=== PATIENT | male | born 1940 | race Caucasian/White ===

== ENCOUNTER 2016-05-09 15:03 | Inpatient (IN) | payer OTHER, MEDICARE ==
[~2016-05-09] VITALS: Ht 177.8 cm; Wt 96.9 kg
[2016-05-09] VITALS (12 sets, daily range): BP systolic 125–155; BP diastolic 69–97; PULSE 82–160; RESP 16–22; TEMP 97.9; O2SAT 86–98
[~2016-05-09 15:03] MED LIST: ALLO100T PO; ATOR20TA15 PO; BLOOD GLUCOSE M1 KIT; CALCCHW25 CHEW; CARD120C4 PO; CARD4TAB2 PO; CHOLCRY PO; FURO20TA PO; MAGN400T PO; METO-309 PO; OMEG100010 PO; PANT40TA3 PO; PRED20 PO; SODI1TAB PO; WALKER WHEELS/F1 MIS
--- NOTE | 2016-05-09 15:22 | PD ---
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 Patient states that he had been seen by his coat agent, Dr. Murphy, last week and had his Cardizem dose readjusted. He denies any chest pains, shortness of breath, or any other symptoms. Modifying Factors: None Associated Signs & Symptoms: Elevated heart rate Risk Factors: A. fib PFSH Past Medical History Hx Anticoagulant Therapy: Yes (ELIQUIS) Arthritis: Yes (BILATERAL KNEES, LEFT INDEX FINGER) Autoimmune Disease: No Blood Disorders: No Anxiety: No Depression: Yes ("SINCE EPISODE IN AUGUST") Heart Rhythm Problems: Yes (NEW ONSET ATRIAL FIBRILLATION THIS ADMISSION) Cancer: No Cardiovascular Problems: Yes High Cholesterol: Yes Chemotherapy: No Chest Pain: No Congestive Heart Failure: No Cerebrovascular Accident: Yes Diabetes: No Diminished Hearing: No Deep Vein Thrombosis: Yes (LEFT LEG) Endocrine: No Gastrointestinal Disorders: Yes GERD: Yes Gout: Yes Genitourinary: Yes Hypertension: Yes Immune Disorder: No Implanted Vascular Access Dvce: Yes Musculoskeletal: Yes Neurologic: Yes (TIA 09/2015) Psychiatric: Yes Reproductive: No Respiratory: No Migraines: No Seizures: Yes Thyroid Disease: Yes (FOUND GROWTH ON THYROID- APT FOR F/U 04/2016) Ulcer: Yes (GI BLEED 08/2015) PNEUMOCCOCAL Vaccine (Year): 1 ?: Not Past Surgical History Abdominal Surgery: Yes (APPENDECTOMY AT 1 OR 2 Y/O, IVC filter TO LEFT QUADRANT 08/2015) Appendectomy: Yes Arteriovenous Shunt: Yes (IVC FILTER LEFT QUADRANT) Body Medical Devices: R HIP TOTAL REPLACEMENT, PERMANENT IVC FILTER PLACED 2015 Cardiac Surgery: Yes (RIGHT CAROTID ENDARECTOMY 09/2015) Ear Surgery: No Endocrine Surgery: No Eye Surgery: Yes (CARARACT SX BOTH EYES) Genitourinary Surgery: Yes (PROSTATE CLEANING ) Gynecologic Surgery: No Hysterectomy: No Joint Replacement: Yes (RIGHT HIP) Neurologic Surgery: No Oral Surgery: Yes (TONSILLECTOMY & ANOID SURGERY AT 1 OR 2 Y/O) Thoracic Surgery: No Other Surgery: Yes Social History Alcohol Use: No Tobacco Use: No (FORMER-QUIT 1960) Substance Use: No Allergies-Medications (Allergen,Severity, Reaction): Coded Allergies: Prednisone (Verified Allergy, Mild, Itching, 03/29/16) PATIENT STATES BROKE OUT INTO HIVES ON ARM (USE HYDROCORTISONE CREAM FOR IT) ONE TIME A VERY LONG TIME AGO AND HAS BEEN ON IT SINCE WITHOUT ANY EVIDENCE OF REACTION. Reported Meds & Prescriptions Reported Meds & Active Scripts Active Walker with Front Wheels (Device) 1 Mis Mis 1 Ea .ROUTE DIRECTED Sodium Chloride 1 Gm Tab 1 Gm PO DAILY Furosemide 20 Mg Tab 20 Mg PO DAILY Lopressor (Metoprolol Tartrate) 50 Mg Tab 50 Mg PO Q8HR Cardura (Doxazosin Mesylate) 4 Mg Tab 4 Mg PO HS Cardizem CD 24 HR (Diltiazem CD 24 HR) 120 Mg Caper 360 Mg PO DAILY Blood Glucose Monitoring W/Device (Device) 1 Kit Kit 1 Kit .ROUTE DIRECTED Pantoprazole (Pantoprazole Sodium) 40 Mg Tab 40 Mg PO HS 7 Days Prednisone 20 Mg Tab 80 Mg PO DAILY 5 Days Reported Boston 3 1000 mg (Boston-3 Fatty Acids) 1 Cap Cap 3,000 Mg PO DAILY Magnesium Oxide 400 Mg Tab 400 Mg PO DAILY Cholecalciferol (Cholecalciferol (Bulk)) 1 Cry Cry 1,000 Units PO DAILY Calcium + D & K (Calcium-Vitamins D & K) 500-1,000-40 Mg-Unit-Mcg Chew 1 Tab CHEW DAILY Atorvastatin (Atorvastatin Calcium) 20 Mg Tab 20 Mg PO HS Allopurinol 100 Mg Tab 100 Mg PO DAILY Review of Systems Except as stated in HPI: all other systems reviewed are Neg Physical Exam Narrative GENERAL: Well-nourished, well-developed elderly white male patient in no acute distress. SKIN: Warm and dry. HEAD: Normocephalic. EYES: No scleral icterus. No injection or drainage. NECK: Supple, trachea midline. CARDIOVASCULAR: Fast and irregularly irregular. RESPIRATORY: Breath sounds equal bilaterally. No accessory muscle use. GASTROINTESTINAL: Abdomen soft, non-tender, nondistended. MUSCULOSKELETAL: No cyanosis. Bilateral pitting edema the legs. BACK: Nontender without obvious deformity. No CVA tenderness. Data Data Last Documented VS Vital Signs Date Time Temp Pulse Resp B/P Pulse Ox O2 Delivery O2 Flow Rate FiO2 05/09/16 16:02 138 20 132/96 92 Nasal Cannula 2 05/09/16 15:05 97.9 Orders Ecg Monitoring (05/09/16 15:16) Blood Pressure (05/09/16 15:16) Iv Access Insert/Monitor (05/09/16 15:16) Oximetry (05/09/16 15:16) Vital Signs (05/09/16 15:16) Diltiazem Inj (Cardizem Inj) (05/09/16 15:30) Diltiazem Inj (Cardizem Inj) (05/09/16 15:30) Sodium Chloride 0.9% Flush (Ns Flush) (05/09/16 15:30) Electrocardiogram (05/09/16 15:16) Basic Metabolic Panel (Bmp) (05/09/16 15:16) B-Type Natriuretic Peptide (05/09/16 15:16) Ckmb (Isoenzyme) Profile (05/09/16 15:16) Complete Blood Count With Diff (05/09/16 15:16) Magnesium (Mg) (05/09/16 15:16) Prothrombin Time / Inr (Pt) (05/09/16 15:16) Act Partial Throm Time (Ptt) (05/09/16 15:16) Troponin I (05/09/16 15:16) Chest, Single Ap (05/09/16 15:16) Bilateral Bp Monitoring (05/09/16 15:16) Oxygen Administration (05/09/16 15:16) Sodium Chloride 0.9% Flush (Ns Flush) (05/09/16 15:30) Furosemide Inj (Lasix Inj) (05/09/16 16:45) CKMB (05/09/16 15:30) CKMB% (05/09/16 15:30) Admit Order (Ed Use Only) (05/09/16 17:05) Consult Cardiology (05/09/16 ) Labs Laboratory Tests Test 05/09/16 15:30 White Blood Count 10.6 TH/MM3 Red Blood Count 3.66 MIL/MM3 Hemoglobin 10.8 GM/DL Hematocrit 31.6 % Mean Corpuscular Volume 86.4 FL Mean Corpuscular Hemoglobin 29.4 PG Mean Corpuscular Hemoglobin 34.1 % Concent Red Cell Distribution Width 14.6 % Platelet Count 38 TH/MM3 Mean Platelet Volume 8.4 FL Neutrophils (%) (Auto) 96.0 % Lymphocytes (%) (Auto) 2.4 % Monocytes (%) (Auto) 1.4 % Eosinophils (%) (Auto) 0.1 % Basophils (%) (Auto) 0.1 % Neutrophils # (Auto) 10.2 TH/MM3 Lymphocytes # (Auto) 0.3 TH/MM3 Monocytes # (Auto) 0.1 TH/MM3 Eosinophils # (Auto) 0.0 TH/MM3 Basophils # (Auto) 0.0 TH/MM3 CBC Comment AUTO DIFF Prothrombin Time 12.5 SEC Prothromb Time International 1.1 RATIO Ratio Activated Partial 25.0 SEC Thromboplast Time Sodium Level 135 MEQ/L Potassium Level 3.8 MEQ/L Chloride Level 98 MEQ/L Carbon Dioxide Level 29.6 MEQ/L Anion Gap 7 MEQ/L Blood Urea Nitrogen 24 MG/DL Creatinine 1.31 MG/DL Estimat Glomerular Filtration 53 ML/MIN Rate Random Glucose 208 MG/DL Calcium Level 8.1 MG/DL Magnesium Level 1.9 MG/DL Total Creatine Kinase 123 U/L Creatine Kinase MB 1.0 NG/ML Troponin I 0.06 NG/ML B-Type Natriuretic Peptide 412 PG/ML MDM Medical Decision Making Medical Screen Exam Complete: Yes Emergency Medical Condition: Yes Medical Record Reviewed: Yes Interpretation(s) EKG shows A. fib with RVR at a rate of 160 bpm Laboratory Tests Test 05/09/16 15:30 Red Blood Count 3.66 MIL/MM3 (4.50-5.90) Hemoglobin 10.8 GM/DL (13.0-17.0) Hematocrit 31.6 % (39.0-51.0) Platelet Count 38 TH/MM3 (150-450) Neutrophils (%) (Auto) 96.0 % (16.0-70.0) Lymphocytes (%) (Auto) 2.4 % (9.0-44.0) Neutrophils # (Auto) 10.2 TH/MM3 (1.8-7.7) Lymphocytes # (Auto) 0.3 TH/MM3 (1.0-4.8) Prothrombin Time 12.5 SEC (9.8-11.6) Sodium Level 135 MEQ/L (136-145) Blood Urea Nitrogen 24 MG/DL (7-18) Creatinine 1.31 MG/DL (0.60-1.30) Estimat Glomerular Filtration 53 ML/MIN (>89) Rate Random Glucose 208 MG/DL (74-106) Calcium Level 8.1 MG/DL (8.5-10.1) Troponin I 0.06 NG/ML (0.02-0.05) B-Type Natriuretic Peptide 412 PG/ML (0-100) Last 24 hours Impressions Chest X-Ray 05/09/16 1516 Signed Impressions: Service Date/Time: Monday, May 09, 2016 15:36 - CONCLUSION: Diffuse pulmonary vascular changes suggesting pulmonary vascular congestion without consolidating infiltrate. Anthony Murphy MD Differential Diagnosis Fast heart rate/A. fib with RVRrule out metabolic issues versus dehydration versus CHF Narrative Course Patient was initiated on Cardizem drip with improvement in heart rate on reevaluation at 4:30 PM to 120 bpm. Otherwise, BNP and chest x-ray indicates underlying CHF and Lasix was given in the ER. Lab work was otherwise unremarkable for significant metabolic issues. At this point, case was discussed with Dr. Murphy, patient's coat agent, and he states he would like the patient to be medically admitted. Case is discussed with [place] hospitalist Dr. Freeman for admission. Diagnosis Primary Impression: CHF (congestive heart failure) Additional Impression: Atrial fibrillation with RVR Admitting Information Admitting Physician Requests: Admit Marjorie Nagel MD May 09, 2016 15:22
[2016-05-09] MEDS ORDERED: SODIUM CHLORIDE 0.9% FLUSH 5 ML FLUSH IVF PRN ×2 (15:30)
[2016-05-09] MEDS ORDERED: DILTIAZEM HCL 25 MG/5 ML VIAL IV PUSH ONE (15:30)
[2016-05-09] MEDS: DILTIAZEM INJ 125 MG in SODIUM CHLORIDE 0.9% INJ 100 ML IV SCH (15:50)
--- NOTE | 2016-05-09 15:51 | RADRPT ---
EXAM DATE/TIME: 05/09/2016 15:36 [facility] COMPARISON: CHEST SINGLE AP, March 23, 2016, 7:51. INDICATIONS : Palpitations MEDICAL HISTORY : Hypertension. A-Fib SURGICAL HISTORY : None. ENCOUNTER: Initial ACUITY: 1 day PAIN SCORE: 0/10 LOCATION: chest FINDINGS: Patient has developed patchy bibasilar airspace disease and prominence of vascularity suspect to repr esenting pulmonary vascular congestion without consolidation. CONCLUSION: Diffuse pulmonary vascular changes suggesting pulmonary vascular congestion without consolidating inf iltrate. Anthony Murphy MD on May 09, 2016 at 15:49 Board Certified Radiologist. This report was verified electronically.
[2016-05-09 15:56] LABS: AUTOMATED NEUTROPHIL # 10.2 TH/MM3 (1.8-7.7); BASOPHIL % 0.1 % (0.0-2.0); EOSINOPHIL % 0.1 % (0.0-4.0); HEMATOCRIT 31.6 % (39.0-51.0); LYMPH % 2.4 % (9.0-44.0); LYMPHOCYTE # 0.3 TH/MM3 (1.0-4.8); MEAN CELL VOLUME 86.4 FL (80.0-100.0); MEAN CORPUSCULAR HEMOGLOBIN 29.4 PG (27.0-34.0); MEAN CORPUSCULAR HGB CONC 34.1 % (32.0-36.0); MONO % 1.4 % (0.0-8.0); PLATELET COUNT 38 TH/MM3 (150-450); RED BLOOD COUNT 3.66 MIL/MM3 (4.50-5.90); RED CELL DISTRIBUTION WIDTH 14.6 % (11.6-17.2); WHITE BLOOD COUNT 10.6 TH/MM3 (4.0-11.0)
[2016-05-09 15:58] LABS: HEMO FLAGS AUTO DIFF
[2016-05-09 15:59] LABS: INTERNATIONAL NORMALIZED RATIO 1.1 RATIO; PROTHROMBIN TIME - PATIENT 12.5 SEC (9.8-11.6)
[2016-05-09 16:32] LABS: ANION GAP 7 MEQ/L (5-15); BICARBONATE 29.6 MEQ/L (21.0-32.0); BLOOD UREA NITROGEN 24 MG/DL (7-18); CHLORIDE 98 MEQ/L (98-107); GLOMERULAR FILTRATION RATE 53 ML/MIN (>89); MAGNESIUM 1.9 MG/DL (1.5-2.5); POTASSIUM 3.8 MEQ/L (3.5-5.1); SODIUM (NA) 135 MEQ/L (136-145)
[2016-05-09 16:36] LABS: CREATINE KINASE 123 U/L (39-308)
[2016-05-09] MEDS ORDERED: FUROSEMIDE 40 MG/4 ML VIAL IV PUSH ONE (16:45)
[2016-05-09 17:08] LABS: BANDS 5 % (0-6); CORRECTED NUCLEATED RBC 1 /100 WBC (0-0); METAMYELOCYTES 2 % (0-1); MYELOCYTES 1 % (0-0); POLYS (SEG NEUTROPHILS) 86 % (16-70); WBC DIFF SAMPLE 100
[2016-05-09 17:09] LABS: TEARDROP RBCS 1+ (NORMAL)
[2016-05-09 17:10] LABS: ACANTHOCYTES OCC (NORMAL); PLATELET ESTIMATE SMEAR LOW (NORMAL); PLATELET MORPHOLOGY NORMAL (NORMAL); SCAN/DIFF FINAL DIFF MANUAL
--- NOTE | 2016-05-09 17:33 | HHI.HP ---
HPI Service [facility] Primary Care Physician Anthony Wick MD Admission Diagnosis A. fib with RVR/CHF exacerbation Diagnoses: Chief Complaint: A. fib RVR Travel History International Travel<30 Days: No Contact w/Intl Traveler <30 Da: No Traveled to Known Affected Are: No History of Present Illness This is a pleasant 75-year-old male patient with past medical history which includes Bilateral lower extremity DVTs, BPH, chronic renal failure, Elevated Anticardiolipin antibody level, Elevated homocysteine level, Gout, Hypertension , Hyponatremia, Immune Thrombocytopenic Purpura, Intracranial hemorrhage in 2016 , Bleeding duodenal ulcer and Ischemic stroke in 2016. Patient was sent to the emergency department today from his oncologist office after finding a rapid irregular heart rate. Patient had received 2 units of platelets prior to being sent to the emergency department. Patient reports he has A. Fibulation and has never really felt symptoms in the past. Patient denies chest pain or palpitations feeling lightheaded or dizzy. Patient does report this he noticed this morning when he was getting ready, " everything was a short." Patient reports he had to sit down and take breaks while getting ready which is unknown abnormal for him noticed he got short of breath more easily with exertion and overall tired feeling. Plan arrival to the emergency department patient noted to be in atrial fibrillation RVR. EKG reviewed by myself as well as Dr. Bingham atrial fibrillation rate 160 bpm Patient reports he feels as though he has phlegm stuck in his throat which is unable to cough up his benefit as day or so. Patient denies nausea vomiting diarrhea constipation fevers chills. Review of Systems Other All other systems reviewed and negative excepted as mentioned on HPI Past Family Social History Past Medical History Bilateral lower extremity DVTs BPH chronic renal failure Elevated Anticardiolipin antibody level Elevated homocysteine level Gout Hypertension Hyponatremia Immune Thrombocytopenic Purpura Intracranial hemorrhage in 2016 Bleeding duodenal ulcer Ischemic stroke in 2016 Past Surgical History Prostate biopsy Right hip placement Tonsillectomy Upper endoscopy Right carotid endarterectomy, patch angioplasty in 2016 Colonoscopy in 2016 IVC filter placement (2nd) in 2015 IVC filter removal in 2008 IVC filter placement in 2007 Vasectomy in 2008 Cataract removal in 2005 - 2003 Appendectomy in 1943 Reported Medications Sodium Chloride 1 Gm Tab 1 Gm PO DAILY Furosemide 20 Mg Tab 20 Mg PO DAILY Lopressor (Metoprolol Tartrate) 50 Mg Tab 50 Mg PO Q8HR Cardura (Doxazosin Mesylate) 4 Mg Tab 4 Mg PO HS Cardizem CD 24 HR (Diltiazem CD 24 HR) 120 Mg Caper 360 Mg PO DAILY Blood Glucose Monitoring W/Device (Device) 1 Kit Kit 1 Kit .ROUTE DIRECTED Pantoprazole (Pantoprazole Sodium) 40 Mg Tab 40 Mg PO HS 7 Days Prednisone 20 Mg Tab 80 Mg PO DAILY 5 Days Arion 3 1000 mg (Arion-3 Fatty Acids) 1 Cap Cap 3,000 Mg PO DAILY Magnesium Oxide 400 Mg Tab 400 Mg PO DAILY Cholecalciferol (Cholecalciferol (Bulk)) 1 Cry Cry 1,000 Units PO DAILY Calcium + D & K (Calcium-Vitamins D & K) 500-1,000-40 Mg-Unit-Mcg Chew 1 Tab CHEW DAILY Atorvastatin (Atorvastatin Calcium) 20 Mg Tab 20 Mg PO HS Allopurinol 100 Mg Tab 100 Mg PO DAILY Allergies: Coded Allergies: Prednisone (Verified Allergy, Mild, Itching, 03/29/16) PATIENT STATES BROKE OUT INTO HIVES ON ARM (USE HYDROCORTISONE CREAM FOR IT) ONE TIME A VERY LONG TIME AGO AND HAS BEEN ON IT SINCE WITHOUT ANY EVIDENCE OF REACTION. Active Ordered Medications Current Medications Medications (Trade) Dose Ordered Sig/Jeremy Route Start Time Stop Time Status Last Admin (Cardizem Inj/NS Inj) 125 ml @ 0 mls/hr TITRATE IV 05/09/16 15:30 05/09/16 15:50 (NS Flush) 2 ml UNSCH PRN IVF 05/09/16 15:30 (NS Flush) 2 ml UNSCH PRN IVF 05/09/16 15:30 (Deltasone) 30 mg DAILY PO 05/10/16 09:00 Family History Father secondary to [place] at 30 Social History EtOH rare 3-4 beers a month but has not had anything a past 2 months Remote tobacco use history quit in 1960 Denies illicit drug use Physical Exam Vital Signs Vital Signs Date Time Temp Pulse Resp B/P Pulse Ox O2 Delivery O2 Flow Rate FiO2 05/09/16 17:07 135 20 125/91 95 Nasal Cannula 2 05/09/16 16:02 138 20 132/96 92 Nasal Cannula 2 05/09/16 15:24 92 Nasal Cannula 2 05/09/16 15:24 92 Nasal Cannula 2 05/09/16 15:17 144 23 Nasal Cannula 2 05/09/16 15:13 150 20 125/69 88 05/09/16 15:05 97.9 160 20 151/96 86 Physical Exam GENERAL: This is an obese, well-developed patient, in no apparent distress. SKIN: No rashes, ecchymoses or lesions. Cool and dry. HEAD: Atraumatic. Normocephalic. No temporal or scalp tenderness. EYES: Extraocular motions intact. No scleral icterus. No injection or drainage. Growth on left lateral conjunctiva ENT: Nose without bleeding, purulent drainage or septal hematoma. Throat without erythema, tonsillar hypertrophy or exudate. Uvula midline. Airway patent. NECK: Trachea midline. No JVD or lymphadenopathy. Supple, nontender, no meningeal signs. CARDIOVASCULAR: Tachycardic irregularly irregular RESPIRATORY: Clear to auscultation. Breath sounds equal bilaterally. No wheezes , rales, or rhonchi. GASTROINTESTINAL: Abdomen soft, non-tender, nondistended. No hepato-splenomegaly , or palpable masses. No guarding. MUSCULOSKELETAL: Bilateral lower extremity left greater than right 2-3+ No calf tenderness. Negative Homans sign bilaterally. NEUROLOGICAL: Awake and alert. No focal deficits appreciated. Motor and sensory grossly within normal limits. Five out of 5 muscle strength in all muscle groups. Normal speech. Laboratory Laboratory Tests Test 05/09/16 15:30 White Blood Count 10.6 Red Blood Count 3.66 Hemoglobin 10.8 Hematocrit 31.6 Mean Corpuscular Volume 86.4 Mean Corpuscular Hemoglobin 29.4 Mean Corpuscular Hemoglobin 34.1 Concent Red Cell Distribution Width 14.6 Platelet Count 38 Mean Platelet Volume 8.4 Neutrophils (%) (Auto) 96.0 Lymphocytes (%) (Auto) 2.4 Monocytes (%) (Auto) 1.4 Eosinophils (%) (Auto) 0.1 Basophils (%) (Auto) 0.1 Neutrophils # (Auto) 10.2 Lymphocytes # (Auto) 0.3 Monocytes # (Auto) 0.1 Eosinophils # (Auto) 0.0 Basophils # (Auto) 0.0 CBC Comment AUTO DIFF Differential Total Cells 100 Counted Neutrophils % (Manual) 86 Band Neutrophils % 5 Lymphocytes % 4 Monocytes % 2 Neutrophils # (Manual) 10.0 Metamyelocytes 2 Myelocytes 1 Nucleated Red Blood Cells 1 Differential Comment FINAL DIFF MANUAL Platelet Estimate LOW Platelet Morphology Comment NORMAL Tear Drop Cells 1+ Acanthocytes OCC Prothrombin Time 12.5 Prothromb Time International 1.1 Ratio Activated Partial 25.0 Thromboplast Time Sodium Level 135 Potassium Level 3.8 Chloride Level 98 Carbon Dioxide Level 29.6 Anion Gap 7 Blood Urea Nitrogen 24 Creatinine 1.31 Estimat Glomerular Filtration 53 Rate Random Glucose 208 Calcium Level 8.1 Magnesium Level 1.9 Total Creatine Kinase 123 Creatine Kinase MB 1.0 Troponin I 0.06 B-Type Natriuretic Peptide 412 Result Diagram: 05/09/16 1530 05/09/16 1530 Imaging Last Impressions Chest X-Ray 05/09/16 1516 Signed Impressions: Service Date/Time: Monday, May 09, 2016 15:36 - CONCLUSION: Diffuse pulmonary vascular changes suggesting pulmonary vascular congestion without consolidating infiltrate. Anthony Murphy MD Assessment and Plan Assessment and Plan This is a pleasant 75-year-old male patient with past medical history which includes Bilateral lower extremity DVTs, BPH, chronic renal failure, Elevated Anticardiolipin antibody level, Elevated homocysteine level, Gout, Hypertension , Hyponatremia, Immune Thrombocytopenic Purpura, Intracranial hemorrhage in 2016 , Bleeding duodenal ulcer and Ischemic stroke in 2016. Patient was sent to the emergency department today from his oncologist office after finding a rapid irregular heart rate. EKG in the emergency room revealed atrial fibrillation with RVR rate 160 bpm. Atril fibrillation RVR Patient with known history of atrial fibrillation last echocardiogram done March 2016 showed EF of 55-60% Cardizem drip started in the emergency department with bolus- Continue Cardizem drip Continue Cardizem by mouth Continue with telemetry monitoring No anticoagulation at this point as patient is followed by Dr. Armenta Consult Dr. Armenta for assistance with anticoagulation and management of elevated anticardiolipin antibody and ITP Consult Dr. Dany Murphy patient is known to him We'll check serial cardiac enzymes Titrate oxygen to maintain saturation above 92% ITP- with platelets of 38, elevated anticardiolipin antibody, history of ischemic stroke and intracranial hemorrhage Anticoagulation management per Dr. Armenta Hypertension continue metoprolol Hyperlipidemia continue atorvastatin BPH with history of urinary retention continue Curdura SCDs for DVT prophylaxis at this time Discussed with ER provider, RN patient and family member at bedside Written by Lidya Mcmahan, acting as scribe for Dr. Freeman on 05/09/16 at 17:59. The documentation accurately reflects the work performed [id number] by me on at 1759. Physician Certification 2 Midnight Certification Type: Admission for Inpatient Services Order for Inpatient Services The services are ordered in accordance with Medicare regulations or non- Medicare payer requirements, as applicable. In the case of services not specified as inpatient-only, they are appropriately provided as inpatient services in accordance with the 2-midnight benchmark. Estimated LOS (days): 3 days is the estimated time the patient will need to remain in the hospital, assuming treatment plan goals are met and no additional complications. Post-Hospital Plan: Home Lidya Mcmahan May 09, 2016 17:33 Gerald Freeman MD May 09, 2016 18:46
[2016-05-09] MEDS ORDERED: NALOXONE HCL 0.4 MG/ML AMP IV PRN (18:00)
[2016-05-09] MEDS ORDERED: ONDANSETRON HCL 4 MG/2 ML VIAL IVP PRN (18:00)
[2016-05-09] MEDS ORDERED: SODIUM CHLORIDE 0.9% FLUSH 5 ML FLUSH FLUSH PRN (18:00)
[2016-05-09] MEDS ORDERED: MAGNESIUM HYDROXIDE SUSP 30 ML CUP PO PRN (18:00)
[2016-05-09] MEDS ORDERED: ATORVASTATIN 20 MG TAB PO SCH (21:00)
[2016-05-09] MEDS: SODIUM CHLORIDE 0.9% FLUSH 5 ML FLUSH FLUSH SCH (21:00)
[2016-05-09] MEDS: PANTOPRAZOLE SOD 40 MG DELAYED RELEASE TAB PO SCH (21:24)
[2016-05-09] MEDS: DOXAZOSIN MESYLATE 4 MG TAB PO SCH (21:24)
[2016-05-09] MEDS: DILTIAZEM HCL 30 MG TAB PO SCH (21:27)
[2016-05-09] MEDS: METOPROLOL TARTRATE 50 MG TAB PO SCH (21:52)
[2016-05-10] VITALS (23 sets, daily range): BP systolic 105–150; BP diastolic 68–94; PULSE 59–136; RESP 16–18; TEMP 96.5–98.9; O2SAT 83–99
[2016-05-10] MEDS: DILTIAZEM INJ 125 MG in SODIUM CHLORIDE 0.9% INJ 100 ML IV SCH (01:06)
[2016-05-10 04:00] LABS: AUTOMATED NEUTROPHIL # 6.8 TH/MM3 (1.8-7.7); BASOPHIL % 0.1 % (0.0-2.0); EOSINOPHIL % 0.1 % (0.0-4.0); HEMATOCRIT 28.9 % (39.0-51.0); LYMPH % 6.6 % (9.0-44.0); LYMPHOCYTE # 0.5 TH/MM3 (1.0-4.8); MEAN CELL VOLUME 85.7 FL (80.0-100.0); MEAN CORPUSCULAR HEMOGLOBIN 29.6 PG (27.0-34.0); MEAN CORPUSCULAR HGB CONC 34.5 % (32.0-36.0); MONO % 2.5 % (0.0-8.0); NEUT % 90.7 % (16.0-70.0); RED BLOOD COUNT 3.37 MIL/MM3 (4.50-5.90); RED CELL DISTRIBUTION WIDTH 14.6 % (11.6-17.2); WHITE BLOOD COUNT 7.4 TH/MM3 (4.0-11.0)
[2016-05-10 04:18] LABS: BICARBONATE 30.8 MEQ/L (21.0-32.0); POTASSIUM 3.4 MEQ/L (3.5-5.1)
[2016-05-10 04:25] LABS: HEMO FLAGS AUTO DIFF
[2016-05-10 04:33] LABS: PLATELET COUNT 6 TH/MM3 (150-450)
[2016-05-10] MEDS ORDERED: POTASSIUM CL 40 MEQ/30 ML LIQ UDC PO ONE ×2 (05:00→21:00)
[2016-05-10] MEDS ORDERED: SODIUM CHLOR 0.9% 250 ML INJ 250 ML IV ONE ×3 (05:00→22:45)
[2016-05-10] MEDS: METOPROLOL TARTRATE 50 MG TAB PO SCH ×3 (06:27→22:00)
[2016-05-10] MEDS ORDERED: IMMUNE GLOBULIN INJ 80 GM in SYRINGE/BAG 1 EA IV SCH (08:00)
[2016-05-10 08:02] LABS: BANDS 4 % (0-6); NEUTROPHIL # MANUAL DIFF 6.3 TH/MM3 (1.8-7.7); POLYS (SEG NEUTROPHILS) 81 % (16-70); WBC DIFF SAMPLE 100
[2016-05-10 08:06] LABS: PLATELET ESTIMATE SMEAR RARE (NORMAL); PLATELET MORPHOLOGY NORMAL (NORMAL); POLYCHROMASIA 2.1 % (0.0-1.9); SCAN/DIFF FINAL DIFF MANUAL
--- NOTE | 2016-05-10 08:08 | HHI.PR ---
Subjective Remarks Follow up a-fib with RVR, ITP. The patient states that he feels good today. Denies chest pain, dyspnea, visual changes. Objective Vitals Vital Signs Date Time Temp Pulse Resp B/P Pulse Ox O2 Delivery O2 Flow Rate FiO2 05/10/16 07:17 91 05/10/16 07:15 97.9 110 16 125/86 05/10/16 06:46 110 140/87 05/10/16 04:24 98.9 67 16 112/78 98 05/10/16 02:05 98.1 73 16 109/76 99 05/10/16 02:00 72 05/10/16 01:00 77 05/10/16 00:00 77 05/09/16 23:00 114 05/09/16 22:15 97.9 82 16 155/95 98 05/09/16 21:43 103 20 147/87 93 Nasal Cannula 2 05/09/16 19:20 93 Nasal Cannula 2.00 05/09/16 19:17 126 22 139/97 92 Nasal Cannula 2 05/09/16 19:10 131 22 139/97 92 Nasal Cannula 2 05/09/16 17:49 138 20 140/92 93 Nasal Cannula 2 05/09/16 17:07 135 20 125/91 95 Nasal Cannula 2 05/09/16 16:02 138 20 132/96 92 Nasal Cannula 2 05/09/16 15:24 92 Nasal Cannula 2 05/09/16 15:24 92 Nasal Cannula 2 05/09/16 15:17 144 23 Nasal Cannula 2 05/09/16 15:13 150 20 125/69 88 05/09/16 15:05 97.9 160 20 151/96 86 I/O 05/09/16 05/09/16 05/09/16 05/10/16 05/10/16 05/10/16 07:00 15:00 23:00 07:00 15:00 23:00 Intake Total 360 ml Output Total 475 ml Balance -115 ml Intake Oral 240 ml IV Total 120 ml Output Urine Total 475 ml Result Diagram: 05/10/1630405/10/16304 Imaging Last Impressions Chest X-Ray 05/09/16 1516 Signed Impressions: Service Date/Time: Monday, May 09, 2016 15:36 - CONCLUSION: Diffuse pulmonary vascular changes suggesting pulmonary vascular congestion without consolidating infiltrate. Anthony Murphy MD Objective Remarks General: No acute distress. Heart: Irregular rhythm. No murmur. Lungs: Clear to auscultation bilaterally. No wheezes, rales, or rhonchi. Breathing is nonlabored. Abdomen: Soft, nontender, nondistended. Extremities: No lower extremity edema. Psych: Alert and oriented. Procedures None Urinary Catheter: No Vascular Central Line Catheter: No A/P Problem List: (1) Atrial fibrillation with RVR ICD Code: I48.91 Status: Acute (2) Acute on chronic kidney disease, stage 3 ICD Code: N18.3 Status: Acute (3) Thrombocytopenia ICD Code: D69.6 Status: Chronic (4) Chronic ITP (idiopathic thrombocytopenia) ICD Code: D69.3 Status: Chronic Assessment and Plan 1. Atrial fibrillation with RVR: On Cardizem drip. Continue oral Cardizem and wean off drip if possible. Monitor on telemetry. Cardiology consultation pending. Serial troponin is stable at 0.06. Not on anticoagulation secondary to thrombocytopenia. 2. ITP: Platelets decreased significantly this morning. Hematology consulted. Platelet transfusion ordered. Immune globulin ordered. Discussed with Dr. Armenta. 3. Hypertension: Continue metoprolol, diltiazem. 4. Hyperlipidemia: Continue statin. 5. BPH with history of urinary retention: Continue Cardura. 6. DVT prophylaxis: SCDs. Avoid chemical prophylaxis secondary to thrombocytopenia. Gerald Freeman MD May 10, 2016 08:08
[2016-05-10] MEDS ORDERED: diphenhydrAMINE HCL 25 MG CAP PO ONE (08:30)
[2016-05-10] MEDS ORDERED: ACETAMINOPHEN 325 MG TAB PO ONE (08:30)
[2016-05-10] MEDS ORDERED: NS 500 ML Pre-hydration IV SCH (08:45)
[2016-05-10] MEDS ORDERED: D5W as prime bag (IVIG as secondary) IV SCH (08:45)
[2016-05-10] MEDS ORDERED: DIPHENHYDRAMINE HCL 50 MG/ML VIAL Reaction Med IV PUSH PRN (08:45)
[2016-05-10] MEDS ORDERED: EPINEPHRINE HCL (1:1000) 1 MG/ML AMP Reaction Med OTHER PRN (08:45)
[2016-05-10] MEDS: SODIUM CHLORIDE 1 GRAM TAB PO SCH (08:47)
[2016-05-10] MEDS: CALCIUM/VITAMIN D 250 MG/125 U TAB PO SCH (08:47)
[2016-05-10] MEDS: DILTIAZEM HCL 30 MG TAB PO SCH (08:47)
[2016-05-10] MEDS: MAGNESIUM OXIDE 400 MG TAB PO SCH (08:47)
[2016-05-10] MEDS: SODIUM CHLORIDE 0.9% FLUSH 5 ML FLUSH FLUSH SCH ×2 (08:47→20:56)
[2016-05-10] MEDS: predniSONE 10 MG TAB PO SCH (08:48)
[2016-05-10] MEDS ORDERED: FUROSEMIDE 20 MG TAB PO SCH (09:00)
[2016-05-10] MEDS ORDERED: DILTIAZEM-CD 120 MG CAP ER PO SCH (09:00)
--- NOTE | 2016-05-10 09:32 | MB ---
cc: LILIANA QUINTANILLA DATE OF CONSULTATION: 05/09/2016 DATE OF : 1940 REASON FOR CONSULTATION Atrial fibrillation with RVR. HISTORY OF PRESENT ILLNESS 75-year-old male with past medical history significant for chronic a fibrillation, thrombocytopenia, hypertension, intracranial hemorrhage, bleeding duodenal ulcer and BPH that was referred to the hospital by hematology/oncology after being found to be in atrial fibrillation with a fast ventricular response. He reports that he has been in his usual state of health, compliant with all his medications, and that for the last two days he has been feeling some lightheadedness when walking associated with mild shortness of breath. His medications were recently optimized for atrial fibrillation. He was doing very good. I saw him in the office one week ago and the patient was in very good physical health. In the emergency department he was found to be in atrial fibrillation with RVR, heart rate in the 160s, hemodynamically stable and without any complaints. Before getting to the emergency department he got a transfusion of platelets in Dr. Armenta's office. REVIEW OF SYSTEMS Negative except for what is mentioned in the HPI. PAST MEDICAL HISTORY 1. Hypertension. 2. Gout. 3. BPH. 4. Bilateral lower extremity DVT. 5. Chronic renal insufficiency. 6. Hyponatremia. 7. ITP. 8. Intracranial hemorrhage. 9. Bleeding duodenal ulcer. 10.Ischemic stroke. PAST SURGICAL HISTORY 1. Prostate biopsy. 2. Right hip replacement. 3. Tonsillectomy. 4. Upper endoscopy. 5. IVC filter placement and removal. 6. Right carotid endarterectomy. 7. Appendectomy. 8. Cataract removal. FAMILY HISTORY Noncontributory. SOCIAL HISTORY He denies alcohol, smoking or illicit drug use. ALLERGIES No known drug allergies. MEDICATIONS Cardiac home medications: 1. Lipitor 20 mg p.o. daily. 2. Diltiazem CD 360 mg p.o. daily. 3. Lasix 20 mg p.o. daily. 4. Metoprolol 50 mg p.o. q.8h. PHYSICAL EXAMINATION VITAL SIGNS: Temperature 97.9, heart rate 138, respiratory rate 20, blood pressure 140/90. O2 sats 93% on two liters nasal cannula. GENERAL: He is alert, awake, oriented x3, in no acute distress sitting in bed with son at the bedside. NECK: No JVD. No carotid bruits. HEART: Irregularly irregular. No murmurs, rubs or gallops. LUNGS: Clear to auscultation bilaterally. ABDOMEN: Obese. Positive bowel sounds. Benign. EXTREMITIES: No cyanosis. No edema. Pulses throughout. LABORATORY DATA Sodium 135, potassium 3.8, BUN 24, creatinine 1.3. Troponin 0.06. BNP 412. Hemoglobin 10, hematocrit 31, platelet count 38. INR 1.1. IMAGING Chest x-ray: Diffuse pulmonary vascular changes suggesting vascular congestion. EKG EKG: Atrial fibrillation with rapid ventricular response and nonspecific ST changes. ECHOCARDIOGRAM Echocardiogram done on March 29, 2016 shows an EF of 60% with no wall motion abnormalities. ASSESSMENT A 75-year-old male with above history and findings, admitted with mild symptoms of heart failure as well as atrial fibrillation with rapid ventricular response. He remains fairly hemodynamically stable. He is compliant at home with medications. He has been recently getting therapy for ITP with IV IgG, prednisone and transfusion of platelets. Unfortunately, given his thrombocytopenia and history of GI bleeding he is not an oral anticoagulation candidate, thus will attempt for rate control for now. RECOMMENDATIONS 1. Start a Cardizem drip. 2. Admit to the telemetry unit. 3. Continue Cardizem p.o. as well as his other home medications. Thank you for the opportunity to take part in the care of this patient. Will follow-up with you. MD MIKE Escobar/BT /6:17 PM /9:16 AM COLTEN
--- NOTE | 2016-05-10 10:06 | PD.CARD.PN ---
Subjective Subjective Remarks Rate better controlled on Cardizem drip No complaints or overnight events Objective Medications Current Medications Medications (Trade) Dose Ordered Sig/Jeremy Route Start Time Stop Time Status Last Admin (Cardizem Inj/NS Inj) 125 ml @ 0 mls/hr TITRATE IV 05/09/16 15:30 05/10/16 01:06 (Deltasone) 30 mg DAILY PO 05/10/16 09:00 05/10/16 08:48 (NS Flush) 2 ml UNSCH PRN FLUSH 05/09/16 18:00 (NS Flush) 2 ml BID FLUSH 05/09/16 21:00 05/09/16 21:00 (Tylenol) 650 mg Q4H PRN PO 05/09/16 18:00 (Zofran Inj) 4 mg Q6H PRN IVP 05/09/16 18:00 (Milk Of Magnesia Liq) 30 ml Q12H PRN PO 05/09/16 18:00 (Narcan Inj) 0.4 mg UNSCH PRN IV 05/09/16 18:00 (Lipitor) 20 mg HS PO 05/09/16 21:00 05/09/16 21:25 (Cardura) 4 mg HS PO 05/09/16 21:00 05/09/16 21:24 (Lasix) 20 mg DAILY PO 05/10/16 09:00 05/10/16 08:47 (Lopressor) 50 mg Q8HR PO 05/09/16 22:00 05/10/16 06:27 (Protonix) 40 mg HS PO 05/09/16 21:00 05/09/16 21:24 (Sodium Chloride) 1 gm DAILY PO 05/10/16 09:00 05/10/16 08:47 (Oscal-D 250-125) 250 mg DAILY PO 05/10/16 09:00 05/10/16 08:47 (Mag-Ox) 400 mg DAILY PO 05/10/16 09:00 05/10/16 08:47 Diltiazem HCl 30 mg 30 mg QID PO 05/09/16 21:00 05/10/16 08:47 Sodium Chloride 250 ml @ 15 mls/hr ONCE ONCE IV 05/10/16 05:00 05/10/16 21:39 05/10/16 06:33 Immune Globulin 80 gm/Syringe / Bag 800 ml @ 100 mls/hr ONCE IV 05/10/16 08:00 05/10/16 15:59 05/10/16 08:41 (D5W 500 ml Inj) 500 ml @ 30 mls/hr Q24H IV 05/10/16 08:45 05/11/16 01:24 05/10/16 08:44 (Benadryl Inj) 50 mg UNSCH PRN IV PUSH 05/10/16 08:45 05/11/16 08:44 (Adrenalin (1:1000) Inj) 0.3 mg Q10M PRN OTHER 05/10/16 08:45 05/11/16 08:44 Vital Signs / I&O Vital Signs Date Time Temp Pulse Resp B/P Pulse Ox O2 Delivery O2 Flow Rate FiO2 05/10/16 07:17 91 05/10/16 07:15 97.9 110 16 125/86 05/10/16 06:46 110 140/87 05/10/16 04:24 98.9 67 16 112/78 98 05/10/16 02:05 98.1 73 16 109/76 99 05/10/16 02:00 72 05/10/16 01:00 77 05/10/16 00:00 77 05/09/16 23:00 114 05/09/16 22:15 97.9 82 16 155/95 98 05/09/16 21:43 103 20 147/87 93 Nasal Cannula 2 05/09/16 19:20 93 Nasal Cannula 2.00 05/09/16 19:17 126 22 139/97 92 Nasal Cannula 2 05/09/16 19:10 131 22 139/97 92 Nasal Cannula 2 05/09/16 17:49 138 20 140/92 93 Nasal Cannula 2 05/09/16 17:07 135 20 125/91 95 Nasal Cannula 2 05/09/16 16:02 138 20 132/96 92 Nasal Cannula 2 05/09/16 15:24 92 Nasal Cannula 2 05/09/16 15:24 92 Nasal Cannula 2 05/09/16 15:17 144 23 Nasal Cannula 2 05/09/16 15:13 150 20 125/69 88 05/09/16 15:05 97.9 160 20 151/96 86 I/O 05/09/16 05/09/16 05/09/16 05/10/16/28/17 1/28/17 07:00 15:00 23:00 07:00 15:00 23:00 Intake Total 360 ml Output Total 475 ml Balance -115 ml Intake Oral 240 ml IV Total 120 ml Output Urine Total 475 ml Physical Exam GENERAL: Well-nourished, well-developed patient. SKIN: Warm and dry. HEAD: Normocephalic. EYES: No scleral icterus. No injection or drainage. NECK: Supple, trachea midline. No JVD or lymphadenopathy. CARDIOVASCULAR: Irr Irr without murmurs, gallops, or rubs. RESPIRATORY: Breath sounds equal bilaterally. No accessory muscle use. GASTROINTESTINAL: Abdomen soft, non-tender, nondistended. EXTREMITIES: No cyanosis, or edema. NEUROLOGICAL: Awake, alert, and oriented x 3. Non-focal. Laboratory Laboratory Tests Test 05/09/16 05/09/16 05/10/16 05/10/16 15:30 21:47 03:05 05:32 White Blood Count 10.6 TH/MM3 7.4 TH/MM3 Red Blood Count 3.66 MIL/MM3 3.37 MIL/MM3 Hemoglobin 10.8 GM/DL 9.9 GM/DL Hematocrit 31.6 % 28.9 % Mean Corpuscular Volume 86.4 FL 85.7 FL Mean Corpuscular Hemoglobin 29.4 PG 29.6 PG Mean Corpuscular Hemoglobin 34.1 % 34.5 % Concent Red Cell Distribution Width 14.6 % 14.6 % Platelet Count 38 TH/MM3 6 TH/MM3 Mean Platelet Volume 8.4 FL 9.6 FL Neutrophils (%) (Auto) 96.0 % 90.7 % Lymphocytes (%) (Auto) 2.4 % 6.6 % Monocytes (%) (Auto) 1.4 % 2.5 % Eosinophils (%) (Auto) 0.1 % 0.1 % Basophils (%) (Auto) 0.1 % 0.1 % Neutrophils # (Auto) 10.2 TH/MM3 6.8 TH/MM3 Lymphocytes # (Auto) 0.3 TH/MM3 0.5 TH/MM3 Monocytes # (Auto) 0.1 TH/MM3 0.2 TH/MM3 Eosinophils # (Auto) 0.0 TH/MM3 0.0 TH/MM3 Basophils # (Auto) 0.0 TH/MM3 0.0 TH/MM3 CBC Comment AUTO DIFF AUTO DIFF Differential Total Cells 100 100 Counted Neutrophils % (Manual) 86 % 81 % Band Neutrophils % 5 % 4 % Lymphocytes % 4 % 14 % Monocytes % 2 % 1 % Neutrophils # (Manual) 10.0 TH/MM3 6.3 TH/MM3 Metamyelocytes 2 % Myelocytes 1 % Nucleated Red Blood Cells 1 /100 WBC Differential Comment FINAL DIFF FINAL DIFF MANUAL MANUAL Platelet Estimate LOW RARE Platelet Morphology Comment NORMAL NORMAL Tear Drop Cells 1+ Acanthocytes OCC Prothrombin Time 12.5 SEC Prothromb Time International 1.1 RATIO Ratio Activated Partial 25.0 SEC Thromboplast Time Sodium Level 135 MEQ/L 138 MEQ/L Potassium Level 3.8 MEQ/L 3.4 MEQ/L Chloride Level 98 MEQ/L 101 MEQ/L Carbon Dioxide Level 29.6 MEQ/L 30.8 MEQ/L Anion Gap 7 MEQ/L 6 MEQ/L Blood Urea Nitrogen 24 MG/DL 27 MG/DL Creatinine 1.31 MG/DL 1.22 MG/DL Estimat Glomerular Filtration 53 ML/MIN 58 ML/MIN Rate Random Glucose 208 MG/DL 112 MG/DL Calcium Level 8.1 MG/DL 8.1 MG/DL Magnesium Level 1.9 MG/DL Total Creatine Kinase 123 U/L 87 U/L 73 U/L Creatine Kinase MB 1.0 NG/ML Troponin I 0.06 NG/ML 0.06 NG/ML 0.06 NG/ML B-Type Natriuretic Peptide 412 PG/ML Polychromasia 2.1 % Blood Bank Comment Test 05/10/16 05:56 Blood Type A POSITIVE Antibody Screen NEGATIVE Assessment and Plan Problem List: (1) Atrial fibrillation with RVR Assessment and Plan: Wean dilt drip as tolerated and transition to PO meds Off OAC due to severer ITP Severe ITP unresolved with IgG. Appreciate Heme/Onc recs. d/c Statin ? thrombocytopenia (2) Chronic ITP (idiopathic thrombocytopenia) (3) Warfarin-induced coagulopathy Dany Salinas MD May 10, 2016 10:06
--- NOTE | 2016-05-10 12:29 | EKG ---
Date Performed: 05/09/2016 Time Performed: 15:13:36 PTAGE: 75 years EKG: ATRIAL FIBRILLATION WITH RAPID VENTRICULAR RESPONSE RIGHT BUNDLE BRANCH BLOCK ABNORMAL ECG PREVIOUS TRACING : 04/01/2016 08.33 Compared to prior tracing no significant change DOCTOR: Fuad Cuevas Interpretating Date/Time 05/10/2016 12:27:31
[2016-05-10] MEDS: DILTIAZEM HCL 60 MG TAB PO SCH ×3 (12:59→20:55)
--- NOTE | 2016-05-10 13:02 | MB ---
cc: MARIA G QUAN MD COX-ALOMAR, PEDRO JACKSON, JON DATE OF CONSULTATION 05/10/2016 HEMATOLOGY/ONCOLOGY CONSULTATION DATE OF 1940 REASON FOR CONSULTATION 1. Acute exacerbation of ITP. 2. The patient also with atrial fibrillation with rapid ventricular response. CHIEF COMPLAINT Mr. Trevino was advised to come into the emergency department yesterday when he was found at my clinic to have a heart rate ranging between 150 and 160 beats per minute, he was noted to be in atrial fibrillation with RVR. He reported subjectively feeling short of breath with minimal ambulation. He had also been reporting symptoms of easy bruising. The patient earlier this week was noted to have a platelet count of 6000 on outpatient blood work. He underwent IVIG infusion on 05/08/2016 at my clinic followed by a platelet transfusion at the outpatient clinic on 05/09/2016. HISTORY OF PRESENT ILLNESS Mr. Trevino is a very pleasant 75-year-old male who is known to me from previous outpatient and inpatient encounters. Mr. Trevino in March of 2016 developed numbness and tingling of his left upper extremity and left lower extremity. He presents to the emergency department for further workup and evaluation and was noted to have had a subarachnoid hemorrhage which was described as minimal. He at that time was noted to have a platelet count in the 30,000 range, he had been on anticoagulation with Eliquis for management of a-fib as well as a history of ischemic stroke; his ischemic stroke was in the early summer of 2015. The patient had been undergoing outpatient evaluation and workup as well as management for ITP. He was assessed to have ITP in March when he presented with platelet count of less than 40,000. His ITP is refractory to corticosteroids. He does seem to respond very well to IVIG which seems to be a good response in the short-term but short-lived. He was advised to come to the emergency department for management of a-fib with RVR as well as acute exacerbation of ITP. This morning his heart rate is better controlled and ranges between 60 and 80 beats per minute. He remains in atrial fibrillation. This morning's platelet count dropped down from 38,000 on 05/09/2016 down to 6000. PAST MEDICAL HISTORY 1. Bilateral lower extremity deep venous thromboses. 2. Benign prosthetic hypertrophy. 3. Chronic kidney disease and (stage 2). 4. History of elevated anticardiolipin antibody. 5. Elevated homocystine level. 6. Gout. 7. Hypertension. 8. Hyponatremia. 9. Remote history of tobaccoism. 10. ITP. 11. Intracranial hemorrhage in March of 2016. 12. Bleeding duodenal ulcer which was cauterized in August of 2015. 13. Ischemic stroke in August of 2015. PAST SURGICAL HISTORY 1. Prostate biopsy. 2. Right total hip replacement. 3. Tonsillectomy. 4. Upper endoscopy. 5. Right carotid endarterectomy with patch angioplasty in I believe August of 2015. 6. Colonoscopy. 7. IVC filter placement in 2007, this was removed in 2008. He had a second filter placed in 2015. 8. Vasectomy. 9. Appendectomy. 10. Cataract removal. ALLERGIES NO KNOWN DRUG ALLERGIES. FAMILY HISTORY Father at the age of 32 from complications of alcoholism. Mom at the age of 90. Brother is living with prostate cancer. SOCIAL HISTORY The patient is a , he lives at home alone. 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 He has a daughter who lives nearby and is involved in his care. He was a former smoker but quit smoking in 196 and only smoked about 5 years. He previously was an occasional drinker. CURRENT INPATIENT MEDICATIONS 1. Prednisone 30 milligrams p.o. daily. 2. Lasix 20 milligrams p.o. daily. 3. Sodium chloride 1 gram tablet daily. 4. Calcium plus vitamin D 250 milligrams p.o. daily. 5. Magnesium oxide 400 milligrams daily. 6. IVIG 1 gm/kg x1. 7. Metoprolol 50 milligrams p.o. q. 8 hours. 8. Atorvastatin 20 milligrams p.o. q.h.s. 9. Doxazosin 4 milligrams p.o. q.h.s. 10. Pantoprazole 40 micrograms p.o. q. H.s. 11. Diltiazem 30 milligrams p.o. q.i.d. 12. Zofran 4 milligrams IV q.6 hours as needed for tachycardia. 13. Diltiazem IV infusion which is presently on hold. REVIEW OF SYSTEMS 13-point patient completed review of systems was obtained. The following are the pertinent positives and negatives: CONSTITUTIONAL: The patient reports having exertional dyspnea, fatigue but denies fevers, chills, night sweats. HEENT: Denies headaches, blurry vision, nosebleeds, bleeding from the gums. RESPIRATORY: Denies cough, hemoptysis, does report exertional dyspnea, denies pleuritic chest pain. CARDIOVASCULAR: Reports palpitations, reports chronic lower extremity swelling. Denies angina-like chest pain, PND, orthopnea. GI: Denies nausea, vomiting, diarrhea, hematochezia, melena. He denies abdominal distension or jaundice. : Denies dysuria, hematuria, urinary incontinence. LOWER EXTREMITIES: Chronic lower extremity edema. Denies calf tenderness. TOOL TECHNICIAN: No focal, sensory motor deficits. PHYSICAL EXAMINATION VITAL SIGNS: Temperature 97.9 degrees Fahrenheit, heart rate 110, respiratory rate 16, blood pressure 125/86, O2 sats 91% on 2 liters nasal cannula. GENERAL PHYSICAL APPEARANCE: Mr. Trevino is a pleasant 75-year-old male who appears to be cushingoid, he is elderly and heavy-set. He is not acutely distressed. HEENT: Head atraumatic, normocephalic, conjunctive are mildly pale. Sclerae are anicteric, EOMI, PERRLA, oral exam no pharyngeal erythema. Neck exam no palpable cervical or supraclavicular lymphadenopathy. RESPIRATORY: Good air movement bilaterally. No added breath sounds, decreased bibasilar air entry. CARDIOVASCULAR: Irregular rhythm, S1-S2. No obvious murmurs, rubs or gallops. ABDOMINAL EXAM: Obese belly, soft and nontender. No palpable organ enlargement, specifically no splenomegaly. EXTREMITIES: Trace pretibial edema. No calf tenderness. SKIN: Bruises noted over the upper and lower extremities, he has no active bleeding. Most of the bruises are less than 2 inches. TOOL TECHNICIAN: No focal, sensory or motor deficits. MUSCULOSKELETAL: Good muscle mass, tone and strength. LABORATORY FINDINGS Dated 05/10/2016: WBC count 7.4, hemoglobin 9.9 gm/dl, hematocrit 29%, platelet count 6, MCV 85.7, absolute neutrophil count 6.8. Chemistries: Sodium 138, potassium 3.4, chloride 101, bicarbonate 30.8, BUN 27, creatinine 1.22, random glucose 112, calcium 8.1. Troponin 0.06. Coags dated 05/09/2016: PT 12.5, INR 1.1, PTT 25. IMAGING STUDIES Chest x-ray dated 05/09/2016: 1. Diffuse pulmonary vascular changes suggestive of pulmonary vascular congestion without consolidation or infiltrates. ASSESSMENT Mr. Trevino is a 75-year-old male with multiple medical comorbid conditions. He presents to the hospital for management of atrial fibrillation with rapid ventricular response (ventricular rate was noted to be between 140 and 160 beats per minute in my outpatient clinic), he also is in the midst of ITP with acute exacerbation with platelet counts of less than 10,000. The patient had been on outpatient management with corticosteroids to which she is now refractory as well as rescue therapy with IVIG. Mr. Trevino' history of ITP dates back to March of 2016 when he presented with a critically low platelet count in the setting of an intracranial hemorrhage and he had at that time also been on anticoagulation for management of his atrial fibrillation and ischemic stroke which dated back to August of 2015. He has not been on anticoagulation since his intracranial hemorrhage and acute illness in March of 2016. We have been trying to manage and cope with his thrombocytopenia. At the time of admission his platelet count was noted to be approximately 40,000, he had received IVIG the day prior. Over the course of last night his platelet counts dropped down again and were noted to be 6000 this morning. He has already been transfused 1 unit of platelets this morning. Additionally, he is awaiting a repeat dose of IVIG. RECOMMENDATIONS 1. Acute exacerbation of ITP: He is refractory to corticosteroids. I will repeat a dose of IVIG today, repeat platelet count and CBC has been [facility]. Should his platelet count respond to a good extent he may not require additional dose of IVIG. He will, however, be a candidate for second line treatment with rituximab. This would ideally be delivered in the outpatient setting. I am awaiting authorization from his insurance company to deliver this treatment in the outpatient setting. 2. Atrial fibrillation with rapid ventricular response: He seems to have responded well to current treatment of diltiazem and metoprolol. I suspect tapering down his prednisone dose will also help control his rapid ventricular response. The hematology service will continue following with you. MD Selene McgeeL/ANA /8:36 AM /12:30 PM
[2016-05-10 19:48] LABS: AUTOMATED NEUTROPHIL # 6.5 TH/MM3 (1.8-7.7); BASOPHIL % 0.2 % (0.0-2.0); HEMATOCRIT 28.6 % (39.0-51.0); LYMPH % 2.8 % (9.0-44.0); LYMPHOCYTE # 0.2 TH/MM3 (1.0-4.8); MEAN CELL VOLUME 87.6 FL (80.0-100.0); MEAN CORPUSCULAR HEMOGLOBIN 29.9 PG (27.0-34.0); MEAN CORPUSCULAR HGB CONC 34.1 % (32.0-36.0); MONO % 2.4 % (0.0-8.0); NEUT % 94.6 % (16.0-70.0); RED BLOOD COUNT 3.27 MIL/MM3 (4.50-5.90); RED CELL DISTRIBUTION WIDTH 14.6 % (11.6-17.2); WHITE BLOOD COUNT 6.8 TH/MM3 (4.0-11.0)
[2016-05-10 19:58] LABS: HEMO FLAGS AUTO DIFF
[2016-05-10 20:02] LABS: PLATELET COUNT 9 TH/MM3 (150-450)
[2016-05-10] MEDS ORDERED: DILTIAZEM HCL 25 MG/5 ML VIAL IV ONE ×2 (20:30→23:00)
[2016-05-10] MEDS ORDERED: FUROSEMIDE 40 MG/4 ML VIAL IV PUSH ONE (20:45)
[2016-05-10 20:46] LABS: TEARDROP RBCS 1+ (NORMAL)
[2016-05-10 20:47] LABS: PLATELET ESTIMATE SMEAR RARE (NORMAL); PLATELET MORPHOLOGY NORMAL (NORMAL)
[2016-05-10 20:48] LABS: SCAN/DIFF AUTO DIFF CONFIRMED
[2016-05-10] MEDS: PANTOPRAZOLE SOD 40 MG DELAYED RELEASE TAB PO SCH (20:55)
[2016-05-10] MEDS: DOXAZOSIN MESYLATE 4 MG TAB PO SCH (20:55)
[2016-05-10 20:58] LABS: BLOOD GAS BASE EXCESS 2.6 mmol/L (-2-2); BLOOD GAS CARBOXYHEMOGLOBIN 2.5 % (0-4); BLOOD GAS HCO3 26 mmol/L (22-26); BLOOD GAS METHEMOGLOBIN 1.2 % (0-2); BLOOD GAS O2 HGB SATURATION 84 % (90-100); BLOOD GAS OXYGEN CONTENT 13.3 Vol % (12.0-20.0); BLOOD GAS PCO2 36 mmHg (38-42); BLOOD GAS PO2 53 mmHg (61-120); BLOOD GAS TOTAL HGB 11.3 G/DL (12.0-16.0); TEMP CORR TO 98.6
[2016-05-10 20:59] LABS: CRITICAL VALUE YES; DRAW SITE RT RADIAL; FIO2 50 %; LITER FLOW 6 L/M; NUMBER OF ARTERIAL PUNCTURES 1; OXYGEN DEVICE Venti Mask; STAT YES; ULNAR PULSE PRESENT
[2016-05-10] MEDS ORDERED: RESP: ALBUTEROL 2.5 MG/IPRATROPIUM 0.5 MG NEB (PRN) NEB (21:00)
--- NOTE | 2016-05-10 21:03 | RADRPT ---
EXAM DATE/TIME: 05/10/2016 20:44 [facility] COMPARISON: CHEST SINGLE AP, May 09, 2016, 15:36. INDICATIONS : Short of breath. MEDICAL HISTORY : None. SURGICAL HISTORY : None. ENCOUNTER: Subsequent ACUITY: 1 day PAIN SCORE: 7/10 LOCATION: Bilateral chest FINDINGS: There is increasing airspace opacities in the right lung, now involving the right upper lung. There are some patchy infiltrates in the left lower lung causing loss of delineation of the left hemidiaphr agm, but the left upper lung remains clear. The heart is enlarged, similar to prior. CONCLUSION: Increasing airspace infiltrates or pulmonary edema throughout the right lung and in the left lower karie ng. Gideon Norris MD on May 10, 2016 at 21:00 Board Certified Radiologist. This report was verified electronically.
[2016-05-10] MEDS ORDERED: METOPROLOL TARTRATE 5 MG/5 ML VIAL ONE (22:04)
[2016-05-10] MEDS ORDERED: POTASSIUM CHLORIDE 25 MEQ EFFERVESCENT TAB PO PRN (22:45)
--- NOTE | 2016-05-10 23:03 | HHI.PR ---
Addendum to Inpatient Note Addendum Reason: Additional Documentation Additional Information This is a pleasant 75-year-old male patient with past medical history which includes bilateral lower extremity DVTs, BPH, chronic renal failure, elevated anticardiolipin antibody level, elevated homocysteine level, gout, hypertension , hyponatremia, Immune Thrombocytopenic Purpura, intracranial hemorrhage in 2016 , bleeding duodenal ulcer, and ischemic stroke in 2016 who was sent to the emergency department. Patient was sent to the emergency department on 2016 from his oncologist office after finding a rapid irregular heart rate. EKG in the emergency room revealed atrial fibrillation with RVR rate 160 bpm. He was admitted to the hospital and placed on a Cardizem drip. The day, the Cardizem drip was weaned off and he was started on oral Cardizem 60 mg for 6 hours. I received a call from [facility] RN at around 2030 that the patient was tachycardic with sustained heart rates in the 130s to 140s and was simultaneously quite short of breath with declining oxygen saturations down to the low 80s requiring increasing supplemental oxygen. She also informed me he had had a couple of episodes of hemoptysis and a critical lab had returned revealing platelets of 9000 which were up from 6000 this morning. The patient received IVIG earlier today as well as a transfusion of 1 unit of platelets. I ordered Cardizem 15 mg IV, oxygen titration up to maintain saturation greater than 92%, stat chest x -ray and ABGs, Lasix 40 mg IV 1 dose, duo nebulizers, and potassium 40 mEq by mouth (K+ was 3.4 this a.m. - replaced by 40 meq p.o.) and I asked the nurse to call Dr. Armenta who is managing the patient's ITP. The case was discussed with supervising physician Dr. Matt. Chest x-ray results showed increasing pulmonary edema throughout the right lung and in the left lower lung; ABGs- oxygen saturation 84%, pH 7.48, PCO2 36, PO2 53 on 50% Ventimask. The patient was placed on 100% nonrebreather mask. I went to see the patient he is awake, alert, and oriented 3. He is very pleasant and mostly concerned at this time about his platelet count. He denies chest pain but reports severe shortness of breath began abruptly after sitting in a chair for "6 hours" today and getting up and going to the bathroom and returning to bed. He remains tachypnea despite treatment though he reports that his shortness of breath did get better after receiving Lasix. He is also using abdominal muscles for breathing. He also has tachycardia persisting despite prior dose of Cardizem. He is due for a dose of oral metoprolol and I asked the nurse to give metoprolol 5 mg IV instead. I placed a call to Dr. Armenta at his request. He reports that IVIG might cause pulmonary embolism and is concerned given the abrupt onset of symptoms and how very different he is now compared to when he saw him earlier today. We will order CT pulmonary angiogram to rule out PE - BUN 27, creatinine 1.22, estimated GFR 58 - renal functions will require close monitoring following angiogram. He recommends giving 1 unit of platelets given hemoptysis and platelet count of 9000. The patient's heart rate continues to sustain > 130 and I ordered another dose of IV cardizem. The patient will be transferred to [facility]. I have placed a consult to the chemical process project engineer and discussed the case with Dr. Jarvis who will see the patient in [facility]. This patient is at high risk for further decompensation. . Theresa Gallegos May 10, 2016 23:03
[2016-05-10] MEDS ORDERED: ATROPINE SULFATE 1 MG/10 ML SYRINGE ONE (23:36)
[2016-05-10] MEDS ORDERED: CHLORHEXIDINE GLUCONATE 2 % 1 PACK (2 CLOTHS)(extra cloths) TOP PRN (23:45)
--- NOTE | 2016-05-10 23:46 | PD.CONS ---
HPI Service Critical Care Medicine Consult Requested By Primary Care Physician Anthony Wick MD History of Present Illness 75-year-old male patient with history of bilateral lower extremity DVTs, BPH, chronic renal failure, Elevated Anticardiolipin antibody level, Elevated homocysteine level, Gout, Hypertension, Hyponatremia, Idiopathic Thrombocytopenic Purpura, Intracranial hemorrhage in 2016, Bleeding duodenal ulcer and Ischemic stroke in 2016. Patient was sent to the emergency department today from his oncologist office for rapid a.fib with RVR. Patient had received 2 units of platelets prior. Patient has a history of A. Fibulation , he had to sit down, but denies chest pain or palpitations feeling lightheaded or dizzy. While on telemetry floor he has developed respiratory difficulty and is now transferred to ICU. Review of Systems Constitutional: DENIES: Diaphoretic episodes, Fatigue, Fever, Weight gain, Weight loss, Chills, Dizziness, Change in appetite, Night Sweats Endocrine: DENIES: Heat/cold intolerance, Polydipsia, Polyuria, Polyphagia Eyes: DENIES: Blurred vision, Diplopia, Eye inflammation, Eye pain, Vision loss , Photosensitivity, Double Vision Ears, nose, mouth, throat: DENIES: Tinnitus, Hearing loss, Vertigo, Nasal discharge, Oral lesions, Throat pain, Hoarseness, Ear Pain, Running Nose, Epistaxis, Sinus Pain, Toothache, Odynophagia Respiratory: DENIES: Apneas, Cough, Snoring, Wheezing, Hemoptysis, Sputum production, Shortness of breath Cardiovascular: COMPLAINS OF: Palpitations, Dyspnea on Exertion, DENIES: Chest pain, Syncope, PND, Lower Extremity Edema, Orthopnea, Claudication Gastrointestinal: DENIES: Abdominal pain, Black stools, Bloody stools, Constipation, Diarrhea, Nausea, Vomiting, Difficulty Swallowing, Anorexia Genitourinary: DENIES: Sexual dysfunction, Urinary frequency, Urinary incontinence, Urgency, Hematuria, Dysuria, Nocturia, Penile Discharge, Testicular Pain, Testicular Swelling Musculoskeletal: DENIES: Joint pain, Muscle aches, Stiffness, Joint Swelling, Back pain, Neck pain Integumentary: DENIES: Abnormal pigmentation, Nail changes, Pruritus, Rash Hematologic/lymphatic: DENIES: Bruising, Lymphadenopathy Immunologic/allergic: DENIES: Eczema, Urticaria Neurologic: DENIES: Abnormal gait, Headache, Localized weakness, Paresthesias, Seizures, Speech Problems, Tremor, Poor Balance Psychiatric: DENIES: Anxiety, Confusion, Mood changes, Depression, Hallucinations, Agitation, Suicidal Ideation, Homicidal Ideation, Delusions Past Family Social History Allergies: Coded Allergies: Prednisone (Verified Allergy, Mild, Itching, 03/29/16) PATIENT STATES BROKE OUT INTO HIVES ON ARM (USE HYDROCORTISONE CREAM FOR IT) ONE TIME A VERY LONG TIME AGO AND HAS BEEN ON IT SINCE WITHOUT ANY EVIDENCE OF REACTION. Past Medical History Bilateral lower extremity DVTs BPH chronic renal failure Elevated Anticardiolipin antibody level Elevated homocysteine level Gout Hypertension Hyponatremia Immune Thrombocytopenic Purpura Intracranial hemorrhage in 2016 Bleeding duodenal ulcer Ischemic stroke in 2016 Past Surgical History Prostate biopsy Right hip placement Tonsillectomy Upper endoscopy Right carotid endarterectomy, patch angioplasty in 2016 Colonoscopy in 2016 IVC filter placement (2nd) in 2015 IVC filter removal in 2008 IVC filter placement in 2007 Vasectomy in 2007 Cataract removal in 2005 - 2003 Appendectomy in 3 Reported Medications Reported Meds & Active Scripts Active Walker with Front Wheels (Device) 1 Mis Mis 1 Ea .ROUTE DIRECTED Sodium Chloride 1 Gm Tab 1 Gm PO DAILY Furosemide 20 Mg Tab 20 Mg PO DAILY Lopressor (Metoprolol Tartrate) 50 Mg Tab 50 Mg PO Q8HR Cardura (Doxazosin Mesylate) 4 Mg Tab 4 Mg PO HS Cardizem CD 24 HR (Diltiazem CD 24 HR) 120 Mg Caper 360 Mg PO DAILY Blood Glucose Monitoring W/Device (Device) 1 Kit Kit 1 Kit .ROUTE DIRECTED Pantoprazole (Pantoprazole Sodium) 40 Mg Tab 40 Mg PO HS 7 Days Prednisone 20 Mg Tab 80 Mg PO DAILY 5 Days Reported Irvine 3 1000 mg (Irvine-3 Fatty Acids) 1 Cap Cap 3,000 Mg PO DAILY Magnesium Oxide 400 Mg Tab 400 Mg PO DAILY Cholecalciferol (Cholecalciferol (Bulk)) 1 Cry Cry 1,000 Units PO DAILY Calcium + D & K (Calcium-Vitamins D & K) 500-1,000-40 Mg-Unit-Mcg Chew 1 Tab CHEW DAILY Atorvastatin (Atorvastatin Calcium) 20 Mg Tab 20 Mg PO HS Allopurinol 100 Mg Tab 100 Mg PO DAILY Active Ordered Medications Current Medications Medications (Trade) Dose Ordered Sig/Jeremy Route PRN Reason Start Time Stop Time Status Last Admin Dose Admin Diltiazem HCl/ Sodium Chloride (Cardizem Inj/NS Inj) 125 ml @ 0 mls/hr TITRATE IV 05/09/16 15:30 05/11/16 00:04 Prednisone (Deltasone) 30 mg DAILY PO 05/10/16 09:00 05/10/16 08:48 IV Flush (NS Flush) 2 ml UNSCH PRN FLUSH FLUSH AFTER USING IV ACCESS 05/09/16 18:00 IV Flush (NS Flush) 2 ml BID FLUSH 05/09/16 21:00 05/10/16 20:56 Acetaminophen (Tylenol) 650 mg Q4H PRN PO TEMP > 100.4 05/09/16 18:00 Ondansetron HCl (Zofran Inj) 4 mg Q6H PRN IVP NAUSEA OR VOMITING 05/09/16 18:00 Magnesium Hydroxide (Milk Of Magnesia Liq) 30 ml Q12H PRN PO CONSTIPATION 05/09/16 18:00 Naloxone HCl (Narcan Inj) 0.4 mg UNSCH PRN IV SEE LABEL COMMENTS 05/09/16 18:00 Doxazosin Mesylate (Cardura) 4 mg HS PO 05/09/16 21:00 05/10/16 20:55 Furosemide (Lasix) 20 mg DAILY PO 05/10/16 09:00 05/10/16 08:47 Metoprolol Tartrate (Lopressor) 50 mg Q8HR PO 05/09/16 22:00 05/10/16 12:59 Pantoprazole Sodium (Protonix) 40 mg HS PO 05/09/16 21:00 05/10/16 20:55 Sodium Chloride (Sodium Chloride) 1 gm DAILY PO 05/10/16 09:00 05/10/16 08:47 Calcium/Vitamin D (Oscal-D 250-125) 250 mg DAILY PO 05/10/16 09:00 05/10/16 08:47 Magnesium Oxide (Mag-Ox) 400 mg DAILY PO 05/10/16 09:00 05/10/16 08:47 Diphenhydramine HCl (Benadryl Inj) 50 mg UNSCH PRN IV PUSH ALLERGIC REACTION 05/10/16 08:45 05/11/16 08:44 Epinephrine HCl (Adrenalin (1:1000) Inj) 0.3 mg Q10M PRN OTHER ANAPHYLACTIC REACTION 05/10/16 08:45 05/11/16 08:44 Diltiazem HCl 60 mg 60 mg QID PO 05/10/16 13:00 05/10/16 20:55 Sodium Chloride (NS 250 ml Inj) 250 ml @ 15 mls/hr ONCE ONCE IV 05/10/16 22:45 05/11/16 15:24 Potassium Bicarb/ Potassium Chloride (K-Lyte Cl Eff) 25 meq ONCE PRN PO after platelets transfused 05/10/16 22:45 05/11/16 22:44 05/11/16 00:55 Miscellaneous Information Patient in critical care unit? Ass... [id number] XX 05/10/16 23:45 05/10/16 23:45 Chlorhexidine Gluconate (Chlorhexidine 2% Cloth) 3 pack DAILY@04 TOP 05/11/16 04:00 05/15/16 04:01 Chlorhexidine Gluconate (Chlorhexidine 2% Cloth) 3 pack UNSCH PRN TOP HYGIENIC CARE 05/10/16 23:45 05/15/16 23:49 Family History Father NM at 32 Social History negative x 3 Physical Exam Vital Signs Vital Signs Date Time Temp Pulse Resp B/P Pulse Ox O2 Delivery O2 Flow Rate FiO2 05/10/16 22:34 97.1 136 18 140/92 95 05/10/16 20:35 95 Non-Rebreather 15.00 100 05/10/16 20:17 96.5 122 18 150/68 83 05/10/16 18:06 119 05/10/16 17:16 104 05/10/16 16:02 89 05/10/16 15:16 97.6 77 18 133/94 91 05/10/16 15:16 77 05/10/16 14:30 108 05/10/16 14:05 90 Nasal Cannula 3.00 05/10/16 13:26 107 05/10/16 12:11 59 05/10/16 11:52 80 05/10/16 11:52 97.6 80 18 105/74 91 05/10/16 10:15 82 05/10/16 09:00 86 05/10/16 08:30 71 05/10/16 08:30 97.7 71 18 128/90 92 05/10/16 07:17 91 05/10/16 07:15 97.9 110 16 125/86 05/10/16 06:46 110 140/87 05/10/16 04:24 98.9 67 16 112/78 98 05/10/16 02:05 98.1 73 16 109/76 99 05/10/16 02:00 72 05/10/16 01:00 77 05/10/16 00:00 77 Physical Exam GENERAL: Well-nourished, well-developed patient. SKIN: Warm and dry. HEAD: Normocephalic. EYES: No scleral icterus. No injection or drainage. NECK: Supple, trachea midline. No JVD or lymphadenopathy. CARDIOVASCULAR: Regular rate and rhythm without murmurs, gallops, or rubs. RESPIRATORY: Breath sounds equal bilaterally. No accessory muscle use. GASTROINTESTINAL: Abdomen soft, non-tender, nondistended. MUSCULOSKELETAL: No cyanosis, or edema. BACK: Nontender without obvious deformity. No CVA tenderness. EXTREMITIES: Laboratory Laboratory Tests Test 05/10/16 05/10/16 05/10/16 05/10/16 03:05 05:32 05:56 19:30 White Blood Count 7.4 6.8 Red Blood Count 3.37 3.27 Hemoglobin 9.9 9.8 Hematocrit 28.9 28.6 Mean Corpuscular Volume 85.7 87.6 Mean Corpuscular Hemoglobin 29.6 29.9 Mean Corpuscular Hemoglobin 34.5 34.1 Concent Red Cell Distribution Width 14.6 14.6 Platelet Count 6 9 Mean Platelet Volume 9.6 9.4 Neutrophils (%) (Auto) 90.7 94.6 Lymphocytes (%) (Auto) 6.6 2.8 Monocytes (%) (Auto) 2.5 2.4 Eosinophils (%) (Auto) 0.1 0.0 Basophils (%) (Auto) 0.1 0.2 Neutrophils # (Auto) 6.8 6.5 Lymphocytes # (Auto) 0.5 0.2 Monocytes # (Auto) 0.2 0.2 Eosinophils # (Auto) 0.0 0.0 Basophils # (Auto) 0.0 0.0 CBC Comment AUTO DIFF AUTO DIFF Differential Total Cells 100 Counted Neutrophils % (Manual) 81 Band Neutrophils % 4 Lymphocytes % 14 Monocytes % 1 Neutrophils # (Manual) 6.3 Differential Comment FINAL DIFF AUTO DIFF MANUAL CONFIRMED Platelet Estimate RARE RARE Platelet Morphology Comment NORMAL NORMAL Polychromasia 2.1 Sodium Level 138 Potassium Level 3.4 Chloride Level 101 Carbon Dioxide Level 30.8 Anion Gap 6 Blood Urea Nitrogen 27 Creatinine 1.22 Estimat Glomerular Filtration 58 Rate Random Glucose 112 Calcium Level 8.1 Total Creatine Kinase 73 Troponin I 0.06 Blood Bank Comment Blood Type A POSITIVE Antibody Screen NEGATIVE Basophilic Stippling FAINT Tear Drop Cells 1+ Test 05/10/16 05/10/16 20:37 20:50 Blood Bank Comment Blood Gas Puncture Site RT RADIAL Blood Gas Patient Temperature 98.6 Blood Gas HCO3 26 Blood Gas Base Excess 2.6 Blood Gas Oxygen Saturation 84 Arterial Blood pH 7.48 Arterial Blood Partial 36 Pressure CO2 Arterial Blood Partial 53 Pressure O2 Arterial Blood Oxygen Content 13.3 Arterial Blood 2.5 Carboxyhemoglobin Arterial Blood Methemoglobin 1.2 Blood Gas Hemoglobin 11.3 Oxygen Delivery Device Venti Mask Blood Gas Liter Flow 6 Blood Gas Inspired Oxygen 50 Result Diagram: 05/10/16192905/10/16 0305 Assessment and Plan Problem List: (1) Thrombocytopenia ICD Code: D69.6 Status: Acute (2) Coagulopathy ICD Code: D68.9 Status: Acute (3) Afib ICD Code: I48.91 Status: Acute (4) Chronic ITP (idiopathic thrombocytopenia) ICD Code: D69.3 Status: Chronic (5) Respiratory distress ICD Code: R06.00 Status: Acute Assessment and Plan Respiratory distress - fluid overload on CXR - will diurese with i.v.Lasix - use BiPAP as needed to improve oxygenation - CTA PE protocol when respiratory improves and patient will tolerate flat position for CT ITP - per Hem-Onc A. Fib - Cardizem gtt - Cardiology managing Chronic renal insufficiency - monitor electrolytes and creatinine - monitor urine output DVT/GI prophylaxis - TEDs/SCDs/Pepcid Critical Care: The total critical care time was 35 minutes. Time to perform other separately billable procedures was not included in the critical care time. Karl Jarvis MD May 10, 2016 23:46
[2016-05-10] MEDS ORDERED: FUROSEMIDE 20 MG/2 ML VIAL IV ONE (23:59)
[2016-05-11] VITALS (18 sets, daily range): BP systolic 126–153; BP diastolic 61–105; PULSE 80–148; RESP 20–32; TEMP 97.6–98.7; O2SAT 90–100
[2016-05-11] MEDS: DILTIAZEM INJ 125 MG in SODIUM CHLORIDE 0.9% INJ 100 ML IV SCH ×3 (00:04→21:39)
[2016-05-11 03:24] LABS: AUTOMATED NEUTROPHIL # 7.2 TH/MM3 (1.8-7.7); BASOPHIL % 0.5 % (0.0-2.0); EOSINOPHIL % 0.2 % (0.0-4.0); LYMPH % 6.7 % (9.0-44.0); LYMPHOCYTE # 0.5 TH/MM3 (1.0-4.8); MEAN CELL VOLUME 87.9 FL (80.0-100.0); MEAN CORPUSCULAR HEMOGLOBIN 29.5 PG (27.0-34.0); MEAN CORPUSCULAR HGB CONC 33.6 % (32.0-36.0); NEUT % 90.6 % (16.0-70.0); PLATELET COUNT 32 TH/MM3 (150-450); RED BLOOD COUNT 3.41 MIL/MM3 (4.50-5.90); RED CELL DISTRIBUTION WIDTH 14.8 % (11.6-17.2)
[2016-05-11 03:28] LABS: HEMO FLAGS DIFF FINAL
[2016-05-11 03:49] LABS: ALT (GPT) 60 U/L (12-78); ANION GAP 7 MEQ/L (5-15); AST (GOT) 33 U/L (15-37); BICARBONATE 28.3 MEQ/L (21.0-32.0); BLOOD UREA NITROGEN 33 MG/DL (7-18); CHLORIDE 99 MEQ/L (98-107); GLOMERULAR FILTRATION RATE 49 ML/MIN (>89); MAGNESIUM 1.9 MG/DL (1.5-2.5); POTASSIUM 3.8 MEQ/L (3.5-5.1); SODIUM (NA) 134 MEQ/L (136-145)
[2016-05-11 03:53] LABS: ALKALINE PHOSPHATASE 45 U/L (45-117); TOTAL BILIRUBIN ADULT 1.4 MG/DL (0.2-1.0)
[2016-05-11] MEDS: CHLORHEXIDINE GLUCONATE 2 % 1 PACK (2 CLOTHS)(taper/protocol) TOP SCH (04:00)
[2016-05-11] MEDS: METOPROLOL TARTRATE 50 MG TAB PO SCH ×3 (05:13→21:39)
[2016-05-11] MEDS ORDERED: DILTIAZEM HCL 25 MG/5 ML VIAL IV ONE (07:00)
[2016-05-11 07:01] LABS: BLOOD GAS BASE EXCESS 6.2 mmol/L (-2-2); BLOOD GAS CARBOXYHEMOGLOBIN 2.6 % (0-4); BLOOD GAS HCO3 30 mmol/L (22-26); BLOOD GAS METHEMOGLOBIN 1.2 % (0-2); BLOOD GAS O2 HGB SATURATION 93 % (90-100); BLOOD GAS OXYGEN CONTENT 13.2 Vol % (12.0-20.0); BLOOD GAS PCO2 38 mmHg (38-42); BLOOD GAS PO2 86 mmHg (61-120); CRITICAL VALUE NO; DRAW SITE RT RADIAL; FIO2 65 %; OXYGEN DEVICE BIPAP15/5; TEMP CORR TO 98.6
[2016-05-11 07:02] LABS: NUMBER OF ARTERIAL PUNCTURES 1; STAT YES; ULNAR PULSE PRESENT
--- NOTE | 2016-05-11 07:11 | HHI.CCPN ---
Subjective Remarks/Hospital Course 75-year-old male patient with history of bilateral lower extremity DVTs, BPH, chronic renal failure, Elevated Anticardiolipin antibody level, Elevated homocysteine level, Gout, Hypertension, Hyponatremia, Idiopathic Thrombocytopenic Purpura, Intracranial hemorrhage in 2016, Bleeding duodenal ulcer and Ischemic stroke in 2016. Patient was sent to the emergency department 05/10/16 from his oncologist office for rapid a.fib with RVR. Patient had received 2 units of platelets prior. Patient has a history of A. Fibulation, he had to sit down, but denies chest pain or palpitations feeling lightheaded or dizzy. While on telemetry floor he has developed respiratory difficulty and is now transferred to ICU. SUBJ 05/11: Currently on BiPAP with 65% FiO2. Tachypneic. CXR pending for today, ABG also pending. CT pulmonary angiogram is pending at this time. Remains in atrial fibrillation with rapid ventricular response on Cardizem 15 mg per hour. Chest x-ray from yesterday shows predominantly right upper lobe lung infiltrates. IV Zosyn and azithromycin just ordered. Send cultures Objective Vital Signs Date Time Temp Pulse Resp B/P Pulse Ox O2 Delivery O2 Flow Rate FiO2 05/11/16 06:00 105 05/11/16 04:16 95 60 05/11/16 04:00 Bi-Pap 05/11/16 04:00 98.2 30 144/105 05/10/16 20:35 15.00 Intake and Output 05/10/16 05/10/16 05/11/16 08:00 16:00 00:00 Intake Total 360 ml 2531 ml Output Total 475 ml 250 ml Balance -115 ml 2281 ml Result Diagram: 05/11/16 0257 05/11/16 0257 Other Results Laboratory Tests Test 05/10/16 20:50 Blood Gas Puncture Site RT RADIAL Blood Gas Patient Temperature 98.6 Blood Gas HCO3 26 mmol/L (22-26) Blood Gas Base Excess 2.6 mmol/L (-2-2) Blood Gas Oxygen Saturation 84 % (90-100) Arterial Blood pH 7.48 (7.380-7.420) Arterial Blood Partial 36 mmHg (38-42) Pressure CO2 Arterial Blood Partial 53 mmHg Pressure O2 (61-120) Arterial Blood Oxygen Content 13.3 Vol % (12.0-20.0) Arterial Blood 2.5 % (0-4) Carboxyhemoglobin Arterial Blood Methemoglobin 1.2 % (0-2) Blood Gas Hemoglobin 11.3 G/DL (12.0-16.0) Oxygen Delivery Device Venti Mask Blood Gas Liter Flow 6 L/M Blood Gas Inspired Oxygen 50 % Objective Remarks GENERAL: Well-nourished, well-developed patient, in moderate distress on BiPAP, critically ill SKIN: Warm and dry. HEAD: Normocephalic. EYES: No scleral icterus. No injection or drainage. NECK: Supple, trachea midline. No JVD or lymphadenopathy. CARDIOVASCULAR: Atrial fibrillation with rapid ventricular response. No murmurs RESPIRATORY: Breath sounds equal bilaterally, with coarse breath sounds and crackles predominantly right lung rider GASTROINTESTINAL: Abdomen soft, non-tender, nondistended. MUSCULOSKELETAL: No cyanosis, or edema. BACK: Nontender without obvious deformity. No CVA tenderness. EXTREMITIES: No pedal edema NEURO: Alert and oriented 3 no focal deficits Procedures None Urinary Catheter: Yes Assessment to: Continue A/P Problem List: (1) Thrombocytopenia ICD Code: D69.6 Status: Acute (2) Coagulopathy ICD Code: D68.9 Status: Acute (3) Afib ICD Code: I48.91 Status: Acute (4) Chronic ITP (idiopathic thrombocytopenia) ICD Code: D69.3 Status: Chronic (5) Respiratory distress ICD Code: R06.00 Status: Acute Assessment and Plan NEURO: Intracranial hemorrhage in 2016 -Minimize sedation, monitor neuro status RESP: Acute hypoxemic respiratory failure Pulmonary edema versus pneumonia History of bilateral lower extremity DVTs - fluid overload versus pneumonia on CXR - Diurese with i.v. Lasix 40 q12 - BiPAP as needed to improve oxygenation, may need endotracheal intubation - CTA PE protocol if patient will tolerate flat position for CT - Unable to anticoagulate due to severe thrombocytopenia - S/p IVC filter in 2016 CVS: A. Fib rapid ventricular response Probable CHF - Cardizem gtt, give additional 15 mg bolus and increase to 20 mg per hour - Cardiology managing-Dr. Murphy - We'll give single dose of digoxin - Receiving by mouth Cardizem and by mouth metoprolol - Cannot anticoagulate due to severe thrombocytopenia GI: -Nothing by mouth except meds, Protonix : Chronic kidney disease - monitor electrolytes and creatinine - monitor urine output HEME: Chronic ITP with acute exacerbation - per Hem-Onc. Continue prednisone 30 mg daily, IVIG per Dr. Armenta. - He's considering rituximab for refractory ITP - Transfuse platelets per heme ID: Probable sepsis Pneumonia -Unable to rule out right upper lobe pneumonia. Send panculture, urine for Legionella and pneumococcal antigen, influenza -Start Zosyn and azithromycin -Consult ID if not improving ENDO: -Electrolyte replacement per protocol DVT/GI prophylaxis - TEDs/SCDs/Pepcid - s/p IVC filter most recently in 2016. Cannot anticoagulate due to severe thrombocytopenia and recent intracranial hemorrhage Critical Care: The total critical care time was 45 minutes. Time to perform other separately billable procedures was not included in the critical care time. Leni Cedeño MD May 11, 2016 07:10
[2016-05-11] MEDS ORDERED: POTASSIUM CL 40 MEQ/30 ML LIQ UDC PO/TUBE PRN ×2 (07:30)
[2016-05-11] MEDS ORDERED: MAGNESIUM OXIDE 400 MG TAB PO PRN (07:30)
[2016-05-11] MEDS ORDERED: POTASSIUM PHOSPHATE MONOBASIC 500 MG TAB PO/TUBE PRN (07:30)
[2016-05-11] MEDS ORDERED: MAGNESIUM SULFATE INJ 4 GM in SODIUM CHLORIDE 0.9% INJ 92 ML IV PRN (07:30)
[2016-05-11] MEDS ORDERED: MAGNESIUM SULFATE INJ 2 GM in SODIUM CHLORIDE 0.9% INJ 96 ML IV PRN (07:30)
[2016-05-11] MEDS ORDERED: POTASSIUM CHLOR 20 MEQ PREMIX 100 ML IV PRN ×2 (07:30)
[2016-05-11] MEDS ORDERED: POTASSIUM CHLOR 40 MEQ PREMIX 100 ML IV PRN ×2 (07:30)
[2016-05-11] MEDS ORDERED: POTASSIUM PHOSPHATE MONOBASIC 500 MG TAB PO PRN (07:30)
[2016-05-11] MEDS ORDERED: SODIUM PHOSPHATE INJ 30 MMOL in SODIUM CHLOR 0.9% 250 ML INJ 240 ML IV PRN (07:30)
[2016-05-11] MEDS ORDERED: POTASSIUM PHOSPHATE INJ 30 MMOL in SODIUM CHLOR 0.9% 250 ML INJ 250 ML IV PRN (07:30)
--- NOTE | 2016-05-11 07:31 | RADRPT ---
EXAM DATE/TIME: 05/11/2016 07:07 [facility] COMPARISON: CHEST SINGLE AP, May 10, 2016, 20:44. INDICATIONS : Evaluate lung status. MEDICAL HISTORY : Hypertension. SURGICAL HISTORY : None. ENCOUNTER: Initial ACUITY: 1 day PAIN SCORE: 0/10 LOCATION: Bilateral chest FINDINGS: There continues to be some diffuse infiltrates of the right lung. This is about the same compared to the prior exam. The left lung is relatively clear. The heart size is stable. There are no pleural eff usions. The bony structures are stable. CONCLUSION: No significant interval change. Markus Guzman MD on May 11, 2016 at 7:29 Board Certified Radiologist. This report was verified electronically.
[2016-05-11] MEDS ORDERED: DIGOXIN 0.5 MG/2 ML VIAL IV PUSH ONE (08:15)
[2016-05-11] MEDS ORDERED: IOHEXOL 350 MG/ML 10 ML VIAL (for RAD DIAG) IV ONE (08:23)
--- NOTE | 2016-05-11 08:31 | RADRPT ---
EXAM DATE/TIME: 05/11/2016 07:53 [facility] COMPARISON: No previous studies available for comparison. INDICATIONS : Short of breath. IV CONTRAST: 60 cc Omnipaque 350 (iohexol) IV RADIATION DOSE: 18.88 CTDIvol (mGy) MEDICAL HISTORY : Deep venous thrombosis. Hypertension. Renal failure, chronic. SURGICAL HISTORY : Appendectomy. ENCOUNTER: Initial ACUITY: 1 day PAIN SCALE: 2/10 LOCATION: chest TECHNIQUE: Volumetric scanning of the chest was performed using a pulmonary embolism protocol MIP images were re constructed. Using automated exposure control and adjustment of the mA and/or kV according to patien t size, radiation dose was kept as low as reasonably achievable to obtain optimal diagnostic quality images. FINDINGS: PULMONARY ARTERIES: No filling defects are seen in the pulmonary arteries through the segmental level. LUNGS: There is diffuse interstitial infiltrate throughout most of the right lung. There are some scattered interstitial infiltrates throughout the left lung. PLEURAE: Pleural thickening bilaterally. No pleural effusions. MEDIASTINUM: There is good visualization of the great vessels of the middle mediastinum. No evidence of mediastin al or hilar adenopathy/mass. However, there are a few nonspecific mediastinal lymph nodes are demonst rated. MUSCULOSKELETAL: Within normal limits for patient age. Primary degenerative changes. MISCELLANEOUS: The visualized upper abdominal organs demonstrate no acute abnormality. CONCLUSION: 1. No evidence of PE. 2. Diffuse interstitial infiltrates throughout most of the right lung. 3. Scattered interstitial infiltrates throughout the left lung. Markus Guzman MD on May 11, 2016 at 8:26 Board Certified Radiologist. This report was verified electronically.
[2016-05-11] MEDS: SODIUM CHLORIDE 1 GRAM TAB PO SCH (09:00)
--- NOTE | 2016-05-11 09:41 | PD.ONC.PN ---
Subjective Subjective Remarks Afebrile overnight. Was on bipap overnight and is on NRB mask this AM. He was diuresed this morning and ramachandran catheter placed. CTA this AM showed no PE, but + infiltrates and he was started on abx. No bleeding. Objective Data Date Time Temp Pulse Resp B/P Pulse Ox O2 Delivery O2 Flow Rate FiO2 05/11/16 08:33 95 Non-Rebreather 15.00 05/11/16 06:00 105 05/11/16 04:16 95 60 05/11/16 04:00 94 Bi-Pap 60 05/11/16 04:00 98.2 129 30 144/105 94 05/11/16 04:00 129 05/11/16 02:00 88 05/11/16 01:15 92 65 05/11/16 00:35 92 65 05/11/16 00:00 98.7 148 24 145/73 90 05/11/16 00:00 90 Non-Rebreather 100 05/11/16 00:00 98.7 148 24 145/73 90 05/11/16 00:00 132 05/10/16 22:34 97.1 136 18 140/92 95 05/10/16 20:35 95 Non-Rebreather 15.00 100 05/10/16 20:17 96.5 122 18 150/68 83 05/10/16 18:06 119 05/10/16 17:16 104 05/10/16 16:02 89 05/10/16 15:16 97.6 77 18 133/94 91 05/10/16 15:16 77 05/10/16 14:30 108 05/10/16 14:05 90 Nasal Cannula 3.00 05/10/16 13:26 107 05/10/16 12:11 59 05/10/16 11:52 80 05/10/16 11:52 97.6 80 18 105/74 91 05/10/16 10:15 82 05/11/16 05/11/16 05/11/16 07:00 15:00 23:00 Intake Total 305 ml Output Total 1100 ml Balance -795 ml Result Diagram: 05/11/167 05/11/16256 Laboratory Results Laboratory Tests Test 05/10/16 05/10/16 05/10/16 05/10/16 19:30 20:37 20:50 23:45 White Blood Count 6.8 TH/MM3 Red Blood Count 3.27 MIL/MM3 Hemoglobin 9.8 GM/DL Hematocrit 28.6 % Mean Corpuscular Volume 87.6 FL Mean Corpuscular Hemoglobin 29.9 PG Mean Corpuscular Hemoglobin 34.1 % Concent Red Cell Distribution Width 14.6 % Platelet Count 9 TH/MM3 Mean Platelet Volume 9.4 FL Neutrophils (%) (Auto) 94.6 % Lymphocytes (%) (Auto) 2.8 % Monocytes (%) (Auto) 2.4 % Eosinophils (%) (Auto) 0.0 % Basophils (%) (Auto) 0.2 % Neutrophils # (Auto) 6.5 TH/MM3 Lymphocytes # (Auto) 0.2 TH/MM3 Monocytes # (Auto) 0.2 TH/MM3 Eosinophils # (Auto) 0.0 TH/MM3 Basophils # (Auto) 0.0 TH/MM3 CBC Comment AUTO DIFF Differential Comment AUTO DIFF CONFIRMED Platelet Estimate RARE Platelet Morphology Comment NORMAL Basophilic Stippling FAINT Tear Drop Cells 1+ Blood Bank Comment Blood Gas Puncture Site RT RADIAL Blood Gas Patient Temperature 98.6 Blood Gas HCO3 26 mmol/L Blood Gas Base Excess 2.6 mmol/L Blood Gas Oxygen Saturation 84 % Arterial Blood pH 7.48 Arterial Blood Partial 36 mmHg Pressure CO2 Arterial Blood Partial 53 mmHg Pressure O2 Arterial Blood Oxygen Content 13.3 Vol % Arterial Blood 2.5 % Carboxyhemoglobin Arterial Blood Methemoglobin 1.2 % Blood Gas Hemoglobin 11.3 G/DL Oxygen Delivery Device Venti Mask Blood Gas Liter Flow 6 L/M Blood Gas Inspired Oxygen 50 % Nasal Screen MRSA (PCR) NEGATIVE Test 05/11/16 05/11/16 02:57 06:47 White Blood Count 8.0 TH/MM3 Red Blood Count 3.41 MIL/MM3 Hemoglobin 10.1 GM/DL Hematocrit 30.0 % Mean Corpuscular Volume 87.9 FL Mean Corpuscular Hemoglobin 29.5 PG Mean Corpuscular Hemoglobin 33.6 % Concent Red Cell Distribution Width 14.8 % Platelet Count 32 TH/MM3 Mean Platelet Volume 9.5 FL Neutrophils (%) (Auto) 90.6 % Lymphocytes (%) (Auto) 6.7 % Monocytes (%) (Auto) 2.0 % Eosinophils (%) (Auto) 0.2 % Basophils (%) (Auto) 0.5 % Neutrophils # (Auto) 7.2 TH/MM3 Lymphocytes # (Auto) 0.5 TH/MM3 Monocytes # (Auto) 0.2 TH/MM3 Eosinophils # (Auto) 0.0 TH/MM3 Basophils # (Auto) 0.0 TH/MM3 CBC Comment DIFF FINAL Differential Comment Sodium Level 134 MEQ/L Potassium Level 3.8 MEQ/L Chloride Level 99 MEQ/L Carbon Dioxide Level 28.3 MEQ/L Anion Gap 7 MEQ/L Blood Urea Nitrogen 33 MG/DL Creatinine 1.40 MG/DL Estimat Glomerular Filtration 49 ML/MIN Rate Random Glucose 110 MG/DL Calcium Level 8.2 MG/DL Phosphorus Level 3.1 MG/DL Magnesium Level 1.9 MG/DL Total Bilirubin 1.4 MG/DL Aspartate Amino Transf 33 U/L (AST/SGOT) Alanine Aminotransferase 60 U/L (ALT/SGPT) Alkaline Phosphatase 45 U/L B-Type Natriuretic Peptide 406 PG/ML Total Protein 8.1 GM/DL Albumin 2.4 GM/DL Blood Gas Puncture Site RT RADIAL Blood Gas Patient Temperature 98.6 Blood Gas HCO3 30 mmol/L Blood Gas Base Excess 6.2 mmol/L Blood Gas Oxygen Saturation 93 % Arterial Blood pH 7.50 Arterial Blood Partial 38 mmHg Pressure CO2 Arterial Blood Partial 86 mmHg Pressure O2 Arterial Blood Oxygen Content 13.2 Vol % Arterial Blood 2.6 % Carboxyhemoglobin Arterial Blood Methemoglobin 1.2 % Blood Gas Hemoglobin 10.0 G/DL Oxygen Delivery Device [id number]/5 Blood Gas Inspired Oxygen 65 % Imaging Studies Last 24 hours Impressions Chest X-Ray 05/11/16 0000 Signed Impressions: Service Date/Time: Wednesday, May 11, 2016 07:07 - CONCLUSION: No significant interval change. Markus Guzman MD Administered Medications Medications (Trade) Dose Ordered Sig/Jeremy Route PRN Reason Start Time Stop Time Status Last Admin Dose Admin Diltiazem HCl/ Sodium Chloride (Cardizem Inj/NS Inj) 125 ml @ 0 mls/hr TITRATE IV 05/09/16 15:30 05/11/16 00:04 Prednisone (Deltasone) 30 mg DAILY PO 05/10/16 09:00 05/10/16 08:48 IV Flush (NS Flush) 2 ml BID FLUSH 05/09/16 21:00 05/10/16 20:56 Doxazosin Mesylate (Cardura) 4 mg HS PO 05/09/16 21:00 05/10/16 20:55 Metoprolol Tartrate (Lopressor) 50 mg Q8HR PO 05/09/16 22:00 05/11/16 05:13 Pantoprazole Sodium (Protonix) 40 mg HS PO 05/09/16 21:00 05/10/16 20:55 Sodium Chloride (Sodium Chloride) 1 gm DAILY PO 05/10/16 09:00 05/10/16 08:47 Calcium/Vitamin D (Oscal-D 250-125) 250 mg DAILY PO 05/10/16 09:00 05/10/16 08:47 Magnesium Oxide (Mag-Ox) 400 mg DAILY PO 05/10/16 09:00 05/10/16 08:47 Diltiazem HCl (Cardizem) 60 mg QID PO 05/10/16 13:00 05/10/16 20:55 Potassium Bicarb/ Potassium Chloride (K-Lyte Cl Eff) 25 meq ONCE PRN PO after platelets transfused 05/10/16 22:45 05/11/16 22:44 05/11/16 00:55 Miscellaneous Information Patient in critical care unit? Ass... Q361D XX 05/10/16 23:45 05/10/16 23:45 Chlorhexidine Gluconate (Chlorhexidine 2% Cloth) 3 pack DAILY@04 TOP 05/11/16 04:00 05/15/16 04:01 05/11/16 04:00 Objective Remarks GENERAL: Elderly male, sitting up in bed on NRB mask. SKIN: Warm and dry. occasional small bruises noted on extremities. No hematoma HEAD: Normocephalic. EYES: No injection or drainage. NECK: Supple, trachea midline. CARDIOVASCULAR: IRR RESPIRATORY: diminished at bases. occasional rhonchi. GASTROINTESTINAL: Abdomen soft, non-tender, nondistended. EXTREMITIES: No cyanosis. compression stockings in place, trace edema bilaterally. NEUROLOGICAL: awake and alert, normal speech. moving all extremities. Assessment/Plan Problem List: (1) Chronic ITP (idiopathic thrombocytopenia) Status: Chronic Plan: 05/11/16: platelet count improved to 32K. History: 08/2015: ischemic stroke. started on Eliquis 03/2016: SAH while on Eliquis for afib + ischemic stroke. AC stopped. ITP diagnosis made and patient found to be refractory to steroids. 05/08/2016 IVIG at clinic 05/09/16: platelet tx in clinic. admitted to hospital in Afib w/RVR 05/10/16: IVIG 80G given Assessment 75y/o male admitted with Afib w/ RVR while in the midst of an acute exacerbation of ITP. h/o Bilateral lower extremity deep venous thromboses. Benign prosthetic hypertrophy. Chronic kidney disease and (stage 2). History of elevated anticardiolipin antibody. Elevated homocystine level. Intracranial hemorrhage in March of 2016. Bleeding duodenal ulcer which was cauterized in August of 2015. ischemic stroke in August of 2015. Right carotid endarterectomy with patch angioplasty August 2015. IVC filter placement in 2007, this was removed in 2008. He had a second filter placed in 2015. Attending Statement The exam, history, and the medical decision-making described in the above note were completed with the assistance of the mid-level provider. I reviewed and agree with the findings presented. I attest that I had a [id number] encounter with the patient on the same day, and personally performed and documented my assessment and findings in the medical record. Attending Note: Mr. Trevino was seen and examined, events of last night noted. Vital signs reviewed, meds reviewed, CT chest reviewed, labs reviewed. He developed worsening difficulty breathing last night and became increasingly hypoxic overnight. Was transferred to the ICU and required BiPAP and Diuresis. PLT counts this AM: >30K. CTA Chest: No PE; he did have bilateral infiltrates: Pulm Edema Vs. Atypical Pneumonia? He had been on PO prednisone since mid Mar. PLAN: 1. Hold IVIG today. 2. Repeat CBC this afternoon. 3. Consult ID for evaluation for possible opportunistic infection. 4. LDH, Lactic acid level and Haptoglobin ordered. 5. Peripheral smear from blood drawn at 7pm last night reviewed: No Schizocytes, rare PLTs, with PLTs noted on slide (consistent with a diagnosis of ITP). 6. Continue prednisone taper. Claudia Mcclendon May 11, 2016 09:41 Roger Armenta MD May 11, 2016 11:53
[2016-05-11] MEDS: PIPERACIL-TAZO 3.375 GM PREMIX 50 ML IV SCH ×3 (10:31→20:21)
[2016-05-11] MEDS: predniSONE 10 MG TAB PO SCH (10:32)
[2016-05-11] MEDS: AZITHROMYCIN INJ 500 MG in SODIUM CHLOR 0.9% 250 ML INJ 250 ML IV SCH (10:32)
[2016-05-11] MEDS: DILTIAZEM HCL 60 MG TAB PO SCH (10:32)
[2016-05-11] MEDS: CALCIUM/VITAMIN D 250 MG/125 U TAB PO SCH (10:32)
[2016-05-11] MEDS: MAGNESIUM OXIDE 400 MG TAB PO SCH (10:32)
[2016-05-11] MEDS: POTASSIUM CHLORIDE 20 MEQ CONTROLLED RELEASE TAB PO SCH (10:32)
[2016-05-11] MEDS: SODIUM CHLORIDE 0.9% FLUSH 5 ML FLUSH FLUSH SCH ×2 (10:33→18:18)
[2016-05-11] MEDS: FUROSEMIDE 40 MG/4 ML VIAL IV PUSH SCH ×2 (10:33→20:21)
[2016-05-11] MEDS: ACETAMINOPHEN 325 MG TAB PO PRN (10:53)
--- NOTE | 2016-05-11 11:40 | PD.CARD.PN ---
Subjective Subjective Remarks overnight events noted tx to ICU with HF On bipap overnight now NRB. Negative CTA for PE + infiltrates started on abx. Objective Medications Current Medications Medications (Trade) Dose Ordered Sig/Jeremy Route Start Time Stop Time Status Last Admin (Cardizem Inj/NS Inj) 125 ml @ 0 mls/hr TITRATE IV 05/09/16 15:30 05/11/16 10:31 (Deltasone) 30 mg DAILY PO 05/10/16 09:00 05/11/16 10:32 (NS Flush) 2 ml UNSCH PRN FLUSH 05/09/16 18:00 (NS Flush) 2 ml BID FLUSH 05/09/16 21:00 05/11/16 10:33 (Tylenol) 650 mg Q4H PRN PO 05/09/16 18:00 05/11/16 10:53 (Zofran Inj) 4 mg Q6H PRN IVP 05/09/16 18:00 (Milk Of Magnesia Liq) 30 ml Q12H PRN PO 05/09/16 18:00 (Narcan Inj) 0.4 mg UNSCH PRN IV 05/09/16 18:00 (Cardura) 4 mg HS PO 05/09/16 21:00 05/10/16 20:55 (Lopressor) 50 mg Q8HR PO 05/09/16 22:00 05/11/16 05:13 (Protonix) 40 mg HS PO 05/09/16 21:00 05/10/16 20:55 (Sodium Chloride) 1 gm DAILY PO 05/10/16 09:00 05/10/16 08:47 (Oscal-D 250-125) 250 mg DAILY PO 05/10/16 09:00 05/11/16 10:32 (Mag-Ox) 400 mg DAILY PO 05/10/16 09:00 05/11/16 10:32 Diltiazem HCl 60 mg 60 mg QID PO 05/10/16 13:00 05/11/16 10:32 (NS 250 ml Inj) 250 ml @ 15 mls/hr ONCE ONCE IV 05/10/16 22:45 05/11/16 15:24 (K-Lyte Cl Eff) 25 meq ONCE PRN PO 05/10/16 22:45 05/11/16 22:44 05/11/16 00:55 Miscellaneous Information Patient in critical care unit? Ass... Q361D XX 05/10/16 23:45 05/10/16 23:45 (Chlorhexidine 2% Cloth) 3 pack DAILY@04 TOP 05/11/16 04:00 05/15/16 04:01 05/11/16 04:00 (Chlorhexidine 2% Cloth) 3 pack UNSCH PRN TOP 05/10/16 23:45 05/15/16 23:49 Furosemide 40 mg 40 mg Q12H IV PUSH 05/11/16 08:00 05/11/16 10:33 Piperacillin Sod/ Tazobactam Sod 50 ml @ 100 mls/hr Q6H IV 05/11/16 08:00 05/11/16 10:31 (Zithromax Inj/ NS 250 ml Inj) 250 ml @ 250 mls/hr Q24H IV 05/11/16 08:00 05/11/16 10:32 Potassium Chloride 20 meq 20 meq DAILY PO 05/11/16 09:00 05/11/16 10:32 Potassium Chloride 100 ml @ 50 mls/hr Q2H PRN IV 05/11/16 07:30 (KCl 20 Meq Premix Inj) 100 ml @ 50 mls/hr Q2H PRN IV 05/11/16 07:30 Potassium Chloride 40 meq 40 meq UNSCH PRN PO/TUBE 05/11/16 07:30 Potassium Chloride 100 ml @ 25 mls/hr UNSCH PRN IV 05/11/16 07:30 Potassium Chloride 100 ml @ 50 mls/hr Q2H PRN IV 05/11/16 07:30 (Magnesium Sulfate Inj/NS Inj) 100 ml @ 50 mls/hr UNSCH PRN IV 05/11/16 07:30 Magnesium Oxide 800 mg 800 mg UNSCH PRN PO 05/11/16 07:30 (Magnesium Sulfate Inj/NS Inj) 100 ml @ 50 mls/hr UNSCH PRN IV 05/11/16 07:30 Potassium Phosphate 2000 mg 2,000 mg Q4H PRN PO 05/11/16 07:30 (Sodium Phosphate Inj/NS 250 ml Inj) 250 ml @ 42 mls/hr UNSCH PRN IV 05/11/16 07:30 (KCl 40 Meq/30 ml Liq) 40 meq UNSCH PRN PO/TUBE 05/11/16 07:30 Potassium Phosphate 2000 mg 2,000 mg UNSCH PRN PO/TUBE 05/11/16 07:30 (Potassium Phosphate Inj/NS 250 ml Inj) 260 ml @ 42 mls/hr UNSCH PRN IV 05/11/16 07:30 Vital Signs / I&O Vital Signs Date Time Temp Pulse Resp B/P Pulse Ox O2 Delivery O2 Flow Rate FiO2 05/11/16 08:33 95 Non-Rebreather 15.00 05/11/16 06:00 105 05/11/16 04:16 95 60 05/11/16 04:00 94 Bi-Pap 60 05/11/16 04:00 98.2 129 30 144/105 94 05/11/16 04:00 129 05/11/16 02:00 88 05/11/16 01:15 92 65 05/11/16 00:35 92 65 05/11/16 00:00 98.7 148 24 145/73 90 05/11/16 00:00 90 Non-Rebreather 100 05/11/16 00:00 98.7 148 24 145/73 90 05/11/16 00:00 132 05/10/16 22:34 97.1 136 18 140/92 95 05/10/16 20:35 95 Non-Rebreather 15.00 100 05/10/16 20:17 96.5 122 18 150/68 83 05/10/16 18:06 119 05/10/16 17:16 104 05/10/16 16:02 89 05/10/16 15:16 97.6 77 18 133/94 91 05/10/16 15:16 77 05/10/16 14:30 108 05/10/16 14:05 90 Nasal Cannula 3.00 05/10/16 13:26 107 05/10/16 12:11 59 05/10/16 11:52 80 05/10/16 11:52 97.6 80 18 105/74 91 I/O 05/10/16 05/10/16 05/10/16 05/11/16 05/11/16 05/11/16 07:00 15:00 23:00 07:00 15:00 23:00 Intake Total 360 ml 2531 ml 305 ml Output Total 475 ml 250 ml 1100 ml Balance -115 ml 2281 ml -795 ml Intake Oral 240 ml 720 ml 240 ml IV Total 120 ml 1520 ml 65 ml Platelets 291 ml Output Urine Total 475 ml 250 ml 1100 ml # Voids 2 # Bowel Movements 3 0 Physical Exam GENERAL: Well-nourished, well-developed patient. SKIN: Warm and dry. HEAD: Normocephalic. EYES: No scleral icterus. No injection or drainage. NECK: Supple, trachea midline. No JVD or lymphadenopathy. CARDIOVASCULAR: Irr Irr without murmurs, gallops, or rubs. RESPIRATORY: Breath sounds equal bilaterally. No accessory muscle use. GASTROINTESTINAL: Abdomen soft, non-tender, nondistended. EXTREMITIES: No cyanosis, or edema. NEUROLOGICAL: Awake, alert, and oriented x 3. Non-focal. Laboratory Laboratory Tests Test 05/10/16 05/10/16 05/10/16 05/10/16 19:30 20:37 20:50 23:45 White Blood Count 6.8 TH/MM3 Red Blood Count 3.27 MIL/MM3 Hemoglobin 9.8 GM/DL Hematocrit 28.6 % Mean Corpuscular Volume 87.6 FL Mean Corpuscular Hemoglobin 29.9 PG Mean Corpuscular Hemoglobin 34.1 % Concent Red Cell Distribution Width 14.6 % Platelet Count 9 TH/MM3 Mean Platelet Volume 9.4 FL Neutrophils (%) (Auto) 94.6 % Lymphocytes (%) (Auto) 2.8 % Monocytes (%) (Auto) 2.4 % Eosinophils (%) (Auto) 0.0 % Basophils (%) (Auto) 0.2 % Neutrophils # (Auto) 6.5 TH/MM3 Lymphocytes # (Auto) 0.2 TH/MM3 Monocytes # (Auto) 0.2 TH/MM3 Eosinophils # (Auto) 0.0 TH/MM3 Basophils # (Auto) 0.0 TH/MM3 CBC Comment AUTO DIFF Differential Comment AUTO DIFF CONFIRMED Platelet Estimate RARE Platelet Morphology Comment NORMAL Basophilic Stippling FAINT Tear Drop Cells 1+ Blood Bank Comment Blood Gas Puncture Site RT RADIAL Blood Gas Patient Temperature 98.6 Blood Gas HCO3 26 mmol/L Blood Gas Base Excess 2.6 mmol/L Blood Gas Oxygen Saturation 84 % Arterial Blood pH 7.48 Arterial Blood Partial 36 mmHg Pressure CO2 Arterial Blood Partial 53 mmHg Pressure O2 Arterial Blood Oxygen Content 13.3 Vol % Arterial Blood 2.5 % Carboxyhemoglobin Arterial Blood Methemoglobin 1.2 % Blood Gas Hemoglobin 11.3 G/DL Oxygen Delivery Device Venti Mask Blood Gas Liter Flow 6 L/M Blood Gas Inspired Oxygen 50 % Nasal Screen MRSA (PCR) NEGATIVE Test 05/11/16 05/11/16 05/11/16 02:57 06:47 09:40 White Blood Count 8.0 TH/MM3 Red Blood Count 3.41 MIL/MM3 Hemoglobin 10.1 GM/DL Hematocrit 30.0 % Mean Corpuscular Volume 87.9 FL Mean Corpuscular Hemoglobin 29.5 PG Mean Corpuscular Hemoglobin 33.6 % Concent Red Cell Distribution Width 14.8 % Platelet Count 32 TH/MM3 Mean Platelet Volume 9.5 FL Neutrophils (%) (Auto) 90.6 % Lymphocytes (%) (Auto) 6.7 % Monocytes (%) (Auto) 2.0 % Eosinophils (%) (Auto) 0.2 % Basophils (%) (Auto) 0.5 % Neutrophils # (Auto) 7.2 TH/MM3 Lymphocytes # (Auto) 0.5 TH/MM3 Monocytes # (Auto) 0.2 TH/MM3 Eosinophils # (Auto) 0.0 TH/MM3 Basophils # (Auto) 0.0 TH/MM3 CBC Comment DIFF FINAL Differential Comment Sodium Level 134 MEQ/L Potassium Level 3.8 MEQ/L Chloride Level 99 MEQ/L Carbon Dioxide Level 28.3 MEQ/L Anion Gap 7 MEQ/L Blood Urea Nitrogen 33 MG/DL Creatinine 1.40 MG/DL Estimat Glomerular Filtration 49 ML/MIN Rate Random Glucose 110 MG/DL Calcium Level 8.2 MG/DL Phosphorus Level 3.1 MG/DL 2.7 MG/DL Magnesium Level 1.9 MG/DL Total Bilirubin 1.4 MG/DL Aspartate Amino Transf 33 U/L (AST/SGOT) Alanine Aminotransferase 60 U/L (ALT/SGPT) Alkaline Phosphatase 45 U/L B-Type Natriuretic Peptide 406 PG/ML Total Protein 8.1 GM/DL Albumin 2.4 GM/DL Blood Gas Puncture Site RT RADIAL Blood Gas Patient Temperature 98.6 Blood Gas HCO3 30 mmol/L Blood Gas Base Excess 6.2 mmol/L Blood Gas Oxygen Saturation 93 % Arterial Blood pH 7.50 Arterial Blood Partial 38 mmHg Pressure CO2 Arterial Blood Partial 86 mmHg Pressure O2 Arterial Blood Oxygen Content 13.2 Vol % Arterial Blood 2.6 % Carboxyhemoglobin Arterial Blood Methemoglobin 1.2 % Blood Gas Hemoglobin 10.0 G/DL Oxygen Delivery Device [id number]/5 Blood Gas Inspired Oxygen 65 % Imaging Last Impressions Chest X-Ray 05/11/16 0000 Signed Impressions: Service Date/Time: Wednesday, May 11, 2016 07:07 - CONCLUSION: No significant interval change. Markus Guzman MD CT Angiography 05/10/16 0000 Signed Impressions: Service Date/Time: Wednesday, May 11, 2016 07:53 - CONCLUSION: 1. No evidence of PE. 2. Diffuse interstitial infiltrates throughout most of the right lung. 3. Scattered interstitial infiltrates throughout the left lung. Markus Guzman MD Assessment and Plan Problem List: (1) Atrial fibrillation with RVR Assessment and Plan: Afebrile and HD stable Went in to HF in the setting of PLT transfusion Cont rate control, increase Dilt to 90mg PO QID Cont IV diuresis Off OAC (2) Chronic ITP (idiopathic thrombocytopenia) (3) Warfarin-induced coagulopathy Dany Salinas MD May 11, 2016 11:40
--- NOTE | 2016-05-11 12:14 | PD.CARD.PN ---
Subjective Subjective Remarks no complaints Objective Medications Current Medications Medications (Trade) Dose Ordered Sig/Jeremy Route Start Time Stop Time Status Last Admin (Cardizem Inj/NS Inj) 125 ml @ 0 mls/hr TITRATE IV 05/09/16 15:30 05/11/16 10:31 (Deltasone) 30 mg DAILY PO 05/10/16 09:00 05/11/16 10:32 (NS Flush) 2 ml UNSCH PRN FLUSH 05/09/16 18:00 (NS Flush) 2 ml BID FLUSH 05/09/16 21:00 05/11/16 10:33 (Tylenol) 650 mg Q4H PRN PO 05/09/16 18:00 05/11/16 10:53 (Zofran Inj) 4 mg Q6H PRN IVP 05/09/16 18:00 (Milk Of Magnesia Liq) 30 ml Q12H PRN PO 05/09/16 18:00 (Narcan Inj) 0.4 mg UNSCH PRN IV 05/09/16 18:00 (Cardura) 4 mg HS PO 05/09/16 21:00 05/10/16 20:55 (Lopressor) 50 mg Q8HR PO 05/09/16 22:00 05/11/16 05:13 (Protonix) 40 mg HS PO 05/09/16 21:00 05/10/16 20:55 (Sodium Chloride) 1 gm DAILY PO 05/10/16 09:00 05/10/16 08:47 (Oscal-D 250-125) 250 mg DAILY PO 05/10/16 09:00 05/11/16 10:32 Magnesium Oxide 400 mg 400 mg DAILY PO 05/10/16 09:00 05/11/16 10:32 (NS 250 ml Inj) 250 ml @ 15 mls/hr ONCE ONCE IV 05/10/16 22:45 05/11/16 15:24 (K-Lyte Cl Eff) 25 meq ONCE PRN PO 05/10/16 22:45 05/11/16 22:44 05/11/16 00:55 Miscellaneous Information Patient in critical care unit? Ass... Q361D XX 05/10/16 23:45 05/10/16 23:45 (Chlorhexidine 2% Cloth) 3 pack DAILY@04 TOP 05/11/16 04:00 05/15/16 04:01 05/11/16 04:00 (Chlorhexidine 2% Cloth) 3 pack UNSCH PRN TOP 05/10/16 23:45 05/15/16 23:49 Furosemide 40 mg 40 mg Q12H IV PUSH 05/11/16 08:00 05/11/16 10:33 Piperacillin Sod/ Tazobactam Sod 50 ml @ 100 mls/hr Q6H IV 05/11/16 08:00 05/11/16 10:31 (Zithromax Inj/ NS 250 ml Inj) 250 ml @ 250 mls/hr Q24H IV 05/11/16 08:00 05/11/16 10:32 Potassium Chloride 20 meq 20 meq DAILY PO 05/11/16 09:00 05/11/16 10:32 Potassium Chloride 100 ml @ 50 mls/hr Q2H PRN IV 05/11/16 07:30 (KCl 20 Meq Premix Inj) 100 ml @ 50 mls/hr Q2H PRN IV 05/11/16 07:30 Potassium Chloride 40 meq 40 meq UNSCH PRN PO/TUBE 05/11/16 07:30 Potassium Chloride 100 ml @ 25 mls/hr UNSCH PRN IV 05/11/16 07:30 Potassium Chloride 100 ml @ 50 mls/hr Q2H PRN IV 05/11/16 07:30 (Magnesium Sulfate Inj/NS Inj) 100 ml @ 50 mls/hr UNSCH PRN IV 05/11/16 07:30 Magnesium Oxide 800 mg 800 mg UNSCH PRN PO 05/11/16 07:30 (Magnesium Sulfate Inj/NS Inj) 100 ml @ 50 mls/hr UNSCH PRN IV 05/11/16 07:30 Potassium Phosphate 2000 mg 2,000 mg Q4H PRN PO 05/11/16 07:30 (Sodium Phosphate Inj/NS 250 ml Inj) 250 ml @ 42 mls/hr UNSCH PRN IV 05/11/16 07:30 (KCl 40 Meq/30 ml Liq) 40 meq UNSCH PRN PO/TUBE 05/11/16 07:30 Potassium Phosphate 2000 mg 2,000 mg UNSCH PRN PO/TUBE 05/11/16 07:30 (Potassium Phosphate Inj/NS 250 ml Inj) 260 ml @ 42 mls/hr UNSCH PRN IV 05/11/16 07:30 (Cardizem) 90 mg QID PO 05/11/16 13:00 Vital Signs / I&O Vital Signs Date Time Temp Pulse Resp B/P Pulse Ox O2 Delivery O2 Flow Rate FiO2 05/11/16 08:33 95 Non-Rebreather 15.00 05/11/16 06:00 105 05/11/16 04:16 95 60 05/11/16 04:00 94 Bi-Pap 60 05/11/16 04:00 98.2 129 30 144/105 94 05/11/16 04:00 129 05/11/16 02:00 88 05/11/16 01:15 92 65 05/11/16 00:35 92 65 05/11/16 00:00 98.7 148 24 145/73 90 05/11/16 00:00 90 Non-Rebreather 100 05/11/16 00:00 98.7 148 24 145/73 90 05/11/16 00:00 132 05/10/16 22:34 97.1 136 18 140/92 95 05/10/16 20:35 95 Non-Rebreather 15.00 100 05/10/16 20:17 96.5 122 18 150/68 83 05/10/16 18:06 119 05/10/16 17:16 104 05/10/16 16:02 89 05/10/16 15:16 97.6 77 18 133/94 91 05/10/16 15:16 77 05/10/16 14:30 108 05/10/16 14:05 90 Nasal Cannula 3.00 05/10/16 13:26 107 I/O 05/10/16 05/10/16 05/10/16 05/11/16 05/11/16 05/11/16 07:00 15:00 23:00 07:00 15:00 23:00 Intake Total 360 ml 2531 ml 305 ml Output Total 475 ml 250 ml 1100 ml Balance -115 ml 2281 ml -795 ml Intake Oral 240 ml 720 ml 240 ml IV Total 120 ml 1520 ml 65 ml Platelets 291 ml Output Urine Total 475 ml 250 ml 1100 ml # Voids 2 # Bowel Movements 3 0 Physical Exam GENERAL: Well-nourished, well-developed patient. SKIN: Warm and dry. HEAD: Normocephalic. EYES: No scleral icterus. No injection or drainage. NECK: Supple, trachea midline. No JVD or lymphadenopathy. CARDIOVASCULAR: Irr Irr without murmurs, gallops, or rubs. RESPIRATORY: Breath sounds equal bilaterally. No accessory muscle use. GASTROINTESTINAL: Abdomen soft, non-tender, nondistended. EXTREMITIES: No cyanosis, or edema. NEUROLOGICAL: Awake, alert, and oriented x 3. Non-focal. Laboratory Laboratory Tests Test 05/10/16 05/10/16 05/10/16 05/10/16 19:30 20:37 20:50 23:45 White Blood Count 6.8 TH/MM3 Red Blood Count 3.27 MIL/MM3 Hemoglobin 9.8 GM/DL Hematocrit 28.6 % Mean Corpuscular Volume 87.6 FL Mean Corpuscular Hemoglobin 29.9 PG Mean Corpuscular Hemoglobin 34.1 % Concent Red Cell Distribution Width 14.6 % Platelet Count 9 TH/MM3 Mean Platelet Volume 9.4 FL Neutrophils (%) (Auto) 94.6 % Lymphocytes (%) (Auto) 2.8 % Monocytes (%) (Auto) 2.4 % Eosinophils (%) (Auto) 0.0 % Basophils (%) (Auto) 0.2 % Neutrophils # (Auto) 6.5 TH/MM3 Lymphocytes # (Auto) 0.2 TH/MM3 Monocytes # (Auto) 0.2 TH/MM3 Eosinophils # (Auto) 0.0 TH/MM3 Basophils # (Auto) 0.0 TH/MM3 CBC Comment AUTO DIFF Differential Comment AUTO DIFF CONFIRMED Platelet Estimate RARE Platelet Morphology Comment NORMAL Basophilic Stippling FAINT Tear Drop Cells 1+ Blood Bank Comment Blood Gas Puncture Site RT RADIAL Blood Gas Patient Temperature 98.6 Blood Gas HCO3 26 mmol/L Blood Gas Base Excess 2.6 mmol/L Blood Gas Oxygen Saturation 84 % Arterial Blood pH 7.48 Arterial Blood Partial 36 mmHg Pressure CO2 Arterial Blood Partial 53 mmHg Pressure O2 Arterial Blood Oxygen Content 13.3 Vol % Arterial Blood 2.5 % Carboxyhemoglobin Arterial Blood Methemoglobin 1.2 % Blood Gas Hemoglobin 11.3 G/DL Oxygen Delivery Device Venti Mask Blood Gas Liter Flow 6 L/M Blood Gas Inspired Oxygen 50 % Nasal Screen MRSA (PCR) NEGATIVE Test 05/11/16 05/11/16 05/11/16 02:57 06:47 09:40 White Blood Count 8.0 TH/MM3 Red Blood Count 3.41 MIL/MM3 Hemoglobin 10.1 GM/DL Hematocrit 30.0 % Mean Corpuscular Volume 87.9 FL Mean Corpuscular Hemoglobin 29.5 PG Mean Corpuscular Hemoglobin 33.6 % Concent Red Cell Distribution Width 14.8 % Platelet Count 32 TH/MM3 Mean Platelet Volume 9.5 FL Neutrophils (%) (Auto) 90.6 % Lymphocytes (%) (Auto) 6.7 % Monocytes (%) (Auto) 2.0 % Eosinophils (%) (Auto) 0.2 % Basophils (%) (Auto) 0.5 % Neutrophils # (Auto) 7.2 TH/MM3 Lymphocytes # (Auto) 0.5 TH/MM3 Monocytes # (Auto) 0.2 TH/MM3 Eosinophils # (Auto) 0.0 TH/MM3 Basophils # (Auto) 0.0 TH/MM3 CBC Comment DIFF FINAL Differential Comment Sodium Level 134 MEQ/L Potassium Level 3.8 MEQ/L Chloride Level 99 MEQ/L Carbon Dioxide Level 28.3 MEQ/L Anion Gap 7 MEQ/L Blood Urea Nitrogen 33 MG/DL Creatinine 1.40 MG/DL Estimat Glomerular Filtration 49 ML/MIN Rate Random Glucose 110 MG/DL Calcium Level 8.2 MG/DL Phosphorus Level 3.1 MG/DL 2.7 MG/DL Magnesium Level 1.9 MG/DL Total Bilirubin 1.4 MG/DL Aspartate Amino Transf 33 U/L (AST/SGOT) Alanine Aminotransferase 60 U/L (ALT/SGPT) Alkaline Phosphatase 45 U/L B-Type Natriuretic Peptide 406 PG/ML Total Protein 8.1 GM/DL Albumin 2.4 GM/DL Blood Gas Puncture Site RT RADIAL Blood Gas Patient Temperature 98.6 Blood Gas HCO3 30 mmol/L Blood Gas Base Excess 6.2 mmol/L Blood Gas Oxygen Saturation 93 % Arterial Blood pH 7.50 Arterial Blood Partial 38 mmHg Pressure CO2 Arterial Blood Partial 86 mmHg Pressure O2 Arterial Blood Oxygen Content 13.2 Vol % Arterial Blood 2.6 % Carboxyhemoglobin Arterial Blood Methemoglobin 1.2 % Blood Gas Hemoglobin 10.0 G/DL Oxygen Delivery Device [id number]/5 Blood Gas Inspired Oxygen 65 % Haptoglobin 234 MG/DL Lactate Dehydrogenase 607 U/L Assessment and Plan Problem List: (1) Atrial fibrillation with RVR (2) Chronic ITP (idiopathic thrombocytopenia) (3) Warfarin-induced coagulopathy Dany Salinas MD May 11, 2016 12:14 Dany Salinas MD May 11, 2016 12:14
[2016-05-11 13:23] LABS: AUTOMATED NEUTROPHIL # 6.5 TH/MM3 (1.8-7.7); BASOPHIL % 0.2 % (0.0-2.0); EOSINOPHIL % 0.2 % (0.0-4.0); HEMATOCRIT 27.3 % (39.0-51.0); LYMPHOCYTE # 0.4 TH/MM3 (1.0-4.8); MEAN CELL VOLUME 85.4 FL (80.0-100.0); MEAN CORPUSCULAR HEMOGLOBIN 29.6 PG (27.0-34.0); MEAN CORPUSCULAR HGB CONC 34.7 % (32.0-36.0); MONO % 2.1 % (0.0-8.0); NEUT % 92.5 % (16.0-70.0); RED BLOOD COUNT 3.19 MIL/MM3 (4.50-5.90); RED CELL DISTRIBUTION WIDTH 14.8 % (11.6-17.2)
[2016-05-11 13:25] LABS: HEMO FLAGS AUTO DIFF
[2016-05-11 13:26] LABS: PLATELET COUNT 10 TH/MM3 (150-450)
[2016-05-11 14:02] LABS: BANDS 8 % (0-6); CORRECTED NUCLEATED RBC 2 /100 WBC (0-0); METAMYELOCYTES 1 % (0-1); NEUTROPHIL # MANUAL DIFF 6.7 TH/MM3 (1.8-7.7); PLATELET ESTIMATE SMEAR RARE (NORMAL); PLATELET MORPHOLOGY NORMAL (NORMAL); POLYS (SEG NEUTROPHILS) 86 % (16-70); SCAN/DIFF FINAL DIFF MANUAL; WBC DIFF SAMPLE 100
[2016-05-11 14:04] LABS: TEARDROP RBCS 1+ (NORMAL)
[2016-05-11] MEDS: DILTIAZEM HCL 90 MG TAB PO SCH ×3 (15:00→20:21)
[2016-05-11] MEDS ORDERED: POTASSIUM CHLORIDE 20 MEQ CONTROLLED RELEASE TAB PO ONE (16:00)
--- NOTE | 2016-05-11 16:38 | RADRPT ---
EXAM DATE/TIME: 05/11/2016 15:43 [facility] COMPARISON: CHEST SINGLE AP, May 10, 2016, 20:44. CHEST SINGLE AP, May 09, 2016, 15:36. CHEST SINGLE AP , May 11, 2016, 7:07. INDICATIONS : Respiratory disease MEDICAL HISTORY : Hypertension. SURGICAL HISTORY : None. ENCOUNTER: Subsequent ACUITY: 1 day PAIN SCORE: 0/10 LOCATION: Bilateral chest FINDINGS: Diffuse interstitial infiltrates throughout the right lung and in the left lower lung with some scatt ered areas of consolidation is very similar in appearance to prior examination earlier today and are slightly more prominent than on 05/09/16. The heart is enlarged, similar to prior. The right costoph renic angle is well delineated. There is some thickening about the lateral left costophrenic angle c haracteristic of a small left pleural effusion. CONCLUSION: Stable bilateral infiltrates, right greater than left and small left pleural effusion. Gideon Norris MD on May 11, 2016 at 16:34 Board Certified Radiologist. This report was verified electronically.
[2016-05-11] MEDS: RESP: ALBUTEROL 2.5 MG/IPRATROPIUM 0.5 MG NEB (SCH) NEB ×2 (16:45→20:49)
[2016-05-11] MEDS ORDERED: ACETAMINOPHEN 325 MG TAB PO PRN (18:15)
[2016-05-11] MEDS ORDERED: diphenhydrAMINE HCL 25 MG CAP PO PRN (18:15)
[2016-05-11] MEDS ORDERED: SODIUM CHLOR 0.9% 250 ML INJ 250 ML IV ONE (18:15)
[2016-05-11] MEDS: PANTOPRAZOLE SOD 40 MG DELAYED RELEASE TAB PO SCH (20:21)
[2016-05-11] MEDS: DOXAZOSIN MESYLATE 4 MG TAB PO SCH (20:21)
[2016-05-11] MEDS ORDERED: SODIUM CHLORIDE 0.65% NASAL SPRAY 45 ML BTL PRN (23:45)
[2016-05-12] VITALS (19 sets, daily range): BP systolic 109–140; BP diastolic 60–78; PULSE 50–89; RESP 21–32; TEMP 97.3–98.2; O2SAT 94–100
[2016-05-12] MEDS: PIPERACIL-TAZO 3.375 GM PREMIX 50 ML IV SCH ×4 (01:21→20:46)
[2016-05-12] MEDS: CHLORHEXIDINE GLUCONATE 2 % 1 PACK (2 CLOTHS)(taper/protocol) TOP SCH (01:23)
[2016-05-12] MEDS: RESP: ALBUTEROL 2.5 MG/IPRATROPIUM 0.5 MG NEB (SCH) NEB ×4 (03:51→22:16)
[2016-05-12] MEDS: METOPROLOL TARTRATE 50 MG TAB PO SCH ×3 (06:21→22:06)
[2016-05-12 06:48] LABS: AUTOMATED NEUTROPHIL # 6.8 TH/MM3 (1.8-7.7); BASOPHIL % 0.1 % (0.0-2.0); EOSINOPHIL % 0.3 % (0.0-4.0); HEMATOCRIT 24.6 % (39.0-51.0); LYMPH % 8.4 % (9.0-44.0); LYMPHOCYTE # 0.7 TH/MM3 (1.0-4.8); MEAN CELL VOLUME 85.3 FL (80.0-100.0); MEAN CORPUSCULAR HGB CONC 35.2 % (32.0-36.0); MONO % 2.7 % (0.0-8.0); NEUT % 88.5 % (16.0-70.0); RED BLOOD COUNT 2.89 MIL/MM3 (4.50-5.90); WHITE BLOOD COUNT 7.7 TH/MM3 (4.0-11.0)
[2016-05-12 06:58] LABS: HEMO FLAGS AUTO DIFF
[2016-05-12 07:05] LABS: PLATELET COUNT 7 TH/MM3 (150-450)
--- NOTE | 2016-05-12 07:48 | PD.ONC.PN ---
Subjective Subjective Remarks Mr. Trevino reports having had Nausea last night, currently on BiPAP. S/p PLTs last night, PLT this AM is 7. No overt bleeding. Oxygen requirements remain very high. CXR from last night: Persistent infiltrates despite diuresis. Objective Data Date Time Temp Pulse Resp B/P Pulse Ox O2 Delivery O2 Flow Rate FiO2 05/12/16 06:00 53 05/12/16 04:56 100 60 05/12/16 04:00 96 Bi-Pap 60 05/12/16 04:00 61 05/12/16 04:00 97.6 53 32 109/60 96 05/12/16 02:00 68 05/12/16 01:14 95 35 05/12/16 00:00 89 05/12/16 00:00 97.3 89 31 138/78 98 05/12/16 00:00 94 Bi-Pap 60 05/11/16 22:00 103 05/11/16 21:49 97 60 05/11/16 20:50 92 Non-Rebreather 15.00 05/11/16 20:00 97.6 80 32 153/74 91 05/11/16 20:00 91 Non-Rebreather 100 05/11/16 20:00 80 05/11/16 18:00 105 05/11/16 16:00 102 05/11/16 16:00 98.2 82 20 126/61 91 05/11/16 16:00 95 Non-Rebreather 100 05/11/16 14:00 100 05/11/16 12:00 98.4 88 20 141/69 93 05/11/16 12:00 102 05/11/16 12:00 94 Non-Rebreather 100 05/11/16 10:00 111 05/11/16 08:33 95 Non-Rebreather 15.00 05/11/16 08:00 98.3 112 22 127/82 100 05/11/16 08:00 108 05/11/16 08:00 90 Non-Rebreather 100 05/12/16 05/12/16 05/12/16 07:00 15:00 23:00 Intake Total 273 ml Output Total 750 ml Balance -477 ml Result Diagram: 05/12/16 0547 05/11/16 1526 Laboratory Results Laboratory Tests Test 05/11/16 05/11/16 05/11/16/29/17 09:40 13:09 15:26 18:17 Haptoglobin 234 MG/DL Phosphorus Level 2.7 MG/DL Lactate Dehydrogenase 607 U/L White Blood Count 7.0 TH/MM3 Red Blood Count 3.19 MIL/MM3 Hemoglobin 9.5 GM/DL Hematocrit 27.3 % Mean Corpuscular Volume 85.4 FL Mean Corpuscular Hemoglobin 29.6 PG Mean Corpuscular Hemoglobin 34.7 % Concent Red Cell Distribution Width 14.8 % Platelet Count 10 TH/MM3 Mean Platelet Volume 8.7 FL Neutrophils (%) (Auto) 92.5 % Lymphocytes (%) (Auto) 5.0 % Monocytes (%) (Auto) 2.1 % Eosinophils (%) (Auto) 0.2 % Basophils (%) (Auto) 0.2 % Neutrophils # (Auto) 6.5 TH/MM3 Lymphocytes # (Auto) 0.4 TH/MM3 Monocytes # (Auto) 0.1 TH/MM3 Eosinophils # (Auto) 0.0 TH/MM3 Basophils # (Auto) 0.0 TH/MM3 CBC Comment AUTO DIFF Differential Total Cells 100 Counted Neutrophils % (Manual) 86 % Band Neutrophils % 8 % Lymphocytes % 5 % Neutrophils # (Manual) 6.7 TH/MM3 Metamyelocytes 1 % Nucleated Red Blood Cells 2 /100 WBC Differential Comment FINAL DIFF MANUAL Platelet Estimate RARE Platelet Morphology Comment NORMAL Tear Drop Cells 1+ Lactic Acid Level 1.3 mmol/L Potassium Level 3.7 MEQ/L Blood Bank Comment Test 05/12/16 05:47 White Blood Count 7.7 TH/MM3 Red Blood Count 2.89 MIL/MM3 Hemoglobin 8.7 GM/DL Hematocrit 24.6 % Mean Corpuscular Volume 85.3 FL Mean Corpuscular Hemoglobin 30.0 PG Mean Corpuscular Hemoglobin 35.2 % Concent Red Cell Distribution Width 15.0 % Platelet Count 7 TH/MM3 Mean Platelet Volume 8.6 FL Neutrophils (%) (Auto) 88.5 % Lymphocytes (%) (Auto) 8.4 % Monocytes (%) (Auto) 2.7 % Eosinophils (%) (Auto) 0.3 % Basophils (%) (Auto) 0.1 % Neutrophils # (Auto) 6.8 TH/MM3 Lymphocytes # (Auto) 0.7 TH/MM3 Monocytes # (Auto) 0.2 TH/MM3 Eosinophils # (Auto) 0.0 TH/MM3 Basophils # (Auto) 0.0 TH/MM3 CBC Comment AUTO DIFF Culture Results Microbiology Date/Time Procedure Status Source Growth 05/11/16 09:40 Aerobic Blood Culture Received Blood Peripheral Pending 05/11/16 09:40 Anaerobic Blood Culture Received Blood Peripheral Pending 05/11/16 09:48 Aerobic Blood Culture Received Blood Peripheral Pending 05/11/16 09:48 Anaerobic Blood Culture Received Blood Peripheral Pending Administered Medications Medications (Trade) Dose Ordered Sig/Jeremy Route PRN Reason Start Time Stop Time Status Last Admin Dose Admin Diltiazem HCl/ Sodium Chloride (Cardizem Inj/NS Inj) 125 ml @ 0 mls/hr TITRATE IV 05/09/16 15:30 05/11/16 21:39 Prednisone (Deltasone) 30 mg DAILY PO 05/10/16 09:00 05/11/16 10:32 IV Flush (NS Flush) 2 ml BID FLUSH 05/09/16 21:00 05/11/16 18:18 Acetaminophen (Tylenol) 650 mg Q4H PRN PO TEMP > 100.4 05/09/16 18:00 05/11/16 10:53 Ondansetron HCl (Zofran Inj) 4 mg Q6H PRN IVP NAUSEA OR VOMITING 05/09/16 18:00 05/11/16 22:43 Doxazosin Mesylate (Cardura) 4 mg HS PO 05/09/16 21:00 05/11/16 20:21 Metoprolol Tartrate (Lopressor) 50 mg Q8HR PO 05/09/16 22:00 05/12/16 06:21 Pantoprazole Sodium (Protonix) 40 mg HS PO 05/09/16 21:00 05/11/16 20:21 Sodium Chloride (Sodium Chloride) 1 gm DAILY PO 05/10/16 09:00 05/11/16 09:00 Calcium/Vitamin D (Oscal-D 250-125) 250 mg DAILY PO 05/10/16 09:00 05/11/16 10:32 Magnesium Oxide (Mag-Ox) 400 mg DAILY PO 05/10/16 09:00 05/11/16 10:32 Miscellaneous Information Patient in critical care unit? Ass... Q361D XX 05/10/16 23:45 05/10/16 23:45 Chlorhexidine Gluconate (Chlorhexidine 2% Cloth) 3 pack DAILY@04 TOP 05/11/16 04:00 05/15/16 04:01 05/12/16 01:23 Furosemide 40 mg 40 mg Q12H IV PUSH 05/11/16 08:00 05/11/16 20:21 Piperacillin Sod/ Tazobactam Sod 50 ml @ 100 mls/hr Q6H IV 05/11/16 08:00 05/12/16 01:21 Azithromycin/ Sodium Chloride (Zithromax Inj/ NS 250 ml Inj) 250 ml @ 250 mls/hr Q24H IV 05/11/16 08:00 05/11/16 10:32 Potassium Chloride (KCl) 20 meq DAILY PO 05/11/16 09:00 05/11/16 10:32 Diltiazem HCl (Cardizem) 90 mg QID PO 05/11/16 13:00 05/11/16 20:21 Objective Remarks GENERAL PHYSICAL APPEARANCE: Mr. Trevino is a pleasant 75-year-old male who appears to be cushingoid, he is elderly and heavy-set. He is not acutely distressed. HEENT: Head atraumatic, normocephalic, conjunctive are mildly pale. Sclerae are anicteric, EOMI, PERRLA, oral exam no pharyngeal erythema. Neck exam no palpable cervical or supraclavicular lymphadenopathy. RESPIRATORY: Good air movement bilaterally. No added breath sounds, decreased bibasilar air entry. CARDIOVASCULAR: Irregular rhythm, S1-S2. No obvious murmurs, rubs or gallops. ABDOMINAL EXAM: Obese belly, soft and nontender. No palpable organ enlargement, specifically no splenomegaly. EXTREMITIES: Trace pretibial edema. No calf tenderness. SKIN: Bruises noted over the upper and lower extremities, he has no active bleeding. Most of the bruises are less than 2 inches. RESEARCH RECRUITER: No focal, sensory or motor deficits. MUSCULOSKELETAL: Good muscle mass, tone and strength. Assessment/Plan Problem List: (1) Chronic ITP (idiopathic thrombocytopenia) Status: Chronic Plan: 05/11/16: platelet count improved to 32K. History: 08/2015: ischemic stroke. started on Eliquis 03/2016: SAH while on Eliquis for afib + ischemic stroke. AC stopped. ITP diagnosis made and patient found to be refractory to steroids. 05/08/2016 IVIG at clinic 05/09/16: platelet tx in clinic. admitted to hospital in Afib w/RVR 05/10/16: IVIG 80G given : PLT count is 7K. Assessment 75y/o male admitted with Afib w/ RVR while in the midst of an acute exacerbation of ITP. h/o Bilateral lower extremity deep venous thromboses. Benign prosthetic hypertrophy. Chronic kidney disease and (stage 2). History of elevated anticardiolipin antibody. Elevated homocystine level. Intracranial hemorrhage in March of 2016. Bleeding duodenal ulcer which was cauterized in August of 2015. ischemic stroke in August of 2015. Right carotid endarterectomy with patch angioplasty August 2015. IVC filter placement in 2007, this was removed in 2008. He had a second filter placed in 2015. Plan 1. ITP: On low dose Prednisone. Supportive transfusions for now. I will hold off on rituxan until after we rule out an opportunistic infection. Alternatively, a splenectomy may be considered. 2. Pulm infiltrates: TRALI vs. atypical PNA. Bronch with BAL needed. Will transfuse PLTs just prior to the procedure. Case discussed with Cad Designer Drafter, nurse, patient and his daughter. Roger Armenta MD May 12, 2016 07:48
[2016-05-12] MEDS ORDERED: SODIUM CHLOR 0.9% 250 ML INJ 250 ML IV ONE ×2 (08:00→16:00)
[2016-05-12] MEDS ORDERED: ACETAMINOPHEN 325 MG TAB PO PRN (08:00)
[2016-05-12] MEDS ORDERED: diphenhydrAMINE HCL 25 MG CAP PO PRN (08:00)
[2016-05-12] MEDS: SODIUM CHLORIDE 0.9% FLUSH 5 ML FLUSH FLUSH SCH ×2 (08:06→20:46)
[2016-05-12] MEDS: SODIUM CHLORIDE 1 GRAM TAB PO SCH (08:07)
[2016-05-12] MEDS: AZITHROMYCIN INJ 500 MG in SODIUM CHLOR 0.9% 250 ML INJ 250 ML IV SCH (08:07)
[2016-05-12] MEDS: CALCIUM/VITAMIN D 250 MG/125 U TAB PO SCH (08:07)
[2016-05-12] MEDS: POTASSIUM CHLORIDE 20 MEQ CONTROLLED RELEASE TAB PO SCH (08:08)
[2016-05-12] MEDS: DILTIAZEM HCL 90 MG TAB PO SCH ×4 (08:08→20:46)
[2016-05-12] MEDS: MAGNESIUM OXIDE 400 MG TAB PO SCH (08:08)
[2016-05-12] MEDS: predniSONE 10 MG TAB PO SCH (08:08)
[2016-05-12] MEDS: FUROSEMIDE 40 MG/4 ML VIAL IV PUSH SCH ×2 (08:08→20:46)
[2016-05-12 08:31] LABS: CORRECTED NUCLEATED RBC 3 /100 WBC (0-0); MYELOCYTES 2 % (0-0); NEUTROPHIL # MANUAL DIFF 6.8 TH/MM3 (1.8-7.7); POLYS (SEG NEUTROPHILS) 86 % (16-70); WBC DIFF SAMPLE 100
[2016-05-12 08:32] LABS: PLATELET ESTIMATE SMEAR RARE (NORMAL); PLATELET MORPHOLOGY NORMAL (NORMAL); SCAN/DIFF FINAL DIFF MANUAL
--- NOTE | 2016-05-12 09:18 | HHI.CCPN ---
Subjective Remarks/Hospital Course 75-year-old male patient with history of bilateral lower extremity DVTs, BPH, chronic renal failure, Elevated Anticardiolipin antibody level, Elevated homocysteine level, Gout, Hypertension, Hyponatremia, Idiopathic Thrombocytopenic Purpura, Intracranial hemorrhage in 2016, Bleeding duodenal ulcer and Ischemic stroke in 2016. Patient was sent to the emergency department 05/10/16 from his oncologist office for rapid a.fib with RVR. Patient had received 2 units of platelets prior. Patient has a history of A. Fibulation, he had to sit down, but denies chest pain or palpitations feeling lightheaded or dizzy. While on telemetry floor he has developed respiratory difficulty and is now transferred to ICU. SUBJ 05/11: Currently on BiPAP with 65% FiO2. Tachypneic. CXR pending for today, ABG also pending. CT pulmonary angiogram is pending at this time. Remains in atrial fibrillation with rapid ventricular response on Cardizem 15 mg per hour. Chest x-ray from yesterday shows predominantly right upper lobe lung infiltrates. IV Zosyn and azithromycin just ordered. Send cultures 05/12: Overnight remained on BIPAP, required 60% FiO2. CXR today persistent diffuse bilateral interstitial infiltrates right more than left despite adequate diuresis. With IV Lasix patient had > 5 L urine output. CMP pending. Remains in atrial fibrillation but rate controlled. There is concern about opportunistic lung infection including PCP pneumonia. Proceed with elective intubation, consult pulmonary for BAL, D/W Dr. Grace Objective Vital Signs Date Time Temp Pulse Resp B/P Pulse Ox O2 Delivery O2 Flow Rate FiO2 05/12/16 06:00 53 05/12/16 04:56 100 60 05/12/16 04:00 Bi-Pap 05/12/16 04:00 97.6 32 109/60 05/11/16 20:50 15.00 Intake and Output 05/11/16 05/11/16 05/12/16 08:00 16:00 00:00 Intake Total 305 ml 489 ml 522 ml Output Total 1100 ml 3700 ml 900 ml Balance -795 ml -3211 ml -378 ml Result Diagram: 05/12/16 0547 05/11/16 1526 Objective Remarks GENERAL: Well-nourished, well-developed patient, in moderate distress on BiPAP, critically ill SKIN: Warm and dry. HEAD: Normocephalic. EYES: No scleral icterus. No injection or drainage. NECK: Supple, trachea midline. No JVD or lymphadenopathy. CARDIOVASCULAR: Atrial fibrillation with HR in 50s. No murmurs RESPIRATORY: Breath sounds equal bilaterally, with coarse crackles predominantly right lung rider. On BIPAP 60% GASTROINTESTINAL: Abdomen soft, non-tender, nondistended. MUSCULOSKELETAL: No cyanosis, or edema. BACK: Nontender without obvious deformity. No CVA tenderness. EXTREMITIES: No pedal edema NEURO: Alert and oriented 3 no focal deficits Procedures None A/P Problem List: (1) Acute hypoxemic respiratory failure ICD Code: J96.01 Status: Acute (2) Pneumonia, rule out opportunistic infection Status: Acute (3) Thrombocytopenia ICD Code: D69.6 Status: Acute (4) CHF (congestive heart failure) ICD Code: I50.9 Status: Acute (5) Coagulopathy ICD Code: D68.9 Status: Acute (6) Afib ICD Code: I48.91 Status: Acute (7) Chronic ITP (idiopathic thrombocytopenia) ICD Code: D69.3 Status: Chronic (8) Respiratory distress ICD Code: R06.00 Status: Acute (9) Atrial fibrillation with RVR ICD Code: I48.91 Status: Acute (10) Leg DVT (deep venous thromboembolism), chronic ICD Code: I82.509 Status: Chronic (11) 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 Lasix 40 q12- reduce to 20 q12 - Proceed with endotracheal intubation, ACV 16/550/12, titrate FiO2 - Despite adequate dialysis patient has persistent bilateral infiltrates- congestive heart failure less likely - More likely atypical pneumonia early ARDS - Unable to anticoagulate due to severe thrombocytopenia - S/p IVC filter in 2016 CVS: A. Fib rapid ventricular response Possible CHF (More likely atypical pneumonia/ARDS) - Cardizem gtt now turned off as rate controlled - Cardiology -Dr. Murphy - Receiving by mouth Cardizem and by mouth metoprolol - Cannot anticoagulate due to severe thrombocytopenia GI: -Nothing by mouth except meds, Protonix : Chronic kidney disease - monitor electrolytes and creatinine - monitor urine output HEME: Chronic ITP with acute exacerbation - per Hem-Onc. Continue prednisone 30 mg daily, IVIG per Dr. Armenta. - Considering rituximab for refractory ITP, splenectomy is also a consideration - Transfuse platelets per heme ID: Probable sepsis Atypical Pneumonia -Unable to rule out bacterial versus opportunistic pneumonia. F/u panculture, urine for Legionella and pneumococcal antigen, influenza -Continue Zosyn and azithromycin -Consulted ID, consulted pulmonary Dr. Mondragon for bronch/BAL ENDO: -Electrolyte replacement per protocol DVT/GI prophylaxis - TEDs/SCDs/Pepcid - s/p IVC filter most recently in 2016. Cannot anticoagulate due to severe thrombocytopenia and recent intracranial hemorrhage Critical Care: The total critical care time was 55 minutes. Time to perform other separately billable procedures was not included in the critical care time. Leni Cedeño MD May 12, 2016 09:18
--- NOTE | 2016-05-12 09:30 | RADRPT ---
EXAM DATE/TIME: 05/12/2016 09:05 [facility] COMPARISON: CHEST SINGLE AP, May 11, 2016, 15:43. INDICATIONS : Respiratory disease. MEDICAL HISTORY : Hypertension SURGICAL HISTORY : None. ENCOUNTER: Subsequent ACUITY: 4 - 6 days PAIN SCORE: 2/10 LOCATION: Bilateral chest FINDINGS: Bilateral diffuse interstitial pulmonary infiltrates persist without superimposed consolidation. [place] appearance to prior examination. Cardiomegaly is identified. CONCLUSION: Stable chest Anthony Murphy MD on May 12, 2016 at 9:27 Board Certified Radiologist. This report was verified electronically.
[2016-05-12] MEDS ORDERED: ETOMIDATE 20 MG/10 ML VIAL IV PUSH ONE (09:45)
[2016-05-12] MEDS ORDERED: ROCURONIUM INJ 50 MG/5 ML VIAL IV ONE (09:45)
[2016-05-12] MEDS ORDERED: MIDAZOLAM HCL 5 MG/ML VIAL (1 ML) IV ONE (09:45)
[2016-05-12] MEDS ORDERED: PROPOFOL 1000 MG/100 ML INJ 100 ML ONE (09:47)
[2016-05-12] MEDS ORDERED: fentaNYL DRIP 250 ML IV SCH (10:00)
--- NOTE | 2016-05-12 10:06 | PD.PROCEDR ---
Procedure Note Procedure After the risks and benefits were discussed the following procedure was performed: INTUBATION: The patient was put in optimal position for the procedure. Rapid sequence intubation was initiated by me using 20 milligrams of etomidate IV and 5 milligrams of Versed IV, neuromuscular paralysis with rocuronium 50 mg 1. Negative endoscopy lack 4 blade Grade 1 view single attempt. The patient was intubated with a 8.0 cuffed endotracheal tube. Tube placement was confirmed by visualization of the tube and balloon passing through the cords, capnometry and subsequent chest x-ray. Breath sounds were equal and well aerated bilaterally postintubation. No breath sounds over stomach. Patient tolerated procedure well. Leni Cedeño MD May 12, 2016 10:06
--- NOTE | 2016-05-12 10:08 | PD.PROCEDR ---
Central Line Procedure REASON FOR PROCEDURE Central venous access PROCEDURE PERFORMED Central line placement: RIJ central line placed with ongoing platelet transfusion CONSENT Informed consent for procedure was obtained from patient. The risks and benefits of the procedure were discussed to include but limited to bleeding, clot formation, infection, and even . ANESTHESIA Local injection of 1% Lidocaine DESCRIPTION OF THE PROCEDURE The patient was placed in supine, mild Trendelenburg position. The area was exposed and cleansed with ChloraPrep, times two. Large sterile drape was used to cover the patient, with the site exposed, under sterile conditions including cap, face mask, sterile gown, and sterile gloves. On single attempt, the introducer needle was inserted with negative pressure in syringe and venous flash was obtained. The guide wire was then advanced without any restriction and the needle was removed. The dilator was used without any complications. Using Seldinger technique the 20 CM 7F triple lumen catheter was advanced over the guide wire to a depth of 17 centimeters. The guide wire was removed. All ports were aspirated with dark venous blood return and flushed easily with sterile saline. All ports were capped. Antibiotic disc was placed around central line at puncture site. The central line was secured to the skin with two interrupted 2.0 silk sutures. The area was bandaged with sterile see- through central line bandage. RADIOLOGICAL DATA Ultrasound guidance was used to locate RIJ. Doppler/color flow was used to confirm venous flow. COMPLICATIONS: No apparent complications ESTIMATED BLOOD LOSS: Less than 1 cc. Leni Cedeño MD May 12, 2016 10:08
[2016-05-12 10:37] LABS: BLOOD GAS BASE EXCESS 8.1 mmol/L (-2-2); BLOOD GAS HCO3 32 mmol/L (22-26); BLOOD GAS METHEMOGLOBIN 1.3 % (0-2); BLOOD GAS O2 HGB SATURATION 96 % (90-100); BLOOD GAS OXYGEN CONTENT 12.2 Vol % (12.0-20.0); BLOOD GAS PCO2 47 mmHg (38-42); BLOOD GAS PO2 179 mmHg (61-120); BLOOD GAS TOTAL HGB 8.8 G/DL (12.0-16.0); TEMP CORR TO 98.6
--- NOTE | 2016-05-12 10:37 | RADRPT ---
EXAM DATE/TIME: 05/12/2016 10:22 [place] COMPARISON: CHEST SINGLE AP, May 12, 2016, 9:05. INDICATIONS : Post intubation and right central line. MEDICAL HISTORY : Hypertension SURGICAL HISTORY : None. ENCOUNTER: Subsequent ACUITY: 4 - 6 days PAIN SCORE: Non-responsive. LOCATION: Bilateral chest FINDINGS: Diffuse pulmonary interstitial infiltrates persist. There is an ET tube placed terminating above the rubi and right jugular catheter terminating in the superior vena cava CONCLUSION: ET tube above the rubi. Right jugular catheter terminates superior vena cava with no pneumothorax. Otherwise stable interstitial changes Anthony Murphy MD on May 12, 2016 at 10:34 Board Certified Radiologist. This report was verified electronically.
[2016-05-12 10:38] LABS: CRITICAL VALUE NO; DRAW SITE LT RADIAL; FIO2 60 %; NUMBER OF ARTERIAL PUNCTURES 1; OXYGEN DEVICE VENTILATOR; STAT NO; ULNAR PULSE PRESENT
[2016-05-12 11:17] LABS: ALKALINE PHOSPHATASE 48 U/L (45-117); ALT (GPT) 43 U/L (12-78); ANION GAP 6 MEQ/L (5-15); AST (GOT) 44 U/L (15-37); BICARBONATE 34.8 MEQ/L (21.0-32.0); BLOOD UREA NITROGEN 40 MG/DL (7-18); CHLORIDE 97 MEQ/L (98-107); GLOMERULAR FILTRATION RATE 34 ML/MIN (>89); POTASSIUM 3.6 MEQ/L (3.5-5.1); SODIUM (NA) 138 MEQ/L (136-145)
--- NOTE | 2016-05-12 12:27 | PD.CARD.PN ---
Subjective Subjective Remarks Electively intubated from Bronchoscopy Afib rate controlled Objective Medications Current Medications Medications (Trade) Dose Ordered Sig/Jeremy Route Start Time Stop Time Status Last Admin (Cardizem Inj/NS Inj) 125 ml @ 0 mls/hr TITRATE IV 05/09/16 15:30 05/11/16 21:39 (Deltasone) 30 mg DAILY PO 05/10/16 09:00 05/12/16 08:08 (NS Flush) 2 ml UNSCH PRN FLUSH 05/09/16 18:00 (NS Flush) 2 ml BID FLUSH 05/09/16 21:00 05/12/16 08:06 (Tylenol) 650 mg Q4H PRN PO 05/09/16 18:00 05/11/16 10:53 (Zofran Inj) 4 mg Q6H PRN IVP 05/09/16 18:00 05/11/16 22:43 (Milk Of Magnesia Liq) 30 ml Q12H PRN PO 05/09/16 18:00 (Narcan Inj) 0.4 mg UNSCH PRN IV 05/09/16 18:00 (Cardura) 4 mg HS PO 05/09/16 21:00 05/11/16 20:21 (Lopressor) 50 mg Q8HR PO 05/09/16 22:00 05/12/16 06:21 (Protonix) 40 mg HS PO 05/09/16 21:00 05/11/16 20:21 (Sodium Chloride) 1 gm DAILY PO 05/10/16 09:00 05/12/16 08:07 (Oscal-D 250-125) 250 mg DAILY PO 05/10/16 09:00 05/12/16 08:07 (Mag-Ox) 400 mg DAILY PO 05/10/16 09:00 05/12/16 08:08 Miscellaneous Information Patient in critical care unit? Ass... Q361D XX 05/10/16 23:45 05/10/16 23:45 (Chlorhexidine 2% Cloth) 3 pack DAILY@04 TOP 05/11/16 04:00 05/15/16 04:01 05/12/16 01:23 (Chlorhexidine 2% Cloth) 3 pack UNSCH PRN TOP 05/10/16 23:45 05/15/16 23:49 Furosemide 40 mg 40 mg Q12H IV PUSH 05/11/16 08:00 05/12/16 08:08 Piperacillin Sod/ Tazobactam Sod 50 ml @ 100 mls/hr Q6H IV 05/11/16 08:00 05/12/16 08:07 (Zithromax Inj/ NS 250 ml Inj) 250 ml @ 250 mls/hr Q24H IV 05/11/16 08:00 05/12/16 08:07 Potassium Chloride 20 meq 20 meq DAILY PO 05/11/16 09:00 05/12/16 08:08 Potassium Chloride 100 ml @ 50 mls/hr Q2H PRN IV 05/11/16 07:30 (KCl 20 Meq Premix Inj) 100 ml @ 50 mls/hr Q2H PRN IV 05/11/16 07:30 Potassium Chloride 40 meq 40 meq UNSCH PRN PO/TUBE 05/11/16 07:30 Potassium Chloride 100 ml @ 25 mls/hr UNSCH PRN IV 05/11/16 07:30 Potassium Chloride 100 ml @ 50 mls/hr Q2H PRN IV 05/11/16 07:30 (Magnesium Sulfate Inj/NS Inj) 100 ml @ 50 mls/hr UNSCH PRN IV 05/11/16 07:30 Magnesium Oxide 800 mg 800 mg UNSCH PRN PO 05/11/16 07:30 (Magnesium Sulfate Inj/NS Inj) 100 ml @ 50 mls/hr UNSCH PRN IV 05/11/16 07:30 Potassium Phosphate 2000 mg 2,000 mg Q4H PRN PO 05/11/16 07:30 (Sodium Phosphate Inj/NS 250 ml Inj) 250 ml @ 42 mls/hr UNSCH PRN IV 05/11/16 07:30 (KCl 40 Meq/30 ml Liq) 40 meq UNSCH PRN PO/TUBE 05/11/16 07:30 Potassium Phosphate 2000 mg 2,000 mg UNSCH PRN PO/TUBE 05/11/16 07:30 (Potassium Phosphate Inj/NS 250 ml Inj) 260 ml @ 42 mls/hr UNSCH PRN IV 05/11/16 07:30 (Cardizem) 90 mg QID PO 05/11/16 13:00 05/12/16 08:08 Sodium Chloride 1 spray 1 spray UNSCH PRN NA 05/11/16 23:45 (NS 250 ml Inj) 250 ml @ 15 mls/hr ONCE ONCE IV 05/12/16 08:00 05/13/16 00:39 Chlorhexidine Gluconate 15 ml 15 ml BID@08,20 MT 05/12/16 20:00 Propofol 100 ml @ 0 mls/hr TITRATE IV 05/12/16 10:00 (fentaNYL DRIP) 250 ml @ 0 mls/hr TITRATE IV 05/12/16 10:00 Vital Signs / I&O Vital Signs Date Time Temp Pulse Resp B/P Pulse Ox O2 Delivery O2 Flow Rate FiO2 05/12/16 10:00 60 05/12/16 09:39 99 100 05/12/16 08:00 55 05/12/16 08:00 100 Bi-Pap 100 05/12/16 06:00 53 05/12/16 04:56 100 60 05/12/16 04:00 96 Bi-Pap 60 05/12/16 04:00 61 05/12/16 04:00 97.6 53 32 109/60 96 05/12/16 02:00 68 05/12/16 01:14 95 35 05/12/16 00:00 89 05/12/16 00:00 97.3 89 31 138/78 98 05/12/16 00:00 94 Bi-Pap 60 05/11/16 22:00 103 05/11/16 21:49 97 60 05/11/16 20:50 92 Non-Rebreather 15.00 05/11/16 20:00 97.6 80 32 153/74 91 05/11/16 20:00 91 Non-Rebreather 100 05/11/16 20:00 80 05/11/16 18:00 105 05/11/16 16:00 102 05/11/16 16:00 98.2 82 20 126/61 91 05/11/16 16:00 95 Non-Rebreather 100 05/11/16 14:00 100 I/O 05/11/16 05/11/16 05/11/16 05/12/16 05/12/16 05/12/16 07:00 15:00 23:00 07:00 15:00 23:00 Intake Total 305 ml 489 ml 522 ml 273 ml Output Total 1100 ml 3700 ml 900 ml 750 ml Balance -795 ml -3211 ml -378 ml -477 ml Intake Oral 240 ml IV Total 65 ml 489 ml 522 ml 273 ml Output Urine Total 1100 ml 3700 ml 900 ml 750 ml # Bowel Movements 0 Physical Exam GENERAL: Well-nourished, well-developed patient. SKIN: Warm and dry. HEAD: Normocephalic. EYES: No scleral icterus. No injection or drainage. NECK: Supple, trachea midline. No JVD or lymphadenopathy. CARDIOVASCULAR: Irr Irr without murmurs, gallops, or rubs. RESPIRATORY: Breath sounds equal bilaterally. No accessory muscle use. GASTROINTESTINAL: Abdomen soft, non-tender, nondistended. EXTREMITIES: No cyanosis, or edema. NEUROLOGICAL: Awake, alert, and oriented x 3. Non-focal. Laboratory Laboratory Tests Test 05/11/16 05/11/16 05/11/16 05/12/16 13:09 15:26 18:17 05:47 White Blood Count 7.0 TH/MM3 7.7 TH/MM3 Red Blood Count 3.19 MIL/MM3 2.89 MIL/MM3 Hemoglobin 9.5 GM/DL 8.7 GM/DL Hematocrit 27.3 % 24.6 % Mean Corpuscular Volume 85.4 FL 85.3 FL Mean Corpuscular Hemoglobin 29.6 PG 30.0 PG Mean Corpuscular Hemoglobin 34.7 % 35.2 % Concent Red Cell Distribution Width 14.8 % 15.0 % Platelet Count 10 TH/MM3 7 TH/MM3 Mean Platelet Volume 8.7 FL 8.6 FL Neutrophils (%) (Auto) 92.5 % 88.5 % Lymphocytes (%) (Auto) 5.0 % 8.4 % Monocytes (%) (Auto) 2.1 % 2.7 % Eosinophils (%) (Auto) 0.2 % 0.3 % Basophils (%) (Auto) 0.2 % 0.1 % Neutrophils # (Auto) 6.5 TH/MM3 6.8 TH/MM3 Lymphocytes # (Auto) 0.4 TH/MM3 0.7 TH/MM3 Monocytes # (Auto) 0.1 TH/MM3 0.2 TH/MM3 Eosinophils # (Auto) 0.0 TH/MM3 0.0 TH/MM3 Basophils # (Auto) 0.0 TH/MM3 0.0 TH/MM3 CBC Comment AUTO DIFF AUTO DIFF Differential Total Cells 100 100 Counted Neutrophils % (Manual) 86 % 86 % Band Neutrophils % 8 % Lymphocytes % 5 % 8 % Neutrophils # (Manual) 6.7 TH/MM3 6.8 TH/MM3 Metamyelocytes 1 % Nucleated Red Blood Cells 2 /100 WBC 3 /100 WBC Differential Comment FINAL DIFF FINAL DIFF MANUAL MANUAL Platelet Estimate RARE RARE Platelet Morphology Comment NORMAL NORMAL Tear Drop Cells 1+ Lactic Acid Level 1.3 mmol/L Potassium Level 3.7 MEQ/L Blood Bank Comment Monocytes % 4 % Myelocytes 2 % Red Cell Morphology Comment NORMAL Test 05/12/16 05/12/16 05/12/16 07:52 10:30 10:32 Blood Bank Comment Blood Gas Puncture Site LT RADIAL Blood Gas Patient Temperature 98.6 Blood Gas HCO3 32 mmol/L Blood Gas Base Excess 8.1 mmol/L Blood Gas Oxygen Saturation 96 % Arterial Blood pH 7.45 Arterial Blood Partial 47 mmHg Pressure CO2 Arterial Blood Partial 179 mmHg Pressure O2 Arterial Blood Oxygen Content 12.2 Vol % Arterial Blood 3.0 % Carboxyhemoglobin Arterial Blood Methemoglobin 1.3 % Blood Gas Hemoglobin 8.8 G/DL Oxygen Delivery Device VENTILATOR Blood Gas Ventilator Setting A/C 550/16/12 PEEP Blood Gas Inspired Oxygen 60 % Sodium Level 138 MEQ/L Potassium Level 3.6 MEQ/L Chloride Level 97 MEQ/L Carbon Dioxide Level 34.8 MEQ/L Anion Gap 6 MEQ/L Blood Urea Nitrogen 40 MG/DL Creatinine 1.94 MG/DL Estimat Glomerular Filtration 34 ML/MIN Rate Random Glucose 156 MG/DL Calcium Level 8.2 MG/DL Total Bilirubin 3.0 MG/DL Aspartate Amino Transf 44 U/L (AST/SGOT) Alanine Aminotransferase 43 U/L (ALT/SGPT) Alkaline Phosphatase 48 U/L Total Protein 7.3 GM/DL Albumin 2.3 GM/DL Imaging Last Impressions Chest X-Ray 05/12/16 0000 Signed Impressions: Service Date/Time: Thursday, May 12, 2016 10:22 - CONCLUSION: ET tube above the rubi. Right jugular catheter terminates superior vena cava with no pneumothorax. Otherwise stable interstitial changes Anthony Murphy MD CT Angiography 05/10/16 0000 Signed Impressions: Service Date/Time: Wednesday, May 11, 2016 07:53 - CONCLUSION: 1. No evidence of PE. 2. Diffuse interstitial infiltrates throughout most of the right lung. 3. Scattered interstitial infiltrates throughout the left lung. Markus Guzmna MD Assessment and Plan Problem List: (1) Atrial fibrillation with RVR Assessment and Plan: Cont rate control strategy If transfusion given please give IV Lasix between transfusions to prevent fluid overload ITP per Heme/Onc Will be available as a PRN basis for anymore questions or concerns (2) Chronic ITP (idiopathic thrombocytopenia) (3) Warfarin-induced coagulopathy Dany Salinas MD May 12, 2016 12:27
[2016-05-12 14:01] LABS: HEMATOCRIT 22.2 % (39.0-51.0); MEAN CELL VOLUME 86.9 FL (80.0-100.0); MEAN CORPUSCULAR HEMOGLOBIN 30.3 PG (27.0-34.0); MEAN CORPUSCULAR HGB CONC 34.8 % (32.0-36.0); RED BLOOD COUNT 2.56 MIL/MM3 (4.50-5.90); RED CELL DISTRIBUTION WIDTH 14.8 % (11.6-17.2); WHITE BLOOD COUNT 8.5 TH/MM3 (4.0-11.0)
[2016-05-12 14:06] LABS: PLATELET COUNT 19 TH/MM3 (150-450); REVIEW FLAG FINAL
[2016-05-12] MEDS ORDERED: FUROSEMIDE 40 MG/4 ML VIAL IV PUSH ONE (17:15)
[2016-05-12] MEDS: PROPOFOL 1000 MG/100 ML INJ 100 ML IV SCH ×2 (17:24→20:50)
[2016-05-12] MEDS ORDERED: LIDOCAINE HCL 2% 50 ML VIAL OTHER SCH (18:00)
[2016-05-12] MEDS ORDERED: EPINEPHrine HCL (1:10,000) 1 MG/10 ML SYRINGE IV SCH (18:00)
--- NOTE | 2016-05-12 18:42 | MB ---
cc: TRISTON RAMIREZ MD DATE OF CONSULTATION 05/12/[address] Cedeño. REASON FOR CONSULTATION Probable pneumonia, opportunistic infection, chronic steroid use for ITP. HISTORY OF PRESENT ILLNESS This is a 75-year-old white male who presented to emergency department from his physician's office with elevated heart rate. The patient was noted to have a new onset atrial fibrillation. He was followed by Dr. Armenta for ITP and he recently received IVIG infusion on 05/08/2016 and also he received platelet transfusion on 05/09/2016. The patient was diagnosed with atrial fibrillation and rapid ventricular response. He was intubated this morning after he was on BiPap overnight. The chest x-ray shows bilateral interstitial infiltrates. His urine output was significant after diuresis with Lasix. Sputum culture has been ordered. Blood culture has no growth in 24 hours. White blood cell count is normal at 7.7 but his platelet count is 7. CT angiogram showed no evidence of pulmonary embolism. Diffuse interstitial infiltrate was noted throughout most of the right lung and scattered interstitial infiltrates throughout the left lung. Since the patient is sedated and on the ventilator information cannot be obtained from him. Information is obtained from the medical record. His last temperature was 97.6. He is currently on the ventilator at 40% FIO2. Prior temperatures since admission have been normal. Initial chest x-ray on May 08 revealed diffuse pulmonary vascular changes suggesting pulmonary vascular congestion without consolidating infiltrates. PAST MEDICAL HISTORY 1. Bilateral lower extremity deep thromboses. 2. Hypertension. 3. ITP. 4. Chronic kidney disease. 5. Benign prostatic hypertrophy. 6. Intracranial hemorrhage March 2016. 7. Ischemic stroke August 2015. 8. GI bleed August 2015. 9. Right total hip replacement. 10. Tonsillectomy. 11. Right carotid endarterectomy with patch angioplasty. 12. IVC filter placement 2015. 13. Prior IVC filter placement 2007 which was removed in 2008. 14. Appendectomy. 15. Vasectomy. ALLERGIES PREDNISONE. THE PATIENT DEVELOPED MILD ITCHING. MEDICATIONS 1. Piperacillin / tazobactam. 2. Azithromycin. 3. Lasix. 4. Prednisone. 5. Os-Ganesh D. 6. Magnesium oxide. 7. Lopressor. 8. Cardura. 9. Protonix. SOCIAL HISTORY No tobacco use. Occasional alcohol in the form of beer. No illicit drugs. FAMILY HISTORY Noncontributory. REVIEW OF SYSTEMS Unable to obtain. PHYSICAL EXAMINATION GENERAL: This is a moderately obese male who is on the ventilator and is sedated. VITAL SIGNS: The vital signs include temperature of 97.6, blood pressure 121/62, heart rate 63. HEENT: Head is atraumatic. Unable to assess extraocular movements. Unable to assess the oropharynx adequately. External buccal mucosa is moist. NECK: Has no adenopathy or swelling. LUNGS: Have basilar rhonchi bilaterally. HEART: Irregular rate and rhythm. ABDOMEN: Decreased bowel sounds, soft. No tenderness appreciated. RECTAL: Not performed. EXTREMITIES: No clubbing, cyanosis or edema. SKIN: No rash. NEUROLOGICAL: Unable to assess. LABORATORY DATA WBC 7.7, platelet count 7, hemoglobin 8.7. LDH 607, creatinine 1.94, BUN 40, estimated GFR 34. IMPRESSION 1. Bilateral lung infiltrates in a patient who has ITP and likely is immune suppressed and likely may have pulmonary opportunistic infection. 2. Acute respiratory failure. 3. Chronic kidney disease. 4. Thrombocytopenia secondary to ITP. RECOMMENDATIONS 1. Obtain sputum for PCP evaluation. 2. Continue piperacillin / tazobactam. 3. Continue azithromycin. 4. Monitor sputum culture and also monitor influenza antigen testing. Thank you for this consultation. The patient's progress will be followed and further recommendations will be given on followup. Triston Ramirez MD FD/PAULINA /12:26 PM /6:04 PM
[2016-05-12] MEDS: CHLORHEXIDINE 0.12% (ORAL KIT) 15 ML CUP MT SCH (20:45)
[2016-05-12] MEDS: PANTOPRAZOLE SOD 40 MG DELAYED RELEASE TAB PO SCH (20:46)
[2016-05-12] MEDS: DOXAZOSIN MESYLATE 4 MG TAB PO SCH (20:46)
[2016-05-13] VITALS (17 sets, daily range): BP systolic 120–137; BP diastolic 73–83; PULSE 64–136; RESP 16–23; TEMP 98.2–98.8; O2SAT 93–98
[2016-05-13] MEDS: PIPERACIL-TAZO 3.375 GM PREMIX 50 ML IV SCH ×4 (02:00→20:06)
[2016-05-13] MEDS: PROPOFOL 1000 MG/100 ML INJ 100 ML IV SCH (03:28)
[2016-05-13] MEDS: RESP: ALBUTEROL 2.5 MG/IPRATROPIUM 0.5 MG NEB (SCH) NEB ×4 (03:39→21:05)
[2016-05-13] MEDS: CHLORHEXIDINE GLUCONATE 2 % 1 PACK (2 CLOTHS)(taper/protocol) TOP SCH (04:00)
[2016-05-13] MEDS: METOPROLOL TARTRATE 50 MG TAB PO SCH ×3 (06:24→20:06)
--- NOTE | 2016-05-13 07:10 | MB ---
cc: NIELS MITCHELL DATE OF CONSULTATION 05/12/2016 REASON FOR CONSULTATION Extensive right lung infiltrate. HISTORY OF PRESENT ILLNESS This is a 75-hour-old white male with a history of chronic kidney disease and a history of ITP and prior history of hypertension, gout, as well as DVTs of the lower extremities a past history of ischemic stroke was admitted through the emergency room with a rapid heartbeat. The patient had received two units of platelets prior to being sent into the hospital. Upon arrival, he was noted to have an extensive right lung, as well as the left lung infiltrate. A CT scan of the chest was done which showed significant infiltration of both lung rider. The patient was hypoxic and was on a non-rebreather mask and had to be intubated for progressive respiratory failure. The EKG showed atrial fibrillation with a rapid ventricular response and the patient apparently had been coughing and wheezing persistently, but had no nausea, vomiting or aspiration. PAST HISTORY Significant for: 1. Elevated anticardiolipin antibody and elevated homocysteine Level. 2. Bilateral lower extremity DVT. 3. History of hypertension. 4. History of hyponatremia. 5. Immune thrombocytopenic purpura 6. Previous intracranial hemorrhage 7. History for gout. PAST SURGICAL HISTORY 1. The patient has had high right hip replacement surgery. 2. Prostate biopsies 3. Tonsillectomy 4. Right carotid endarterectomy. 5. Patch angioplasty 6. Colonoscopy 7. IVC filter placement last year and a prior IVC filter placement in 2007. 8. Vasectomy 9. Cataract surgery with implants 10. Appendectomy remotely. ALLERGIES PREDNISONE AND HYDROCORTISONE CREAM. MEDICATIONS 1. Cardura 4 mg at h.s. 2. Lopressor 50 mg q8 3. Lasix 20 mg daily 4. Prednisone 80 mg daily 5. Protonix 40 mg a day 6. Atorvastatin 20 mg daily 7. Allopurinol 100 mg a day FAMILY HISTORY Noncontributory HABITS The patient smoked for about 10 years and quit many years ago. Alcohol use occasional. REVIEW OF SYSTEMS The patient is intubated on ventilator support. PHYSICAL EXAMINATION This is an obese elderly man who is intubated, sedated and not responsive. VITAL SIGNS: Blood pressure 120/80, pulse is 130, respirations 24, temperature 98. HEENT: Head normocephalic. Pupils are reactive. Throat clear. Nasal mucosa injected. NECK: Supple with mild venous distension while laying flat. Trachea midline. No thyroid enlargement. CHEST: Distant breath sounds with crackles over the right lung field and left base. Occasional wheezes. HEART: Heart sounds are irregularly irregular. S1-S2. No murmur. ABDOMEN: Obese and protuberant without masses or organomegaly or tenderness. The bowel sounds are active. EXTREMITIES: No edema. Peripheral pulses are diminished. NEUROLOGIC: The patient is sedated and on ventilator support. SKIN: Dry and cool. IMPRESSION 1. Bilateral pneumonia with hypoxemia. 2. Atrial fibrillation and rapid ventricular response 3. History of ITP, immune thrombocytopenic purpura. 4. History of elevated anticardiolipin antibody. 5. History of DVTs status post IVC filter placement. 6. Hypertension 7. Hyperlipidemia PLAN The patient has been maintained on ventilator support. The etiology of the lung infiltrates is unclear and in an immunocompromised patient atypical infections is a possibility and thus a bronchoscopy will be scheduled. Platelets need to be given prior to this procedure and this was arranged as well. I will discuss the case with you Dr. Cedeño. Thank you for this consultation. MD JUAREZ Toro/RAKESH /5:43 PM /6:57 AM
--- NOTE | 2016-05-13 07:58 | PD.ONC.PN ---
Subjective Subjective Remarks Mr. Trevino was intubated yesterday afternoon prior to the bronchoscopy. He tolerated the procedure well, he was given 4 units PLTs prior to the procedure. PLT count is 19K this AM. He is sedated but arousable. There is some bleeding noted from the tracheal aspirates. Objective Data Date Time Temp Pulse Resp B/P Pulse Ox O2 Delivery O2 Flow Rate FiO2 05/13/16 06:00 73 05/13/16 04:00 95 Mechanical Ventilator 50 05/13/16 04:00 74 05/13/16 04:00 98.6 74 18 136/78 95 05/13/16 04:00 60 05/13/16 03:39 96 50 05/13/16 02:00 73 05/13/16 00:35 98 40 05/13/16 00:00 60 05/13/16 00:00 64 05/13/16 00:00 97 Mechanical Ventilator 60 05/13/16 00:00 98.8 64 20 121/83 97 05/12/16 22:17 97 60 05/12/16 22:00 64 05/12/16 21:00 Mechanical Ventilator 60 05/12/16 20:00 68 05/12/16 20:00 40 05/12/16 20:00 97 Mechanical Ventilator 40 05/12/16 20:00 98.2 68 21 140/70 97 05/12/16 19:30 98 40 05/12/16 18:00 70 05/12/16 18:00 98 100 05/12/16 16:00 100 Mechanical Ventilator 100 05/12/16 16:00 65 05/12/16 16:00 98.0 60 25 111/65 97 05/12/16 14:58 99 40 05/12/16 14:00 66 05/12/16 13:00 98 40 05/12/16 12:00 100 Mechanical Ventilator 100 05/12/16 12:00 98.2 54 22 121/62 94 05/12/16 12:00 62 05/12/16 11:53 18 05/12/16 10:00 60 05/12/16 09:39 99 100 05/12/16 08:00 55 05/12/16 08:00 100 Bi-Pap 100 05/12/16 08:00 98.0 50 30 119/70 100 05/13/16 05/13/1617 07:00 15:00 23:00 Intake Total 278 ml Output Total 1475 ml Balance -1197 ml Result Diagram: 05/12/16 1240 05/12/16 1032 Laboratory Results Laboratory Tests Test 05/12/16 05/12/16 05/12/16 05/12/16 10:30 10:32 12:40 16:00 Blood Gas Puncture Site LT RADIAL Blood Gas Patient Temperature 98.6 Blood Gas HCO3 32 mmol/L Blood Gas Base Excess 8.1 mmol/L Blood Gas Oxygen Saturation 96 % Arterial Blood pH 7.45 Arterial Blood Partial 47 mmHg Pressure CO2 Arterial Blood Partial 179 mmHg Pressure O2 Arterial Blood Oxygen Content 12.2 Vol % Arterial Blood 3.0 % Carboxyhemoglobin Arterial Blood Methemoglobin 1.3 % Blood Gas Hemoglobin 8.8 G/DL Oxygen Delivery Device VENTILATOR Blood Gas Ventilator Setting A/C 550/16/12 PEEP Blood Gas Inspired Oxygen 60 % Sodium Level 138 MEQ/L Potassium Level 3.6 MEQ/L Chloride Level 97 MEQ/L Carbon Dioxide Level 34.8 MEQ/L Anion Gap 6 MEQ/L Blood Urea Nitrogen 40 MG/DL Creatinine 1.94 MG/DL Estimat Glomerular Filtration 34 ML/MIN Rate Random Glucose 156 MG/DL Calcium Level 8.2 MG/DL Total Bilirubin 3.0 MG/DL Aspartate Amino Transf 44 U/L (AST/SGOT) Alanine Aminotransferase 43 U/L (ALT/SGPT) Alkaline Phosphatase 48 U/L Total Protein 7.3 GM/DL Albumin 2.3 GM/DL White Blood Count 8.5 TH/MM3 Red Blood Count 2.56 MIL/MM3 Hemoglobin 7.7 GM/DL Hematocrit 22.2 % Mean Corpuscular Volume 86.9 FL Mean Corpuscular Hemoglobin 30.3 PG Mean Corpuscular Hemoglobin 34.8 % Concent Red Cell Distribution Width 14.8 % Platelet Count 19 TH/MM3 Mean Platelet Volume 8.3 FL Blood Bank Comment Culture Results Microbiology Date/Time Procedure Status Source Growth 05/11/16 09:40 Aerobic Blood Culture - Preliminary Resulted Blood Peripheral NO GROWTH IN 1 DAY 05/11/16 09:40 Anaerobic Blood Culture - Preliminary Resulted Blood Peripheral NO GROWTH IN 1 DAY 05/11/16 09:48 Aerobic Blood Culture - Preliminary Resulted Blood Peripheral NO GROWTH IN 1 DAY 05/11/16 09:48 Anaerobic Blood Culture - Preliminary Resulted Blood Peripheral NO GROWTH IN 1 DAY 1/30/17 11:53 Gram Stain Received Sputum Endotracheal Pending 05/12/16 11:53 Sputum Culture Received Sputum Endotracheal Pending 05/12/16 11:53 Legionella Antigen - Final Complete Urine Catheterized Urine PRESUMPTIVE NEGATIVE FOR LEGIONELLA P... 05/12/16 11:53 Streptococcus pneumoniae Antigen (M - Final Complete Urine Catheterized Urine PRESUMPTIVE NEGATIVE FOR STREPTOCOCCU... 05/12/16 11:54 Influenza Types A,B Antigen (BRANDEN) - Final Complete Nasal Washing NEGATIVE FOR FLU A AND B ANTIGEN.... 05/12/16 11:55 Urine Culture Received Urine Catheterized Urine Pending 05/12/16 18:25 Gram Stain Received Bronchial Washings Bronchial Pending 05/12/16 18:25 Bronchial Culture Received Bronchial Washings Bronchial Pending 05/12/16 18:25 Acid Fast Stain Received Bronchial Washings Bronchial Pending 05/12/16 18:25 Mycobacterial Culture Received Bronchial Washings Bronchial Pending 05/12/16 18:25 Fungal Smear Received Bronchial Washings Bronchial Pending 05/12/16 18:25 Fungal Culture Received Bronchial Washings Bronchial Pending Administered Medications Medications (Trade) Dose Ordered Sig/Jeremy Route PRN Reason Start Time Stop Time Status Last Admin Dose Admin Diltiazem HCl/ Sodium Chloride (Cardizem Inj/NS Inj) 125 ml @ 0 mls/hr TITRATE IV 05/09/16 15:30 05/11/16 21:39 Prednisone (Deltasone) 30 mg DAILY PO 05/10/16 09:00 05/12/16 08:08 IV Flush (NS Flush) 2 ml BID FLUSH 05/09/16 21:00 05/12/16 20:46 Acetaminophen (Tylenol) 650 mg Q4H PRN PO TEMP > 100.4 05/09/16 18:00 05/11/16 10:53 Ondansetron HCl (Zofran Inj) 4 mg Q6H PRN IVP NAUSEA OR VOMITING 05/09/16 18:00 05/11/16 22:43 Doxazosin Mesylate (Cardura) 4 mg HS PO 05/09/16 21:00 05/12/16 20:46 Metoprolol Tartrate (Lopressor) 50 mg Q8HR PO 05/09/16 22:00 05/13/16 06:24 Pantoprazole Sodium (Protonix) 40 mg HS PO 05/09/16 21:00 05/12/16 20:46 Sodium Chloride (Sodium Chloride) 1 gm DAILY PO 05/10/16 09:00 05/12/16 08:07 Calcium/Vitamin D (Oscal-D 250-125) 250 mg DAILY PO 05/10/16 09:00 05/12/16 08:07 Magnesium Oxide (Mag-Ox) 400 mg DAILY PO 05/10/16 09:00 05/12/16 08:08 Miscellaneous Information Patient in critical care unit? Ass... [id number] XX 05/10/16 23:45 05/10/16 23:45 Chlorhexidine Gluconate (Chlorhexidine 2% Cloth) 3 pack DAILY@04 TOP 05/11/16 04:00 05/15/16 04:01 05/13/16 04:00 Furosemide 40 mg 40 mg Q12H IV PUSH 05/11/16 08:00 05/12/16 20:46 Piperacillin Sod/ Tazobactam Sod 50 ml @ 100 mls/hr Q6H IV 05/11/16 08:00 05/13/16 02:00 Azithromycin/ Sodium Chloride (Zithromax Inj/ NS 250 ml Inj) 250 ml @ 250 mls/hr Q24H IV 05/11/16 08:00 05/12/16 08:07 Potassium Chloride (KCl) 20 meq DAILY PO 05/11/16 09:00 05/12/16 08:08 Diltiazem HCl (Cardizem) 90 mg QID PO 05/11/16 13:00 05/12/16 20:46 Chlorhexidine Gluconate 15 ml 15 ml BID@08,20 MT 05/12/16 20:00 05/12/16 20:45 Propofol (Diprivan 1000 Mg/100ml Inj) 100 ml @ 0 mls/hr TITRATE IV 05/12/16 10:00 05/13/16 03:28 Objective Remarks GENERAL PHYSICAL APPEARANCE: Elderly male, intubated and sedated. Smiles and opens eyes when spoken to. Moving all 4 limbs on command. HEENT: Head atraumatic, normocephalic, conjunctive are mildly pale. Sclerae are anicteric, EOMI, PERRLA, oral exam no pharyngeal erythema. ETT in place. RESPIRATORY: Good air movement bilaterally. No added breath sounds, decreased bibasilar air entry. CARDIOVASCULAR: Irregular rhythm, S1-S2. No obvious murmurs, rubs or gallops. ABDOMINAL EXAM: Obese belly, soft and nontender. No palpable organ enlargement, specifically no splenomegaly. EXTREMITIES: Trace pretibial edema. No calf tenderness. SKIN: Bruises noted over the upper and lower extremities, he has no active bleeding. Most of the bruises are less than 2 inches. 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 MUSCULOSKELETAL: Good muscle mass, tone and strength. Assessment/Plan Problem List: (1) Chronic ITP (idiopathic thrombocytopenia) Status: Chronic Plan: 05/11/16: platelet count improved to 32K. History: 08/2015: ischemic stroke. started on Eliquis 03/2016: SAH while on Eliquis for afib + ischemic stroke. AC stopped. ITP diagnosis made and patient found to be refractory to steroids. 05/08/2016 IVIG at clinic 05/09/16: platelet tx in clinic. admitted to hospital in Afib w/RVR 05/10/16: IVIG 80G given : PLT count is 7K. Assessment 75y/o male admitted with Afib w/ RVR while in the midst of an acute exacerbation of ITP. h/o Bilateral lower extremity deep venous thromboses. Benign prosthetic hypertrophy. Chronic kidney disease and (stage 2). History of elevated anticardiolipin antibody. Elevated homocystine level. Intracranial hemorrhage in March of 2016. Bleeding duodenal ulcer which was cauterized in August of 2015. ischemic stroke in August of 2015. Right carotid endarterectomy with patch angioplasty August 2015. IVC filter placement in 2007, this was removed in 2008. He had a second filter placed in 2015. Plan 1. ITP: On low dose Prednisone. Supportive transfusions for now. I will hold off on rituxan until after we rule out an opportunistic infection. Alternatively, a splenectomy may be considered. 2. Pulm infiltrates: TRALI vs. atypical PNA. Bronchoscopy performed on 05/12, await results. Appreciated Critical care, ID and Pulmonology input. Roger Armenta MD May 13, 2016 07:58
[2016-05-13] MEDS: MAGNESIUM OXIDE 400 MG TAB PO SCH (09:00)
[2016-05-13] MEDS: SODIUM CHLORIDE 1 GRAM TAB PO SCH (09:34)
[2016-05-13] MEDS: CALCIUM/VITAMIN D 250 MG/125 U TAB PO SCH (09:34)
[2016-05-13] MEDS: DILTIAZEM HCL 90 MG TAB PO SCH ×4 (09:34→20:06)
[2016-05-13] MEDS: POTASSIUM CHLORIDE 20 MEQ CONTROLLED RELEASE TAB PO SCH (09:35)
[2016-05-13] MEDS: AZITHROMYCIN INJ 500 MG in SODIUM CHLOR 0.9% 250 ML INJ 250 ML IV SCH (09:35)
[2016-05-13] MEDS: SODIUM CHLORIDE 0.9% FLUSH 5 ML FLUSH FLUSH SCH ×2 (09:35→20:07)
[2016-05-13] MEDS: predniSONE 10 MG TAB PO SCH (09:35)
[2016-05-13] MEDS: FUROSEMIDE 40 MG/4 ML VIAL IV PUSH SCH (09:36)
--- NOTE | 2016-05-13 09:37 | RADRPT ---
EXAM DATE/TIME: 05/13/2016 09:14 [facility] COMPARISON: CHEST SINGLE AP, May 12, 2016, 10:22. INDICATIONS : Short of breath. MEDICAL HISTORY : Hypertension. SURGICAL HISTORY : None. ENCOUNTER: Initial ACUITY: 3 days PAIN SCORE: Non-responsive. LOCATION: Bilateral chest FINDINGS: The support devices remain in place. There is no evidence of pneumothorax. There is mild improved aer ation of both lung rider compared to the prior study. The heart size is stable. The bony structures are stable. CONCLUSION: Mild improving aeration of the lung riedr compared to the prior study. Markus Guzman MD on May 13, 2016 at 9:35 Board Certified Radiologist. This report was verified electronically.
[2016-05-13] MEDS ORDERED: SODIUM CHLOR 0.9% 1000 ML INJ 1,000 ML IV SCH (11:00)
--- NOTE | 2016-05-13 11:00 | HHI.CCPN ---
Subjective Remarks/Hospital Course 75-year-old male patient with history of bilateral lower extremity DVTs, BPH, chronic renal failure, Elevated Anticardiolipin antibody level, Elevated homocysteine level, Gout, Hypertension, Hyponatremia, Idiopathic Thrombocytopenic Purpura, Intracranial hemorrhage in 2016, Bleeding duodenal ulcer and Ischemic stroke in 2016. Patient was sent to the emergency department 05/10/16 from his oncologist office for rapid a.fib with RVR. Patient had received 2 units of platelets prior. Patient has a history of A. Fibulation, he had to sit down, but denies chest pain or palpitations feeling lightheaded or dizzy. While on telemetry floor he has developed respiratory difficulty and is now transferred to ICU. SUBJ 05/11: Currently on BiPAP with 65% FiO2. Tachypneic. CXR pending for today, ABG also pending. CT pulmonary angiogram is pending at this time. Remains in atrial fibrillation with rapid ventricular response on Cardizem 15 mg per hour. Chest x-ray from yesterday shows predominantly right upper lobe lung infiltrates. IV Zosyn and azithromycin just ordered. Send cultures 05/12: Overnight remained on BIPAP, required 60% FiO2. CXR today persistent diffuse bilateral interstitial infiltrates right more than left despite adequate diuresis. With IV Lasix patient had > 5 L urine output. CMP pending. Remains in atrial fibrillation but rate controlled. There is concern about opportunistic lung infection including PCP pneumonia. Proceed with elective intubation, consult pulmonary for BAL, D/W Dr. Grace 05/13: Patient was intubated yesterday for progressive lung infiltrates hypoxia. Post intubation Dr. Mondragon was consulted who performed a bronchoscopy/BAL for PCP pneumonia evaluation. Today patient wakes up and follows commands easily. FiO2 40% chest x-ray shows interval improvement. Creatinine yesterday had increased to 1.9, stop Lasix gentle hydration with normal saline 50 ML per hour for 24 hours Objective Vital Signs Date Time Temp Pulse Resp B/P Pulse Ox O2 Delivery O2 Flow Rate FiO2 05/13/16 10:32 96 Face Tent 40 05/13/16 06:00 73 05/13/16 04:00 98.6 18 136/78 05/11/16 20:50 15.00 Intake and Output 05/12/16 05/12/16 05/13/16 08:00 16:00 00:00 Intake Total 273 ml 208 ml 228 ml Output Total 750 ml 600 ml 1175 ml Balance -477 ml -392 ml -947 ml Result Diagram: 05/12/16 1240 05/12/16 1032 Other Results Microbiology Date/Time Procedure Status Source Growth 05/12/16 11:53 Legionella Antigen - Final Complete Urine Catheterized Urine PRESUMPTIVE NEGATIVE FOR LEGIONELLA P... 05/12/16 11:53 Streptococcus pneumoniae Antigen (M - Final Complete Urine Catheterized Urine PRESUMPTIVE NEGATIVE FOR STREPTOCOCCU... 05/12/16 11:54 Influenza Types A,B Antigen (BRANDEN) - Final Complete Nasal Washing NEGATIVE FOR FLU A AND B ANTIGEN.... Objective Remarks GENERAL: Well-nourished, well-developed patient, intubated wide awake SKIN: Warm and dry. HEAD: Normocephalic. EYES: No scleral icterus. No injection or drainage. NECK: Supple, trachea midline. No JVD or lymphadenopathy. CARDIOVASCULAR: Atrial fibrillation with HR in 50s. No murmurs RESPIRATORY: Breath sounds equal bilaterally, with coarse crackles predominantly right lung rider. On BIPAP 60% GASTROINTESTINAL: Abdomen soft, non-tender, nondistended. MUSCULOSKELETAL: No cyanosis, or edema. BACK: Nontender without obvious deformity. No CVA tenderness. EXTREMITIES: No pedal edema NEURO: Alert awake on the vent follows commands Procedures None Urinary Catheter: Yes Assessment to: Continue A/P Problem List: (1) Acute hypoxemic respiratory failure ICD Code: J96.01 Status: Acute (2) Pneumonia, rule out opportunistic infection Status: Acute (3) Thrombocytopenia ICD Code: D69.6 Status: Acute (4) CHF (congestive heart failure) ICD Code: I50.9 Status: Acute (5) Coagulopathy ICD Code: D68.9 Status: Acute (6) Afib ICD Code: I48.91 Status: Acute (7) Chronic ITP (idiopathic thrombocytopenia) ICD Code: D69.3 Status: Chronic (8) Respiratory distress ICD Code: R06.00 Status: Acute (9) Atrial fibrillation with RVR ICD Code: I48.91 Status: Acute (10) Leg DVT (deep venous thromboembolism), chronic ICD Code: I82.509 Status: Chronic (11) Subarachnoid bleed ICD Code: I60.9 Status: Chronic Assessment and Plan NEURO: Intracranial hemorrhage in 2016 -DC propofol and fentanyl. Minimize sedation RESP: Acute hypoxemic respiratory failure Pulmonary edema versus pneumonia History of bilateral lower extremity DVTs - fluid overload versus atypical pneumonia on CXR - On i.v. Lasix 40 q12- discontinued due to elevation in creatinine -Weaning trial with extubation today - Unable to anticoagulate due to severe thrombocytopenia - S/p IVC filter in 2016 CVS: A. Fib rapid ventricular response Possible CHF (More likely atypical pneumonia/ARDS) - Cardizem gtt now turned off as rate controlled. Cardiology -Dr. Murphy - Receiving by mouth Cardizem and by mouth metoprolol - Cannot anticoagulate due to severe thrombocytopenia GI: -Nothing by mouth except meds, Protonix -Swallow eval post extubation if stable : Chronic kidney disease - monitor electrolytes and creatinine - monitor urine output HEME: Chronic ITP with acute exacerbation - per Hem-Onc. Continue prednisone 30 mg daily, IVIG per Dr. Armenta. - Considering rituximab for refractory ITP, splenectomy is also a consideration - Transfuse platelets per heme ID: Probable sepsis Atypical Pneumonia -Unable to rule out bacterial versus opportunistic pneumonia. F/u panculture, urine for Legionella and pneumococcal antigen, influenza -Continue Zosyn and azithromycin -ID and pulmonary. s/p Dr. Mondragon performing bronch/BAL -PJP stain and bronch cultures pesning ENDO: -Electrolyte replacement per protocol DVT/GI prophylaxis - TEDs/SCDs/Pepcid - s/p IVC filter most recently in 2016. Cannot anticoagulate due to severe thrombocytopenia and recent intracranial hemorrhage Critical Care: The total critical care time was 35 minutes. Time to perform other separately billable procedures was not included in the critical care time. Leni Cedeño MD May 13, 2016 11:00
[2016-05-13] MEDS: ACETAMINOPHEN 325 MG TAB PO PRN (12:03)
[2016-05-13 12:22] LABS: BASOPHIL % 0.1 % (0.0-2.0); EOSINOPHIL % 0.5 % (0.0-4.0); HEMATOCRIT 24.8 % (39.0-51.0); LYMPH % 6.6 % (9.0-44.0); LYMPHOCYTE # 0.6 TH/MM3 (1.0-4.8); MEAN CELL VOLUME 85.5 FL (80.0-100.0); MEAN CORPUSCULAR HEMOGLOBIN 29.3 PG (27.0-34.0); MEAN CORPUSCULAR HGB CONC 34.3 % (32.0-36.0); MONO % 2.7 % (0.0-8.0); NEUT % 90.1 % (16.0-70.0); WHITE BLOOD COUNT 8.9 TH/MM3 (4.0-11.0)
[2016-05-13 12:28] LABS: HEMO FLAGS AUTO DIFF; PLATELET COUNT 9 TH/MM3 (150-450)
[2016-05-13 12:53] LABS: ALKALINE PHOSPHATASE 49 U/L (45-117); ALT (GPT) 40 U/L (12-78); ANION GAP 9 MEQ/L (5-15); AST (GOT) 38 U/L (15-37); BICARBONATE 33.6 MEQ/L (21.0-32.0); BLOOD UREA NITROGEN 41 MG/DL (7-18); CHLORIDE 98 MEQ/L (98-107); GLOMERULAR FILTRATION RATE 39 ML/MIN (>89); POTASSIUM 3.5 MEQ/L (3.5-5.1); SODIUM (NA) 141 MEQ/L (136-145); TOTAL BILIRUBIN ADULT 2.6 MG/DL (0.2-1.0)
--- NOTE | 2016-05-13 12:57 | HHI.PR ---
Subjective Remarks He is better . CXR improved. Extubated. On Aerosol mask 40 %. Objective Vital Signs Date Time Temp Pulse Resp B/P Pulse Ox O2 Delivery O2 Flow Rate FiO2 05/13/16 10:32 96 Face Tent 40 05/13/16 10:00 80 05/13/16 10:00 96 Mask 40 05/13/16 08:16 96 40 05/13/16 08:16 40 05/13/16 08:00 96 Mechanical Ventilator 50 05/13/16 08:00 75 05/13/16 08:00 60 05/13/16 06:00 73 05/13/16 04:00 95 Mechanical Ventilator 50 05/13/16 04:00 74 05/13/16 04:00 98.6 74 18 136/78 95 05/13/16 04:00 60 05/13/16 03:39 96 50 05/13/16 02:00 73 05/13/16 00:35 98 40 05/13/16 00:00 60 05/13/16 00:00 64 05/13/16 00:00 97 Mechanical Ventilator 60 05/13/16 00:00 98.8 64 20 121/83 97 05/12/16 22:17 97 60 05/12/16 22:00 64 05/12/16 21:00 Mechanical Ventilator 60 05/12/16 20:00 68 05/12/16 20:00 40 05/12/16 20:00 97 Mechanical Ventilator 40 05/12/16 20:00 98.2 68 21 140/70 97 05/12/16 19:30 98 40 05/12/16 18:00 70 05/12/16 18:00 98 100 05/12/16 16:00 100 Mechanical Ventilator 100 05/12/16 16:00 65 05/12/16 16:00 98.0 60 25 111/65 97 05/12/16 14:58 99 40 05/12/16 14:00 66 05/12/16 13:00 98 40 I/O 05/12/16 05/12/16 05/12/16 05/13/16 05/13/16 05/13/16 07:00 15:00 23:00 07:00 15:00 23:00 Intake Total 273 ml 208 ml 228 ml 278 ml Output Total 750 ml 600 ml 1175 ml 1475 ml Balance -477 ml -392 ml -947 ml -1197 ml IV Total 273 ml 208 ml 168 ml 248 ml Tube Feeding 30 ml Other 60 ml Output Urine Total 750 ml 600 ml 1175 ml 1475 ml # Bowel Movements 0 0 Result Diagram: 05/13/16 1157 05/13/16 1157 Objective Remarks This is an obese elderly man who is alert. HEENT: Head normocephalic. Pupils are reactive. Throat clear. Nasal mucosa injected. NECK: Supple with mild venous distension . Trachea midline. No thyroid enlargement. CHEST: Distant breath sounds with crackles over the right lung field and left base. Occasional wheezes. HEART: Heart sounds are irregularly irregular. S1-S2. No murmur. ABDOMEN: Obese and protuberant without masses or organomegaly or tenderness. The bowel sounds are active. EXTREMITIES: No edema. Peripheral pulses are diminished. NEUROLOGIC: The patient is alert and oriented SKIN: Dry and cool. Assessment and Plan Assessment and Plan IMPRESSION 1. Bilateral pneumonia with hypoxemia. 2. Atrial fibrillation and rapid ventricular response 3. History of ITP, immune thrombocytopenic purpura. 4. History of elevated anticardiolipin antibody. 5. History of DVTs status post IVC filter placement. 6. Hypertension 7. Hyperlipidemia Plan : 1. Cont Antibiotics. 2. O2 at 4L. 3. Nebs qid , duoneb. 4. IS at bedside q 3h. 5. Chest Xray in am. 6. Prednisone 30 mg daily. Neftaly Redding MD May 13, 2016 12:57
[2016-05-13 13:02] LABS: PLATELET ESTIMATE SMEAR RARE (NORMAL); PLATELET MORPHOLOGY NORMAL (NORMAL); SCAN/DIFF AUTO DIFF CONFIRMED
[2016-05-13] MEDS ORDERED: SODIUM CHLOR 0.9% 250 ML INJ 250 ML IV ONE (13:45)
--- NOTE | 2016-05-13 13:51 | HHI.IDPN ---
Note Infectious Disease Note Patient feels okay. Extubated. On aerosol mask 40% Awake and alert. No chest pain or discomfort. Occasional dry cough. Cultures has no growth. Bronch. culture pending. PAST MEDICAL HISTORY 1. Bilateral lower extremity deep thromboses. 2. Hypertension. 3. ITP. 4. Chronic kidney disease. 5. Benign prostatic hypertrophy. 6. Intracranial hemorrhage March 2016. 7. Ischemic stroke August 2015. 8. GI bleed August 2015. 9. Right total hip replacement. 10. Tonsillectomy. 11. Right carotid endarterectomy with patch angioplasty. 12. IVC filter placement 2015. 13. Prior IVC filter placement 2007 which was removed in 2008. 14. Appendectomy. 15. Vasectomy. ALLERGIES PREDNISONE. THE PATIENT DEVELOPED MILD ITCHING. ANTIBIOTICS 1. Piperacillin / tazobactam. 2. Azithromycin. SOCIAL HISTORY No tobacco use. Occasional alcohol in the form of beer. No illicit drugs. OBJECTIVE: Vital Signs Date Time Temp Pulse Resp B/P Pulse Ox O2 Delivery O2 Flow Rate FiO2 05/13/16 10:32 96 Face Tent 40 05/13/16 10:00 80 05/13/16 10:00 96 Mask 40 05/13/16 08:16 96 40 05/13/16 08:16 40 05/13/16 08:00 96 Mechanical Ventilator 50 05/13/16 08:00 75 05/13/16 08:00 60 05/13/16 06:00 73 05/13/16 04:00 95 Mechanical Ventilator 50 05/13/16 04:00 74 05/13/16 04:00 98.6 74 18 136/78 95 05/13/16 04:00 60 05/13/16 03:39 96 50 05/13/16 02:00 73 05/13/16 00:35 98 40 05/13/16 00:00 60 05/13/16 00:00 64 05/13/16 00:00 97 Mechanical Ventilator 60 05/13/16 00:00 98.8 64 20 121/83 97 05/12/16 22:17 97 60 05/12/16 22:00 64 05/12/16 21:00 Mechanical Ventilator 60 05/12/16 20:00 68 05/12/16 20:00 40 05/12/16 20:00 97 Mechanical Ventilator 40 05/12/16 20:00 98.2 68 21 140/70 97 05/12/16 19:30 98 40 05/12/16 18:00 70 05/12/16 18:00 98 100 05/12/16 16:00 100 Mechanical Ventilator 100 05/12/16 16:00 65 05/12/16 16:00 98.0 60 25 111/65 97 05/12/16 14:58 99 40 05/12/16 14:00 66 Laboratory Tests Test 05/12/16 05/12/16 05/13/16 05:47 12:40 11:57 White Blood Count 7.7 TH/MM3 8.5 TH/MM3 8.9 TH/MM3 Red Blood Count 2.89 MIL/MM3 2.56 MIL/MM3 2.90 MIL/MM3 Hemoglobin 8.7 GM/DL 7.7 GM/DL 8.5 GM/DL Hematocrit 24.6 % 22.2 % 24.8 % Mean Corpuscular Volume 85.3 FL 86.9 FL 85.5 FL Mean Corpuscular Hemoglobin 30.0 PG 30.3 PG 29.3 PG Mean Corpuscular Hemoglobin 35.2 % 34.8 % 34.3 % Concent Red Cell Distribution Width 15.0 % 14.8 % 15.0 % Platelet Count 7 TH/MM3 19 TH/MM3 9 TH/MM3 Mean Platelet Volume 8.6 FL 8.3 FL 8.8 FL Neutrophils (%) (Auto) 88.5 % 90.1 % Lymphocytes (%) (Auto) 8.4 % 6.6 % Monocytes (%) (Auto) 2.7 % 2.7 % Eosinophils (%) (Auto) 0.3 % 0.5 % Basophils (%) (Auto) 0.1 % 0.1 % Neutrophils # (Auto) 6.8 TH/MM3 8.0 TH/MM3 Lymphocytes # (Auto) 0.7 TH/MM3 0.6 TH/MM3 Monocytes # (Auto) 0.2 TH/MM3 0.2 TH/MM3 Eosinophils # (Auto) 0.0 TH/MM3 0.0 TH/MM3 Basophils # (Auto) 0.0 TH/MM3 0.0 TH/MM3 CBC Comment AUTO DIFF AUTO DIFF Differential Total Cells 100 Counted Neutrophils % (Manual) 86 % Lymphocytes % 8 % Monocytes % 4 % Neutrophils # (Manual) 6.8 TH/MM3 Myelocytes 2 % Nucleated Red Blood Cells 3 /100 WBC Differential Comment FINAL DIFF AUTO DIFF MANUAL CONFIRMED Platelet Estimate RARE RARE Platelet Morphology Comment NORMAL NORMAL Red Cell Morphology Comment NORMAL Basophilic Stippling FAINT Laboratory Tests Test 05/11/16 05/12/16 05/13/16 15:26 10:32 11:57 Potassium Level 3.7 MEQ/L 3.6 MEQ/L 3.5 MEQ/L Sodium Level 138 MEQ/L 141 MEQ/L Chloride Level 97 MEQ/L 98 MEQ/L Carbon Dioxide Level 34.8 MEQ/L 33.6 MEQ/L Anion Gap 6 MEQ/L 9 MEQ/L Blood Urea Nitrogen 40 MG/DL 41 MG/DL Creatinine 1.94 MG/DL 1.71 MG/DL Estimat Glomerular Filtration 34 ML/MIN 39 ML/MIN Rate Random Glucose 156 MG/DL 129 MG/DL Calcium Level 8.2 MG/DL 8.5 MG/DL Total Bilirubin 3.0 MG/DL 2.6 MG/DL Aspartate Amino Transf 44 U/L 38 U/L (AST/SGOT) Alanine Aminotransferase 43 U/L 40 U/L (ALT/SGPT) Alkaline Phosphatase 48 U/L 49 U/L Total Protein 7.3 GM/DL 7.8 GM/DL Albumin 2.3 GM/DL 2.5 GM/DL Microbiology Date/Time Procedure Status Source Growth 05/11/16 09:40 Aerobic Blood Culture - Preliminary Resulted Blood Peripheral NO GROWTH IN 2 DAYS 05/11/16 09:40 Anaerobic Blood Culture - Preliminary Resulted Blood Peripheral NO GROWTH IN 2 DAYS 05/11/16 09:48 Aerobic Blood Culture - Preliminary Resulted Blood Peripheral NO GROWTH IN 2 DAYS 05/11/16 09:48 Anaerobic Blood Culture - Preliminary Resulted Blood Peripheral NO GROWTH IN 2 DAYS 05/12/16 11:53 Gram Stain - Final Resulted Sputum Endotracheal 05/12/16 11:53 Sputum Culture - Preliminary Resulted Sputum Endotracheal NO GROWTH IN 24 HOURS. 05/12/16 11:53 Legionella Antigen - Final Complete Urine Catheterized Urine PRESUMPTIVE NEGATIVE FOR LEGIONELLA P... 05/12/16 11:53 Streptococcus pneumoniae Antigen (M - Final Complete Urine Catheterized Urine PRESUMPTIVE NEGATIVE FOR STREPTOCOCCU... 05/12/16 11:54 Influenza Types A,B Antigen (BRANDEN) - Final Complete Nasal Washing NEGATIVE FOR FLU A AND B ANTIGEN.... 05/12/16 11:55 Urine Culture - Preliminary Resulted Urine Catheterized Urine NO GROWTH IN 24 HOURS. 05/12/16 18:25 Cancelled Bronchial Washings Bronchial 05/12/16 18:25 Cancelled Bronchial Washings Bronchial 05/12/16 18:25 Cancelled Bronchial Washings Bronchial 05/12/16 18:25 Gram Stain Received Bronchial Brushings Other Pending 05/12/16 18:25 Bronchial Culture Received Bronchial Brushings Other Pending 05/12/16 18:25 Acid Fast Stain Received Bronchial Brushings Other Pending 05/12/16 18:25 Mycobacterial Culture Received Bronchial Brushings Other Pending 05/12/16 18:25 Fungal Smear Received Bronchial Brushings Other Pending 05/12/16 18:25 Fungal Culture Received Bronchial Brushings Other Pending PHYSICAL EXAMINATION GENERAL: Awake and alert. No distress. HEENT: No icterus. moist oropharynx mucosa. LUNGS: Basilar rhonchi. HEART: Irregular rate and rhythm. ABDOMEN: Decreased bowel sounds, soft. No tenderness appreciated. EXTREMITIES: No clubbing or cyanosis or edema. SKIN: No rash. NEUROLOGICAL: Unable to assess. IMPRESSION 1. Bilateral lung infiltrates in a patient who has ITP and likely is immune suppressed and likely may have pulmonary opportunistic infection. 2. Pneumonia. 3. Acute respiratory failure. 4. Chronic kidney disease. 5. Thrombocytopenia secondary to ITP. RECOMMENDATIONS 1. Monitor sputum PCP evaluation. 2. Continue piperacillin / tazobactam. 3. Continue azithromycin. 4. Monitor sputum culture. 5. Monitor blood culture. Pankaj Aapricio MD May 13, 2016 13:50
[2016-05-13] MEDS: DILTIAZEM 125 MG/NS 100 ML IV SCH ×4 (16:03→20:21)
[2016-05-13] MEDS: CHLORHEXIDINE 0.12% (ORAL KIT) 15 ML CUP MT SCH (19:46)
[2016-05-13] MEDS: DOXAZOSIN MESYLATE 4 MG TAB PO SCH (20:06)
[2016-05-13] MEDS: PANTOPRAZOLE SOD 40 MG DELAYED RELEASE TAB PO SCH (20:06)
[2016-05-14] VITALS (15 sets, daily range): BP systolic 125–150; BP diastolic 64–82; PULSE 72–128; RESP 18–33; TEMP 96.3–98; O2SAT 88–96
[2016-05-14] MEDS: DILTIAZEM 125 MG/NS 100 ML IV SCH ×6 (02:27→21:24)
[2016-05-14] MEDS: PIPERACIL-TAZO 3.375 GM PREMIX 50 ML IV SCH ×4 (02:37→20:48)
[2016-05-14 03:43] LABS: AUTOMATED NEUTROPHIL # 7.5 TH/MM3 (1.8-7.7); BASOPHIL # 0.1 TH/MM3 (0-0.2); BASOPHIL % 0.6 % (0.0-2.0); EOSINOPHIL # 0.1 TH/MM3 (0-0.4); EOSINOPHIL % 0.7 % (0.0-4.0); HEMATOCRIT 21.5 % (39.0-51.0); LYMPH % 12.6 % (9.0-44.0); LYMPHOCYTE # 1.1 TH/MM3 (1.0-4.8); MEAN CELL VOLUME 85.7 FL (80.0-100.0); MEAN CORPUSCULAR HEMOGLOBIN 30.2 PG (27.0-34.0); MEAN CORPUSCULAR HGB CONC 35.3 % (32.0-36.0); MONO % 3.7 % (0.0-8.0); NEUT % 82.4 % (16.0-70.0); RED CELL DISTRIBUTION WIDTH 15.4 % (11.6-17.2); WHITE BLOOD COUNT 9.1 TH/MM3 (4.0-11.0)
[2016-05-14 03:52] LABS: HEMO FLAGS AUTO DIFF
[2016-05-14 03:53] LABS: PLATELET COUNT 7 TH/MM3 (150-450)
[2016-05-14 03:57] LABS: ALT (GPT) 43 U/L (12-78); ANION GAP 6 MEQ/L (5-15); AST (GOT) 40 U/L (15-37); BICARBONATE 36.5 MEQ/L (21.0-32.0); BLOOD UREA NITROGEN 42 MG/DL (7-18); CHLORIDE 102 MEQ/L (98-107); GLOMERULAR FILTRATION RATE 41 ML/MIN (>89); POTASSIUM 3.5 MEQ/L (3.5-5.1); SODIUM (NA) 144 MEQ/L (136-145)
[2016-05-14 04:00] LABS: ALKALINE PHOSPHATASE 46 U/L (45-117); TOTAL BILIRUBIN ADULT 2.3 MG/DL (0.2-1.0)
[2016-05-14] MEDS: CHLORHEXIDINE GLUCONATE 2 % 1 PACK (2 CLOTHS)(taper/protocol) TOP SCH (04:00)
[2016-05-14] MEDS: RESP: ALBUTEROL 2.5 MG/IPRATROPIUM 0.5 MG NEB (SCH) NEB ×4 (04:07→21:02)
[2016-05-14] MEDS: METOPROLOL TARTRATE 50 MG TAB PO SCH ×3 (05:09→20:48)
[2016-05-14 05:30] LABS: PLATELET ESTIMATE SMEAR RARE (NORMAL); SCAN/DIFF AUTO DIFF CONFIRMED
[2016-05-14 05:31] LABS: PLATELET MORPHOLOGY NORMAL (NORMAL)
--- NOTE | 2016-05-14 06:37 | RADRPT ---
EXAM DATE/TIME: 05/14/2016 04:21 [place] COMPARISON: CHEST SINGLE AP, May 13, 2016, 9:14. INDICATIONS : Shortness of breath. MEDICAL HISTORY : Hypertension. SURGICAL HISTORY : None. ENCOUNTER: Subsequent ACUITY: 4 - 6 days PAIN SCORE: Non-responsive. LOCATION: Bilateral chest FINDINGS: Mild, patchy airspace opacities are again seen of both lungs, primarily mid and lower lung predominan t. No large effusion. No pneumothorax. Mild cardiomegaly is stable. Endotracheal tube and nasogastric tube out. Right internal jugular central venous catheter unchanged, tip in the superior vena cava. CONCLUSION: Endotracheal tube and nasogastric tube removed. No significant change mild patchy air space opacities . Davidson Skelton MD on May 14, 2016 at 6:33 Board Certified Radiologist. This report was verified electronically.
--- NOTE | 2016-05-14 07:22 | PD.ONC.PN ---
Subjective Subjective Remarks Patient was extubated yesterday afternoon, now on a Ventimask. Denies acute complaints, feels short of breath with minimal exertion or movement. Platelet count remains low, status post 2 units of platelets transfused on 2016. Hemoglobin and hematocrit levels are low but appear stable compared to yesterday. Platelet count low at 7000 this morning. Bronchial aspirate cytology pending at this time. He remains on empiric antibiotic coverage with azithromycin and Zosyn; repeat chest x-ray reveals improved aeration with decreased interstitial markings. Objective Data Date Time Temp Pulse Resp B/P Pulse Ox O2 Delivery O2 Flow Rate FiO2 05/14/16 06:00 113 05/14/16 04:00 83 05/14/16 04:00 97.4 83 27 137/74 92 05/14/16 02:00 72 05/14/16 00:00 96.3 77 19 125/74 91 05/14/16 00:00 77 05/13/16 22:00 73 05/13/16 21:05 98 Face Tent 5.00 40 05/13/16 20:00 98.2 83 23 120/74 98 05/13/16 20:00 83 05/13/16 18:00 82 05/13/16 16:00 95 Simple Mask 05/13/16 16:00 82 05/13/16 16:00 98.5 136 16 137/78 95 05/13/16 14:00 96 Mechanical Ventilator 50 05/13/16 14:00 75 05/13/16 12:00 74 05/13/16 12:00 98.2 125 17 120/74 93 05/13/16 10:32 96 Face Tent 40 05/13/16 10:00 80 05/13/16 10:00 96 Mask 40 05/13/16 08:16 96 40 05/13/16 08:16 40 05/13/16 08:00 96 Mechanical Ventilator 50 05/13/16 08:00 98.5 75 18 137/73 97 05/13/16 08:00 75 05/13/16 08:00 60 05/14/16 05/14/16 05/14/16 07:00 15:00 23:00 Intake Total 216 ml Output Total 450 ml Balance -234 ml Result Diagram: 05/14/16 0258 05/14/16 0258 Laboratory Results Laboratory Tests Test 05/13/16 05/13/16 05/13/16 05/14/16 11:57 13:41 18:00 02:58 White Blood Count 8.9 TH/MM3 9.1 TH/MM3 Red Blood Count 2.90 MIL/MM3 2.50 MIL/MM3 Hemoglobin 8.5 GM/DL 7.6 GM/DL Hematocrit 24.8 % 21.5 % Mean Corpuscular Volume 85.5 FL 85.7 FL Mean Corpuscular Hemoglobin 29.3 PG 30.2 PG Mean Corpuscular Hemoglobin 34.3 % 35.3 % Concent Red Cell Distribution Width 15.0 % 15.4 % Platelet Count 9 TH/MM3 7 TH/MM3 Mean Platelet Volume 8.8 FL 9.0 FL Neutrophils (%) (Auto) 90.1 % 82.4 % Lymphocytes (%) (Auto) 6.6 % 12.6 % Monocytes (%) (Auto) 2.7 % 3.7 % Eosinophils (%) (Auto) 0.5 % 0.7 % Basophils (%) (Auto) 0.1 % 0.6 % Neutrophils # (Auto) 8.0 TH/MM3 7.5 TH/MM3 Lymphocytes # (Auto) 0.6 TH/MM3 1.1 TH/MM3 Monocytes # (Auto) 0.2 TH/MM3 0.3 TH/MM3 Eosinophils # (Auto) 0.0 TH/MM3 0.1 TH/MM3 Basophils # (Auto) 0.0 TH/MM3 0.1 TH/MM3 CBC Comment AUTO DIFF AUTO DIFF Differential Comment AUTO DIFF AUTO DIFF CONFIRMED CONFIRMED Platelet Estimate RARE RARE Platelet Morphology Comment NORMAL NORMAL Basophilic Stippling FAINT Sodium Level 141 MEQ/L 144 MEQ/L Potassium Level 3.5 MEQ/L 3.5 MEQ/L Chloride Level 98 MEQ/L 102 MEQ/L Carbon Dioxide Level 33.6 MEQ/L 36.5 MEQ/L Anion Gap 9 MEQ/L 6 MEQ/L Blood Urea Nitrogen 41 MG/DL 42 MG/DL Creatinine 1.71 MG/DL 1.63 MG/DL Estimat Glomerular Filtration 39 ML/MIN 41 ML/MIN Rate Random Glucose 129 MG/DL 86 MG/DL Calcium Level 8.5 MG/DL 8.6 MG/DL Total Bilirubin 2.6 MG/DL 2.3 MG/DL Aspartate Amino Transf 38 U/L 40 U/L (AST/SGOT) Alanine Aminotransferase 40 U/L 43 U/L (ALT/SGPT) Alkaline Phosphatase 49 U/L 46 U/L Total Protein 7.8 GM/DL 7.2 GM/DL Albumin 2.5 GM/DL 2.5 GM/DL Blood Bank Comment Fibrinogen 445 mg/dL Culture Results Microbiology Date/Time Procedure Status Source Growth 05/11/16 09:40 Aerobic Blood Culture - Preliminary Resulted Blood Peripheral NO GROWTH IN 2 DAYS 05/11/16 09:40 Anaerobic Blood Culture - Preliminary Resulted Blood Peripheral NO GROWTH IN 2 DAYS 05/11/16 09:48 Aerobic Blood Culture - Preliminary Resulted Blood Peripheral NO GROWTH IN 2 DAYS 05/11/16 09:48 Anaerobic Blood Culture - Preliminary Resulted Blood Peripheral NO GROWTH IN 2 DAYS 05/12/16 11:53 Gram Stain - Final Resulted Sputum Endotracheal 05/12/16 11:53 Sputum Culture - Preliminary Resulted Sputum Endotracheal NO GROWTH IN 24 HOURS. 05/12/16 11:53 Legionella Antigen - Final Complete Urine Catheterized Urine PRESUMPTIVE NEGATIVE FOR LEGIONELLA P... 05/12/16 11:53 Streptococcus pneumoniae Antigen (M - Final Complete Urine Catheterized Urine PRESUMPTIVE NEGATIVE FOR STREPTOCOCCU... 05/12/16 11:54 Influenza Types A,B Antigen (BRANDEN) - Final Complete Nasal Washing NEGATIVE FOR FLU A AND B ANTIGEN.... 05/12/16 11:55 Urine Culture - Preliminary Resulted Urine Catheterized Urine NO GROWTH IN 24 HOURS. 05/12/16 18:25 Gram Stain - Final Resulted Bronchial Washings Bronchial 05/12/16 18:25 Bronchial Culture Resulted Bronchial Washings Bronchial Pending 05/12/16 18:25 Acid Fast Stain Received Bronchial Washings Bronchial Pending 05/12/16 18:25 Mycobacterial Culture Received Bronchial Washings Bronchial Pending 05/12/16 18:25 Fungal Smear - Final Resulted Bronchial Washings Bronchial NO FUNGAL ELEMENTS SEEN. 05/12/16 18:25 Fungal Culture Resulted Bronchial Washings Bronchial Pending 05/12/16 18:25 Gram Stain Received Bronchial Brushings Other Pending 05/12/16 18:25 Bronchial Culture Received Bronchial Brushings Other Pending 05/12/16 18:25 Acid Fast Stain Received Bronchial Brushings Other Pending 05/12/16 18:25 Mycobacterial Culture Received Bronchial Brushings Other Pending 05/12/16 18:25 Fungal Smear Received Bronchial Brushings Other Pending 05/12/16 18:25 Fungal Culture Received Bronchial Brushings Other Pending Imaging Studies Last 24 hours Impressions Chest X-Ray 05/14/16 0600 Signed Impressions: Service Date/Time: Saturday, May 14, 2016 04:21 - CONCLUSION: Endotracheal tube and nasogastric tube removed. No significant change mild patchy air space opacities. Davidson Skelton MD Administered Medications Medications (Trade) Dose Ordered Sig/Jeremy Route PRN Reason Start Time Stop Time Status Last Admin Dose Admin IV Flush (NS Flush) 2 ml BID FLUSH 05/09/16 21:00 05/13/16 09:35 Acetaminophen (Tylenol) 650 mg Q4H PRN PO TEMP > 100.4 05/09/16 18:00 05/13/16 12:03 Ondansetron HCl (Zofran Inj) 4 mg Q6H PRN IVP NAUSEA OR VOMITING 05/09/16 18:00 05/11/16 22:43 Doxazosin Mesylate (Cardura) 4 mg HS PO 05/09/16 21:00 05/13/16 20:06 Metoprolol Tartrate (Lopressor) 50 mg Q8HR PO 05/09/16 22:00 05/14/16 05:09 Pantoprazole Sodium (Protonix) 40 mg HS PO 05/09/16 21:00 05/13/16 20:06 Sodium Chloride (Sodium Chloride) 1 gm DAILY PO 05/10/16 09:00 05/13/16 09:34 Calcium/Vitamin D (Oscal-D 250-125) 250 mg DAILY PO 05/10/16 09:00 05/13/16 09:34 Magnesium Oxide (Mag-Ox) 400 mg DAILY PO 05/10/16 09:00 05/13/16 09:00 Miscellaneous Information Patient in critical care unit? Ass... [id number] XX 05/10/16 23:45 05/10/16 23:45 Chlorhexidine Gluconate 3 pack 3 pack DAILY@04 TOP 05/11/16 04:00 05/15/16 04:01 05/14/16 04:00 Piperacillin Sod/ Tazobactam Sod 50 ml @ 100 mls/hr Q6H IV 05/11/16 08:00 05/14/16 02:37 Azithromycin/ Sodium Chloride (Zithromax Inj/ NS 250 ml Inj) 250 ml @ 250 mls/hr Q24H IV 05/11/16 08:00 05/13/16 09:35 Potassium Chloride (KCl) 20 meq DAILY PO 05/11/16 09:00 05/13/16 09:35 Diltiazem HCl (Cardizem) 90 mg QID PO 05/11/16 13:00 05/13/16 20:06 Chlorhexidine Gluconate 15 ml 15 ml BID@08,20 MT 05/12/16 20:00 05/12/16 20:45 Propofol 100 ml @ 0 mls/hr TITRATE IV 05/12/16 10:00 05/13/16 03:28 Diltiazem HCl/ Sodium Chloride (Cardizem Inj/NS Inj) 125 ml @ 0 mls/hr TITRATE IV 05/13/16 15:30 05/14/16 02:27 Objective Remarks GENERAL PHYSICAL APPEARANCE: Elderly male, now extubated, on a Ventimask, not acutely distressed. Is able to speak to me in full sentences. HEENT: Head atraumatic, normocephalic, conjunctive are mildly pale. Sclerae are anicteric, EOMI, PERRLA, oral exam no pharyngeal erythema. Right-sided internal jugular triple-lumen catheter. RESPIRATORY: Good air movement bilaterally. No added breath sounds, decreased bibasilar air entry. CARDIOVASCULAR: Irregular rhythm, S1-S2. No obvious murmurs, rubs or gallops. ABDOMINAL EXAM: Obese belly, soft and nontender. No palpable organ enlargement, specifically no splenomegaly. EXTREMITIES: Trace pretibial edema. No calf tenderness. SKIN: Bruises noted over the upper and lower extremities, he has no active bleeding. Most of the bruises are less than 2 inches. 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 MUSCULOSKELETAL: Good muscle mass, tone and strength. Assessment/Plan Problem List: (1) Chronic ITP (idiopathic thrombocytopenia) Status: Chronic Plan: 05/11/16: platelet count improved to 32K. History: 08/2015: ischemic stroke. started on Eliquis 03/2016: SAH while on Eliquis for afib + ischemic stroke. AC stopped. ITP diagnosis made and patient found to be refractory to steroids. 05/08/2016 IVIG at clinic 05/09/16: platelet tx in clinic. admitted to hospital in Afib w/RVR 05/10/16: IVIG 80G given : PLT count is 7K. Assessment 75y/o male admitted with Afib w/ RVR while in the midst of an acute exacerbation of ITP. h/o Bilateral lower extremity deep venous thromboses. Benign prosthetic hypertrophy. Chronic kidney disease and (stage 2). History of elevated anticardiolipin antibody. Elevated homocystine level. Intracranial hemorrhage in March of 2016. Bleeding duodenal ulcer which was cauterized in August of 2015. ischemic stroke in August of 2015. Right carotid endarterectomy with patch angioplasty August 2015. IVC filter placement in 2007, this was removed in 2008. He had a second filter placed in 2015. Plan 1. ITP: On low dose Prednisone prednisone taper down to 20 mg daily. He will start Promacta 50 mg today (thrombopoietin analog), continue Supportive transfusions for now. I will hold off on rituxan until after we rule out an opportunistic infection. Alternatively, a splenectomy may be considered. Platelet transfusion for platelet count of 7000 or just morning. 2. Pulm infiltrates: TRALI vs. atypical PNA. Bronchoscopy performed on 05/12, BAL cytology. He remains on empiric antibiotic coverage with azithromycin and Zosyn and clinically as well as radiographically seems to have had an improvement in his pulmonary function. 3. Anemia: Hemoglobin 7.6 g/dL today, continue monitoring, supportive transfusion to maintain hemoglobin over 8 g/dL. Appreciated Critical care, ID and Pulmonology input. Roger Armenta MD May 14, 2016 07:22
[2016-05-14] MEDS ORDERED: ACETAMINOPHEN 325 MG TAB PO PRN ×2 (07:30→22:30)
[2016-05-14] MEDS ORDERED: SODIUM CHLOR 0.9% 250 ML INJ 250 ML IV ONE (07:30)
[2016-05-14] MEDS ORDERED: diphenhydrAMINE HCL 25 MG CAP PO PRN ×2 (07:30→22:30)
[2016-05-14] MEDS: CHLORHEXIDINE 0.12% (ORAL KIT) 15 ML CUP MT SCH ×2 (08:00→19:16)
[2016-05-14] MEDS ORDERED: diphenhydrAMINE HCL 25 MG CAP PO ONE (08:30)
[2016-05-14] MEDS ORDERED: ACETAMINOPHEN 325 MG TAB PO ONE (08:30)
[2016-05-14] MEDS: AZITHROMYCIN INJ 500 MG in SODIUM CHLOR 0.9% 250 ML INJ 250 ML IV SCH (08:44)
[2016-05-14] MEDS: predniSONE 20 MG TAB PO SCH (08:46)
[2016-05-14] MEDS: DILTIAZEM HCL 90 MG TAB PO SCH ×4 (08:46→20:49)
[2016-05-14] MEDS: CALCIUM/VITAMIN D 250 MG/125 U TAB PO SCH (08:46)
[2016-05-14] MEDS: SODIUM CHLORIDE 1 GRAM TAB PO SCH (08:46)
[2016-05-14] MEDS: ELTROMBOPAG 50 MG TAB PO SCH (08:46)
[2016-05-14] MEDS: SODIUM CHLORIDE 0.9% FLUSH 5 ML FLUSH FLUSH SCH ×2 (08:46→20:49)
[2016-05-14] MEDS: POTASSIUM CHLORIDE 20 MEQ CONTROLLED RELEASE TAB PO SCH (08:46)
[2016-05-14] MEDS: MAGNESIUM OXIDE 400 MG TAB PO SCH (08:47)
--- NOTE | 2016-05-14 11:11 | HHI.CCPN ---
Subjective Remarks/Hospital Course 75-year-old male patient with history of bilateral lower extremity DVTs, BPH, chronic renal failure, Elevated Anticardiolipin antibody level, Elevated homocysteine level, Gout, Hypertension, Hyponatremia, Idiopathic Thrombocytopenic Purpura, Intracranial hemorrhage in 2016, Bleeding duodenal ulcer and Ischemic stroke in 2016. Patient was sent to the emergency department 05/10/16 from his oncologist office for rapid a.fib with RVR. Patient had received 2 units of platelets prior. Patient has a history of A. Fibulation, he had to sit down, but denies chest pain or palpitations feeling lightheaded or dizzy. While on telemetry floor he has developed respiratory difficulty and is now transferred to ICU. SUBJ 05/11: Currently on BiPAP with 65% FiO2. Tachypneic. CXR pending for today, ABG also pending. CT pulmonary angiogram is pending at this time. Remains in atrial fibrillation with rapid ventricular response on Cardizem 15 mg per hour. Chest x-ray from yesterday shows predominantly right upper lobe lung infiltrates. IV Zosyn and azithromycin just ordered. Send cultures 05/12: Overnight remained on BIPAP, required 60% FiO2. CXR today persistent diffuse bilateral interstitial infiltrates right more than left despite adequate diuresis. With IV Lasix patient had > 5 L urine output. CMP pending. Remains in atrial fibrillation but rate controlled. There is concern about opportunistic lung infection including PCP pneumonia. Proceed with elective intubation, consult pulmonary for BAL, D/W Dr. Grace 05/13: Patient was intubated yesterday for progressive lung infiltrates hypoxia. Post intubation Dr. Mondragon was consulted who performed a bronchoscopy/BAL for PCP pneumonia evaluation. Today patient wakes up and follows commands easily. FiO2 40% chest x-ray shows interval improvement. Creatinine yesterday had increased to 1.9, stop Lasix gentle hydration with normal saline 50 ML per hour for 24 hours 05/14: Extubated yesterday, breathing comfortably on aerosol mask. Plt 7000, getting transfused. UO 2.[address] Armenta starting Promacta 50 mg today ( thrombopoietin analog) Objective Vital Signs Date Time Temp Pulse Resp B/P Pulse Ox O2 Delivery O2 Flow Rate FiO2 05/14/16 08:14 96 Aerosol Mask 9.00 98 05/14/16 06:00 113 05/14/16 04:00 97.4 27 137/74 Intake and Output 05/13/16 05/13/16 05/14/16 08:00 16:00 00:00 Intake Total 278 ml 175 ml 120 ml Output Total 1475 ml 1350 ml 600 ml Balance -1197 ml -1175 ml -480 ml Result Diagram: 05/14/16 0258 05/14/16 0258 Other Results Microbiology Date/Time Procedure Status Source Growth 05/12/16 11:53 Gram Stain - Final Complete Sputum Endotracheal 05/12/16 11:53 Sputum Culture - Final Complete Sputum Endotracheal NO GROWTH IN 48 HOURS. 05/12/16 11:53 Legionella Antigen - Final Complete Urine Catheterized Urine PRESUMPTIVE NEGATIVE FOR LEGIONELLA P... 05/12/16 11:53 Streptococcus pneumoniae Antigen (M - Final Complete Urine Catheterized Urine PRESUMPTIVE NEGATIVE FOR STREPTOCOCCU... 05/12/16 11:54 Influenza Types A,B Antigen (BRANDEN) - Final Complete Nasal Washing NEGATIVE FOR FLU A AND B ANTIGEN.... 05/12/16 11:55 Urine Culture - Final Complete Urine Catheterized Urine NO GROWTH IN 48 HOURS. Objective Remarks GENERAL: Well-nourished, well-developed patient, on aerosol mask SKIN: Warm and dry. HEAD: Normocephalic. EYES: No scleral icterus. No injection or drainage. NECK: Supple, trachea midline. No JVD or lymphadenopathy. CARDIOVASCULAR: Atrial fibrillation with HR in 60-70 range. No murmurs RESPIRATORY: Breath sounds equal bilaterally, with coarse crackles predominantly right lung rider. GASTROINTESTINAL: Abdomen soft, non-tender, nondistended. MUSCULOSKELETAL: No cyanosis, or edema. BACK: Nontender without obvious deformity. No CVA tenderness. EXTREMITIES: No pedal edema NEURO: Alert awake No focal deficits Procedures None A/P Problem List: (1) Acute hypoxemic respiratory failure ICD Code: J96.01 Status: Acute (2) Pneumonia, rule out opportunistic infection Status: Acute (3) Thrombocytopenia ICD Code: D69.6 Status: Acute (4) CHF (congestive heart failure) ICD Code: I50.9 Status: Acute (5) Coagulopathy ICD Code: D68.9 Status: Acute (6) Afib ICD Code: I48.91 Status: Acute (7) Chronic ITP (idiopathic thrombocytopenia) ICD Code: D69.3 Status: Chronic (8) Respiratory distress ICD Code: R06.00 Status: Acute (9) Atrial fibrillation with RVR ICD Code: I48.91 Status: Acute (10) Leg DVT (deep venous thromboembolism), chronic ICD Code: I82.509 Status: Chronic (11) Subarachnoid bleed ICD Code: I60.9 Status: Chronic Assessment and Plan NEURO: Intracranial hemorrhage in 2016 -Minimize sedation RESP: Acute hypoxemic respiratory failure-improving Pulmonary edema versus pneumonia History of bilateral lower extremity DVTs - fluid overload/Trali versus atypical pneumonia on CXR - Careful hydration - Extubated 05/13/16 - Unable to anticoagulate due to severe thrombocytopenia - S/p IVC filter in 2016 CVS: A. Fib rapid ventricular response Possible CHF (More likely atypical pneumonia/ARDS) - Cardizem gtt off as rate controlled. Cardiology -Dr. Murphy - Receiving by mouth Cardizem and by mouth metoprolol - Cannot anticoagulate due to severe thrombocytopenia GI: -Heart health diet, Protonix : Acute on Chronic kidney disease - monitor electrolytes and creatinine - monitor urine output - Creat improving with gentle hydration HEME: Chronic ITP with acute exacerbation - per Hem-Onc. Continue prednisone 20 mg daily, IVIG per Dr. Armenta. - Start Promacta 50 mg today (thrombopoietin analog), per Dr. Armenta. Splenectomy may be considered. - Transfuse platelets per heme ID: Probable sepsis Atypical Pneumonia -Unable to rule out bacterial versus opportunistic pneumonia. F/u panculture, urine for Legionella and pneumococcal antigen, influenza. BAL studies Pending -PJP stain and bronch cultures pending -Continue Zosyn and azithromycin -ID and pulmonary. s/p Dr. Mondragon performing bronch/BAL ENDO: -Electrolyte replacement per protocol DVT/GI prophylaxis - TEDs/SCDs/Pepcid - s/p IVC filter most recently in 2016. Cannot anticoagulate due to severe thrombocytopenia and recent intracranial hemorrhage Critical Care: The total critical care time was 30 minutes. Time to perform other separately billable procedures was not included in the critical care time. Leni Cedeño MD May 14, 2016 11:10
--- NOTE | 2016-05-14 11:55 | HHI.IDPN ---
Note Infectious Disease Note Patient feels okay. On VM 4L. Awake and alert. No chest pain or discomfort. Has occasional dry cough. Afebrile. Bronch. culture pending. PAST MEDICAL HISTORY 1. Bilateral lower extremity deep thromboses. 2. Hypertension. 3. ITP. 4. Chronic kidney disease. 5. Benign prostatic hypertrophy. 6. Intracranial hemorrhage March 2016. 7. Ischemic stroke August 2015. 8. GI bleed August 2015. 9. Right total hip replacement. 10. Tonsillectomy. 11. Right carotid endarterectomy with patch angioplasty. 12. IVC filter placement 2015. 13. Prior IVC filter placement 2007 which was removed in 2008. 14. Appendectomy. 15. Vasectomy. ALLERGIES PREDNISONE. THE PATIENT DEVELOPED MILD ITCHING. ANTIBIOTICS 1. Piperacillin / tazobactam. 2. Azithromycin. SOCIAL HISTORY No tobacco use. Occasional alcohol in the form of beer. No illicit drugs. OBJECTIVE: Vital Signs Date Time Temp Pulse Resp B/P Pulse Ox O2 Delivery O2 Flow Rate FiO2 05/14/16 08:14 96 Aerosol Mask 9.00 98 05/14/16 06:00 113 05/14/16 04:00 83 05/14/16 04:00 97.4 83 27 137/74 92 05/14/16 02:00 72 05/14/16 00:00 96.3 77 19 125/74 91 05/14/16 00:00 77 05/13/16 22:00 73 05/13/16 21:05 98 Face Tent 5.00 40 05/13/16 20:00 98.2 83 23 120/74 98 05/13/16 20:00 83 05/13/16 18:00 82 05/13/16 16:00 95 Simple Mask 05/13/16 16:00 82 05/13/16 16:00 98.5 136 16 137/78 95 05/13/16 14:00 96 Mechanical Ventilator 50 05/13/16 14:00 75 05/13/16 12:00 74 05/13/16 12:00 98.2 125 17 120/74 93 05/13/16 05/13/16 05/14/16 15:00 23:00 07:00 Intake Total 175 ml 120 ml 216 ml Output Total 1350 ml 600 ml 450 ml Balance -1175 ml -480 ml -234 ml IV Total 175 ml 120 ml 216 ml Output Urine Total 1350 ml 600 ml 450 ml # Bowel Movements 0 Laboratory Tests Test 05/12/16 05/13/16 05/14/16 12:40 11:57 02:58 White Blood Count 8.5 TH/MM3 8.9 TH/MM3 9.1 TH/MM3 Red Blood Count 2.56 MIL/MM3 2.90 MIL/MM3 2.50 MIL/MM3 Hemoglobin 7.7 GM/DL 8.5 GM/DL 7.6 GM/DL Hematocrit 22.2 % 24.8 % 21.5 % Mean Corpuscular Volume 86.9 FL 85.5 FL 85.7 FL Mean Corpuscular Hemoglobin 30.3 PG 29.3 PG 30.2 PG Mean Corpuscular Hemoglobin 34.8 % 34.3 % 35.3 % Concent Red Cell Distribution Width 14.8 % 15.0 % 15.4 % Platelet Count 19 TH/MM3 9 TH/MM3 7 TH/MM3 Mean Platelet Volume 8.3 FL 8.8 FL 9.0 FL Neutrophils (%) (Auto) 90.1 % 82.4 % Lymphocytes (%) (Auto) 6.6 % 12.6 % Monocytes (%) (Auto) 2.7 % 3.7 % Eosinophils (%) (Auto) 0.5 % 0.7 % Basophils (%) (Auto) 0.1 % 0.6 % Neutrophils # (Auto) 8.0 TH/MM3 7.5 TH/MM3 Lymphocytes # (Auto) 0.6 TH/MM3 1.1 TH/MM3 Monocytes # (Auto) 0.2 TH/MM3 0.3 TH/MM3 Eosinophils # (Auto) 0.0 TH/MM3 0.1 TH/MM3 Basophils # (Auto) 0.0 TH/MM3 0.1 TH/MM3 CBC Comment AUTO DIFF AUTO DIFF Differential Comment AUTO DIFF AUTO DIFF CONFIRMED CONFIRMED Platelet Estimate RARE RARE Platelet Morphology Comment NORMAL NORMAL Basophilic Stippling FAINT Laboratory Tests Test 05/13/16 05/14/16 11:57 02:58 Sodium Level 141 MEQ/L 144 MEQ/L Potassium Level 3.5 MEQ/L 3.5 MEQ/L Chloride Level 98 MEQ/L 102 MEQ/L Carbon Dioxide Level 33.6 MEQ/L 36.5 MEQ/L Anion Gap 9 MEQ/L 6 MEQ/L Blood Urea Nitrogen 41 MG/DL 42 MG/DL Creatinine 1.71 MG/DL 1.63 MG/DL Estimat Glomerular Filtration 39 ML/MIN 41 ML/MIN Rate Random Glucose 129 MG/DL 86 MG/DL Calcium Level 8.5 MG/DL 8.6 MG/DL Total Bilirubin 2.6 MG/DL 2.3 MG/DL Aspartate Amino Transf 38 U/L 40 U/L (AST/SGOT) Alanine Aminotransferase 40 U/L 43 U/L (ALT/SGPT) Alkaline Phosphatase 49 U/L 46 U/L Total Protein 7.8 GM/DL 7.2 GM/DL Albumin 2.5 GM/DL 2.5 GM/DL Microbiology Date/Time Procedure Status Source Growth 05/12/16 11:53 Gram Stain - Final Complete Sputum Endotracheal 05/12/16 11:53 Sputum Culture - Final Complete Sputum Endotracheal NO GROWTH IN 48 HOURS. 05/12/16 11:53 Legionella Antigen - Final Complete Urine Catheterized Urine PRESUMPTIVE NEGATIVE FOR LEGIONELLA P... 05/12/16 11:53 Streptococcus pneumoniae Antigen (M - Final Complete Urine Catheterized Urine PRESUMPTIVE NEGATIVE FOR STREPTOCOCCU... 05/12/16 11:54 Influenza Types A,B Antigen (BRANDEN) - Final Complete Nasal Washing NEGATIVE FOR FLU A AND B ANTIGEN.... 05/12/16 11:55 Urine Culture - Final Complete Urine Catheterized Urine NO GROWTH IN 48 HOURS. 05/12/16 18:25 Gram Stain - Final Resulted Bronchial Washings Bronchial 05/12/16 18:25 Bronchial Culture Resulted Bronchial Washings Bronchial Pending 05/12/16 18:25 Acid Fast Stain - Final Resulted Bronchial Washings Bronchial NO ACID FAST BACILLI SEEN 05/12/16 18:25 Mycobacterial Culture Resulted Bronchial Washings Bronchial Pending 05/12/16 18:25 Fungal Smear - Final Resulted Bronchial Washings Bronchial NO FUNGAL ELEMENTS SEEN. 05/12/16 18:25 Fungal Culture Resulted Bronchial Washings Bronchial Pending 05/12/16 18:25 Gram Stain - Final Resulted Bronchial Brushings Other 05/12/16 18:25 Bronchial Culture Resulted Bronchial Brushings Other Pending 05/12/16 18:25 Acid Fast Stain - Final Resulted Bronchial Brushings Other NO ACID FAST BACILLI SEEN 05/12/16 18:25 Mycobacterial Culture Resulted Bronchial Brushings Other Pending 05/12/16 18:25 Fungal Smear - Final Resulted Bronchial Brushings Other 05/12/16 18:25 Fungal Culture Resulted Bronchial Brushings Other Pending IMAGING: Chest X-Ray 05/14/16 0600 Signed Impressions: Service Date/Time: Saturday, May 14, 2016 04:21 - CONCLUSION: Endotracheal tube and nasogastric tube removed. No significant change mild patchy air space opacities. Davidson Skelton MD CT Angiography 05/10/16 0000 Signed Impressions: Service Date/Time: Wednesday, May 11, 2016 07:53 - CONCLUSION: 1. No evidence of PE. 2. Diffuse interstitial infiltrates throughout most of the right lung. 3. Scattered interstitial infiltrates throughout the left lung. Markus Guzman MD PHYSICAL EXAMINATION GENERAL: Awake and alert. No distress. HEENT: No icterus. Oral mucosa moist. LUNGS: Bilateral Basilar rhonchi. HEART: Irregular rate and rhythm. ABDOMEN: Decreased bowel sounds, soft. No tenderness. EXTREMITIES: No clubbing or cyanosis or edema. SKIN: No rash. NEUROLOGICAL: Unable to assess. IMPRESSION 1. Bilateral lung infiltrates in a patient who has ITP and likely is immune suppressed and likely may have pulmonary opportunistic infection. 2. Pneumonia. 3. Acute respiratory failure. extubated. 4. Chronic kidney disease. 5. Thrombocytopenia secondary to ITP. RECOMMENDATIONS 1. Monitor sputum PCP evaluation. 2. Continue piperacillin / tazobactam. 3. Continue azithromycin. 4. Add Bactrim. 5. Monitor bronchoscopy culture. 6, PT for ambulation. Pankaj Aparicio MD May 14, 2016 11:54
[2016-05-14] MEDS: SULFAMETHOXAZOLE-TRIMETHOPRIM DS 800-160 MG TAB PO SCH ×2 (13:12→20:49)
--- NOTE | 2016-05-14 18:26 | HHI.PR ---
Subjective Remarks Further improvement . CXR improved. . On Aerosol mask 60 %. Good output. Bronchial washings show no unusual pathogens. Objective Vital Signs Date Time Temp Pulse Resp B/P Pulse Ox O2 Delivery O2 Flow Rate FiO2 05/14/16 14:00 95 05/14/16 12:00 108 05/14/16 12:00 97.8 108 22 139/82 95 05/14/16 10:00 114 05/14/16 08:14 96 Aerosol Mask 9.00 98 05/14/16 08:00 112 05/14/16 08:00 98.0 112 24 150/82 92 05/14/16 06:00 113 05/14/16 04:00 83 05/14/16 04:00 97.4 83 27 137/74 92 05/14/16 02:00 72 05/14/16 00:00 96.3 77 19 125/74 91 05/14/16 00:00 77 05/13/16 22:00 73 05/13/16 21:05 98 Face Tent 5.00 40 05/13/16 20:00 98.2 83 23 120/74 98 05/13/16 20:00 83 I/O 05/13/16 05/13/16 05/13/16 05/14/16 05/14/16 05/14/16 07:00 15:00 23:00 07:00 15:00 23:00 Intake Total 278 ml 175 ml 120 ml 216 ml 880 ml Output Total 1475 ml 1350 ml 600 ml 450 ml 850 ml Balance -1197 ml -1175 ml -480 ml -234 ml 30 ml IV Total 248 ml 175 ml 120 ml 216 ml 880 ml Tube Feeding 30 ml Output Urine Total 1475 ml 1350 ml 600 ml 450 ml 850 ml # Bowel Movements 0 0 Result Diagram: 05/14/16 0258 05/14/16 0258 Objective Remarks This is an obese elderly man who is alert. HEENT: Head normocephalic. Pupils are reactive. Throat clear. NECK: Supple with mild venous distension . Trachea midline. No thyroid enlargement. CHEST: Distant breath sounds with crackles over the right lung field and left base. Occasional wheezes. HEART: Heart sounds are irregularly irregular. S1-S2. No murmur. ABDOMEN: Obese and protuberant without masses or organomegaly or tenderness. The bowel sounds are active. EXTREMITIES: mild edema. Peripheral pulses are diminished. NEUROLOGIC: The patient is alert and oriented SKIN: warm. Assessment and Plan Assessment and Plan IMPRESSION 1. Bilateral pneumonia with hypoxemia. 2. Atrial fibrillation and rapid ventricular response 3. History of ITP, immune thrombocytopenic purpura. 4. History of elevated anticardiolipin antibody. 5. History of DVTs status post IVC filter placement. 6. Hypertension 7. Hyperlipidemia Plan : 1. Cont Antibiotics. 2. Wean O2 to ventimask 50 % 3. Nebs qid , duoneb. 4. IS at bedside q 3h. 5. Chest X ray in am 6. Prednisone 30 mg daily. 7. No anticoagulation Neftaly Redding MD May 14, 2016 18:26
[2016-05-14] MEDS ORDERED: ACETAMINOPHEN/HYDROcodone 325 MG/5 MG TAB PO PRN (18:30)
[2016-05-14] MEDS: PANTOPRAZOLE SOD 40 MG DELAYED RELEASE TAB PO SCH (20:48)
[2016-05-14] MEDS: DOXAZOSIN MESYLATE 4 MG TAB PO SCH (20:49)
[2016-05-15] VITALS (16 sets, daily range): BP systolic 98–154; BP diastolic 56–87; PULSE 63–146; RESP 16–28; TEMP 97–98.6; O2SAT 92–100
[2016-05-15] MEDS: PIPERACIL-TAZO 3.375 GM PREMIX 50 ML IV SCH ×4 (01:29→22:01)
[2016-05-15] MEDS: CHLORHEXIDINE GLUCONATE 2 % 1 PACK (2 CLOTHS)(taper/protocol) TOP SCH (03:27)
[2016-05-15] MEDS: RESP: ALBUTEROL 2.5 MG/IPRATROPIUM 0.5 MG NEB (SCH) NEB ×2 (03:59→09:54)
[2016-05-15] MEDS: DILTIAZEM 125 MG/NS 100 ML IV SCH ×4 (04:43→22:00)
[2016-05-15] MEDS: SULFAMETHOXAZOLE-TRIMETHOPRIM DS 800-160 MG TAB PO SCH (04:44)
[2016-05-15] MEDS: METOPROLOL TARTRATE 50 MG TAB PO SCH (04:44)
[2016-05-15] MEDS ORDERED: METOPROLOL TARTRATE 5 MG/5 ML VIAL IV SCH (06:03)
[2016-05-15] MEDS ORDERED: FUROSEMIDE 40 MG/4 ML VIAL ONE (08:32)
[2016-05-15 08:41] LABS: BASOPHIL % 0.2 % (0.0-2.0); EOSINOPHIL # 0.1 TH/MM3 (0-0.4); EOSINOPHIL % 0.9 % (0.0-4.0); LYMPHOCYTE # 0.9 TH/MM3 (1.0-4.8); MEAN CELL VOLUME 87.4 FL (80.0-100.0); MEAN CORPUSCULAR HEMOGLOBIN 30.2 PG (27.0-34.0); MEAN CORPUSCULAR HGB CONC 34.5 % (32.0-36.0); NEUT % 85.9 % (16.0-70.0); RED BLOOD COUNT 2.22 MIL/MM3 (4.50-5.90); RED CELL DISTRIBUTION WIDTH 15.4 % (11.6-17.2); WHITE BLOOD COUNT 9.3 TH/MM3 (4.0-11.0)
[2016-05-15 08:44] LABS: HEMO FLAGS AUTO DIFF
[2016-05-15 08:47] LABS: HEMATOCRIT 19.4 % (39.0-51.0); PLATELET COUNT 4 TH/MM3 (150-450)
[2016-05-15] MEDS: DILTIAZEM HCL 90 MG TAB PO SCH ×4 (08:59→21:00)
[2016-05-15] MEDS: CALCIUM/VITAMIN D 250 MG/125 U TAB PO SCH (09:00)
[2016-05-15] MEDS ORDERED: FUROSEMIDE 20 MG/2 ML VIAL IV PUSH ONE (09:00)
[2016-05-15] MEDS: MAGNESIUM OXIDE 400 MG TAB PO SCH (09:00)
[2016-05-15] MEDS: SODIUM CHLORIDE 0.9% FLUSH 5 ML FLUSH FLUSH SCH ×2 (09:00→21:00)
[2016-05-15] MEDS: SODIUM CHLORIDE 1 GRAM TAB PO SCH (09:00)
[2016-05-15] MEDS ORDERED: SODIUM CHLOR 0.9% 250 ML INJ 250 ML IV ONE ×2 (09:00→12:00)
[2016-05-15] MEDS ORDERED: ACETAMINOPHEN 325 MG TAB PO PRN ×2 (09:00→12:00)
[2016-05-15] MEDS: predniSONE 20 MG TAB PO SCH (09:00)
[2016-05-15] MEDS: POTASSIUM CHLORIDE 20 MEQ CONTROLLED RELEASE TAB PO SCH (09:00)
[2016-05-15] MEDS: ELTROMBOPAG 50 MG TAB PO SCH (09:00)
[2016-05-15] MEDS ORDERED: diphenhydrAMINE HCL 25 MG CAP PO PRN ×2 (09:00→12:00)
[2016-05-15] MEDS: AZITHROMYCIN INJ 500 MG in SODIUM CHLOR 0.9% 250 ML INJ 250 ML IV SCH (09:01)
[2016-05-15 09:09] LABS: ALKALINE PHOSPHATASE 50 U/L (45-117); ALT (GPT) 38 U/L (12-78); ANION GAP 8 MEQ/L (5-15); AST (GOT) 41 U/L (15-37); BICARBONATE 33.3 MEQ/L (21.0-32.0); BLOOD UREA NITROGEN 34 MG/DL (7-18); CHLORIDE 102 MEQ/L (98-107); GLOMERULAR FILTRATION RATE 48 ML/MIN (>89); POTASSIUM 3.5 MEQ/L (3.5-5.1); SODIUM (NA) 143 MEQ/L (136-145); TOTAL BILIRUBIN ADULT 1.8 MG/DL (0.2-1.0)
[2016-05-15 09:21] LABS: PLATELET ESTIMATE SMEAR RARE (NORMAL); PLATELET MORPHOLOGY NORMAL (NORMAL); SCAN/DIFF AUTO DIFF CONFIRMED
--- NOTE | 2016-05-15 09:49 | RADRPT ---
EXAM DATE/TIME: 05/15/2016 08:43 [facility] COMPARISON: CHEST SINGLE AP, May 14, 2016, 4:21. INDICATIONS : Short of breath. MEDICAL HISTORY : Hypertension. SURGICAL HISTORY : None. ENCOUNTER: Initial ACUITY: 4 - 6 days PAIN SCORE: Non-responsive. LOCATION: Bilateral chest FINDINGS: Single AP view of the chest. Right IJ central venous catheter remains in place. Increase in bilateral pulmonary opacity with lower lung zone confluent parenchymal opacity. Cardiomediastinal silhouette u nchanged. Likely small left pleural effusion. CONCLUSION: Increase in bilateral basilar predominant pulmonary opacity indicating possible pulmonary edema. Like ly small left pleural effusion. Bj Harrison MD on May 15, 2016 at 9:36 Board Certified Radiologist. This report was verified electronically.
[2016-05-15] MEDS ORDERED: POTASSIUM CHLORIDE 10 MEQ CONTROLLED RELEASE TAB PO ONE (10:00)
[2016-05-15] MEDS ORDERED: DILTIAZEM HCL 25 MG/5 ML VIAL IV ONE (10:00)
[2016-05-15 10:12] LABS: BLOOD GAS BASE EXCESS 4.2 mmol/L (-2-2); BLOOD GAS CARBOXYHEMOGLOBIN 3.4 % (0-4); BLOOD GAS HCO3 28 mmol/L (22-26); BLOOD GAS METHEMOGLOBIN 1.2 % (0-2); BLOOD GAS O2 HGB SATURATION 91 % (90-100); BLOOD GAS OXYGEN CONTENT 9.8 Vol % (12.0-20.0); BLOOD GAS PCO2 42 mmHg (38-42); BLOOD GAS PO2 74 mmHg (61-120); BLOOD GAS TOTAL HGB 7.6 G/DL (12.0-16.0); TEMP CORR TO 98.6
[2016-05-15 10:13] LABS: CRITICAL VALUE NO; DRAW SITE LT RADIAL; LITER FLOW 15 L/M; NUMBER OF ARTERIAL PUNCTURES 1; OXYGEN DEVICE NRB; STAT YES; ULNAR PULSE PRESENT
[2016-05-15] MEDS ORDERED: MIDAZOLAM HCL 5 MG/ML VIAL (1 ML) ONE (11:33)
[2016-05-15] MEDS ORDERED: ETOMIDATE 20 MG/10 ML VIAL IV PUSH ONE (12:15)
[2016-05-15] MEDS ORDERED: MIDAZOLAM HCL 5 MG/5 ML VIAL IV PUSH ONE (12:15)
[2016-05-15] MEDS ORDERED: SUCCINYLCHOLINE CHLORIDE 200 MG/10 ML VIAL IV PUSH ONE (12:15)
[2016-05-15] MEDS ORDERED: HEPARIN SODIUM - IV 10,000 UNITS/10 ML VIAL ONE (12:21)
[2016-05-15] MEDS ORDERED: ROCURONIUM INJ 50 MG/5 ML VIAL ONE (12:24)
--- NOTE | 2016-05-15 12:28 | HHI.PR ---
Subjective Remarks Intubated today for respiratory failure . CXR was worse. Had aspirated. .Platelets <5K. Bronchial washings show no unusual pathogens. Objective Vital Signs Date Time Temp Pulse Resp B/P Pulse Ox O2 Delivery O2 Flow Rate FiO2 05/15/16 10:00 116 05/15/16 09:54 92 Non-Rebreather 15.00 05/15/16 08:00 Partial Non-Rebreather 12.00 05/15/16 08:00 120 05/15/16 06:00 146 05/15/16 04:00 Partial Non-Rebreather 12.00 05/15/16 04:00 107 05/15/16 04:00 97.8 107 28 145/81 92 05/15/16 02:00 97 05/15/16 00:00 Partial Non-Rebreather 12.00 05/15/16 00:00 86 05/15/16 00:00 97.3 86 27 134/67 94 05/15/16 00:00 97.0 86 27 134/67 94 05/14/16 23:15 97.0 85 29 133/76 96 05/14/16 22:00 84 05/14/16 21:03 94 Partial Rebreather 12.00 05/14/16 20:00 97.5 110 33 127/64 88 05/14/16 20:00 110 05/14/16 20:00 Partial Non-Rebreather 12.00 05/14/16 18:00 128 05/14/16 16:00 97.9 94 18 136/69 96 05/14/16 16:00 94 05/14/16 14:00 95 I/O 05/14/16 05/14/16 05/14/16 05/15/16 05/15/16 05/15/16 07:00 15:00 23:00 07:00 15:00 23:00 Intake Total 216 ml 880 ml 896 ml 457 ml Output Total 450 ml 850 ml 800 ml 425 ml Balance -234 ml 30 ml 96 ml 32 ml Intake Oral 240 ml 240 ml IV Total 216 ml 880 ml 656 ml 217 ml Output Urine Total 450 ml 850 ml 800 ml 425 ml Result Diagram: 05/15/16 0755 05/15/16 0755 Objective Remarks This is an obese elderly man who is sedated. HEENT: Head normocephalic. Pupils are reactive. Throat clear. NECK: Supple with no venous distension . Trachea midline. No thyroid enlargement. CHEST: Distant breath sounds with crackles over the right lung field and left base. Occasional wheezes bilaterally. HEART: Heart sounds are irregularly irregular. S1-S2. No murmur. ABDOMEN: Obese and protuberant without masses or organomegaly or tenderness. The bowel sounds are active. EXTREMITIES: mild edema. Peripheral pulses are diminished. NEUROLOGIC: The patient is sedated on the vent. SKIN: warm. Assessment and Plan Assessment and Plan IMPRESSION 1. Bilateral pneumonia with hypoxemia. 2. Atrial fibrillation and rapid ventricular response 3. History of ITP, immune thrombocytopenic purpura. 4. History of elevated anticardiolipin antibody. 5. History of DVTs status post IVC filter placement. 6. Hypertension 7.Respiratory Failure Plan : 1. Cont Antibiotics. 2. Vent support and keep sedated 3. Nebs qid , duoneb. 4. IS at bedside q 3h. 5. Chest X ray in am,CBC,BMP 6.Solumedrol and plasma pheresis 7. No anticoagulation 8. D/W Neftaly Cazares MD May 15, 2016 12:28
--- NOTE | 2016-05-15 12:37 | HHI.IDPN ---
Note Infectious Disease Note Patient deteriorated from respiratory and reintubated. Aspirated just before intubation. Receiving Plasma and Blood. Currently unresponsive. Afebrile. Bronch. culture has no growth. PAST MEDICAL HISTORY 1. Bilateral lower extremity deep thromboses. 2. Hypertension. 3. ITP. 4. Chronic kidney disease. 5. Benign prostatic hypertrophy. 6. Intracranial hemorrhage March 2016. 7. Ischemic stroke August 2015. 8. GI bleed August 2015. 9. Right total hip replacement. 10. Tonsillectomy. 11. Right carotid endarterectomy with patch angioplasty. 12. IVC filter placement 2015. 13. Prior IVC filter placement 2007 which was removed in 2008. 14. Appendectomy. 15. Vasectomy. ALLERGIES PREDNISONE. THE PATIENT DEVELOPED MILD ITCHING. ANTIBIOTICS 1. Piperacillin / tazobactam. 2. Azithromycin. 3. Bactrim. SOCIAL HISTORY No tobacco use. Occasional alcohol in the form of beer. No illicit drugs. OBJECTIVE: Vital Signs Date Time Temp Pulse Resp B/P Pulse Ox O2 Delivery O2 Flow Rate FiO2 05/15/16 10:00 116 05/15/16 09:54 92 Non-Rebreather 15.00 05/15/16 08:00 Partial Non-Rebreather 12.00 05/15/16 08:00 120 05/15/16 06:00 146 05/15/16 04:00 Partial Non-Rebreather 12.00 05/15/16 04:00 107 05/15/16 04:00 97.8 107 28 145/81 92 05/15/16 02:00 97 05/15/16 00:00 Partial Non-Rebreather 12.00 05/15/16 00:00 86 05/15/16 00:00 97.3 86 27 134/67 94 05/15/16 00:00 97.0 86 27 134/67 94 05/14/16 23:15 97.0 85 29 133/76 96 05/14/16 22:00 84 05/14/16 21:03 94 Partial Rebreather 12.00 05/14/16 20:00 97.5 110 33 127/64 88 05/14/16 20:00 110 05/14/16 20:00 Partial Non-Rebreather 12.00 05/14/16 18:00 128 05/14/16 16:00 97.9 94 18 136/69 96 05/14/16 16:00 94 05/14/16 14:00 95 05/14/16 05/14/16 05/15/16 15:00 23:00 07:00 Intake Total 880 ml 896 ml 457 ml Output Total 850 ml 800 ml 425 ml Balance 30 ml 96 ml 32 ml Intake Oral 240 ml 240 ml IV Total 880 ml 656 ml 217 ml Output Urine Total 850 ml 800 ml 425 ml Laboratory Tests Test 05/14/16 05/14/16 05/15/16 05/15/16 02:58 20:30 05:51 07:55 White Blood Count 9.1 TH/MM3 9.3 TH/MM3 Red Blood Count 2.50 MIL/MM3 2.22 MIL/MM3 Hemoglobin 7.6 GM/DL 6.7 GM/DL Hematocrit 21.5 % 19.4 % Mean Corpuscular Volume 85.7 FL 87.4 FL Mean Corpuscular Hemoglobin 30.2 PG 30.2 PG Mean Corpuscular Hemoglobin 35.3 % 34.5 % Concent Red Cell Distribution Width 15.4 % 15.4 % Platelet Count 7 TH/MM3 5 TH/MM3 2 TH/MM3 4 TH/MM3 Mean Platelet Volume 9.0 FL 11.3 FL Neutrophils (%) (Auto) 82.4 % 85.9 % Lymphocytes (%) (Auto) 12.6 % 10.0 % Monocytes (%) (Auto) 3.7 % 3.0 % Eosinophils (%) (Auto) 0.7 % 0.9 % Basophils (%) (Auto) 0.6 % 0.2 % Neutrophils # (Auto) 7.5 TH/MM3 8.0 TH/MM3 Lymphocytes # (Auto) 1.1 TH/MM3 0.9 TH/MM3 Monocytes # (Auto) 0.3 TH/MM3 0.3 TH/MM3 Eosinophils # (Auto) 0.1 TH/MM3 0.1 TH/MM3 Basophils # (Auto) 0.1 TH/MM3 0.0 TH/MM3 CBC Comment AUTO DIFF AUTO DIFF Differential Comment AUTO DIFF AUTO DIFF CONFIRMED CONFIRMED Platelet Estimate RARE RARE Platelet Morphology Comment NORMAL NORMAL Polychromasia 2.0 % Basophilic Stippling FAINT Laboratory Tests Test 05/14/16 05/15/16 02:58 07:55 Sodium Level 144 MEQ/L 143 MEQ/L Potassium Level 3.5 MEQ/L 3.5 MEQ/L Chloride Level 102 MEQ/L 102 MEQ/L Carbon Dioxide Level 36.5 MEQ/L 33.3 MEQ/L Anion Gap 6 MEQ/L 8 MEQ/L Blood Urea Nitrogen 42 MG/DL 34 MG/DL Creatinine 1.63 MG/DL 1.42 MG/DL Estimat Glomerular Filtration 41 ML/MIN 48 ML/MIN Rate Random Glucose 86 MG/DL 111 MG/DL Calcium Level 8.6 MG/DL 8.5 MG/DL Total Bilirubin 2.3 MG/DL 1.8 MG/DL Aspartate Amino Transf 40 U/L 41 U/L (AST/SGOT) Alanine Aminotransferase 43 U/L 38 U/L (ALT/SGPT) Alkaline Phosphatase 46 U/L 50 U/L Total Protein 7.2 GM/DL 7.2 GM/DL Albumin 2.5 GM/DL 2.5 GM/DL Microbiology Date/Time Procedure Status Source Growth 05/12/16 18:25 Gram Stain - Final Resulted Bronchial Washings Bronchial 05/12/16 18:25 Bronchial Culture Resulted Bronchial Washings Bronchial Pending 05/12/16 18:25 Acid Fast Stain - Final Resulted Bronchial Washings Bronchial NO ACID FAST BACILLI SEEN 05/12/16 18:25 Mycobacterial Culture Resulted Bronchial Washings Bronchial Pending 05/12/16 18:25 Fungal Smear - Final Resulted Bronchial Washings Bronchial NO FUNGAL ELEMENTS SEEN. 05/12/16 18:25 Fungal Culture Resulted Bronchial Washings Bronchial Pending 05/12/16 18:25 Gram Stain - Final Complete Bronchial Brushings Other 05/12/16 18:25 Bronchial Culture - Final Complete Bronchial Brushings Other NO GROWTH IN 48 HOURS. 05/12/16 18:25 Acid Fast Stain - Final Resulted Bronchial Brushings Other NO ACID FAST BACILLI SEEN 05/12/16 18:25 Mycobacterial Culture Resulted Bronchial Brushings Other Pending 05/12/16 18:25 Fungal Smear - Final Resulted Bronchial Brushings Other 05/12/16 18:25 Fungal Culture Resulted Bronchial Brushings Other Pending IMAGING: Chest X-Ray 05/15/16 0000 Signed Impressions: Service Date/Time: May 08:43 - CONCLUSION: Increase in bilateral basilar predominant pulmonary opacity indicating possible pulmonary edema. Likely small left pleural effusion. Bj Harrison MD Chest X-Ray 05/14/16 0600 Signed Impressions: Service Date/Time: Saturday, May 14, 2016 04:21 - CONCLUSION: Endotracheal tube and nasogastric tube removed. No significant change mild patchy air space opacities. Davidson Skelton MD CT Angiography 05/10/16 0000 Signed Impressions: Service Date/Time: Wednesday, May 11, 2016 07:53 - CONCLUSION: 1. No evidence of PE. 2. Diffuse interstitial infiltrates throughout most of the right lung. 3. Scattered interstitial infiltrates throughout the left lung. Markus Guzman MD PHYSICAL EXAMINATION GENERAL: Non responsive. HEENT: No icterus. Oral mucosa moist. LUNGS: Bilateral rhonchi. HEART: Irregular rate and rhythm. CHARIS. ABDOMEN: Decreased bowel sounds, soft. EXTREMITIES: No clubbing or cyanosis or edema. SKIN: No rash. NEUROLOGICAL: Unable to assess. IMPRESSION 1. Bilateral lung infiltrates in a patient who has ITP and likely is immune suppressed and likely may have pulmonary opportunistic infection. 2. Pneumonia. Lung infiltrates. 3. Acute respiratory failure. extubated. Reintubated. 4. Chronic kidney disease. 5. Thrombocytopenia secondary to ITP. RECOMMENDATIONS 1. Monitor sputum PCP evaluation. 2. Continue piperacillin / tazobactam. 3. Continue azithromycin. 4. Change Bactrim to Pentamidine IV for PCP coverage. 5. Monitor bronchoscopy culture. 6. Monitor clinical status. Pankaj Aparicio MD May 15, 2016 12:37
--- NOTE | 2016-05-15 12:54 | PD.PROCEDR ---
Procedure Note Procedure After the risks and benefits were discussed the following procedure was performed: INTUBATION: The patient was put in optimal position for the procedure. Rapid sequence intubation was initiated by me using 20 milligrams of etomidate IV and 5 milligrams of Versed IV, neuromuscular paralysis with succinylcholine 1 mg IV. Direct Laryngoscopy Mac 4 blade Grade 1 view single attempt. Unfortunately right after Induction, patient vomited a large amount of biliary fluid. This was suctioned out, the patient seems to have aspirated a small amount. The patient was intubated with a 8.0 cuffed endotracheal tube. Tube placement was confirmed by visualization of the tube and balloon passing through the cords, capnometry and subsequent chest x-ray. Breath sounds were equal and well aerated bilaterally postintubation. No breath sounds over stomach. Post intubation OGT placed with large amount biliary output Leni Cedeño MD May 15, 2016 12:54
[2016-05-15] MEDS ORDERED: METOPROLOL TARTRATE 5 MG/5 ML VIAL ONE (13:22)
--- NOTE | 2016-05-15 13:38 | PD.ONC.PN ---
Subjective Subjective Remarks Afebrile overnight. Pt resting in bed on 100% NRB. He tells me has had increased SOB. Otherwise he has no pain. Pt tells me "I am going to be put back on the ventilator soon." Objective Data Date Time Temp Pulse Resp B/P Pulse Ox O2 Delivery O2 Flow Rate FiO2 05/15/16 10:00 116 05/15/16 09:54 92 Non-Rebreather 15.00 05/15/16 08:00 Partial Non-Rebreather 12.00 05/15/16 08:00 120 05/15/16 06:00 146 05/15/16 04:00 Partial Non-Rebreather 12.00 05/15/16 04:00 107 05/15/16 04:00 97.8 107 28 145/81 92 05/15/16 02:00 97 05/15/16 00:00 Partial Non-Rebreather 12.00 05/15/16 00:00 86 05/15/16 00:00 97.3 86 27 134/67 94 05/15/16 00:00 97.0 86 27 134/67 94 05/14/16 23:15 97.0 85 29 133/76 96 05/14/16 22:00 84 05/14/16 21:03 94 Partial Rebreather 12.00 05/14/16 20:00 97.5 110 33 127/64 88 05/14/16 20:00 110 05/14/16 20:00 Partial Non-Rebreather 12.00 05/14/16 18:00 128 05/14/16 16:00 97.9 94 18 136/69 96 05/14/16 16:00 94 05/14/16 14:00 95 05/15/16 05/15/16 05/15/16 07:00 15:00 23:00 Intake Total 457 ml Output Total 425 ml Balance 32 ml Result Diagram: 05/15/16 0755 05/15/16 0755 Laboratory Results Laboratory Tests Test 05/14/16 05/14/16 05/15/16 05/15/16 20:30 22:22 05:51 07:53 Platelet Count 5 TH/MM3 2 TH/MM3 Blood Bank Comment Test 05/15/16 05/15/16 05/15/16 07:55 09:37 10:05 White Blood Count 9.3 TH/MM3 Red Blood Count 2.22 MIL/MM3 Hemoglobin 6.7 GM/DL Hematocrit 19.4 % Mean Corpuscular Volume 87.4 FL Mean Corpuscular Hemoglobin 30.2 PG Mean Corpuscular Hemoglobin 34.5 % Concent Red Cell Distribution Width 15.4 % Platelet Count 4 TH/MM3 Mean Platelet Volume 11.3 FL Neutrophils (%) (Auto) 85.9 % Lymphocytes (%) (Auto) 10.0 % Monocytes (%) (Auto) 3.0 % Eosinophils (%) (Auto) 0.9 % Basophils (%) (Auto) 0.2 % Neutrophils # (Auto) 8.0 TH/MM3 Lymphocytes # (Auto) 0.9 TH/MM3 Monocytes # (Auto) 0.3 TH/MM3 Eosinophils # (Auto) 0.1 TH/MM3 Basophils # (Auto) 0.0 TH/MM3 CBC Comment AUTO DIFF Differential Comment AUTO DIFF CONFIRMED Platelet Estimate RARE Platelet Morphology Comment NORMAL Polychromasia 2.0 % Basophilic Stippling FAINT Sodium Level 143 MEQ/L Potassium Level 3.5 MEQ/L Chloride Level 102 MEQ/L Carbon Dioxide Level 33.3 MEQ/L Anion Gap 8 MEQ/L Blood Urea Nitrogen 34 MG/DL Creatinine 1.42 MG/DL Estimat Glomerular Filtration 48 ML/MIN Rate Random Glucose 111 MG/DL Calcium Level 8.5 MG/DL Total Bilirubin 1.8 MG/DL Aspartate Amino Transf 41 U/L (AST/SGOT) Alanine Aminotransferase 38 U/L (ALT/SGPT) Alkaline Phosphatase 50 U/L Total Protein 7.2 GM/DL Albumin 2.5 GM/DL Blood Type A POSITIVE Antibody Screen NEGATIVE Direct Antiglobulin Test WEAKLY (Balaji) POSITIVE Crossmatch Leukocyte-Reduced Red Blood Cells Blood Bank Comment Blood Gas Puncture Site LT RADIAL Blood Gas Patient Temperature 98.6 Blood Gas HCO3 28 mmol/L Blood Gas Base Excess 4.2 mmol/L Blood Gas Oxygen Saturation 91 % Arterial Blood pH 7.45 Arterial Blood Partial 42 mmHg Pressure CO2 Arterial Blood Partial 74 mmHg Pressure O2 Arterial Blood Oxygen Content 9.8 Vol % Arterial Blood 3.4 % Carboxyhemoglobin Arterial Blood Methemoglobin 1.2 % Blood Gas Hemoglobin 7.6 G/DL Oxygen Delivery Device NRB Blood Gas Liter Flow 15 L/M Culture Results Microbiology Date/Time Procedure Status Source Growth 05/12/16 18:25 Gram Stain - Final Resulted Bronchial Washings Bronchial 1/30/17 18:25 Bronchial Culture Resulted Bronchial Washings Bronchial Pending 05/12/16 18:25 Acid Fast Stain - Final Resulted Bronchial Washings Bronchial NO ACID FAST BACILLI SEEN 05/12/16 18:25 Mycobacterial Culture Resulted Bronchial Washings Bronchial Pending 05/12/16 18:25 Fungal Smear - Final Resulted Bronchial Washings Bronchial NO FUNGAL ELEMENTS SEEN. 05/12/16 18:25 Fungal Culture Resulted Bronchial Washings Bronchial Pending 05/12/16 18:25 Gram Stain - Final Complete Bronchial Brushings Other 05/12/16 18:25 Bronchial Culture - Final Complete Bronchial Brushings Other NO GROWTH IN 48 HOURS. 05/12/16 18:25 Acid Fast Stain - Final Resulted Bronchial Brushings Other NO ACID FAST BACILLI SEEN 05/12/16 18:25 Mycobacterial Culture Resulted Bronchial Brushings Other Pending 05/12/16 18:25 Fungal Smear - Final Resulted Bronchial Brushings Other 05/12/16 18:25 Fungal Culture Resulted Bronchial Brushings Other Pending Imaging Studies Last 24 hours Impressions Chest X-Ray 05/15/16 0000 Signed Impressions: Service Date/Time: May 08:43 - CONCLUSION: Increase in bilateral basilar predominant pulmonary opacity indicating possible pulmonary edema. Likely small left pleural effusion. Bj Harrison MD Administered Medications Medications (Trade) Dose Ordered Sig/Jeremy Route PRN Reason Start Time Stop Time Status Last Admin Dose Admin IV Flush (NS Flush) 2 ml BID FLUSH 05/09/16 21:00 05/15/16 09:00 Acetaminophen (Tylenol) 650 mg Q4H PRN PO TEMP > 100.4 05/09/16 18:00 05/13/16 12:03 Ondansetron HCl (Zofran Inj) 4 mg Q6H PRN IVP NAUSEA OR VOMITING 05/09/16 18:00 05/11/16 22:43 Doxazosin Mesylate (Cardura) 4 mg HS PO 05/09/16 21:00 05/14/16 20:49 Metoprolol Tartrate (Lopressor) 50 mg Q8HR PO 05/09/16 22:00 05/15/16 04:44 Pantoprazole Sodium (Protonix) 40 mg HS PO 05/09/16 21:00 05/14/16 20:48 Sodium Chloride (Sodium Chloride) 1 gm DAILY PO 05/10/16 09:00 05/15/16 09:00 Calcium/Vitamin D (Oscal-D 250-125) 250 mg DAILY PO 05/10/16 09:00 05/15/16 09:00 Magnesium Oxide (Mag-Ox) 400 mg DAILY PO 05/10/16 09:00 05/15/16 09:00 Miscellaneous Information Patient in critical care unit? Ass... [id number] XX 05/10/16 23:45 05/10/16 23:45 Piperacillin Sod/ Tazobactam Sod 50 ml @ 100 mls/hr Q6H IV 05/11/16 08:00 05/15/16 08:59 Azithromycin/ Sodium Chloride (Zithromax Inj/ NS 250 ml Inj) 250 ml @ 250 mls/hr Q24H IV 05/11/16 08:00 05/15/16 09:01 Potassium Chloride (KCl) 20 meq DAILY PO 05/11/16 09:00 05/15/16 09:00 Diltiazem HCl (Cardizem) 90 mg QID PO 05/11/16 13:00 05/15/16 08:59 Eltrombopag 50 mg 50 mg DAILY PO 05/14/16 09:00 05/15/16 09:00 Diltiazem HCl/ Sodium Chloride (Cardizem Inj/NS Inj) 125 ml @ 0 mls/hr TITRATE IV 05/13/16 15:30 05/15/16 04:43 Prednisone (Deltasone) 20 mg DAILY PO 05/14/16 09:00 05/15/16 09:00 Acetaminophen/ Hydrocodone Bitart ([place] 5-325 Mg) 1 tab Q6H PRN PO PAIN SCALE 6 TO 10 05/14/16 18:30 05/14/16 18:43 Objective Remarks GENERAL: Older male, lying in bed on 100% NRB. Moderately increased work of breathing. SKIN: Warm and dry. HEAD: Normocephalic. EYES: No injection or drainage. NECK: Supple, trachea midline. CARDIOVASCULAR: +S1/S2. In Afib with rate currently controlled in the 70's. RESPIRATORY: Clear anteriorly with occasional rhonchi. GASTROINTESTINAL: Abdomen soft, non-tender, nondistended. EXTREMITIES: Generalized edema to BUE. NEUROLOGICAL: Alert and oriented. Moves all extremities independently. Assessment/Plan Problem List: (1) Chronic ITP (idiopathic thrombocytopenia) Status: Chronic Plan: 05/15/16: Platelet count 2K today at 0300. He is getting a total of 2 units platelets, 1 unit PRBC's. Will recheck labs later this afternoon post transfusion. Discussed with RN. Pt to be re-intubated today from combination of low blood counts, Afib with RVR, and low arterial O2 from ABG's this am. At Mr. Trevino request, I personally called and spoke with pt's daughter to inform her of re-intubation. Vascath placed for plasma pheresis. Spoke with nurse from [facility], gave instructions. Plan for plasma pheresis daily x 3 doses. First dose tomorrow. History: 08/2015: ischemic stroke. started on Eliquis 03/2016: SAH while on Eliquis for afib + ischemic stroke. AC stopped. ITP diagnosis made and patient found to be refractory to steroids. 05/08/2016 IVIG at clinic 05/09/16: platelet tx in clinic. admitted to hospital in Afib w/RVR 05/10/16: IVIG 80G given : PLT count is 7K. 05/11/16: platelet count improved to 32K. (2) Afib Status: Acute Plan: --on Cardizem, metoprolol -- Being monitored in ICU (3) Anemia Status: Acute Plan: 05/15/16: Hgb 6.8 this am. Bloodwork pending to r/o hemolysis. -- Transfuse for Hgb less than 8 Assessment 75y/o male admitted with Afib w/ RVR while in the midst of an acute exacerbation of ITP. h/o Bilateral lower extremity deep venous thromboses. Benign prosthetic hypertrophy. Chronic kidney disease and (stage 2). History of elevated anticardiolipin antibody. Elevated homocystine level. Intracranial hemorrhage in March of 2016. Bleeding duodenal ulcer which was cauterized in August of 2015. ischemic stroke in August of 2015. Right carotid endarterectomy with patch angioplasty August 2015. IVC filter placement in 2007, this was removed in 2008. He had a second filter placed in 2015. Plan 1. ITP: He started on Promacta 50 mg yesterday (thrombopoietin analog) unfortunately this will take up to four weeks to take effect. Continue supportive transfusions for now. A vascath was placed today to do plasma pheresis for refractory ITP. I will hold off on rituxan until after we rule out an opportunistic infection. Alternatively, a splenectomy may be considered. Platelet transfusion for platelet count of 7000 or just morning. 2. Pulm infiltrates: TRALI vs. atypical PNA. Bronchoscopy performed on 05/12, await cytology. He remains on empiric antibiotic coverage with azithromycin and Zosyn. Worsening CXR today. Will be re-intubated. 3. Anemia: Hemoglobin 6.8 g/dL today, continue monitoring, supportive transfusion to maintain hemoglobin over 8 g/dL. Labs ordered to r/o hemolysis. Pending. Appreciated Critical care, ID and Pulmonology input. Attending Statement The exam, history, and the medical decision-making described in the above note were completed with the assistance of the mid-level provider. I reviewed and agree with the findings presented. I attest that I had a [id number] encounter with the patient on the same day, and personally performed and documented my assessment and findings in the medical record. Patient was seen and examined, labs, vital signs, medications and events of today were reviewed. The patient is now reintubated, he is status post 2 units platelet transfusion, FFP transfusion, red blood cell transfusion and now has a vascath in place. The Vas-Cath has been placed for plasma exchange treatment. Plasma exchange therapy has been ordered because it is hard to rule out a thrombotic microangiopathy (TMA). Unfortunately his respiratory status deteriorated, necessitating reintubation. Promacta initiated yesterday. Platelet counts noted to 2000 earlier this morning. Upon examination the patient does have blood stained tracheal aspirates. His hemoglobin dropped down to 6.7 g/dL earlier this morning. Repeat blood work ordered for tomorrow morning. First plasma exchange treatment with FFP is scheduled for late tonight. Hematology service of follow along with you. Brenda Whitlock May 15, 2016 13:38 Roger Armenta MD May 15, 2016 18:38
[2016-05-15 14:05] LABS: BLOOD GAS BASE EXCESS 7.6 mmol/L (-2-2); BLOOD GAS CARBOXYHEMOGLOBIN 3.1 % (0-4); BLOOD GAS HCO3 31 mmol/L (22-26); BLOOD GAS METHEMOGLOBIN 1.1 % (0-2); BLOOD GAS O2 HGB SATURATION 97 % (90-100); BLOOD GAS OXYGEN CONTENT 14.7 Vol % (12.0-20.0); BLOOD GAS PCO2 35 mmHg (38-42); BLOOD GAS PO2 448 mmHg (61-120); CRITICAL VALUE YES; OXYGEN DEVICE VENTILATOR; TEMP CORR TO 98.6
[2016-05-15 14:06] LABS: VENT SETTINGS SEE COMMENTS
[2016-05-15 14:07] LABS: DRAW SITE RT RADIAL; FIO2 100 %; NUMBER OF ARTERIAL PUNCTURES 1; STAT NO
--- NOTE | 2016-05-15 14:08 | RADRPT ---
EXAM DATE/TIME: 05/15/2016 12:54 [place] COMPARISON: CHEST SINGLE AP, May 15, 2016, 8:43. INDICATIONS : ET tube and vascath placement left side. MEDICAL HISTORY : Hypertension. SURGICAL HISTORY : None. ENCOUNTER: Subsequent ACUITY: 4 - 6 days PAIN SCORE: Non-responsive. LOCATION: Bilateral chest FINDINGS: 2 AP views of the chest. Endotracheal tube is in place with the tip 4 cm above the rubi. Right IJ c entral venous catheter remains in place. Left IJ central venous catheter is now in place with the tip in the proximal SVC. Nasogastric tube is in place with the tip below the [id number] of the radiog raph. Bilateral mid to lower lung zone pulmonary opacity similar to the prior study. Increased lung v olumes. No evidence of pleural effusion or pneumothorax. CONCLUSION: Multiple lines and tubes now in place. Persistent bilateral pulmonary opacity with increased lung vol umes when compared to the prior study. Bj Harrison MD on May 15, 2016 at 14:05 Board Certified Radiologist. This report was verified electronically.
[2016-05-15] MEDS: METOPROLOL TARTRATE 5 MG/5 ML VIAL IV PUSH SCH ×2 (14:09→20:00)
[2016-05-15] MEDS: PENTAMIDINE INJ 300 MG in DEXTROSE 5% IN WATER INJ 250 ML IV SCH ×2 (14:10)
--- NOTE | 2016-05-15 14:26 | PD.PROCEDR ---
Central Line Procedure REASON FOR PROCEDURE Central venous access PROCEDURE PERFORMED Central line placement: LIJ Vascath placement CONSENT Informed consent for procedure was obtained and time out performed. The risks and benefits of the procedure were discussed to include but limited to bleeding , clot formation, infection, and even . ANESTHESIA Local injection of 1% Lidocaine DESCRIPTION OF THE PROCEDURE The patient was placed in supine, mild Trendelenburg position. The area was exposed and cleansed with ChloraPrep, times two. Large sterile drape was used to cover the patient, with the site exposed, under sterile conditions including cap, face mask, sterile gown, and sterile gloves. On single attempt, the introducer needle was inserted with negative pressure in syringe and venous flash was obtained. The guide wire was then advanced without any restriction and the needle was removed. The dilator was used without any complications. Using Seldinger technique the 20 CM 11.5 F VasCath was advanced over the guide wire to a depth of 18 centimeters. The guide wire was removed. All ports were aspirated with dark venous blood return and flushed easily with sterile saline. All ports were capped. Antibiotic disc was placed around central line at puncture site. The central line was secured to the skin with two interrupted 2.0 silk sutures. The area was bandaged with sterile see-through central line bandage. RADIOLOGICAL DATA Ultrasound guidance was used to locate LIJ. Doppler/color flow was used to confirm venous flow. COMPLICATIONS: No apparent complications ESTIMATED BLOOD LOSS: Less than 1 cc. Leni Cedeño MD May 15, 2016 14:26
--- NOTE | 2016-05-15 14:34 | HHI.CCPN ---
Subjective Remarks/Hospital Course 75-year-old male patient with history of bilateral lower extremity DVTs, BPH, chronic renal failure, Elevated Anticardiolipin antibody level, Elevated homocysteine level, Gout, Hypertension, Hyponatremia, Idiopathic Thrombocytopenic Purpura, Intracranial hemorrhage in 2016, Bleeding duodenal ulcer and Ischemic stroke in 2016. Patient was sent to the emergency department 05/10/16 from his oncologist office for rapid a.fib with RVR. Patient had received 2 units of platelets prior. Patient has a history of A. Fibulation, he had to sit down, but denies chest pain or palpitations feeling lightheaded or dizzy. While on telemetry floor he has developed respiratory difficulty and is now transferred to ICU. SUBJ 05/11: Currently on BiPAP with 65% FiO2. Tachypneic. CXR pending for today, ABG also pending. CT pulmonary angiogram is pending at this time. Remains in atrial fibrillation with rapid ventricular response on Cardizem 15 mg per hour. Chest x-ray from yesterday shows predominantly right upper lobe lung infiltrates. IV Zosyn and azithromycin just ordered. Send cultures 05/12: Overnight remained on BIPAP, required 60% FiO2. CXR today persistent diffuse bilateral interstitial infiltrates right more than left despite adequate diuresis. With IV Lasix patient had > 5 L urine output. CMP pending. Remains in atrial fibrillation but rate controlled. There is concern about opportunistic lung infection including PCP pneumonia. Proceed with elective intubation, consult pulmonary for BAL, D/W Dr. Grace 05/13: Patient was intubated yesterday for progressive lung infiltrates hypoxia. Post intubation Dr. Mondragon was consulted who performed a bronchoscopy/BAL for PCP pneumonia evaluation. Today patient wakes up and follows commands easily. FiO2 40% chest x-ray shows interval improvement. Creatinine yesterday had increased to 1.9, stop Lasix gentle hydration with normal saline 50 ML per hour for 24 hours 05/14: Extubated yesterday, breathing comfortably on aerosol mask. Plt 7000, getting transfused. UO 2.[address] Armenta starting Promacta 50 mg today ( thrombopoietin analog) 2/2: Increasing respiratory distress today chest x-ray shows worsening bilateral pulmonary infiltrates. Hypoxemic placed on 100% nonrebreather with PO2 74. Discussed extensively with Dr. Armenta. Possibility of TTP cannot be completely ruled out. We'll proceed with endotracheal intubation and then place a Vas-Cath. Plasmapheresis will be started. Prior to Procedures 3 units of FFP and 2 units of plasma will be transfused also patient is getting 2 units of PRBC anemia with hemoglobin 6.4. His platelet count is 4000 today After induction for intubation, patient had large biliary vomiting. A small amount of aspiration noted Objective Vital Signs Date Time Temp Pulse Resp B/P Pulse Ox O2 Delivery O2 Flow Rate FiO2 05/15/16 10:00 116 05/15/16 09:54 92 Non-Rebreather 15.00 05/15/16 04:00 97.8 28 145/81 05/14/16 08:14 98 Intake and Output 05/14/16 05/14/16 05/15/16 08:00 16:00 00:00 Intake Total 216 ml 880 ml 896 ml Output Total 450 ml 850 ml 800 ml Balance -234 ml 30 ml 96 ml Result Diagram: 05/15/16 0755 05/15/16 0755 Other Results Microbiology Date/Time Procedure Status Source Growth 05/12/16 18:25 Gram Stain - Final Complete Bronchial Brushings Other 05/12/16 18:25 Bronchial Culture - Final Complete Bronchial Brushings Other NO GROWTH IN 48 HOURS. Laboratory Tests Test 05/15/16 05/15/16 10:05 13:55 Blood Gas Puncture Site LT RADIAL RT RADIAL Blood Gas Patient Temperature 98.6 98.6 Blood Gas HCO3 28 mmol/L 31 mmol/L (22-26) (22-26) Blood Gas Base Excess 4.2 mmol/L 7.6 mmol/L (-2-2) (-2-2) Blood Gas Oxygen Saturation 91 % (90-100) 97 % (90-100) Arterial Blood pH 7.45 7.55 (7.380-7.420) (7.380-7.420) Arterial Blood Partial 42 mmHg (38-42) 35 mmHg (38-42) Pressure CO2 Arterial Blood Partial 74 mmHg 448 mmHg Pressure O2 (61-120) (61-120) Arterial Blood Oxygen Content 9.8 Vol % 14.7 Vol % (12.0-20.0) (12.0-20.0) Arterial Blood 3.4 % (0-4) 3.1 % (0-4) Carboxyhemoglobin Arterial Blood Methemoglobin 1.2 % (0-2) 1.1 % (0-2) Blood Gas Hemoglobin 7.6 G/DL 10.0 G/DL (12.0-16.0) (12.0-16.0) Oxygen Delivery Device NRB VENTILATOR Blood Gas Liter Flow 15 L/M Blood Gas Ventilator Setting SEE COMMENTS Blood Gas Inspired Oxygen 100 % Objective Remarks GENERAL: Well-nourished, well-developed patient, on 100 % NRB tachypneic in moderate respiratory distress SKIN: Warm and dry. HEAD: Normocephalic. EYES: No scleral icterus. No injection or drainage. NECK: Supple, trachea midline. No JVD or lymphadenopathy. CARDIOVASCULAR: Atrial fibrillation with HR in 60-70 range. No murmurs RESPIRATORY: Breath sounds equal bilaterally, with coarse crackles bilateral lung rider, and scattered wheezes. Tachypneic breathing 35 GASTROINTESTINAL: Abdomen soft, non-tender, nondistended. MUSCULOSKELETAL: No cyanosis, or edema. BACK: Nontender without obvious deformity. No CVA tenderness. EXTREMITIES: No pedal edema NEURO: Alert awake No focal deficits. Moderate respiratory distress Procedures None A/P Problem List: (1) Acute hypoxemic respiratory failure ICD Code: J96.01 Status: Acute (2) Pneumonia, rule out opportunistic infection Status: Acute (3) Thrombocytopenia ICD Code: D69.6 Status: Acute (4) CHF (congestive heart failure) ICD Code: I50.9 Status: Acute (5) Coagulopathy ICD Code: D68.9 Status: Acute (6) Afib ICD Code: I48.91 Status: Acute (7) Chronic ITP (idiopathic thrombocytopenia) ICD Code: D69.3 Status: Chronic (8) Respiratory distress ICD Code: R06.00 Status: Acute (9) Atrial fibrillation with RVR ICD Code: I48.91 Status: Acute (10) Leg DVT (deep venous thromboembolism), chronic ICD Code: I82.509 Status: Chronic (11) Subarachnoid bleed ICD Code: I60.9 Status: Chronic Assessment and Plan NEURO: Intracranial hemorrhage in 2016 -Postintubation place on propofol for sedation with when necessary fentanyl RESP: Acute hypoxemic respiratory failure ARDS TRALI versus pneumonia (Opportunistic) History of bilateral lower extremity DVTs Aspiration pneumonitis - Patient was extubated on 05/13/16, reintubated today for worsening respiratory failure - Continue empiric PCP treatment with Bactrim per ID - Clinical picture is more like ARDS secondary to either infection or transfusion-related - Low tidal volume mechanical ventilation - DuoNeb every 6 hours and when necessary, ventilator bundle - Unable to anticoagulate due to severe thrombocytopenia - S/p IVC filter in 2016 CVS: A. Fib rapid rate controlled Possible CHF (More likely atypical pneumonia/ARDS) - Cardizem gtt off as rate controlled. Cardiology -Dr. Murphy - Receiving by mouth Cardizem and by mouth metoprolol - Cannot anticoagulate due to severe thrombocytopenia GI: -NPO, Protonix. Start tube feeds the next 24 hours : Acute on Chronic kidney disease - monitor electrolytes and creatinine - monitor urine output - Creat improving with gentle hydration HEME: Chronic ITP with acute exacerbation Unable to rule out TTP - D/W Dr Armenta Hem-Onc. Cannot completely rule out possibility of TTP, increase IVIG dosing and start plasmapheresis - Transfuse 3 units plt, 2 units FFP, 2 units PRBC - Continue prednisone 20 mg daily, IVIG per Dr. Armenta. - Promacta 50 mg today (thrombopoietin analog), per Dr. Armenta. Splenectomy may be considered. ID: Sepsis Atypical Pneumonia -Unable to rule out bacterial versus opportunistic pneumonia. F/u panculture, urine for Legionella and pneumococcal antigen, influenza. BAL studies Pending -PJP stain and bronch cultures pending -Continue Zosyn and azithromycin. Started on Bactrim by ID -ID and pulmonary. s/p Dr. Mondragon performing bronch/BAL ENDO: -Electrolyte replacement per protocol DVT/GI prophylaxis - TEDs/SCDs/Pepcid - s/p IVC filter most recently in 2016. Cannot anticoagulate due to severe thrombocytopenia and recent intracranial hemorrhage Critical Care: The total critical care time was 90 minutes. Time to perform other separately billable procedures was not included in the critical care time. Leni Cedeño MD May 15, 2016 14:34
[2016-05-15 17:17] LABS: TOTAL BILIRUBIN ADULT 1.5 MG/DL (0.2-1.0)
[2016-05-15] MEDS: CHLORHEXIDINE 0.12% (ORAL KIT) 15 ML CUP MT SCH (20:00)
[2016-05-15] MEDS: DOXAZOSIN MESYLATE 4 MG TAB PO SCH (21:00)
[2016-05-15] MEDS: PANTOPRAZOLE SOD 40 MG DELAYED RELEASE TAB PO SCH (21:00)
[2016-05-15] MEDS ORDERED: SODIUM CHLORIDE 0.9% FLUSH 10 ML FLUSH IV FLUSH PRN (21:45)
[2016-05-15] MEDS ORDERED: diphenhydrAMINE HCL 50 MG/ML VIAL IV PRN (21:45)
[2016-05-15] MEDS: PROPOFOL 1000 MG/100 ML INJ 100 ML IV SCH ×2 (22:00→23:59)
[2016-05-15] MEDS: SODIUM CHLOR 0.9% IV SCH (22:01)
[2016-05-15] MEDS: CALCIUM GLUCONATE IV SCH (22:01)
[2016-05-15] MEDS: ANTICOAGULANT CITRATE DEXTROSE SOLN-A 1L SCH (22:02)
[2016-05-15] MEDS: diphenhydrAMINE HCL 50 MG/ML VIAL IV SCH (22:21)
[2016-05-15] MEDS: FAMOTIDINE 20 MG/2 ML VIAL IV SCH (22:22)
[2016-05-15] MEDS: methylPREDNISolone SOD SUCC 125 MG/2 ML VIAL IV SCH (22:22)
[2016-05-15] MEDS: SODIUM CHLOR 0.9% 1000 ML INJ 1,000 ML IV SCH (22:30)
[2016-05-16] VITALS (21 sets, daily range): BP systolic 113–147; BP diastolic 67–75; PULSE 60–98; RESP 16–19; TEMP 97.9–100.2; O2SAT 99–100
[2016-05-16] MEDS: METOPROLOL TARTRATE 5 MG/5 ML VIAL IV PUSH SCH ×4 (02:58→20:00)
[2016-05-16] MEDS: PROPOFOL 1000 MG/100 ML INJ 100 ML IV SCH ×5 (02:58→20:22)
[2016-05-16] MEDS: PIPERACIL-TAZO 3.375 GM PREMIX 50 ML IV SCH ×4 (02:58→18:25)
[2016-05-16] MEDS: DILTIAZEM 125 MG/NS 100 ML IV SCH ×4 (03:03→12:35)
[2016-05-16 04:11] LABS: AUTOMATED NEUTROPHIL # 6.6 TH/MM3 (1.8-7.7); BASOPHIL % 0.6 % (0.0-2.0); EOSINOPHIL % 0.7 % (0.0-4.0); HEMATOCRIT 26.4 % (39.0-51.0); LYMPHOCYTE # 0.4 TH/MM3 (1.0-4.8); MEAN CELL VOLUME 85.2 FL (80.0-100.0); MEAN CORPUSCULAR HEMOGLOBIN 29.9 PG (27.0-34.0); MEAN CORPUSCULAR HGB CONC 35.1 % (32.0-36.0); MONO % 1.7 % (0.0-8.0); RED CELL DISTRIBUTION WIDTH 15.6 % (11.6-17.2); WHITE BLOOD COUNT 7.1 TH/MM3 (4.0-11.0)
[2016-05-16 04:20] LABS: HEMO FLAGS AUTO DIFF
[2016-05-16 04:23] LABS: PLATELET COUNT 2 TH/MM3 (150-450)
[2016-05-16 04:33] LABS: ALKALINE PHOSPHATASE 58 U/L (45-117); ALT (GPT) 27 U/L (12-78); ANION GAP 8 MEQ/L (5-15); AST (GOT) 30 U/L (15-37); BICARBONATE 31.6 MEQ/L (21.0-32.0); BLOOD UREA NITROGEN 31 MG/DL (7-18); CHLORIDE 105 MEQ/L (98-107); GLOMERULAR FILTRATION RATE 43 ML/MIN (>89); LDH SERUM 441 U/L (87-241); POTASSIUM 3.3 MEQ/L (3.5-5.1); SODIUM (NA) 145 MEQ/L (136-145); TOTAL BILIRUBIN ADULT 2.2 MG/DL (0.2-1.0)
[2016-05-16] MEDS ORDERED: diphenhydrAMINE HCL 25 MG CAP PO PRN (07:15)
[2016-05-16] MEDS ORDERED: ACETAMINOPHEN 325 MG TAB PO PRN (07:15)
[2016-05-16] MEDS ORDERED: SODIUM CHLOR 0.9% 250 ML INJ 250 ML IV ONE (07:15)
--- NOTE | 2016-05-16 07:32 | PD.ONC.PN ---
Subjective Subjective Remarks Reintubated on 05/15. 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 PLTs are 2K this AM. Has bloodied tracheal aspirates. Daughter at bedside, pt appears comfortable. Objective Data Date Time Temp Pulse Resp B/P Pulse Ox O2 Delivery O2 Flow Rate FiO2 05/16/16 04:59 100 50 05/16/16 04:00 98.9 81 16 147/75 100 05/16/16 04:00 81 05/16/16 04:00 Mechanical Ventilator 50 05/16/16 02:00 84 05/16/16 01:30 100 50 05/16/16 00:00 100.2 64 16 118/68 99 05/16/16 00:00 Mechanical Ventilator 50 05/16/16 00:00 64 05/15/16 22:00 63 05/15/16 20:31 99 50 05/15/16 20:00 63 16 112/70 99 05/15/16 20:00 65 05/15/16 20:00 Mechanical Ventilator 50 05/15/16 18:00 104 05/15/16 17:07 100 50 05/15/16 16:00 115 05/15/16 16:00 98.6 78 18 134/77 98 05/15/16 16:00 93 Mechanical Ventilator 50 05/15/16 14:09 100 50 05/15/16 14:00 110 05/15/16 12:00 94 Mechanical Ventilator 50 05/15/16 12:00 72 05/15/16 12:00 98.3 75 23 98/56 100 05/15/16 12:00 72 05/15/16 12:00 100 100 05/15/16 10:00 116 05/15/16 09:54 92 Non-Rebreather 15.00 05/15/16 08:00 Partial Non-Rebreather 12.00 05/15/16 08:00 98.0 140 26 154/87 93 05/15/16 08:00 120 05/16/16 05/16/16 05/16/16 07:00 15:00 23:00 Intake Total 702 ml Output Total 975 ml Balance -273 ml Result Diagram: 05/16/16 0248 05/16/16 0248 Laboratory Results Laboratory Tests Test 05/15/16 05/15/16 05/15/16 05/15/16 07:53 07:55 09:37 10:05 Blood Bank Comment White Blood Count 9.3 TH/MM3 Red Blood Count 2.22 MIL/MM3 Hemoglobin 6.7 GM/DL Hematocrit 19.4 % Mean Corpuscular Volume 87.4 FL Mean Corpuscular Hemoglobin 30.2 PG Mean Corpuscular Hemoglobin 34.5 % Concent Red Cell Distribution Width 15.4 % Platelet Count 4 TH/MM3 Mean Platelet Volume 11.3 FL Neutrophils (%) (Auto) 85.9 % Lymphocytes (%) (Auto) 10.0 % Monocytes (%) (Auto) 3.0 % Eosinophils (%) (Auto) 0.9 % Basophils (%) (Auto) 0.2 % Neutrophils # (Auto) 8.0 TH/MM3 Lymphocytes # (Auto) 0.9 TH/MM3 Monocytes # (Auto) 0.3 TH/MM3 Eosinophils # (Auto) 0.1 TH/MM3 Basophils # (Auto) 0.0 TH/MM3 CBC Comment AUTO DIFF Differential Comment AUTO DIFF CONFIRMED Platelet Estimate RARE Platelet Morphology Comment NORMAL Polychromasia 2.0 % Basophilic Stippling FAINT Sodium Level 143 MEQ/L Potassium Level 3.5 MEQ/L Chloride Level 102 MEQ/L Carbon Dioxide Level 33.3 MEQ/L Anion Gap 8 MEQ/L Blood Urea Nitrogen 34 MG/DL Creatinine 1.42 MG/DL Estimat Glomerular Filtration 48 ML/MIN Rate Random Glucose 111 MG/DL Calcium Level 8.5 MG/DL Total Bilirubin 1.8 MG/DL Aspartate Amino Transf 41 U/L (AST/SGOT) Alanine Aminotransferase 38 U/L (ALT/SGPT) Alkaline Phosphatase 50 U/L Total Protein 7.2 GM/DL Albumin 2.5 GM/DL Blood Type A POSITIVE Antibody Screen NEGATIVE Direct Antiglobulin Test WEAKLY (Balaji) POSITIVE Crossmatch Leukocyte-Reduced Red Blood Cells Blood Gas Puncture Site LT RADIAL Blood Gas Patient Temperature 98.6 Blood Gas HCO3 28 mmol/L Blood Gas Base Excess 4.2 mmol/L Blood Gas Oxygen Saturation 91 % Arterial Blood pH 7.45 Arterial Blood Partial 42 mmHg Pressure CO2 Arterial Blood Partial 74 mmHg Pressure O2 Arterial Blood Oxygen Content 9.8 Vol % Arterial Blood 3.4 % Carboxyhemoglobin Arterial Blood Methemoglobin 1.2 % Blood Gas Hemoglobin 7.6 G/DL Oxygen Delivery Device NRB Blood Gas Liter Flow 15 L/M Test 2/205/15/16 05/15/16 05/16/16 13:55 16:04 18:29 02:48 Blood Gas Puncture Site RT RADIAL Blood Gas Patient Temperature 98.6 Blood Gas HCO3 31 mmol/L Blood Gas Base Excess 7.6 mmol/L Blood Gas Oxygen Saturation 97 % Arterial Blood pH 7.55 Arterial Blood Partial 35 mmHg Pressure CO2 Arterial Blood Partial 448 mmHg Pressure O2 Arterial Blood Oxygen Content 14.7 Vol % Arterial Blood 3.1 % Carboxyhemoglobin Arterial Blood Methemoglobin 1.1 % Blood Gas Hemoglobin 10.0 G/DL Oxygen Delivery Device VENTILATOR Blood Gas Ventilator Setting SEE COMMENTS Blood Gas Inspired Oxygen 100 % Haptoglobin 122 MG/DL Total Bilirubin 1.5 MG/DL 2.2 MG/DL Direct Bilirubin 0.5 MG/DL Indirect Bilirubin 1.0 MG/DL Lactate Dehydrogenase 685 U/L 441 U/L Blood Bank Comment White Blood Count 7.1 TH/MM3 Red Blood Count 3.10 MIL/MM3 Hemoglobin 9.3 GM/DL Hematocrit 26.4 % Mean Corpuscular Volume 85.2 FL Mean Corpuscular Hemoglobin 29.9 PG Mean Corpuscular Hemoglobin 35.1 % Concent Red Cell Distribution Width 15.6 % Platelet Count 2 TH/MM3 Mean Platelet Volume 12.3 FL Neutrophils (%) (Auto) 92.0 % Lymphocytes (%) (Auto) 5.0 % Monocytes (%) (Auto) 1.7 % Eosinophils (%) (Auto) 0.7 % Basophils (%) (Auto) 0.6 % Neutrophils # (Auto) 6.6 TH/MM3 Lymphocytes # (Auto) 0.4 TH/MM3 Monocytes # (Auto) 0.1 TH/MM3 Eosinophils # (Auto) 0.0 TH/MM3 Basophils # (Auto) 0.0 TH/MM3 CBC Comment AUTO DIFF Sodium Level 145 MEQ/L Potassium Level 3.3 MEQ/L Chloride Level 105 MEQ/L Carbon Dioxide Level 31.6 MEQ/L Anion Gap 8 MEQ/L Blood Urea Nitrogen 31 MG/DL Creatinine 1.58 MG/DL Estimat Glomerular Filtration 43 ML/MIN Rate Random Glucose 198 MG/DL Calcium Level 9.4 MG/DL Aspartate Amino Transf 30 U/L (AST/SGOT) Alanine Aminotransferase 27 U/L (ALT/SGPT) Alkaline Phosphatase 58 U/L Total Protein 6.7 GM/DL Albumin 3.1 GM/DL Test 05/16/16 06:06 Blood Bank Comment Administered Medications Medications (Trade) Dose Ordered Sig/Jeremy Route PRN Reason Start Time Stop Time Status Last Admin Dose Admin IV Flush (NS Flush) 2 ml BID FLUSH 05/09/16 21:00 05/15/16 09:00 Acetaminophen (Tylenol) 650 mg Q4H PRN PO TEMP > 100.4 05/09/16 18:00 05/13/16 12:03 Ondansetron HCl (Zofran Inj) 4 mg Q6H PRN IVP NAUSEA OR VOMITING 05/09/16 18:00 05/11/16 22:43 Doxazosin Mesylate (Cardura) 4 mg HS PO 05/09/16 21:00 05/14/16 20:49 Pantoprazole Sodium (Protonix) 40 mg HS PO 05/09/16 21:00 05/14/16 20:48 Sodium Chloride (Sodium Chloride) 1 gm DAILY PO 05/10/16 09:00 05/15/16 09:00 Calcium/Vitamin D (Oscal-D 250-125) 250 mg DAILY PO 05/10/16 09:00 05/15/16 09:00 Magnesium Oxide (Mag-Ox) 400 mg DAILY PO 05/10/16 09:00 05/15/16 09:00 Miscellaneous Information Patient in critical care unit? Ass... [id number] 05/10/16 23:45 05/10/16 23:45 Piperacillin Sod/ Tazobactam Sod 50 ml @ 100 mls/hr Q6H IV 05/11/16 08:00 05/16/16 02:58 Azithromycin/ Sodium Chloride (Zithromax Inj/ NS 250 ml Inj) 250 ml @ 250 mls/hr Q24H IV 05/11/16 08:00 05/15/16 09:01 Potassium Chloride 20 meq 20 meq DAILY PO 05/11/16 09:00 05/15/16 09:00 Potassium Chloride (KCl 40 Meq Premix Inj) 100 ml @ 50 mls/hr Q2H PRN IV For Potassium 2.8 - 3.2 mEq/L 05/11/16 07:30 05/16/16 06:33 Diltiazem HCl (Cardizem) 90 mg QID PO 05/11/16 13:00 05/15/16 14:10 Eltrombopag 50 mg 50 mg DAILY PO 05/14/16 09:00 05/15/16 09:00 Diltiazem HCl/ Sodium Chloride (Cardizem Inj/NS Inj) 125 ml @ 0 mls/hr TITRATE IV 05/13/16 15:30 05/16/16 03:03 Prednisone (Deltasone) 20 mg DAILY PO 05/14/16 09:00 05/15/16 09:00 Acetaminophen/ Hydrocodone Bitart ([place] 5-325 Mg) 1 tab Q6H PRN PO PAIN SCALE 6 TO 10 05/14/16 18:30 05/14/16 18:43 Chlorhexidine Gluconate 15 ml 15 ml BID@08,20 MT 05/15/16 20:00 05/15/16 20:00 Propofol 100 ml @ 0 mls/hr TITRATE IV 05/15/16 12:15 05/16/16 06:32 Pentamidine Isethionate/ Dextrose (Pentam Inj/D5W Inj) 250 ml @ 250 mls/hr Q24H IV 05/15/16 14:00 05/15/16 14:10 Metoprolol Tartrate (Lopressor Inj) 2.5 mg Q6H IV PUSH 05/15/16 14:00 05/16/16 02:58 Methylprednisolone Sodium Succinate (SoluMEDROL INJ) 125 mg DAILY@22 IV 05/15/16 22:30 05/17/16 22:01 05/15/16 22:22 Famotidine (Pepcid Inj) 20 mg DAILY@2230 IV 05/15/16 22:30 05/17/16 22:31 05/15/16 22:22 Diphenhydramine HCl 25 mg 25 mg DAILY@2230 IV 05/15/16 22:30 05/17/16 22:31 05/15/16 22:21 Calcium Gluconate 5 gm/Sodium Chloride 300 ml @ 100 mls/hr Q24H IV 05/15/16 22:30 05/18/16 01:29 05/15/16 22:01 Sodium Chloride (NS 1000 ml Inj) 1,000 ml @ 0 mls/hr DAILY@2230 IV 05/15/16 22:30 05/17/16 23:58 05/15/16 22:30 Anticoagulant Citrate Dextose Fiorella A (Acd Formula Inj) 1,000 ml Q24H .XX 05/15/16 22:30 05/17/16 22:31 05/15/16 22:02 Objective Remarks GENERAL: Critically ill elderly male, intubated sedated. SKIN: Warm and dry. HEAD: Normocephalic. EYES: No scleral icterus. No injection or drainage. PERRLA. NECK: Supple, trachea midline. No JVD or lymphadenopathy. R sided TLC, L vascath. NO overt bleeding. Intubated. LYMPHATIC: No adenopathy. CARDIOVASCULAR: Irregular rhythm without murmurs. RESPIRATORY: Breath sounds equal bilaterally. Bronchial sounds, decreased bibasilar movement. GASTROINTESTINAL: Protuberant, non tender, no organ enlargement. EXTREMITIES: edema, wrists in soft restraints. MUSCULOSKELETAL: Decreased muscle mass and tone. NEUROLOGICAL: Sedated, non responsive. PSYCHIATRIC: Appropriate mood and affect; insight and judgment normal. Assessment/Plan Problem List: (1) Chronic ITP (idiopathic thrombocytopenia) Status: Chronic Plan: 05/16/2016: PLT count remains at 2K. He had plasma exchange last night, multiple units PLTs and FFP. On promacta. 05/15/16: Platelet count 2K today at 0300. He is getting a total of 2 units platelets, 1 unit PRBC's. Will recheck labs later this afternoon post transfusion. Discussed with RN. Pt to be re-intubated today from combination of low blood counts, Afib with RVR, and low arterial O2 from ABG's this am. At Mr. Trevino request, I personally called and spoke with pt's daughter to inform her of re-intubation. Vascath placed for plasma pheresis. Spoke with nurse from [facility], gave instructions. Plan for plasma pheresis daily x 3 doses. First dose tomorrow. History: 08/2015: ischemic stroke. started on Eliquis 03/2016: SAH while on Eliquis for afib + ischemic stroke. AC stopped. ITP diagnosis made and patient found to be refractory to steroids. 05/08/2016 IVIG at clinic 05/09/16: platelet tx in clinic. admitted to hospital in Afib w/RVR 05/10/16: IVIG 80G given : PLT count is 7K. 05/11/16: platelet count improved to 32K. (2) Afib Status: Acute Plan: --on Cardizem, metoprolol -- Being monitored in ICU (3) Anemia Status: Acute Plan: 05/16/2016: Hgb at >9 this am. 05/15/16: Hgb 6.8 this am. Bloodwork pending to r/o hemolysis. -- Transfuse for Hgb less than 8 Assessment 75y/o male admitted with Afib w/ RVR while in the midst of an acute exacerbation of ITP. h/o Bilateral lower extremity deep venous thromboses. Benign prosthetic hypertrophy. Chronic kidney disease and (stage 2). History of elevated anticardiolipin antibody. Elevated homocystine level. Intracranial hemorrhage in March of 2016. Bleeding duodenal ulcer which was cauterized in August of 2015. ischemic stroke in August of 2015. Right carotid endarterectomy with patch angioplasty August 2015. IVC filter placement in 2007, this was removed in 2008. He had a second filter placed in 2015. Plan 1. ITP vs. TMA: Continue exchanges. Continue promacta. PLT transfusions. q12 hr CBCs and transfusions. He is critical and his prognosis appears poor given his high risk of bleeding. I spoke to his daughter about this, she understands. 2. Anemia: supportive transfusions. 3. Bronchial aspirate staining for PCP is pending. 4. Continue prednisone. Roger Armenta MD May 16, 2016 07:32
[2016-05-16 07:33] LABS: SCAN/DIFF AUTO DIFF CONFIRMED
[2016-05-16 07:34] LABS: PLATELET ESTIMATE SMEAR RARE (NORMAL)
[2016-05-16 07:36] LABS: PLATELET MORPHOLOGY ENLARGED (NORMAL)
[2016-05-16 07:38] LABS: POLYCHROMASIA 2.6 % (0.0-1.9)
[2016-05-16 07:40] LABS: KERATOCYTES OCC (NORMAL)
--- NOTE | 2016-05-16 08:35 | MR ---
cc: NIELS REDDING DATE 05/12/2016 PROCEDURE Fiberoptic bronchoscopy with brushings, washings and lavage. PREOPERATIVE DIAGNOSIS Extensive right lung infiltrate and left lung infiltrate. POSTOPERATIVE DIAGNOSIS Extensive right lung infiltrate and left lung infiltrate. ANESTHESIA Propofol intravenous and 2% lidocaine [address] Neel Redding PROCEDURE AND FINDINGS The patient was already intubated with a #8 endotracheal tube and the Olympus IT-180 bronchoscope was used in the bronchi. The scope was advanced via the endotracheal tube into the trachea. 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 The scope was also advanced into the right mainstem and right upper lobe segmental bronchi. These bronchi demonstrated mild endobronchitis with mucoid secretions. These were suctioned out. The scope was then advanced into the right bronchus intermedius which had some bloody secretions with mucous plugs. These were suctioned out and saline washings were done. There was mild bronchomalacia noted and the scope was advanced towards the right middle lobe bronchi which showed moderate endobronchitis with mucoid secretions. Saline washings and lavage were done. The scope was then advanced towards the right lower lobe segmental bronchi. These bronchi demonstrated moderate endobronchitis with mucoid and bloody secretions and these were suctioned out. Brushings were done for cytology and saline washings and lavage were done from the right lower lobe as well. There is minimal bleeding observed. The scope was then advanced into the left mainstem and left upper lobe segmental bronchi. These bronchi demonstrated mucoid secretions and mild endobronchitis and mucosal edema. Saline washings were done and the scope was then advanced towards the left lower lobe segmental bronchi. These bronchi demonstrated mild endobronchitis with mucoid secretions and a few bloody secretions which were suctioned out. Saline washings and lavage were done and the procedure was then terminated. The patient tolerated the procedure well. MD JUAREZ Toro/RAKESH /6:27 PM /8:22 AM
[2016-05-16] MEDS: predniSONE 20 MG TAB PO SCH (08:56)
[2016-05-16] MEDS: CALCIUM/VITAMIN D 250 MG/125 U TAB PO SCH (08:56)
[2016-05-16] MEDS: POTASSIUM CHLORIDE 20 MEQ CONTROLLED RELEASE TAB PO SCH (08:56)
[2016-05-16] MEDS: MAGNESIUM OXIDE 400 MG TAB PO SCH (08:56)
[2016-05-16] MEDS: ELTROMBOPAG 50 MG TAB PO SCH (08:57)
[2016-05-16] MEDS: SODIUM CHLORIDE 1 GRAM TAB PO SCH (09:00)
[2016-05-16] MEDS: DILTIAZEM HCL 90 MG TAB PO SCH ×4 (09:00→20:23)
[2016-05-16] MEDS: AZITHROMYCIN INJ 500 MG in SODIUM CHLOR 0.9% 250 ML INJ 250 ML IV SCH (09:06)
[2016-05-16] MEDS: diphenhydrAMINE HCL 50 MG/ML VIAL IV SCH (11:37)
[2016-05-16] MEDS: CHLORHEXIDINE 0.12% (ORAL KIT) 15 ML CUP MT SCH ×2 (11:38→20:23)
[2016-05-16] MEDS: SODIUM CHLORIDE 0.9% FLUSH 5 ML FLUSH FLUSH SCH ×2 (11:39→20:23)
--- NOTE | 2016-05-16 12:12 | HHI.IDPN ---
Note Infectious Disease Note Patient deteriorated from respiratory and reintubated 05/15/16. Aspirated just before intubation. About to receive Plasma pheresis Unresponsive on the vent. Low grade fever. Bronch. culture has no growth. PCP stain not yet available. PAST MEDICAL HISTORY 1. Bilateral lower extremity deep thromboses. 2. Hypertension. 3. ITP. 4. Chronic kidney disease. 5. Benign prostatic hypertrophy. 6. Intracranial hemorrhage March 2016. 7. Ischemic stroke August 2015. 8. GI bleed August 2015. 9. Right total hip replacement. 10. Tonsillectomy. 11. Right carotid endarterectomy with patch angioplasty. 12. IVC filter placement 2015. 13. Prior IVC filter placement 2007 which was removed in 2008. 14. Appendectomy. 15. Vasectomy. ALLERGIES PREDNISONE. THE PATIENT DEVELOPED MILD ITCHING. ANTIBIOTICS 1. Piperacillin / tazobactam. 2. Azithromycin. 3. Pentamidine. SOCIAL HISTORY No tobacco use. Occasional alcohol in the form of beer. No illicit drugs. OBJECTIVE: Vital Signs Date Time Temp Pulse Resp B/P Pulse Ox O2 Delivery O2 Flow Rate FiO2 05/16/16 10:59 100 50 05/16/16 09:00 98.2 05/16/16 08:08 100 50 05/16/16 07:00 73 05/16/16 04:59 100 50 05/16/16 04:00 98.9 81 16 147/75 100 05/16/16 04:00 81 05/16/16 04:00 Mechanical Ventilator 50 05/16/16 02:00 84 05/16/16 01:30 100 50 05/16/16 00:00 100.2 64 16 118/68 99 05/16/16 00:00 Mechanical Ventilator 50 05/16/16 00:00 64 05/15/16 22:00 63 05/15/16 20:31 99 50 05/15/16 20:00 63 16 112/70 99 05/15/16 20:00 65 05/15/16 20:00 Mechanical Ventilator 50 05/15/16 18:00 104 05/15/16 17:07 100 50 05/15/16 16:00 115 05/15/16 16:00 98.6 78 18 134/77 98 05/15/16 16:00 93 Mechanical Ventilator 50 05/15/16 14:09 100 50 05/15/16 14:00 110 05/15/16 05/15/16 05/16/16 15:00 23:00 07:00 Intake Total 882 ml 702 ml Output Total 1500 ml 975 ml Balance -618 ml -273 ml IV Total 882 ml 702 ml Output Urine Total 1500 ml 975 ml Laboratory Tests Test 05/14/16 05/15/16 05/15/16 05/15/16 20:30 05:51 07:55 16:04 Platelet Count 5 TH/MM3 2 TH/MM3 4 TH/MM3 White Blood Count 9.3 TH/MM3 Red Blood Count 2.22 MIL/MM3 Hemoglobin 6.7 GM/DL Hematocrit 19.4 % Mean Corpuscular Volume 87.4 FL Mean Corpuscular Hemoglobin 30.2 PG Mean Corpuscular Hemoglobin 34.5 % Concent Red Cell Distribution Width 15.4 % Mean Platelet Volume 11.3 FL Neutrophils (%) (Auto) 85.9 % Lymphocytes (%) (Auto) 10.0 % Monocytes (%) (Auto) 3.0 % Eosinophils (%) (Auto) 0.9 % Basophils (%) (Auto) 0.2 % Neutrophils # (Auto) 8.0 TH/MM3 Lymphocytes # (Auto) 0.9 TH/MM3 Monocytes # (Auto) 0.3 TH/MM3 Eosinophils # (Auto) 0.1 TH/MM3 Basophils # (Auto) 0.0 TH/MM3 CBC Comment AUTO DIFF Differential Comment AUTO DIFF CONFIRMED Platelet Estimate RARE Platelet Morphology Comment NORMAL Polychromasia 2.0 % Basophilic Stippling FAINT Haptoglobin 122 MG/DL Test 05/16/16 02:48 White Blood Count 7.1 TH/MM3 Red Blood Count 3.10 MIL/MM3 Hemoglobin 9.3 GM/DL Hematocrit 26.4 % Mean Corpuscular Volume 85.2 FL Mean Corpuscular Hemoglobin 29.9 PG Mean Corpuscular Hemoglobin 35.1 % Concent Red Cell Distribution Width 15.6 % Platelet Count 2 TH/MM3 Mean Platelet Volume 12.3 FL Neutrophils (%) (Auto) 92.0 % Lymphocytes (%) (Auto) 5.0 % Monocytes (%) (Auto) 1.7 % Eosinophils (%) (Auto) 0.7 % Basophils (%) (Auto) 0.6 % Neutrophils # (Auto) 6.6 TH/MM3 Lymphocytes # (Auto) 0.4 TH/MM3 Monocytes # (Auto) 0.1 TH/MM3 Eosinophils # (Auto) 0.0 TH/MM3 Basophils # (Auto) 0.0 TH/MM3 CBC Comment AUTO DIFF Differential Comment AUTO DIFF CONFIRMED Platelet Estimate RARE Platelet Morphology Comment ENLARGED Polychromasia 2.6 % Keratocytes OCC Laboratory Tests Test 05/15/16 05/15/16 05/16/16 07:55 16:04 02:48 Sodium Level 143 MEQ/L 145 MEQ/L Potassium Level 3.5 MEQ/L 3.3 MEQ/L Chloride Level 102 MEQ/L 105 MEQ/L Carbon Dioxide Level 33.3 MEQ/L 31.6 MEQ/L Anion Gap 8 MEQ/L 8 MEQ/L Blood Urea Nitrogen 34 MG/DL 31 MG/DL Creatinine 1.42 MG/DL 1.58 MG/DL Estimat Glomerular Filtration 48 ML/MIN 43 ML/MIN Rate Random Glucose 111 MG/DL 198 MG/DL Calcium Level 8.5 MG/DL 9.4 MG/DL Total Bilirubin 1.8 MG/DL 1.5 MG/DL 2.2 MG/DL Aspartate Amino Transf 41 U/L 30 U/L (AST/SGOT) Alanine Aminotransferase 38 U/L 27 U/L (ALT/SGPT) Alkaline Phosphatase 50 U/L 58 U/L Total Protein 7.2 GM/DL 6.7 GM/DL Albumin 2.5 GM/DL 3.1 GM/DL Direct Bilirubin 0.5 MG/DL Indirect Bilirubin 1.0 MG/DL Lactate Dehydrogenase 685 U/L 441 U/L IMAGING: Chest X-Ray 05/15/16 0000 Signed Impressions: Service Date/Time: May 08:43 - CONCLUSION: Increase in bilateral basilar predominant pulmonary opacity indicating possible pulmonary edema. Likely small left pleural effusion. Bj Harrison MD Chest X-Ray 05/14/16 0600 Signed Impressions: Service Date/Time: Saturday, May 14, 2016 04:21 - CONCLUSION: Endotracheal tube and nasogastric tube removed. No significant change mild patchy air space opacities. Davidson Skelton MD CT Angiography 05/10/16 0000 Signed Impressions: Service Date/Time: Wednesday, May 11, 2016 07:53 - CONCLUSION: 1. No evidence of PE. 2. Diffuse interstitial infiltrates throughout most of the right lung. 3. Scattered interstitial infiltrates throughout the left lung. Markus Guzman MD PHYSICAL EXAMINATION GENERAL: Non responsive. HEENT: No icterus. Oral mucosa moist. LUNGS: Less rhonchi bilateral. HEART: Irregular rate and rhythm. CHARIS. ABDOMEN: Decreased bowel sounds, soft. EXTREMITIES: No clubbing or cyanosis. 1+ edema at UE's. SKIN: No rash. NEUROLOGICAL: Unable to assess. IMPRESSION 1. Bilateral lung infiltrates in patient who has ITP and likely is immune suppressed and likely may have pulmonary opportunistic infection. 2. Pneumonia. Lung infiltrates worse. 3. Acute respiratory failure. extubated. Reintubated. 4. Chronic kidney disease. 5. Thrombocytopenia secondary to ITP. Still very ill. RECOMMENDATIONS 1. Monitor sputum PCP evaluation. 2. Continue piperacillin / tazobactam. 3. Continue azithromycin. 4. Continue Pentamidine IV for PCP coverage. 5. Monitor bronchoscopy culture. 6. Monitor clinical status. Pankaj Aparicio MD May 16, 2016 12:12
--- NOTE | 2016-05-16 16:17 | HHI.CCPN ---
Subjective Remarks/Hospital Course 75-year-old male patient with history of bilateral lower extremity DVTs, BPH, chronic renal failure, Elevated Anticardiolipin antibody level, Elevated homocysteine level, Gout, Hypertension, Hyponatremia, Idiopathic Thrombocytopenic Purpura, Intracranial hemorrhage in 2016, Bleeding duodenal ulcer and Ischemic stroke in 2016. Patient was sent to the emergency department 05/10/16 from his oncologist office for rapid a.fib with RVR. Patient had received 2 units of platelets prior. Patient has a history of A. Fibulation, he had to sit down, but denies chest pain or palpitations feeling lightheaded or dizzy. While on telemetry floor he has developed respiratory difficulty and is now transferred to ICU. 05/11: Currently on BiPAP with 65% FiO2. Tachypneic. CXR pending for today, ABG also pending. CT pulmonary angiogram is pending at this time. Remains in atrial fibrillation with rapid ventricular response on Cardizem 15 mg per hour. Chest x-ray from yesterday shows predominantly right upper lobe lung infiltrates. IV Zosyn and azithromycin just ordered. Send cultures 05/12: Overnight remained on BIPAP, required 60% FiO2. CXR today persistent diffuse bilateral interstitial infiltrates right more than left despite adequate diuresis. With IV Lasix patient had > 5 L urine output. CMP pending. Remains in atrial fibrillation but rate controlled. There is concern about opportunistic lung infection including PCP pneumonia. Proceed with elective intubation, consult pulmonary for BAL, D/W Dr. Grace 05/13: Patient was intubated yesterday for progressive lung infiltrates hypoxia. Post intubation Dr. Mondragon was consulted who performed a bronchoscopy/BAL for PCP pneumonia evaluation. Today patient wakes up and follows commands easily. FiO2 40% chest x-ray shows interval improvement. Creatinine yesterday had increased to 1.9, stop Lasix gentle hydration with normal saline 50 ML per hour for 24 hours 05/14: Extubated yesterday, breathing comfortably on aerosol mask. Plt 7000, getting transfused. UO 2.[address] Armenta starting Promacta 50 mg today ( thrombopoietin analog) 2/2: Increasing respiratory distress today chest x-ray shows worsening bilateral pulmonary infiltrates. Hypoxemic placed on 100% nonrebreather with PO2 74. Discussed extensively with Dr. Armenta. Possibility of TTP cannot be completely ruled out. We'll proceed with endotracheal intubation and then place a Vas-Cath. Plasmapheresis will be started. Prior to Procedures 3 units of FFP and 2 units of plasma will be transfused also patient is getting 2 units of PRBC anemia with hemoglobin 6.4. His platelet count is 4000 today After induction for intubation, patient had large biliary vomiting. A small amount of aspiration noted Subjective /3: Currently sedated on the ventilator. Afebrile. Transfuse 2 packed platelets today. Received plasmapheresis. Objective Vital Signs Date Time Temp Pulse Resp B/P Pulse Ox O2 Delivery O2 Flow Rate FiO2 05/16/16 12:01 98.6 62 16 116/67 100 05/16/16 12:00 Mechanical Ventilator 50 05/15/16 09:54 15.00 Intake and Output 05/15/16 05/15/16 05/16/16 08:00 16:00 00:00 Intake Total 457 ml 882 ml Output Total 425 ml 1500 ml Balance 32 ml -618 ml Result Diagram: 05/16/16 0248 05/16/16 0248 Other Results Microbiology Date/Time Procedure Status Source Growth 05/12/16 18:25 Gram Stain - Final Resulted Bronchial Washings Bronchial 05/12/16 18:25 Bronchial Culture Resulted Bronchial Washings Bronchial Pending 05/12/16 18:25 Fungal Smear - Final Resulted Bronchial Washings Bronchial NO FUNGAL ELEMENTS SEEN. 05/12/16 18:25 Fungal Culture Resulted Bronchial Washings Bronchial Pending 05/12/16 18:25 Acid Fast Stain - Final Resulted Bronchial Washings Bronchial NO ACID FAST BACILLI SEEN 05/12/16 18:25 Mycobacterial Culture Resulted Bronchial Washings Bronchial Pending 05/12/16 11:55 Urine Culture - Final Complete Urine Catheterized Urine NO GROWTH IN 48 HOURS. 05/12/16 11:54 Influenza Types A,B Antigen (BRANDEN) - Final Complete Nasal Washing NEGATIVE FOR FLU A AND B ANTIGEN.... 05/12/16 11:53 Legionella Antigen - Final Complete Urine Catheterized Urine PRESUMPTIVE NEGATIVE FOR LEGIONELLA P... 05/12/16 11:53 Streptococcus pneumoniae Antigen (M - Final Complete Urine Catheterized Urine PRESUMPTIVE NEGATIVE FOR STREPTOCOCCU... Imaging Last Impressions Chest X-Ray 05/15/16 0000 Signed Impressions: Service Date/Time: May 12:54 - CONCLUSION: Multiple lines and tubes now in place. Persistent bilateral pulmonary opacity with increased lung volumes when compared to the prior study. Bj Harrison MD CT Angiography 05/10/16 0000 Signed Impressions: Service Date/Time: Wednesday, May 11, 2016 07:53 - CONCLUSION: 1. No evidence of PE. 2. Diffuse interstitial infiltrates throughout most of the right lung. 3. Scattered interstitial infiltrates throughout the left lung. Markus Guzman MD Objective Remarks GENERAL: Well-nourished, well-developed patient, currently orotracheally intubated SKIN: Warm and dry. HEAD: Normocephalic. EYES: No scleral icterus. No injection or drainage. NECK: Supple, trachea midline. No JVD or lymphadenopathy. CARDIOVASCULAR: IR. S1, S2 no S4. No murmurs RESPIRATORY: Breath sounds equal bilaterally, with coarse crackles bilateral lung rider, and scattered wheezes. GASTROINTESTINAL: Abdomen soft, non-tender, nondistended. Positive bowel sounds MUSCULOSKELETAL: No peripheral edema. BACK: Nontender without obvious deformity. No CVA tenderness. EXTREMITIES: No pedal edema NEURO: Sedated on the ventilator. Procedures None A/P Problem List: (1) Acute hypoxemic respiratory failure ICD Code: J96.01 Status: Acute (2) Pneumonia, rule out opportunistic infection Status: Acute (3) Thrombocytopenia ICD Code: D69.6 Status: Acute (4) CHF (congestive heart failure) ICD Code: I50.9 Status: Acute (5) Coagulopathy ICD Code: D68.9 Status: Acute (6) Afib ICD Code: I48.91 Status: Acute (7) Chronic ITP (idiopathic thrombocytopenia) ICD Code: D69.3 Status: Chronic (8) Respiratory distress ICD Code: R06.00 Status: Acute (9) Atrial fibrillation with RVR ICD Code: I48.91 Status: Acute (10) Leg DVT (deep venous thromboembolism), chronic ICD Code: I82.509 Status: Chronic (11) Subarachnoid bleed ICD Code: I60.9 Status: Chronic Assessment and Plan NEURO: History of CVA 08/2015 Intracranial hemorrhage in 03/2016 -propofol for sedation with when necessary fentanyl while intubated -Goal of RASS-2 -Daily sedation vacation RESP: Acute hypoxemic respiratory failure ARDS TRALI versus pneumonia (Opportunistic) History of bilateral lower extremity DVTs Aspiration pneumonitis - Patient was extubated on 05/13/16, reintubated 2/2 for worsening respiratory failure - Clinical picture is more like ARDS secondary to either infection or transfusion-related - Low tidal volume mechanical ventilation - DuoNeb every 6 hours and when necessary, ventilator bundle - Unable to anticoagulate due to severe thrombocytopenia - S/p IVC filter in 2016 CVS: A. Fib rapid rate controlled Possible CHF (More likely atypical pneumonia/ARDS) - Cardizem gtt at 15 mg an hour as rate controlled. Cardiology -Dr. Murphy - Receiving by mouth 90 mg every 6 hours Cardizem and Lopressor 5 every 6 - Continue To take Cardura 4 mg by mouth daily - Cannot anticoagulate due to severe thrombocytopenia GI: Resume tube feeds of Jevity 1.5 goal 20 cc an hour -Currently on Pepcid. Restart Protonix 2.5. 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 Cannot completely rule out possibility of TTP, increase IVIG dosing and start plasmapheresis - Transfuse 2 units plt, today - Continue prednisone 20 mg daily, 125 mg Solu-Medrol IV daily [address] Armenta. - Promacta 50 mg today (thrombopoietin analog), per Dr. Armenta. - Splenectomy may be considered. ID: Sepsis Atypical Pneumonia -Unable to rule out bacterial versus opportunistic pneumonia. F/u panculture, urine for Legionella and pneumococcal antigen, influenza. BAL studies Pending -PJP stain and bronch cultures pending -Continue Zosyn and azithromycin. Started on pentamidine by ID -ID and pulmonary. s/p Dr. Redding performed bronch/BAL ENDO/FEN: Hypopotassemia History of gout -Electrolyte replacement per protocol Restart allopurinol 100 mg daily DVT/GI prophylaxis - TEDs/SCDs/Pepcid - s/p IVC filter most recently in 2016. Cannot anticoagulate due to severe thrombocytopenia and recent intracranial hemorrhage Critical Care: The total critical care time was 45 minutes. Time to perform other separately billable procedures was not included in the critical care time. Isidoor Flower MD May 16, 2016 16:17
[2016-05-16] MEDS ORDERED: POLYETHYLENE GLYCOL 17 GM PKG PO ONE (16:30)
[2016-05-16] MEDS ORDERED: LACTULOSE SYRUP 20 GM/30 ML CUP PO ONE (16:30)
[2016-05-16] MEDS ORDERED: SENNOSIDES SYRUP 8.8 MG/5 ML CUP PO ONE (16:30)
[2016-05-16] MEDS: PENTAMIDINE INJ 300 MG in DEXTROSE 5% IN WATER INJ 250 ML IV SCH ×2 (16:59)
[2016-05-16] MEDS: DOXAZOSIN MESYLATE 4 MG TAB PO SCH (20:23)
[2016-05-16] MEDS: DOCUSATE SODIUM 100 MG/10 ML UDC PO SCH (20:23)
[2016-05-16 20:51] LABS: AUTOMATED NEUTROPHIL # 7.3 TH/MM3 (1.8-7.7); BASOPHIL % 0.1 % (0.0-2.0); HEMATOCRIT 25.7 % (39.0-51.0); LYMPH % 7.3 % (9.0-44.0); LYMPHOCYTE # 0.6 TH/MM3 (1.0-4.8); MEAN CORPUSCULAR HEMOGLOBIN 29.9 PG (27.0-34.0); MEAN CORPUSCULAR HGB CONC 34.8 % (32.0-36.0); MONO % 3.1 % (0.0-8.0); NEUT % 89.5 % (16.0-70.0); RED BLOOD COUNT 2.99 MIL/MM3 (4.50-5.90); RED CELL DISTRIBUTION WIDTH 15.6 % (11.6-17.2); WHITE BLOOD COUNT 8.1 TH/MM3 (4.0-11.0)
[2016-05-16 20:58] LABS: PLATELET COUNT 19 TH/MM3 (150-450)
[2016-05-16 20:59] LABS: HEMO FLAGS AUTO DIFF
[2016-05-16 21:25] LABS: PLATELET ESTIMATE SMEAR LOW (NORMAL)
[2016-05-16 21:26] LABS: PLATELET MORPHOLOGY ENLARGED (NORMAL); SCAN/DIFF AUTO DIFF CONFIRMED
[2016-05-16] MEDS: RESP: ALBUTEROL 2.5 MG/IPRATROPIUM 0.5 MG NEB (SCH) NEB (21:38)
[2016-05-16] MEDS: methylPREDNISolone SOD SUCC 125 MG/2 ML VIAL IV SCH (22:08)
[2016-05-16] MEDS: ANTICOAGULANT CITRATE DEXTROSE SOLN-A 1L SCH (22:30)
[2016-05-16] MEDS: FAMOTIDINE 20 MG/2 ML VIAL IV SCH (22:30)
[2016-05-16] MEDS: CALCIUM GLUCONATE IV SCH (22:30)
[2016-05-16] MEDS: SODIUM CHLOR 0.9% 1000 ML INJ 1,000 ML IV SCH (22:30)
[2016-05-16] MEDS: SODIUM CHLOR 0.9% IV SCH (22:30)
[2016-05-17] VITALS (19 sets, daily range): BP systolic 115–142; BP diastolic 68–89; PULSE 64–126; RESP 15–20; TEMP 97.6–98.6; O2SAT 98–99
[2016-05-17] MEDS: PROPOFOL 1000 MG/100 ML INJ 100 ML IV SCH ×6 (01:01→18:59)
[2016-05-17] MEDS: PIPERACIL-TAZO 3.375 GM PREMIX 50 ML IV SCH ×4 (02:15→20:26)
[2016-05-17] MEDS: METOPROLOL TARTRATE 5 MG/5 ML VIAL IV PUSH SCH ×4 (02:15→20:26)
[2016-05-17] MEDS: DILTIAZEM 125 MG/NS 100 ML IV SCH ×6 (02:36→18:29)
[2016-05-17] MEDS: RESP: ALBUTEROL 2.5 MG/IPRATROPIUM 0.5 MG NEB (SCH) NEB ×4 (03:43→20:25)
[2016-05-17 06:18] LABS: AUTOMATED NEUTROPHIL # 8.7 TH/MM3 (1.8-7.7); BASOPHIL % 0.2 % (0.0-2.0); HEMATOCRIT 26.8 % (39.0-51.0); LYMPH % 6.7 % (9.0-44.0); LYMPHOCYTE # 0.6 TH/MM3 (1.0-4.8); MEAN CELL VOLUME 86.1 FL (80.0-100.0); MEAN CORPUSCULAR HEMOGLOBIN 29.9 PG (27.0-34.0); MEAN CORPUSCULAR HGB CONC 34.8 % (32.0-36.0); MONO % 1.8 % (0.0-8.0); NEUT % 91.3 % (16.0-70.0); RED BLOOD COUNT 3.11 MIL/MM3 (4.50-5.90); WHITE BLOOD COUNT 9.5 TH/MM3 (4.0-11.0)
[2016-05-17 06:24] LABS: HEMO FLAGS AUTO DIFF
[2016-05-17 06:27] LABS: PLATELET COUNT 13 TH/MM3 (150-450)
[2016-05-17 06:38] LABS: ALKALINE PHOSPHATASE 57 U/L (45-117); ALT (GPT) 23 U/L (12-78); ANION GAP 8 MEQ/L (5-15); AST (GOT) 21 U/L (15-37); BICARBONATE 33.5 MEQ/L (21.0-32.0); BLOOD UREA NITROGEN 37 MG/DL (7-18); CHLORIDE 106 MEQ/L (98-107); GLOMERULAR FILTRATION RATE 42 ML/MIN (>89); MAGNESIUM 2.4 MG/DL (1.5-2.5); POTASSIUM 3.5 MEQ/L (3.5-5.1); SODIUM (NA) 147 MEQ/L (136-145); TOTAL BILIRUBIN ADULT 1.4 MG/DL (0.2-1.0)
[2016-05-17] MEDS: CHLORHEXIDINE 0.12% (ORAL KIT) 15 ML CUP MT SCH ×2 (08:00→20:27)
[2016-05-17] MEDS: methylPREDNISolone SOD SUCC 125 MG/2 ML VIAL IV SCH ×2 (08:59→20:26)
[2016-05-17] MEDS: FAMOTIDINE 20 MG/2 ML VIAL IV SCH (09:00)
[2016-05-17] MEDS: POLYETHYLENE GLYCOL 17 GM PKG PO SCH (09:02)
[2016-05-17] MEDS: diphenhydrAMINE HCL 50 MG/ML VIAL IV SCH (09:02)
[2016-05-17] MEDS: ALLOPURINOL 100 MG TAB PO SCH (09:03)
[2016-05-17] MEDS: ELTROMBOPAG 50 MG TAB PO SCH (09:03)
[2016-05-17] MEDS: SODIUM CHLORIDE 0.9% FLUSH 5 ML FLUSH FLUSH SCH ×2 (09:03→20:27)
[2016-05-17] MEDS: predniSONE 20 MG TAB PO SCH (09:03)
[2016-05-17] MEDS: POTASSIUM CHLORIDE 20 MEQ CONTROLLED RELEASE TAB PO SCH (09:05)
[2016-05-17] MEDS: CALCIUM/VITAMIN D 250 MG/125 U TAB PO SCH (09:05)
[2016-05-17] MEDS: MAGNESIUM OXIDE 400 MG TAB PO SCH (09:05)
[2016-05-17] MEDS: AZITHROMYCIN INJ 500 MG in SODIUM CHLOR 0.9% 250 ML INJ 250 ML IV SCH (09:11)
[2016-05-17] MEDS: SENNOSIDES SYRUP 8.8 MG/5 ML CUP PO SCH (09:12)
[2016-05-17] MEDS: LACTULOSE SYRUP 20 GM/30 ML CUP PO SCH (09:12)
[2016-05-17] MEDS: DOCUSATE SODIUM 100 MG/10 ML UDC PO SCH ×2 (09:12→20:26)
[2016-05-17] MEDS: DILTIAZEM HCL 90 MG TAB PO SCH ×4 (09:13→20:26)
[2016-05-17] MEDS: SODIUM CHLORIDE 1 GRAM TAB PO SCH (09:13)
[2016-05-17] MEDS: ANTICOAGULANT CITRATE DEXTROSE SOLN-A 1L SCH (09:23)
[2016-05-17] MEDS: CALCIUM GLUCONATE IV SCH (09:24)
[2016-05-17] MEDS: SODIUM CHLOR 0.9% IV SCH (09:24)
--- NOTE | 2016-05-17 10:42 | PD.ONC.PN ---
Subjective Subjective Remarks Afebrile overnight. Intubated, sedated. No overnight events per nurse. No bleeding. Objective Data Date Time Temp Pulse Resp B/P Pulse Ox O2 Delivery O2 Flow Rate FiO2 05/17/16 08:11 98 40 05/17/16 06:00 101 05/17/16 04:50 98 40 05/17/16 04:00 40 05/17/16 04:00 79 05/17/16 04:00 98 Mechanical Ventilator 40 05/17/16 04:00 97.9 79 18 133/69 98 05/17/16 02:00 74 05/17/16 01:28 98 40 05/17/16 01:17 40 05/17/16 00:00 93 05/17/16 00:00 98.2 64 16 129/72 98 05/17/16 00:00 98 Mechanical Ventilator 40 05/16/16 22:00 60 05/16/16 21:40 99 40 05/16/16 20:00 97.9 63 18 113/71 99 05/16/16 20:00 65 05/16/16 20:00 99 Mechanical Ventilator 40 05/16/16 18:19 99 40 05/16/16 18:00 98 05/16/16 16:00 67 05/16/16 16:00 100 Mechanical Ventilator 40 05/16/16 16:00 98.4 67 16 127/68 99 05/16/16 14:45 100 50 05/16/16 14:00 65 05/16/16 12:01 98.6 62 16 116/67 100 05/16/16 12:00 62 05/16/16 12:00 100 Mechanical Ventilator 50 05/16/16 10:59 100 50 05/17/16 05/17/16 05/17/16 07:00 15:00 23:00 Intake Total 469 ml Output Total 525 ml Balance -56 ml Result Diagram: 05/17/1644905/17/16449 Laboratory Results Laboratory Tests Test 05/16/16 05/16/16 05/17/16 05/17/16 19:40 20:25 04:50 05:40 White Blood Count 8.1 TH/MM3 9.5 TH/MM3 Red Blood Count 2.99 MIL/MM3 3.11 MIL/MM3 Hemoglobin 8.9 GM/DL 9.3 GM/DL Hematocrit 25.7 % 26.8 % Mean Corpuscular Volume 86.0 FL 86.1 FL Mean Corpuscular Hemoglobin 29.9 PG 29.9 PG Mean Corpuscular Hemoglobin 34.8 % 34.8 % Concent Red Cell Distribution Width 15.6 % 16.0 % Platelet Count 19 TH/MM3 13 TH/MM3 Mean Platelet Volume 9.3 FL 9.5 FL Neutrophils (%) (Auto) 89.5 % 91.3 % Lymphocytes (%) (Auto) 7.3 % 6.7 % Monocytes (%) (Auto) 3.1 % 1.8 % Eosinophils (%) (Auto) 0.0 % 0.0 % Basophils (%) (Auto) 0.1 % 0.2 % Neutrophils # (Auto) 7.3 TH/MM3 8.7 TH/MM3 Lymphocytes # (Auto) 0.6 TH/MM3 0.6 TH/MM3 Monocytes # (Auto) 0.3 TH/MM3 0.2 TH/MM3 Eosinophils # (Auto) 0.0 TH/MM3 0.0 TH/MM3 Basophils # (Auto) 0.0 TH/MM3 0.0 TH/MM3 CBC Comment AUTO DIFF AUTO DIFF Differential Comment AUTO DIFF CONFIRMED Platelet Estimate LOW Platelet Morphology Comment ENLARGED Polychromasia 2.0 % Blood Bank Comment Sodium Level 147 MEQ/L Potassium Level 3.5 MEQ/L Chloride Level 106 MEQ/L Carbon Dioxide Level 33.5 MEQ/L Anion Gap 8 MEQ/L Blood Urea Nitrogen 37 MG/DL Creatinine 1.60 MG/DL Estimat Glomerular Filtration 42 ML/MIN Rate Random Glucose 190 MG/DL Calcium Level 8.7 MG/DL Phosphorus Level 4.9 MG/DL Magnesium Level 2.4 MG/DL Total Bilirubin 1.4 MG/DL Aspartate Amino Transf 21 U/L (AST/SGOT) Alanine Aminotransferase 23 U/L (ALT/SGPT) Alkaline Phosphatase 57 U/L Total Protein 6.3 GM/DL Albumin 3.0 GM/DL Lactate Dehydrogenase 335 U/L Administered Medications Medications (Trade) Dose Ordered Sig/Jeremy Route PRN Reason Start Time Stop Time Status Last Admin Dose Admin IV Flush (NS Flush) 2 ml BID FLUSH 05/09/16 21:00 05/17/16 09:03 Acetaminophen (Tylenol) 650 mg Q4H PRN PO TEMP > 100.4 05/09/16 18:00 05/13/16 12:03 Ondansetron HCl (Zofran Inj) 4 mg Q6H PRN IVP NAUSEA OR VOMITING 05/09/16 18:00 05/11/16 22:43 Doxazosin Mesylate (Cardura) 4 mg HS PO 05/09/16 21:00 05/16/16 20:23 Sodium Chloride (Sodium Chloride) 1 gm DAILY PO 05/10/16 09:00 05/17/16 09:13 Calcium/Vitamin D (Oscal-D 250-125) 250 mg DAILY PO 05/10/16 09:00 05/17/16 09:05 Magnesium Oxide (Mag-Ox) 400 mg DAILY PO 05/10/16 09:00 05/17/16 09:05 Miscellaneous Information Patient in critical care unit? Ass... Q361D XX 05/10/16 23:45 05/10/16 23:45 Piperacillin Sod/ Tazobactam Sod 50 ml @ 100 mls/hr Q6H IV 05/11/16 08:00 05/17/16 09:20 Azithromycin/ Sodium Chloride (Zithromax Inj/ NS 250 ml Inj) 250 ml @ 250 mls/hr Q24H IV 05/11/16 08:00 05/17/16 09:11 Potassium Chloride 20 meq 20 meq DAILY PO 05/11/16 09:00 05/17/16 09:05 Potassium Chloride (KCl 40 Meq Premix Inj) 100 ml @ 50 mls/hr Q2H PRN IV For Potassium 2.8 - 3.2 mEq/L 05/11/16 07:30 05/16/16 06:33 Diltiazem HCl (Cardizem) 90 mg QID PO 05/11/16 13:00 05/17/16 09:13 Eltrombopag 50 mg 50 mg DAILY PO 05/14/16 09:00 05/17/16 09:03 Diltiazem HCl/ Sodium Chloride (Cardizem Inj/NS Inj) 125 ml @ 0 mls/hr TITRATE IV 05/13/16 15:30 05/17/16 02:36 Prednisone (Deltasone) 20 mg DAILY PO 05/14/16 09:00 05/17/16 09:03 Acetaminophen/ Hydrocodone Bitart ([place] 5-325 Mg) 1 tab Q6H PRN PO PAIN SCALE 6 TO 10 05/14/16 18:30 05/14/16 18:43 Chlorhexidine Gluconate 15 ml 15 ml BID@08,20 MT 05/15/16 20:00 05/16/16 20:23 Propofol 100 ml @ 0 mls/hr TITRATE IV 05/15/16 12:15 05/17/16 09:02 Pentamidine Isethionate/ Dextrose (Pentam Inj/D5W Inj) 250 ml @ 250 mls/hr Q24H IV 05/15/16 14:00 05/16/16 16:59 Methylprednisolone Sodium Succinate (SoluMEDROL INJ) 125 mg DAILY@22 IV 05/15/16 22:30 05/17/16 22:01 05/17/16 08:59 Famotidine (Pepcid Inj) 20 mg DAILY@2230 IV 05/15/16 22:30 05/17/16 22:31 05/17/16 09:00 Diphenhydramine HCl 25 mg 25 mg DAILY@2230 IV 05/15/16 22:30 05/17/16 22:31 05/17/16 09:02 Calcium Gluconate 5 gm/Sodium Chloride 300 ml @ 100 mls/hr Q24H IV 05/15/16 22:30 05/18/16 01:29 05/17/16 09:24 Sodium Chloride (NS 1000 ml Inj) 1,000 ml @ 0 mls/hr DAILY@2230 IV 05/15/16 22:30 05/17/16 23:58 05/15/16 22:30 Anticoagulant Citrate Dextose Fiorella A (Acd Formula Inj) 1,000 ml Q24H .XX 05/15/16 22:30 05/17/16 22:31 05/17/16 09:23 Metoprolol Tartrate (Lopressor Inj) 5 mg Q6H IV PUSH 05/16/16 20:00 05/17/16 09:13 Docusate Sodium (Colace Liq) 100 mg Q12HR PO 05/16/16 21:00 05/17/16 09:12 Sennosides (Senna Liq) 8.8 mg DAILY PO 05/17/16 09:00 05/17/16 09:12 Polyethylene Glycol (Miralax) 17 gm DAILY PO 05/17/16 09:00 05/17/16 09:02 Lactulose (Lactulose Liq) 30 ml DAILY PO 05/17/16 09:00 05/17/16 09:12 Allopurinol (Zyloprim) 100 mg DAILY PO 05/17/16 09:00 05/17/16 09:03 Objective Remarks GENERAL: Well-nourished, well-developed patient. SKIN: Warm and dry. HEAD: Normocephalic. EYES: No scleral icterus. No injection or drainage. NECK: Supple, trachea midline. No JVD or lymphadenopathy. LYMPHATIC: No adenopathy. CARDIOVASCULAR: Regular rate and rhythm without murmurs. RESPIRATORY: Breath sounds equal bilaterally. No accessory muscle use. GASTROINTESTINAL: Abdomen soft, non-tender, nondistended. EXTREMITIES: No cyanosis, or edema. MUSCULOSKELETAL: Adequate muscle tone. NEUROLOGICAL: No obvious focal deficit. Awake, alert, and oriented x3. PSYCHIATRIC: Appropriate mood and affect; insight and judgment normal. Assessment/Plan Problem List: (1) Chronic ITP (idiopathic thrombocytopenia) Status: Chronic Plan: 05/17/16: platelet count improved to 19K then dipped to 13k today. His LDH is improving (decreasing). will order three additional plasma exchange's and then reassess. 05/16/2016: PLT count remains at 2K. He had plasma exchange last night, multiple units PLTs and FFP. On promacta. 05/15/16: Platelet count 2K today at 0300. He is getting a total of 2 units platelets, 1 unit PRBC's. Will recheck labs later this afternoon post transfusion. Discussed with RN. Pt to be re-intubated today from combination of low blood counts, Afib with RVR, and low arterial O2 from ABG's this am. At Mr. Trevino request, I personally called and spoke with pt's daughter to inform her of re-intubation. Vascath placed for plasma pheresis. Spoke with nurse from [facility], gave instructions. Plan for plasma pheresis daily x 3 doses. First dose tomorrow. History: 08/2015: ischemic stroke. started on Eliquis 03/2016: SAH while on Eliquis for afib + ischemic stroke. AC stopped. ITP diagnosis made and patient found to be refractory to steroids. 05/08/2016 IVIG at clinic 05/09/16: platelet tx in clinic. admitted to hospital in Afib w/RVR 05/10/16: IVIG 80G given : PLT count is 7K. 05/11/16: platelet count improved to 32K. (2) Afib Status: Acute Plan: --on Cardizem, metoprolol -- Being monitored in ICU (3) Anemia Status: Acute Plan: -- Transfuse for Hgb less than 8 Assessment 75y/o male admitted with Afib w/ RVR while in the midst of an acute exacerbation of ITP. h/o Bilateral lower extremity deep venous thromboses. Benign prosthetic hypertrophy. Chronic kidney disease and (stage 2). History of elevated anticardiolipin antibody. Elevated homocystine level. Intracranial hemorrhage in March of 2016. Bleeding duodenal ulcer which was cauterized in August of 2015. ischemic stroke in August of 2015. Right carotid endarterectomy with patch angioplasty August 2015. IVC filter placement in 2007, this was removed in 2008. He had a second filter placed in 2015. Plan 1. 3 additional PEX ordered. 2. monitor CBC, LDH, hepatic function panel 3. continue Promacta 4. give 1 unit platelets today Attending Statement on vent, sedated. Had plasma pheresis. LDH has improved. Continue pheresis for 3 more treatments. Plat low. The exam, history, and the medical decision-making described in the above note were completed with the assistance of the mid-level provider. I reviewed and agree with the findings presented. I attest that I had a [id number] encounter with the patient on the same day, and personally performed and documented my assessment and findings in the medical record. Claudia Mcclendon May 17, 2016 10:42 Baltazar Soriano MD May 17, 2016 19:37
[2016-05-17] MEDS ORDERED: SODIUM CHLOR 0.9% 250 ML INJ 250 ML IV ONE (11:00)
[2016-05-17 11:03] LABS: BANDS 13 % (0-6); METAMYELOCYTES 1 % (0-1); NEUTROPHIL # MANUAL DIFF 8.5 TH/MM3 (1.8-7.7); POLYS (SEG NEUTROPHILS) 75 % (16-70); WBC DIFF SAMPLE 100
[2016-05-17 11:04] LABS: PLATELET ESTIMATE SMEAR RARE (NORMAL); PLATELET MORPHOLOGY NORMAL (NORMAL); POLYCHROMASIA 2.5 % (0.0-1.9); SCAN/DIFF FINAL DIFF MANUAL
--- NOTE | 2016-05-17 11:48 | HHI.IDPN ---
Note Infectious Disease Note Patient deteriorated from respiratory and reintubated 05/15/16. Aspirated just before intubation. No new events overnight. Receive Plasma pheresis Unresponsive on the vent. Afebrile PCP stain not yet available. PAST MEDICAL HISTORY 1. Bilateral lower extremity deep thromboses. 2. Hypertension. 3. ITP. 4. Chronic kidney disease. 5. Benign prostatic hypertrophy. 6. Intracranial hemorrhage March 2016. 7. Ischemic stroke August 2015. 8. GI bleed August 2015. 9. Right total hip replacement. 10. Tonsillectomy. 11. Right carotid endarterectomy with patch angioplasty. 12. IVC filter placement 2015. 13. Prior IVC filter placement 2007 which was removed in 2008. 14. Appendectomy. 15. Vasectomy. ALLERGIES PREDNISONE. THE PATIENT DEVELOPED MILD ITCHING. ANTIBIOTICS 1. Piperacillin / tazobactam. 2. Azithromycin. 3. Pentamidine. SOCIAL HISTORY No tobacco use. Occasional alcohol in the form of beer. No illicit drugs. OBJECTIVE: Vital Signs Date Time Temp Pulse Resp B/P Pulse Ox O2 Delivery O2 Flow Rate FiO2 05/17/16 10:00 92 05/17/16 08:11 98 40 05/17/16 08:00 88 05/17/16 08:00 97 Mechanical Ventilator 40 05/17/16 08:00 40 05/17/16 06:00 101 05/17/16 04:50 98 40 05/17/16 04:00 40 05/17/16 04:00 79 05/17/16 04:00 98 Mechanical Ventilator 40 05/17/16 04:00 97.9 79 18 133/69 98 05/17/16 02:00 74 05/17/16 01:28 98 40 05/17/16 01:17 40 05/17/16 00:00 93 05/17/16 00:00 98.2 64 16 129/72 98 05/17/16 00:00 98 Mechanical Ventilator 40 05/16/16 22:00 60 05/16/16 21:40 99 40 05/16/16 20:00 97.9 63 18 113/71 99 05/16/16 20:00 65 05/16/16 20:00 99 Mechanical Ventilator 40 05/16/16 18:19 99 40 05/16/16 18:00 98 05/16/16 16:00 67 05/16/16 16:00 100 Mechanical Ventilator 40 05/16/16 16:00 98.4 67 16 127/68 99 05/16/16 14:45 100 50 05/16/16 14:00 65 05/16/16 12:01 98.6 62 16 116/67 100 05/16/16 12:00 62 05/16/16 12:00 100 Mechanical Ventilator 50 05/16/16 05/16/16 05/17/16 15:00 23:00 07:00 Intake Total 1945 ml 469 ml Output Total 2275 ml 525 ml Balance -330 ml -56 ml IV Total 1595 ml 361 ml Tube Feeding 8 ml Other 350 ml 100 ml Output Urine Total 1975 ml 525 ml Gastric Drainage Total 300 ml # Bowel Movements 1 0 Laboratory Tests Test 05/15/16 05/16/16 05/16/16 05/17/16 16:04 02:48 19:40 04:50 Haptoglobin 122 MG/DL White Blood Count 7.1 TH/MM3 8.1 TH/MM3 9.5 TH/MM3 Red Blood Count 3.10 MIL/MM3 2.99 MIL/MM3 3.11 MIL/MM3 Hemoglobin 9.3 GM/DL 8.9 GM/DL 9.3 GM/DL Hematocrit 26.4 % 25.7 % 26.8 % Mean Corpuscular Volume 85.2 FL 86.0 FL 86.1 FL Mean Corpuscular Hemoglobin 29.9 PG 29.9 PG 29.9 PG Mean Corpuscular Hemoglobin 35.1 % 34.8 % 34.8 % Concent Red Cell Distribution Width 15.6 % 15.6 % 16.0 % Platelet Count 2 TH/MM3 19 TH/MM3 13 TH/MM3 Mean Platelet Volume 12.3 FL 9.3 FL 9.5 FL Neutrophils (%) (Auto) 92.0 % 89.5 % 91.3 % Lymphocytes (%) (Auto) 5.0 % 7.3 % 6.7 % Monocytes (%) (Auto) 1.7 % 3.1 % 1.8 % Eosinophils (%) (Auto) 0.7 % 0.0 % 0.0 % Basophils (%) (Auto) 0.6 % 0.1 % 0.2 % Neutrophils # (Auto) 6.6 TH/MM3 7.3 TH/MM3 8.7 TH/MM3 Lymphocytes # (Auto) 0.4 TH/MM3 0.6 TH/MM3 0.6 TH/MM3 Monocytes # (Auto) 0.1 TH/MM3 0.3 TH/MM3 0.2 TH/MM3 Eosinophils # (Auto) 0.0 TH/MM3 0.0 TH/MM3 0.0 TH/MM3 Basophils # (Auto) 0.0 TH/MM3 0.0 TH/MM3 0.0 TH/MM3 CBC Comment AUTO DIFF AUTO DIFF AUTO DIFF Differential Comment AUTO DIFF AUTO DIFF FINAL DIFF CONFIRMED CONFIRMED MANUAL Platelet Estimate RARE LOW RARE Platelet Morphology Comment ENLARGED ENLARGED NORMAL Polychromasia 2.6 % 2.0 % 2.5 % Keratocytes OCC Differential Total Cells 100 Counted Neutrophils % (Manual) 75 % Band Neutrophils % 13 % Lymphocytes % 6 % Monocytes % 5 % Neutrophils # (Manual) 8.5 TH/MM3 Metamyelocytes 1 % Laboratory Tests Test 05/15/16 05/16/16 05/17/16 05/17/16 16:04 02:48 04:50 05:40 Total Bilirubin 1.5 MG/DL 2.2 MG/DL 1.4 MG/DL Direct Bilirubin 0.5 MG/DL Indirect Bilirubin 1.0 MG/DL Lactate Dehydrogenase 685 U/L 441 U/L 335 U/L Sodium Level 145 MEQ/L 147 MEQ/L Potassium Level 3.3 MEQ/L 3.5 MEQ/L Chloride Level 105 MEQ/L 106 MEQ/L Carbon Dioxide Level 31.6 MEQ/L 33.5 MEQ/L Anion Gap 8 MEQ/L 8 MEQ/L Blood Urea Nitrogen 31 MG/DL 37 MG/DL Creatinine 1.58 MG/DL 1.60 MG/DL Estimat Glomerular Filtration 43 ML/MIN 42 ML/MIN Rate Random Glucose 198 MG/DL 190 MG/DL Calcium Level 9.4 MG/DL 8.7 MG/DL Aspartate Amino Transf 30 U/L 21 U/L (AST/SGOT) Alanine Aminotransferase 27 U/L 23 U/L (ALT/SGPT) Alkaline Phosphatase 58 U/L 57 U/L Total Protein 6.7 GM/DL 6.3 GM/DL Albumin 3.1 GM/DL 3.0 GM/DL Phosphorus Level 4.9 MG/DL Magnesium Level 2.4 MG/DL IMAGING: Chest X-Ray 05/15/16 0000 Signed Impressions: Service Date/Time: May 08:43 - CONCLUSION: Increase in bilateral basilar predominant pulmonary opacity indicating possible pulmonary edema. Likely small left pleural effusion. Bj Harrison MD Chest X-Ray 05/14/16 0600 Signed Impressions: Service Date/Time: Saturday, May 14, 2016 04:21 - CONCLUSION: Endotracheal tube and nasogastric tube removed. No significant change mild patchy air space opacities. Davidson Skelton MD CT Angiography 05/10/16 0000 Signed Impressions: Service Date/Time: Wednesday, May 11, 2016 07:53 - CONCLUSION: 1. No evidence of PE. 2. Diffuse interstitial infiltrates throughout most of the right lung. 3. Scattered interstitial infiltrates throughout the left lung. Markus Guzman MD PHYSICAL EXAMINATION GENERAL: Non responsive. HEENT: No icterus. Oral mucosa moist. LUNGS: Bibasilar rhonchi. HEART: Irregular rate and rhythm. CHARIS. ABDOMEN: Decreased bowel sounds, soft. EXTREMITIES: No clubbing or cyanosis. Trace edema. SKIN: No rash. NEUROLOGICAL: Unable to assess. IMPRESSION 1. Bilateral lung infiltrates in patient who has ITP and likely is immune suppressed and likely may have pulmonary opportunistic infection. 2. Pneumonia. Lung infiltrates worse. 3. Acute respiratory failure. extubated. Reintubated. 4. Chronic kidney disease. 5. Thrombocytopenia secondary to ITP. Still very ill. RECOMMENDATIONS 1. Monitor sputum PCP. Not yet available. 2. Continue piperacillin / tazobactam. 3. Continue azithromycin. 4. Continue Pentamidine IV for PCP coverage. 5. Monitor bronchoscopy culture. 6. Monitor clinical status. Pankaj Aparicio MD May 17, 2016 11:48
[2016-05-17] MEDS: PENTAMIDINE INJ 300 MG in DEXTROSE 5% IN WATER INJ 250 ML IV SCH ×2 (13:36)
--- NOTE | 2016-05-17 14:26 | HHI.CCPN ---
Subjective Remarks/Hospital Course 75-year-old male patient with history of bilateral lower extremity DVTs, BPH, chronic renal failure, Elevated Anticardiolipin antibody level, Elevated homocysteine level, Gout, Hypertension, Hyponatremia, Idiopathic Thrombocytopenic Purpura, Intracranial hemorrhage in 2016, Bleeding duodenal ulcer and Ischemic stroke in 2016. Patient was sent to the emergency department 05/10/16 from his oncologist office for rapid a.fib with RVR. Patient had received 2 units of platelets prior. Patient has a history of A. Fibulation, he had to sit down, but denies chest pain or palpitations feeling lightheaded or dizzy. While on telemetry floor he has developed respiratory difficulty and is now transferred to ICU. 05/11: Currently on BiPAP with 65% FiO2. Tachypneic. CXR pending for today, ABG also pending. CT pulmonary angiogram is pending at this time. Remains in atrial fibrillation with rapid ventricular response on Cardizem 15 mg per hour. Chest x-ray from yesterday shows predominantly right upper lobe lung infiltrates. IV Zosyn and azithromycin just ordered. Send cultures 05/12: Overnight remained on BIPAP, required 60% FiO2. CXR today persistent diffuse bilateral interstitial infiltrates right more than left despite adequate diuresis. With IV Lasix patient had > 5 L urine output. CMP pending. Remains in atrial fibrillation but rate controlled. There is concern about opportunistic lung infection including PCP pneumonia. Proceed with elective intubation, consult pulmonary for BAL, D/W Dr. Grace 05/13: Patient was intubated yesterday for progressive lung infiltrates hypoxia. Post intubation Dr. Mondragon was consulted who performed a bronchoscopy/BAL for PCP pneumonia evaluation. Today patient wakes up and follows commands easily. FiO2 40% chest x-ray shows interval improvement. Creatinine yesterday had increased to 1.9, stop Lasix gentle hydration with normal saline 50 ML per hour for 24 hours 05/14: Extubated yesterday, breathing comfortably on aerosol mask. Plt 7000, getting transfused. UO 2.[address] [place] starting Promacta 50 mg today ( thrombopoietin analog) 2/2: Increasing respiratory distress today chest x-ray shows worsening bilateral pulmonary infiltrates. Hypoxemic placed on 100% nonrebreather with PO2 74. Discussed extensively with Dr. Armenta. Possibility of TTP cannot be completely ruled out. We'll proceed with endotracheal intubation and then place a Vas-Cath. Plasmapheresis will be started. Prior to Procedures 3 units of FFP and 2 units of plasma will be transfused also patient is getting 2 units of PRBC anemia with hemoglobin 6.4. His platelet count is 4000 today After induction for intubation, patient had large biliary vomiting. A small amount of aspiration noted /3: Currently sedated on the ventilator. Afebrile. Transfuse 2 packed platelets today. Received plasmapheresis. Subjective 2/4: Currently sedated on the ventilator. Afebrile. Transfuse 1 packed blood studies. 3 more PEX ordered. Discussed with daughter at bedside. Objective Vital Signs Date Time Temp Pulse Resp B/P Pulse Ox O2 Delivery O2 Flow Rate FiO2 05/17/16 12:01 98 40 05/17/16 10:00 92 05/17/16 08:00 Mechanical Ventilator 05/17/16 04:00 97.9 18 133/69 05/15/16 09:54 15.00 Intake and Output 05/16/16 05/16/16 05/17/16 08:00 16:00 00:00 Intake Total 702 ml 1130 ml 815 ml Output Total 975 ml 1675 ml 600 ml Balance -273 ml -545 ml 215 ml Result Diagram: 05/17/16 0450 05/17/16 0450 Other Results Microbiology Date/Time Procedure Status Source Growth 05/12/16 18:25 Gram Stain - Final Resulted Bronchial Washings Bronchial 05/12/16 18:25 Bronchial Culture Resulted Bronchial Washings Bronchial Pending 05/12/16 18:25 Fungal Smear - Final Resulted Bronchial Washings Bronchial NO FUNGAL ELEMENTS SEEN. 05/12/16 18:25 Fungal Culture Resulted Bronchial Washings Bronchial Pending 05/12/16 18:25 Acid Fast Stain - Final Resulted Bronchial Washings Bronchial NO ACID FAST BACILLI SEEN 05/12/16 18:25 Mycobacterial Culture Resulted Bronchial Washings Bronchial Pending Imaging Last Impressions Chest X-Ray 05/15/16 0000 Signed Impressions: Service Date/Time: May 12:54 - CONCLUSION: Multiple lines and tubes now in place. Persistent bilateral pulmonary opacity with increased lung volumes when compared to the prior study. Bj Harrison MD CT Angiography 05/10/16 0000 Signed Impressions: Service Date/Time: Wednesday, May 11, 2016 07:53 - CONCLUSION: 1. No evidence of PE. 2. Diffuse interstitial infiltrates throughout most of the right lung. 3. Scattered interstitial infiltrates throughout the left lung. Markus Guzman MD Objective Remarks GENERAL: Well-nourished, well-developed patient, currently orotracheally intubated SKIN: Warm and dry. HEAD: Normocephalic. EYES: No scleral icterus. No injection or drainage. NECK: Supple, trachea midline. No JVD or lymphadenopathy. CARDIOVASCULAR: IR. S1, S2 no S4. No murmurs RESPIRATORY: Breath sounds equal bilaterally, with coarse crackles bilateral lung rider, and scattered wheezes. GASTROINTESTINAL: Abdomen soft, non-tender, nondistended. Positive bowel sounds MUSCULOSKELETAL: No peripheral edema. BACK: Nontender without obvious deformity. No CVA tenderness. EXTREMITIES: No pedal edema NEURO: Sedated on the ventilator. Procedures None Urinary Catheter: Yes Assessment to: Continue Tadeo insert reason: Prolonged Immobilization A/P Problem List: (1) Acute hypoxemic respiratory failure ICD Code: J96.01 Status: Acute (2) Pneumonia, rule out opportunistic infection Status: Acute (3) Thrombocytopenia ICD Code: D69.6 Status: Acute (4) CHF (congestive heart failure) ICD Code: I50.9 Status: Acute (5) Coagulopathy ICD Code: D68.9 Status: Acute (6) Afib ICD Code: I48.91 Status: Acute (7) Chronic ITP (idiopathic thrombocytopenia) ICD Code: D69.3 Status: Chronic (8) Respiratory distress ICD Code: R06.00 Status: Acute (9) Atrial fibrillation with RVR ICD Code: I48.91 Status: Acute (10) Leg DVT (deep venous thromboembolism), chronic ICD Code: I82.509 Status: Chronic (11) Subarachnoid bleed ICD Code: I60.9 Status: Chronic Assessment and Plan NEURO: History of CVA 08/2015 Intracranial hemorrhage in 03/2016 -propofol for sedation with when necessary fentanyl while intubated -Goal of RASS-2 -Daily sedation vacation RESP: Acute hypoxemic respiratory failure ARDS TRALI versus pneumonia (Opportunistic) History of bilateral lower extremity DVTs Aspiration pneumonitis - Patient was extubated on 05/13/16, reintubated 2/2 for worsening respiratory failure - Clinical picture is more like ARDS secondary to either infection or transfusion-related - Low tidal volume mechanical ventilation - DuoNeb every 6 hours and when necessary, ventilator bundle - Unable to anticoagulate due to severe thrombocytopenia - S/p IVC filter in 2016 CVS: A. Fib rapid rate controlled Possible CHF (More likely atypical pneumonia/ARDS) - Cardizem gtt at 10 mg an hour as rate controlled. Cardiology -Dr. Murphy - Receiving by mouth 90 mg every 6 hours Cardizem and Lopressor 5 every 6 - Continue To take Cardura 4 mg by mouth daily - Cannot anticoagulate due to severe thrombocytopenia GI: Resume tube feeds of Jevity 1.5 goal 50 cc an hour -Currently on Pepcid. Restart Protonix 2.5. At 40 mg daily -Colace/Senokot less MiraLAX/lactulose for bowel regimen : Acute on Chronic kidney disease stage 2 BPH - monitor electrolytes and creatinine - monitor urine output - Creat improving with gentle hydration Continue Cardura four milligrams daily HEME: Chronic ITP with acute exacerbation Unable to rule out TTP - D/W Dr Armenta Hem-Onc. Cannot completely rule out possibility of TTP, increase IVIG dosing and start plasmapheresis - Transfuse 1 units plt, today - Continue prednisone 20 mg daily, 125 mg Solu-Medrol IV daily [address] Armenta. - Promacta 50 mg today (thrombopoietin analog), per Dr. Armenta. - Splenectomy may be considered. - Monitor LDH, hepatic profile and BMP daily ID: Sepsis Atypical Pneumonia -Unable to rule out bacterial versus opportunistic pneumonia. F/u panculture, urine for Legionella and pneumococcal antigen, influenza. BAL studies Pending -PJP stain and bronch cultures still incubating -Continue Zosyn and azithromycin. Started on pentamidine by ID for prophylaxis -ID and pulmonary. s/p Dr. Redding performed bronch/BAL ENDO/FEN: Hypopotassemia History of gout -Electrolyte replacement per protocol Restart allopurinol 100 mg daily DVT/GI prophylaxis - TEDs/SCDs/Pepcid - s/p IVC filter most recently in 2016. Cannot anticoagulate due to severe thrombocytopenia and recent intracranial hemorrhage Critical Care: The total critical care time was 45 minutes. Time to perform other separately billable procedures was not included in the critical care time. Isidoro Flower MD May 17, 2016 14:26
--- NOTE | 2016-05-17 16:18 | RADRPT ---
EXAM DATE/TIME: 05/17/2016 14:46 [facility] COMPARISON: CHEST SINGLE AP, May 15, 2016, 12:54. INDICATIONS : Evaluate for Pneumonia. MEDICAL HISTORY : Hypertension. SURGICAL HISTORY : None. ENCOUNTER: Subsequent ACUITY: 1 week PAIN SCORE: Non-responsive. LOCATION: Bilateral chest FINDINGS: Endotracheal tube tip is satisfactorily positioned. NG enters stomach. Central lines in superior vena cava from the internal jugular approach bilaterally. Patchy bilateral basilar airspace disease stabl e to slightly increased from May 15. No pneumothorax. CONCLUSION: 1. Patchy bilateral basilar airspace disease stable to slightly increased from May 2. The suppor t apparatus is unchanged. Yayo Murphy MD on May 17, 2016 at 16:13 Board Certified Radiologist. This report was verified electronically.
[2016-05-17] MEDS: DOXAZOSIN MESYLATE 4 MG TAB PO SCH (20:27)
[2016-05-18] VITALS (17 sets, daily range): BP systolic 105–157; BP diastolic 73–84; PULSE 71–103; RESP 16–22; TEMP 98.1–98.5; O2SAT 98–100
[2016-05-18] MEDS: METOPROLOL TARTRATE 5 MG/5 ML VIAL IV PUSH SCH ×4 (01:30→19:41)
[2016-05-18] MEDS: PIPERACIL-TAZO 3.375 GM PREMIX 50 ML IV SCH ×4 (01:30→19:38)
[2016-05-18] MEDS: PROPOFOL 1000 MG/100 ML INJ 100 ML IV SCH ×7 (01:30→23:59)
[2016-05-18] MEDS: RESP: ALBUTEROL 2.5 MG/IPRATROPIUM 0.5 MG NEB (SCH) NEB ×4 (03:08→21:05)
[2016-05-18 07:10] LABS: AUTOMATED NEUTROPHIL # 8.8 TH/MM3 (1.8-7.7); BASOPHIL % 0.2 % (0.0-2.0); HEMATOCRIT 27.5 % (39.0-51.0); LYMPH % 6.1 % (9.0-44.0); LYMPHOCYTE # 0.6 TH/MM3 (1.0-4.8); MEAN CELL VOLUME 87.2 FL (80.0-100.0); MEAN CORPUSCULAR HGB CONC 34.5 % (32.0-36.0); MONO % 3.3 % (0.0-8.0); NEUT % 90.4 % (16.0-70.0); PLATELET COUNT 38 TH/MM3 (150-450); RED BLOOD COUNT 3.15 MIL/MM3 (4.50-5.90); RED CELL DISTRIBUTION WIDTH 16.1 % (11.6-17.2); WHITE BLOOD COUNT 9.7 TH/MM3 (4.0-11.0)
[2016-05-18 07:23] LABS: BICARBONATE 34.5 MEQ/L (21.0-32.0); INDIRECT BILIRUBIN 0.7 MG/DL (0.0-0.8); MAGNESIUM 2.5 MG/DL (1.5-2.5); POTASSIUM 3.5 MEQ/L (3.5-5.1); TOTAL BILIRUBIN ADULT 1.1 MG/DL (0.2-1.0)
[2016-05-18 07:29] LABS: HEMO FLAGS AUTO DIFF
[2016-05-18] MEDS: CHLORHEXIDINE 0.12% (ORAL KIT) 15 ML CUP MT SCH ×2 (08:00→19:39)
--- NOTE | 2016-05-18 08:31 | PD.ONC.PN ---
Subjective Subjective Remarks Afebrile overnight. Received platelets around 6PM last night. Remains intubated , sedated, on mechanical ventilation. No overnight events. Objective Data Date Time Temp Pulse Resp B/P Pulse Ox O2 Delivery O2 Flow Rate FiO2 05/18/16 07:45 99 40 05/18/16 06:00 103 05/18/16 04:17 99 40 05/18/16 04:00 40 05/18/16 04:00 89 05/18/16 04:00 99 Mechanical Ventilator 40 05/18/16 04:00 98.3 89 16 157/84 99 05/18/16 02:00 78 05/18/16 00:00 72 05/18/16 00:00 98.1 72 22 147/84 99 05/18/16 00:00 99 Mechanical Ventilator 40 05/18/16 00:00 40 05/17/16 23:52 99 40 05/17/16 22:00 71 05/17/16 20:30 98 40 05/17/16 20:00 40 05/17/16 20:00 79 05/17/16 20:00 97.6 79 20 138/73 99 05/17/16 20:00 98 Mechanical Ventilator 40 05/17/16 18:00 97 05/17/16 16:00 95 Mechanical Ventilator 40 05/17/16 16:00 90 05/17/16 16:00 40 05/17/16 16:00 98.6 68 15 115/68 98 05/17/16 15:35 98 40 05/17/16 14:00 98 05/17/16 12:01 98 40 05/17/16 12:00 40 05/17/16 12:00 98.2 87 16 142/89 98 05/17/16 12:00 95 05/17/16 12:00 95 Mechanical Ventilator 40 05/17/16 10:00 92 05/18/16 05/18/16 05/18/16 07:00 15:00 23:00 Intake Total 833 ml Output Total 650 ml Balance 183 ml Result Diagram: 05/18/16 0525 05/18/16 0525 Laboratory Results Laboratory Tests Test 05/17/16 05/17/16 05/18/16 10:47 20:14 05:25 Blood Bank Comment White Blood Count 9.7 TH/MM3 Red Blood Count 3.15 MIL/MM3 Hemoglobin 9.5 GM/DL Hematocrit 27.5 % Mean Corpuscular Volume 87.2 FL Mean Corpuscular Hemoglobin 30.0 PG Mean Corpuscular Hemoglobin 34.5 % Concent Red Cell Distribution Width 16.1 % Platelet Count 38 TH/MM3 Mean Platelet Volume 9.6 FL Neutrophils (%) (Auto) 90.4 % Lymphocytes (%) (Auto) 6.1 % Monocytes (%) (Auto) 3.3 % Eosinophils (%) (Auto) 0.0 % Basophils (%) (Auto) 0.2 % Neutrophils # (Auto) 8.8 TH/MM3 Lymphocytes # (Auto) 0.6 TH/MM3 Monocytes # (Auto) 0.3 TH/MM3 Eosinophils # (Auto) 0.0 TH/MM3 Basophils # (Auto) 0.0 TH/MM3 CBC Comment AUTO DIFF Sodium Level 146 MEQ/L Potassium Level 3.5 MEQ/L Chloride Level 104 MEQ/L Carbon Dioxide Level 34.5 MEQ/L Anion Gap 8 MEQ/L Blood Urea Nitrogen 47 MG/DL Creatinine 1.59 MG/DL Estimat Glomerular Filtration 42 ML/MIN Rate Random Glucose 248 MG/DL Calcium Level 9.0 MG/DL Phosphorus Level 4.3 MG/DL Magnesium Level 2.5 MG/DL Total Bilirubin 1.1 MG/DL Direct Bilirubin 0.4 MG/DL Indirect Bilirubin 0.7 MG/DL Aspartate Amino Transf 35 U/L (AST/SGOT) Alanine Aminotransferase 33 U/L (ALT/SGPT) Alkaline Phosphatase 59 U/L Total Protein 6.2 GM/DL Albumin 3.0 GM/DL Administered Medications Medications (Trade) Dose Ordered Sig/Jeremy Route PRN Reason Start Time Stop Time Status Last Admin Dose Admin IV Flush (NS Flush) 2 ml BID FLUSH 05/09/16 21:00 05/17/16 20:27 Acetaminophen (Tylenol) 650 mg Q4H PRN PO TEMP > 100.4 05/09/16 18:00 05/13/16 12:03 Ondansetron HCl (Zofran Inj) 4 mg Q6H PRN IVP NAUSEA OR VOMITING 05/09/16 18:00 05/11/16 22:43 Doxazosin Mesylate (Cardura) 4 mg HS PO 05/09/16 21:00 05/17/16 20:27 Sodium Chloride (Sodium Chloride) 1 gm DAILY PO 05/10/16 09:00 05/17/16 09:13 Calcium/Vitamin D (Oscal-D 250-125) 250 mg DAILY PO 05/10/16 09:00 05/17/16 09:05 Magnesium Oxide (Mag-Ox) 400 mg DAILY PO 05/10/16 09:00 05/17/16 09:05 Miscellaneous Information Patient in critical care unit? Ass... [id number] XX 05/10/16 23:45 05/10/16 23:45 Piperacillin Sod/ Tazobactam Sod 50 ml @ 100 mls/hr Q6H IV 05/11/16 08:00 05/18/16 01:30 Azithromycin/ Sodium Chloride (Zithromax Inj/ NS 250 ml Inj) 250 ml @ 250 mls/hr Q24H IV 05/11/16 08:00 05/17/16 09:11 Potassium Chloride 20 meq 20 meq DAILY PO 05/11/16 09:00 05/17/16 09:05 Potassium Chloride (KCl 40 Meq Premix Inj) 100 ml @ 50 mls/hr Q2H PRN IV For Potassium 2.8 - 3.2 mEq/L 05/11/16 07:30 05/16/16 06:33 Diltiazem HCl (Cardizem) 90 mg QID PO 05/11/16 13:00 05/17/16 20:26 Eltrombopag 50 mg 50 mg DAILY PO 05/14/16 09:00 05/17/16 09:03 Diltiazem HCl/ Sodium Chloride (Cardizem Inj/NS Inj) 125 ml @ 0 mls/hr TITRATE IV 05/13/16 15:30 05/17/16 18:29 Prednisone (Deltasone) 20 mg DAILY PO 05/14/16 09:00 05/17/16 09:03 Acetaminophen/ Hydrocodone Bitart ([place] 5-325 Mg) 1 tab Q6H PRN PO PAIN SCALE 6 TO 10 05/14/16 18:30 05/14/16 18:43 Chlorhexidine Gluconate 15 ml 15 ml BID@08,20 MT 05/15/16 20:00 05/17/16 20:27 Propofol 100 ml @ 0 mls/hr TITRATE IV 05/15/16 12:15 05/18/16 01:31 Pentamidine Isethionate/ Dextrose (Pentam Inj/D5W Inj) 250 ml @ 250 mls/hr Q24H IV 05/15/16 14:00 05/17/16 13:36 Metoprolol Tartrate (Lopressor Inj) 5 mg Q6H IV PUSH 05/16/16 20:00 05/18/16 01:30 Docusate Sodium (Colace Liq) 100 mg Q12HR PO 05/16/16 21:00 05/17/16 20:26 Sennosides (Senna Liq) 8.8 mg DAILY PO 05/17/16 09:00 05/17/16 09:12 Polyethylene Glycol (Miralax) 17 gm DAILY PO 05/17/16 09:00 05/17/16 09:02 Lactulose (Lactulose Liq) 30 ml DAILY PO 05/17/16 09:00 05/17/16 09:12 Allopurinol (Zyloprim) 100 mg DAILY PO 05/17/16 09:00 05/17/16 09:03 Objective Remarks GENERAL: Elderly male, lying in bed, intubated, sedated. SKIN: Warm and dry. HEAD: Normocephalic. receiving Nepro @ 50cc/hr via OG tube. EYES: No injection or drainage. NECK: Supple, trachea midline. vas-cath, left neck, right IJ central line. no bleeding from lines. LYMPHATIC: No adenopathy. CARDIOVASCULAR: +S1/S2 RESPIRATORY: anterior rider clear. GASTROINTESTINAL: Abdomen soft, mild distension EXTREMITIES: No cyanosis. MUSCULOSKELETAL: Adequate muscle tone. NEUROLOGICAL: intubated, sedated. Assessment/Plan Problem List: (1) Chronic ITP (idiopathic thrombocytopenia) Status: Chronic Plan: 05/18/16: platelet count improved to 38K today. continue plasma exchange 05/17/16: platelet count improved to 19K then dipped to 13k today. His LDH is improving (decreasing). will order three additional plasma exchange's and then reassess. 05/16/2016: PLT count remains at 2K. He had plasma exchange last night, multiple units PLTs and FFP. On promacta. 05/15/16: Platelet count 2K today at 0300. He is getting a total of 2 units platelets, 1 unit PRBC's. Will recheck labs later this afternoon post transfusion. Discussed with RN. Pt to be re-intubated today from combination of low blood counts, Afib with RVR, and low arterial O2 from ABG's this am. At Mr. Trevino request, I personally called and spoke with pt's daughter to inform her of re-intubation. Vascath placed for plasma pheresis. Spoke with nurse from [facility], gave instructions. Plan for plasma pheresis daily x 3 doses. First dose tomorrow. History: 08/2015: ischemic stroke. started on Eliquis 03/2016: SAH while on Eliquis for afib + ischemic stroke. AC stopped. ITP diagnosis made and patient found to be refractory to steroids. 05/08/2016 IVIG at clinic 05/09/16: platelet tx in clinic. admitted to hospital in Afib w/RVR 05/10/16: IVIG 80G given : PLT count is 7K. 05/11/16: platelet count improved to 32K. (2) Afib Status: Acute Plan: --on Cardizem, metoprolol -- Being monitored in ICU (3) Anemia Status: Acute Plan: -- Transfuse for Hgb less than 8 Assessment 75y/o male admitted with Afib w/ RVR. Hematology following for severe thrombocytopenia of uncertain etiology. h/o Bilateral lower extremity deep venous thromboses. Benign prosthetic hypertrophy. Chronic kidney disease and (stage 2). History of elevated anticardiolipin antibody. Elevated homocystine level. Intracranial hemorrhage in March of 2016. Bleeding duodenal ulcer which was cauterized in August of 2015. ischemic stroke in August of 2015. Right carotid endarterectomy with patch angioplasty August 2015. IVC filter placement in 2007, this was removed in 2008. He had a second filter placed in 2016. Plan 1. continue PEX today. 2. monitor CBC, LDH, hepatic function panel 3. continue Promacta Attending Statement remains on vent. On sedation. Respond when sedation is held per RN. plat tx last night. Plat 38. Plasma pheresis today. Continue promacta. d/w RN. The exam, history, and the medical decision-making described in the above note were completed with the assistance of the mid-level provider. I reviewed and agree with the findings presented. I attest that I had a [id number] encounter with the patient on the same day, and personally performed and documented my assessment and findings in the medical record. Claudia Mcclendon May 18, 2016 08:31 Baltazar Soriano MD May 18, 2016 18:01
[2016-05-18] MEDS: DILTIAZEM 125 MG/NS 100 ML IV SCH ×4 (09:16→17:12)
[2016-05-18] MEDS: PANTOPRAZOLE SODIUM 40 MG VIAL IV PUSH SCH (09:17)
[2016-05-18] MEDS: CALCIUM/VITAMIN D 250 MG/125 U TAB PO SCH (09:18)
[2016-05-18] MEDS: MAGNESIUM OXIDE 400 MG TAB PO SCH (09:18)
[2016-05-18] MEDS: ELTROMBOPAG 50 MG TAB PO SCH (09:18)
[2016-05-18] MEDS: ALLOPURINOL 100 MG TAB PO SCH (09:18)
[2016-05-18] MEDS: SODIUM CHLORIDE 1 GRAM TAB PO SCH (09:18)
[2016-05-18] MEDS: DILTIAZEM HCL 90 MG TAB PO SCH ×4 (09:18→19:39)
[2016-05-18] MEDS: POLYETHYLENE GLYCOL 17 GM PKG PO SCH (09:19)
[2016-05-18] MEDS: DOCUSATE SODIUM 100 MG/10 ML UDC PO SCH ×2 (09:19→19:38)
[2016-05-18] MEDS: AZITHROMYCIN INJ 500 MG in SODIUM CHLOR 0.9% 250 ML INJ 250 ML IV SCH (09:19)
[2016-05-18] MEDS: POTASSIUM CHLORIDE 20 MEQ CONTROLLED RELEASE TAB PO SCH (09:19)
[2016-05-18] MEDS: SENNOSIDES SYRUP 8.8 MG/5 ML CUP PO SCH (09:19)
[2016-05-18] MEDS: SODIUM CHLORIDE 0.9% FLUSH 5 ML FLUSH FLUSH SCH ×2 (09:20→19:39)
[2016-05-18] MEDS: LACTULOSE SYRUP 20 GM/30 ML CUP PO SCH (09:20)
[2016-05-18] MEDS: predniSONE 20 MG TAB PO SCH (09:20)
[2016-05-18 10:22] LABS: BANDS 2 % (0-6); MYELOCYTES 1 % (0-0); NEUTROPHIL # MANUAL DIFF 8.5 TH/MM3 (1.8-7.7); POLYS (SEG NEUTROPHILS) 85 % (16-70); WBC DIFF SAMPLE 100
[2016-05-18 10:23] LABS: PLATELET ESTIMATE SMEAR LOW (NORMAL); PLATELET MORPHOLOGY NORMAL (NORMAL); POLYCHROMASIA 2.5 % (0.0-1.9); SCAN/DIFF FINAL DIFF MANUAL
[2016-05-18] MEDS ORDERED: ANTICOAGULANT CITRATE DEXTROSE SOLN-A 1L ONE (10:30)
[2016-05-18] MEDS ORDERED: methylPREDNISolone SOD SUCC 125 MG/2 ML VIAL IV ONE (11:00)
[2016-05-18] MEDS ORDERED: diphenhydrAMINE HCL 50 MG/ML VIAL IV PRN (11:00)
[2016-05-18] MEDS ORDERED: FAMOTIDINE 20 MG/2 ML VIAL IV ONE (11:00)
[2016-05-18] MEDS ORDERED: SODIUM CHLOR 0.9% IV ONE (11:00)
[2016-05-18] MEDS ORDERED: SODIUM CHLOR 0.9% 1000 ML INJ 1,000 ML IV ONE (11:00)
[2016-05-18] MEDS ORDERED: CALCIUM GLUCONATE IV ONE (11:00)
--- NOTE | 2016-05-18 11:50 | HHI.IDPN ---
Note Infectious Disease Note Patient deteriorated from respiratory and reintubated 05/15/16. Aspirated just before intubation. Notes reviewed. No new events overnight. Receiving Plasma pheresis. Unresponsive on the vent. Afebrile PCP stain not yet available. PAST MEDICAL HISTORY 1. Bilateral lower extremity deep thromboses. 2. Hypertension. 3. ITP. 4. Chronic kidney disease. 5. Benign prostatic hypertrophy. 6. Intracranial hemorrhage March 2016. 7. Ischemic stroke August 2015. 8. GI bleed August 2015. 9. Right total hip replacement. 10. Tonsillectomy. 11. Right carotid endarterectomy with patch angioplasty. 12. IVC filter placement 2015. 13. Prior IVC filter placement 2007 which was removed in 2008. 14. Appendectomy. 15. Vasectomy. ALLERGIES PREDNISONE. THE PATIENT DEVELOPED MILD ITCHING. ANTIBIOTICS 1. Piperacillin / tazobactam. 2. Azithromycin. 3. Pentamidine. SOCIAL HISTORY No tobacco use. Occasional alcohol in the form of beer. No illicit drugs. OBJECTIVE: Vital Signs Date Time Temp Pulse Resp B/P Pulse Ox O2 Delivery O2 Flow Rate FiO2 05/18/16 10:00 85 05/18/16 08:00 40 05/18/16 08:00 80 05/18/16 08:00 97 Mechanical Ventilator 40 05/18/16 07:45 99 40 05/18/16 06:00 103 05/18/16 04:17 99 40 05/18/16 04:00 40 05/18/16 04:00 89 05/18/16 04:00 99 Mechanical Ventilator 40 05/18/16 04:00 98.3 89 16 157/84 99 05/18/16 02:00 78 05/18/16 00:00 72 05/18/16 00:00 98.1 72 22 147/84 99 05/18/16 00:00 99 Mechanical Ventilator 40 05/18/16 00:00 40 05/17/16 23:52 99 40 05/17/16 22:00 71 05/17/16 20:30 98 40 05/17/16 20:00 40 05/17/16 20:00 79 05/17/16 20:00 97.6 79 20 138/73 99 05/17/16 20:00 98 Mechanical Ventilator 40 05/17/16 18:00 97 05/17/16 16:00 95 Mechanical Ventilator 40 05/17/16 16:00 90 05/17/16 16:00 40 05/17/16 16:00 98.6 68 15 115/68 98 05/17/16 15:35 98 40 05/17/16 14:00 98 05/17/16 12:01 98 40 05/17/16 12:00 40 05/17/16 12:00 98.2 87 16 142/89 98 05/17/16 12:00 95 05/17/16 12:00 95 Mechanical Ventilator 40 05/17/16 05/17/16 05/18/16 15:00 23:00 07:00 Intake Total 916 ml 1046 ml 833 ml Output Total 950 ml 600 ml 650 ml Balance -34 ml 446 ml 183 ml IV Total 916 ml 622 ml 350 ml Tube Feeding 224 ml 383 ml Other 200 ml 100 ml Output Urine Total 950 ml 600 ml 650 ml # Bowel Movements 0 1 0 Laboratory Tests Test 05/16/16 05/17/16 05/18/16 19:40 04:50 05:25 White Blood Count 8.1 TH/MM3 9.5 TH/MM3 9.7 TH/MM3 Red Blood Count 2.99 MIL/MM3 3.11 MIL/MM3 3.15 MIL/MM3 Hemoglobin 8.9 GM/DL 9.3 GM/DL 9.5 GM/DL Hematocrit 25.7 % 26.8 % 27.5 % Mean Corpuscular Volume 86.0 FL 86.1 FL 87.2 FL Mean Corpuscular Hemoglobin 29.9 PG 29.9 PG 30.0 PG Mean Corpuscular Hemoglobin 34.8 % 34.8 % 34.5 % Concent Red Cell Distribution Width 15.6 % 16.0 % 16.1 % Platelet Count 19 TH/MM3 13 TH/MM3 38 TH/MM3 Mean Platelet Volume 9.3 FL 9.5 FL 9.6 FL Neutrophils (%) (Auto) 89.5 % 91.3 % 90.4 % Lymphocytes (%) (Auto) 7.3 % 6.7 % 6.1 % Monocytes (%) (Auto) 3.1 % 1.8 % 3.3 % Eosinophils (%) (Auto) 0.0 % 0.0 % 0.0 % Basophils (%) (Auto) 0.1 % 0.2 % 0.2 % Neutrophils # (Auto) 7.3 TH/MM3 8.7 TH/MM3 8.8 TH/MM3 Lymphocytes # (Auto) 0.6 TH/MM3 0.6 TH/MM3 0.6 TH/MM3 Monocytes # (Auto) 0.3 TH/MM3 0.2 TH/MM3 0.3 TH/MM3 Eosinophils # (Auto) 0.0 TH/MM3 0.0 TH/MM3 0.0 TH/MM3 Basophils # (Auto) 0.0 TH/MM3 0.0 TH/MM3 0.0 TH/MM3 CBC Comment AUTO DIFF AUTO DIFF AUTO DIFF Differential Comment AUTO DIFF FINAL DIFF FINAL DIFF CONFIRMED MANUAL MANUAL Platelet Estimate LOW RARE LOW Platelet Morphology Comment ENLARGED NORMAL NORMAL Polychromasia 2.0 % 2.5 % 2.5 % Differential Total Cells 100 100 Counted Neutrophils % (Manual) 75 % 85 % Band Neutrophils % 13 % 2 % Lymphocytes % 6 % 8 % Monocytes % 5 % 4 % Neutrophils # (Manual) 8.5 TH/MM3 8.5 TH/MM3 Metamyelocytes 1 % Myelocytes 1 % Laboratory Tests Test 05/17/16 05/17/16 05/18/16 04:50 05:40 05:25 Sodium Level 147 MEQ/L 146 MEQ/L Potassium Level 3.5 MEQ/L 3.5 MEQ/L Chloride Level 106 MEQ/L 104 MEQ/L Carbon Dioxide Level 33.5 MEQ/L 34.5 MEQ/L Anion Gap 8 MEQ/L 8 MEQ/L Blood Urea Nitrogen 37 MG/DL 47 MG/DL Creatinine 1.60 MG/DL 1.59 MG/DL Estimat Glomerular Filtration 42 ML/MIN 42 ML/MIN Rate Random Glucose 190 MG/DL 248 MG/DL Calcium Level 8.7 MG/DL 9.0 MG/DL Phosphorus Level 4.9 MG/DL 4.3 MG/DL Magnesium Level 2.4 MG/DL 2.5 MG/DL Total Bilirubin 1.4 MG/DL 1.1 MG/DL Aspartate Amino Transf 21 U/L 35 U/L (AST/SGOT) Alanine Aminotransferase 23 U/L 33 U/L (ALT/SGPT) Alkaline Phosphatase 57 U/L 59 U/L Total Protein 6.3 GM/DL 6.2 GM/DL Albumin 3.0 GM/DL 3.0 GM/DL Lactate Dehydrogenase 335 U/L 325 U/L Direct Bilirubin 0.4 MG/DL Indirect Bilirubin 0.7 MG/DL IMAGING: Chest X-Ray 05/17/16 0000 Signed Impressions: Service Date/Time: Tuesday, May 17, 2016 14:46 - CONCLUSION: 1. Patchy bilateral basilar airspace disease stable to slightly increased from May 15. The support apparatus is unchanged. Yayo Murphy MD Chest X-Ray 05/15/16 0000 Signed Impressions: Service Date/Time: May 08:43 - CONCLUSION: Increase in bilateral basilar predominant pulmonary opacity indicating possible pulmonary edema. Likely small left pleural effusion. Bj Harrison MD Chest X-Ray 05/14/16 0600 Signed Impressions: Service Date/Time: Saturday, May 14, 2016 04:21 - CONCLUSION: Endotracheal tube and nasogastric tube removed. No significant change mild patchy air space opacities. Davidson Skelton MD CT Angiography 05/10/16 0000 Signed Impressions: Service Date/Time: Wednesday, May 11, 2016 07:53 - CONCLUSION: 1. No evidence of PE. 2. Diffuse interstitial infiltrates throughout most of the right lung. 3. Scattered interstitial infiltrates throughout the left lung. Markus Guzman MD PHYSICAL EXAMINATION GENERAL: Non responsive. HEENT: No icterus. Oral mucosa moist. LUNGS: Bibasilar rhonchi same. HEART: Irregular rate and rhythm. CHARIS. ABDOMEN: Decreased bowel sounds, soft. EXTREMITIES: No clubbing or cyanosis. Trace edema. SKIN: No rash. NEUROLOGICAL: Unable to assess. IMPRESSION 1. Bilateral lung infiltrates in patient who has ITP and likely is immune suppressed and likely may have pulmonary opportunistic infection. 2. Pneumonia. Lung infiltrates. 3. Acute respiratory failure. extubated. Reintubated. 4. Chronic kidney disease. 5. Thrombocytopenia secondary to ITP. RECOMMENDATIONS 1. Monitor sputum PCP. 2. Continue piperacillin / tazobactam. 3. Continue azithromycin. 4. Continue Pentamidine IV for PCP coverage. 5. Monitor bronchoscopy culture. 6. Monitor clinical status. Pankaj Aparicio MD May 18, 2016 11:50
[2016-05-18] MEDS: PENTAMIDINE INJ 300 MG in DEXTROSE 5% IN WATER INJ 250 ML IV SCH ×2 (14:29)
[2016-05-18] MEDS ORDERED: DEXTROSE 50% IN WATER 50 ML VIAL(D50) IV PUSH PRN (16:00)
[2016-05-18] MEDS ORDERED: GLUCAGON 1 MG/ML VIAL OTHER PRN (16:00)
--- NOTE | 2016-05-18 16:06 | HHI.CCPN ---
Subjective Remarks/Hospital Course 75-year-old male patient with history of bilateral lower extremity DVTs, BPH, chronic renal failure, Elevated Anticardiolipin antibody level, Elevated homocysteine level, Gout, Hypertension, Hyponatremia, Idiopathic Thrombocytopenic Purpura, Intracranial hemorrhage in 2016, Bleeding duodenal ulcer and Ischemic stroke in 2016. Patient was sent to the emergency department 05/10/16 from his oncologist office for rapid a.fib with RVR. Patient had received 2 units of platelets prior. Patient has a history of A. Fibulation, he had to sit down, but denies chest pain or palpitations feeling lightheaded or dizzy. While on telemetry floor he has developed respiratory difficulty and is now transferred to ICU. 05/11: Currently on BiPAP with 65% FiO2. Tachypneic. CXR pending for today, ABG also pending. CT pulmonary angiogram is pending at this time. Remains in atrial fibrillation with rapid ventricular response on Cardizem 15 mg per hour. Chest x-ray from yesterday shows predominantly right upper lobe lung infiltrates. IV Zosyn and azithromycin just ordered. Send cultures 05/12: Overnight remained on BIPAP, required 60% FiO2. CXR today persistent diffuse bilateral interstitial infiltrates right more than left despite adequate diuresis. With IV Lasix patient had > 5 L urine output. CMP pending. Remains in atrial fibrillation but rate controlled. There is concern about opportunistic lung infection including PCP pneumonia. Proceed with elective intubation, consult pulmonary for BAL, D/W Dr. Grace 05/13: Patient was intubated yesterday for progressive lung infiltrates hypoxia. Post intubation Dr. Mondragon was consulted who performed a bronchoscopy/BAL for PCP pneumonia evaluation. Today patient wakes up and follows commands easily. FiO2 40% chest x-ray shows interval improvement. Creatinine yesterday had increased to 1.9, stop Lasix gentle hydration with normal saline 50 ML per hour for 24 hours 05/14: Extubated yesterday, breathing comfortably on aerosol mask. Plt 7000, getting transfused. UO 2.[address] Armenta starting Promacta 50 mg today ( thrombopoietin analog) 2/2: Increasing respiratory distress today chest x-ray shows worsening bilateral pulmonary infiltrates. Hypoxemic placed on 100% nonrebreather with PO2 74. Discussed extensively with Dr. Armenta. Possibility of TTP cannot be completely ruled out. We'll proceed with endotracheal intubation and then place a Vas-Cath. Plasmapheresis will be started. Prior to Procedures 3 units of FFP and 2 units of plasma will be transfused also patient is getting 2 units of PRBC anemia with hemoglobin 6.4. His platelet count is 4000 today After induction for intubation, patient had large biliary vomiting. A small amount of aspiration noted 05/16: Currently sedated on the ventilator. Afebrile. Transfuse 2 packed platelets today. Received plasmapheresis. 05/17: Currently sedated on the ventilator. Afebrile. Transfuse 1 packed blood studies. 3 more PEX ordered. Discussed with daughter at bedside. Subjective 05/18: Currently afebrile. Sedated on the ventilator. Day 1 of 3 of PEX. No bowel movement overnight. Tolerating tube feeding. Objective Vital Signs Date Time Temp Pulse Resp B/P Pulse Ox O2 Delivery O2 Flow Rate FiO2 05/18/16 15:05 98 40 05/18/16 14:00 82 05/18/16 12:00 Mechanical Ventilator 05/18/16 04:00 98.3 16 157/84 05/15/16 09:54 15.00 Intake and Output 05/17/16 05/17/16 05/18/16 08:00 16:00 00:00 Intake Total 469 ml 916 ml 1046 ml Output Total 525 ml 950 ml 600 ml Balance -56 ml -34 ml 446 ml Result Diagram: 05/18/16 0525 05/18/16 0525 Imaging Last Impressions Chest X-Ray 05/17/16 0000 Signed Impressions: Service Date/Time: Tuesday, May 17, 2016 14:46 - CONCLUSION: 1. Patchy bilateral basilar airspace disease stable to slightly increased from May 15. The support apparatus is unchanged. Yayo Murphy MD CT Angiography 05/10/16 0000 Signed Impressions: Service Date/Time: Wednesday, May 11, 2016 07:53 - CONCLUSION: 1. No evidence of PE. 2. Diffuse interstitial infiltrates throughout most of the right lung. 3. Scattered interstitial infiltrates throughout the left lung. Markus Guzman MD Objective Remarks GENERAL: Well-nourished, well-developed patient, currently orotracheally intubated SKIN: Warm and dry. HEAD: Normocephalic. EYES: No scleral icterus. No injection or drainage. NECK: Supple, trachea midline. No JVD or lymphadenopathy. CARDIOVASCULAR: IR. S1, S2 no S4. No murmurs RESPIRATORY: Breath sounds equal bilaterally, with coarse crackles bilateral lung rider, and scattered wheezes. GASTROINTESTINAL: Abdomen soft, non-tender, nondistended. Positive bowel sounds MUSCULOSKELETAL: No peripheral edema. BACK: Nontender without obvious deformity. No CVA tenderness. EXTREMITIES: No pedal edema NEURO: Sedated on the ventilator. Procedures None A/P Problem List: (1) Acute hypoxemic respiratory failure ICD Code: J96.01 Status: Acute (2) Pneumonia, rule out opportunistic infection Status: Acute (3) Thrombocytopenia ICD Code: D69.6 Status: Acute (4) CHF (congestive heart failure) ICD Code: I50.9 Status: Acute (5) Coagulopathy ICD Code: D68.9 Status: Acute (6) Afib ICD Code: I48.91 Status: Acute (7) Chronic ITP (idiopathic thrombocytopenia) ICD Code: D69.3 Status: Chronic (8) Respiratory distress ICD Code: R06.00 Status: Acute (9) Atrial fibrillation with RVR ICD Code: I48.91 Status: Acute (10) Leg DVT (deep venous thromboembolism), chronic ICD Code: I82.509 Status: Chronic (11) Subarachnoid bleed ICD Code: I60.9 Status: Chronic Assessment and Plan NEURO: History of CVA 08/2015 Intracranial hemorrhage in 03/2016 -propofol for sedation with when necessary fentanyl while intubated -Goal of RASS-2 -Daily sedation vacation RESP: Acute hypoxemic respiratory failure ARDS TRALI versus pneumonia (Opportunistic) History of bilateral lower extremity DVTs Aspiration pneumonitis - Patient was extubated on 05/13/16, reintubated 2/2 for worsening respiratory failure - Clinical picture is more like ARDS secondary to either infection or transfusion-related - Low tidal volume mechanical ventilation - DuoNeb every 6 hours and when necessary, ventilator bundle - Unable to anticoagulate due to severe thrombocytopenia - S/p IVC filter in 2015 CVS: A. Fib rapid rate controlled Possible CHF (More likely atypical pneumonia/ARDS) - Cardizem gtt at 10 mg an hour as rate controlled. Cardiology -Dr. Murphy - Receiving by mouth 90 mg every 6 hours Cardizem and Lopressor 5 every 6 - Continue To take Cardura 4 mg by mouth daily - Cannot anticoagulate due to severe thrombocytopenia GI: Switch to tube feeds of vital high protein goal 40 cc an hour Protonix 40 mg daily. GI prophylaxis. At 40 mg daily -Colace/Senokot/MiraLAX/lactulose for bowel regimen : Acute on Chronic kidney disease stage 2 BPH - monitor electrolytes and creatinine - monitor urine output - Creat improving with gentle hydration Continue Cardura four milligrams daily for BPH HEME: Chronic ITP with acute exacerbation Unable to rule out TTP - D/W Dr Armenta Hem-Onc. Cannot completely rule out possibility of TTP, increase IVIG dosing and start plasmapheresis - 2 additional PEX plan for Thursday and Thursday - Continue prednisone 20 mg daily, 125 mg Solu-Medrol IV daily [address] Armenta. - Promacta 50 mg today (thrombopoietin analog), per Dr. Armenta. - Splenectomy may be considered. - Monitor LDH, hepatic profile and BMP daily ID: Sepsis Atypical Pneumonia -Unable to rule out bacterial versus opportunistic pneumonia. F/u panculture, urine for Legionella and pneumococcal antigen, influenza. BAL studies Pending -PJP stain and bronch cultures still incubating -Continue Zosyn and azithromycin. Started on pentamidine by ID for prophylaxis -ID and pulmonary. s/p Dr. Redding performed bronch/BAL on 05/12 ENDO/FEN: Hypopotassemia History of gout -Electrolyte replacement per protocol Restart allopurinol 100 mg daily DVT/GI prophylaxis - TEDs/SCDs/Protonix - s/p IVC filter most recently in 2015. Cannot anticoagulate due to severe thrombocytopenia and recent intracranial hemorrhage Critical Care: The total critical care time was 35 minutes. Time to perform other separately billable procedures was not included in the critical care time. Discussed with daughter at bedside. Care plan discussed and all questions answered Isidoro Flower MD May 18, 2016 16:06
[2016-05-18] MEDS ORDERED: DILTIAZEM HCL 25 MG/5 ML VIAL IV ONE (17:00)
[2016-05-18] MEDS ORDERED: DIGOXIN 0.5 MG/2 ML VIAL IV PUSH ONE ×2 (17:15→23:45)
[2016-05-18] MEDS ORDERED: METOPROLOL TARTRATE 5 MG/5 ML VIAL IV PUSH ONE (17:15)
[2016-05-18] MEDS ORDERED: POTASSIUM CHLOR 20 MEQ PREMIX 100 ML IV ONE (17:15)
[2016-05-18] MEDS ORDERED: fentaNYL DRIP 250 ML IV SCH (17:30)
[2016-05-18] MEDS ORDERED: MIDAZOLAM 100 MG/ML INJ 100 ML IV SCH (17:30)
[2016-05-18] MEDS: INSULIN NovoLIN REGULAR SUPPLEMENTAL SCALE SQ SCH (17:39)
[2016-05-18 18:47] LABS: MAGNESIUM 2.4 MG/DL (1.5-2.5); POTASSIUM 3.9 MEQ/L (3.5-5.1)
[2016-05-18] MEDS: DOXAZOSIN MESYLATE 4 MG TAB PO SCH (19:39)
[2016-05-18] MEDS ORDERED: CHLORHEXIDINE 0.12% (ORAL KIT) 15 ML CUP MT SCH (20:00)
[2016-05-18 23:52] LABS: VWF CLEAVING PROT ACT 120 (68-163); VWF PROTEASE INH ND BEU (<0.4)
[2016-05-19] VITALS (13 sets, daily range): BP systolic 114–144; BP diastolic 59–92; PULSE 75–95; RESP 16–17; TEMP 97.5–98.2; O2SAT 0–100
[2016-05-19] MEDS: METOPROLOL TARTRATE 5 MG/5 ML VIAL IV PUSH SCH ×3 (01:35→12:42)
[2016-05-19] MEDS: RESP: ALBUTEROL 2.5 MG/IPRATROPIUM 0.5 MG NEB (SCH) NEB ×2 (03:47→08:47)
--- NOTE | 2016-05-19 04:24 | RADRPT ---
EXAM DATE/TIME: 05/19/2016 03:51 [place] COMPARISON: CHEST SINGLE AP, May 17, 2016, 14:46. INDICATIONS : Respiratory failure. MEDICAL HISTORY : Hypertension. SURGICAL HISTORY : None. ENCOUNTER: Subsequent ACUITY: 1 week PAIN SCORE: Non-responsive. LOCATION: Bilateral chest FINDINGS: Cardiomegaly and basilar consolidation bilaterally greatest at the left lower lobe. Right jugular alyssa e tip overlies the SVC. Left jugular line tip overlies the expected location of the left brachiocepha lic vein. Endotracheal tube tip at the level of the clavicles. Enteric tube courses beneath the diaph ragm. CONCLUSION: No significant change has occurred. Fernando Villasenor MD on May 19, 2016 at 4:22 Board Certified Radiologist. This report was verified electronically.
[2016-05-19] MEDS: DILTIAZEM 125 MG/NS 100 ML IV SCH ×2 (05:13)
[2016-05-19] MEDS: INSULIN NovoLIN REGULAR SUPPLEMENTAL SCALE SQ SCH ×2 (05:13)
[2016-05-19 06:11] LABS: AUTOMATED NEUTROPHIL # 7.2 TH/MM3 (1.8-7.7); BASOPHIL % 0.1 % (0.0-2.0); HEMATOCRIT 27.7 % (39.0-51.0); LYMPH % 3.9 % (9.0-44.0); LYMPHOCYTE # 0.3 TH/MM3 (1.0-4.8); MEAN CELL VOLUME 87.8 FL (80.0-100.0); MEAN CORPUSCULAR HEMOGLOBIN 29.6 PG (27.0-34.0); MEAN CORPUSCULAR HGB CONC 33.7 % (32.0-36.0); PLATELET COUNT 39 TH/MM3 (150-450); RED BLOOD COUNT 3.15 MIL/MM3 (4.50-5.90); RED CELL DISTRIBUTION WIDTH 16.5 % (11.6-17.2); WHITE BLOOD COUNT 7.8 TH/MM3 (4.0-11.0)
[2016-05-19 06:16] LABS: HEMO FLAGS AUTO DIFF
[2016-05-19 06:35] LABS: BICARBONATE 34.6 MEQ/L (21.0-32.0); MAGNESIUM 2.6 MG/DL (1.5-2.5); POTASSIUM 3.8 MEQ/L (3.5-5.1)
[2016-05-19 06:47] LABS: APTT (PATIENT) 21.1 SEC (24.3-30.1); INTERNATIONAL NORMALIZED RATIO 1.1 RATIO
[2016-05-19 06:54] LABS: DIGOXIN 0.6 NG/ML (0.8-2.0); INDIRECT BILIRUBIN 0.5 MG/DL (0.0-0.8); TOTAL BILIRUBIN ADULT 0.8 MG/DL (0.2-1.0)
--- NOTE | 2016-05-19 07:39 | PD.ONC.PN ---
Subjective Subjective Remarks Mr. Trevino remains intubated and sedated. Over the weekend he continued PLEX, PLTs have improved to 39K. Last PLT transfusion was on Thursday. Per his daughter, he responds when sedation is weaned off. He is now on multiple antibiotics for suspected pneumonia. Afib with RVR continues, he is requiring IV rate control meds. Objective Data Date Time Temp Pulse Resp B/P Pulse Ox O2 Delivery O2 Flow Rate FiO2 05/19/16 06:00 81 05/19/16 04:18 100 50 05/19/16 04:00 98.2 79 17 123/92 100 05/19/16 04:00 40 05/19/16 04:00 79 05/19/16 02:00 75 05/19/16 00:14 100 50 05/19/16 00:00 40 05/19/16 00:00 Mechanical Ventilator 05/19/16 00:00 98.0 77 17 114/59 100 05/19/16 00:00 77 05/18/16 22:00 74 05/18/16 20:00 98.2 71 17 105/77 100 05/18/16 20:00 40 05/18/16 20:00 Mechanical Ventilator 05/18/16 20:00 71 05/18/16 19:27 99 50 05/18/16 18:00 87 05/18/16 16:00 40 05/18/16 16:00 98.5 80 17 132/79 98 05/18/16 16:00 95 Mechanical Ventilator 40 05/18/16 16:00 91 05/18/16 15:05 98 40 05/18/16 14:00 82 05/18/16 12:22 99 40 05/18/16 12:00 96 05/18/16 12:00 40 05/18/16 12:00 98.4 71 18 133/75 99 05/18/16 12:00 96 Mechanical Ventilator 40 05/18/16 10:00 85 05/18/16 08:00 40 05/18/16 08:00 80 05/18/16 08:00 97 Mechanical Ventilator 40 05/18/16 08:00 98.2 99 17 137/73 98 05/18/16 07:45 99 40 05/19/16 05/19/16 05/19/16 07:00 15:00 23:00 Intake Total 732 ml Output Total 550 ml Balance 182 ml Result Diagram: 05/19/16 0600 05/19/16 0600 Laboratory Results Laboratory Tests Test 05/18/16 05/18/16 05/19/16 17:53 21:24 06:00 Sodium Level 148 MEQ/L 149 MEQ/L Potassium Level 3.9 MEQ/L 3.8 MEQ/L Chloride Level 104 MEQ/L 106 MEQ/L Carbon Dioxide Level 34.0 MEQ/L 34.6 MEQ/L Anion Gap 10 MEQ/L 8 MEQ/L Blood Urea Nitrogen 52 MG/DL 60 MG/DL Creatinine 1.83 MG/DL 1.70 MG/DL Estimat Glomerular Filtration 36 ML/MIN 39 ML/MIN Rate Random Glucose 368 MG/DL 381 MG/DL Calcium Level 9.2 MG/DL 9.2 MG/DL Phosphorus Level 5.9 MG/DL 4.5 MG/DL Magnesium Level 2.4 MG/DL 2.6 MG/DL Troponin I 0.09 NG/ML 0.09 NG/ML Thyroid Stimulating Hormone 0.422 uIU/ML [address] [place] [address] Blood Bank Comment White Blood Count 7.8 TH/MM3 Red Blood Count 3.15 MIL/MM3 Hemoglobin 9.3 GM/DL Hematocrit 27.7 % Mean Corpuscular Volume 87.8 FL Mean Corpuscular Hemoglobin 29.6 PG Mean Corpuscular Hemoglobin 33.7 % Concent Red Cell Distribution Width 16.5 % Platelet Count 39 TH/MM3 Mean Platelet Volume 9.7 FL Neutrophils (%) (Auto) 93.0 % Lymphocytes (%) (Auto) 3.9 % Monocytes (%) (Auto) 3.0 % Eosinophils (%) (Auto) 0.0 % Basophils (%) (Auto) 0.1 % Neutrophils # (Auto) 7.2 TH/MM3 Lymphocytes # (Auto) 0.3 TH/MM3 Monocytes # (Auto) 0.2 TH/MM3 Eosinophils # (Auto) 0.0 TH/MM3 Basophils # (Auto) 0.0 TH/MM3 CBC Comment AUTO DIFF Prothrombin Time 12.0 SEC Prothromb Time International 1.1 RATIO Ratio Activated Partial 21.1 SEC Thromboplast Time Fibrinogen 180 mg/dL Lactic Acid Level 3.7 mmol/L Total Bilirubin 0.8 MG/DL Direct Bilirubin 0.3 MG/DL Indirect Bilirubin 0.5 MG/DL Aspartate Amino Transf 25 U/L (AST/SGOT) Alanine Aminotransferase 37 U/L (ALT/SGPT) Alkaline Phosphatase 51 U/L Lactate Dehydrogenase 240 U/L Total Protein 6.0 GM/DL Albumin 3.1 GM/DL Digoxin Level 0.6 NG/ML Imaging Studies Last 24 hours Impressions Chest X-Ray 05/19/16 0600 Signed Impressions: Service Date/Time: Thursday, May 19, 2016 03:51 - CONCLUSION: No significant change has occurred. Fernando Villasenor MD Administered Medications Medications (Trade) Dose Ordered Sig/Jeremy Route PRN Reason Start Time Stop Time Status Last Admin Dose Admin IV Flush (NS Flush) 2 ml BID FLUSH 05/09/16 21:00 05/18/16 19:39 Acetaminophen (Tylenol) 650 mg Q4H PRN PO TEMP > 100.4 05/09/16 18:00 05/13/16 12:03 Ondansetron HCl (Zofran Inj) 4 mg Q6H PRN IVP NAUSEA OR VOMITING 05/09/16 18:00 05/11/16 22:43 Doxazosin Mesylate (Cardura) 4 mg HS PO 05/09/16 21:00 05/18/16 19:39 Sodium Chloride (Sodium Chloride) 1 gm DAILY PO 05/10/16 09:00 05/18/16 09:18 Calcium/Vitamin D (Oscal-D 250-125) 250 mg DAILY PO 05/10/16 09:00 05/18/16 09:18 Magnesium Oxide (Mag-Ox) 400 mg DAILY PO 05/10/16 09:00 05/18/16 09:18 Miscellaneous Information Patient in critical care unit? Ass... [id number] XX 05/10/16 23:45 05/10/16 23:45 Piperacillin Sod/ Tazobactam Sod 50 ml @ 100 mls/hr Q6H IV 05/11/16 08:00 05/19/16 00:00 Azithromycin/ Sodium Chloride (Zithromax Inj/ NS 250 ml Inj) 250 ml @ 250 mls/hr Q24H IV 05/11/16 08:00 05/18/16 09:19 Potassium Chloride 20 meq 20 meq DAILY PO 05/11/16 09:00 05/18/16 09:19 Potassium Chloride 100 ml @ 50 mls/hr Q2H PRN IV For Potassium 2.8 - 3.2 mEq/L 05/11/16 07:30 05/16/16 06:33 Potassium Chloride (KCl 20 Meq Premix Inj) 100 ml @ 50 mls/hr Q2H PRN IV For Potassium 2.8 - 3.2 mEq/L 05/11/16 07:30 05/18/16 17:12 Potassium Chloride (KCl 40 Meq/30 ml Liq) 40 meq UNSCH PRN PO/TUBE For Potassium 3.3 - 3.5 mEq/L 05/11/16 07:30 05/18/16 17:10 Diltiazem HCl (Cardizem) 90 mg QID PO 05/11/16 13:00 05/18/16 19:39 Eltrombopag 50 mg 50 mg DAILY PO 05/14/16 09:00 05/18/16 09:18 Diltiazem HCl/ Sodium Chloride (Cardizem Inj/NS Inj) 125 ml @ 0 mls/hr TITRATE IV 05/13/16 15:30 05/19/16 05:13 Prednisone (Deltasone) 20 mg DAILY PO 05/14/16 09:00 05/18/16 09:20 Acetaminophen/ Hydrocodone Bitart ([place] 5-325 Mg) 1 tab Q6H PRN PO PAIN SCALE 6 TO 10 05/14/16 18:30 05/14/16 18:43 Chlorhexidine Gluconate 15 ml 15 ml BID@08,20 MT 05/15/16 20:00 05/18/16 19:39 Propofol 100 ml @ 0 mls/hr TITRATE IV 05/15/16 12:15 05/18/16 23:59 Pentamidine Isethionate/ Dextrose (Pentam Inj/D5W Inj) 250 ml @ 250 mls/hr Q24H IV 05/15/16 14:00 05/18/16 14:29 Metoprolol Tartrate (Lopressor Inj) 5 mg Q6H IV PUSH 05/16/16 20:00 05/19/16 01:35 Pantoprazole Sodium (Protonix Inj) 40 mg Q24H IV PUSH 05/18/16 09:00 05/18/16 09:17 Docusate Sodium (Colace Liq) 100 mg Q12HR PO 05/16/16 21:00 05/18/16 19:38 Sennosides (Senna Liq) 8.8 mg DAILY PO 05/17/16 09:00 05/18/16 09:19 Polyethylene Glycol (Miralax) 17 gm DAILY PO 05/17/16 09:00 05/18/16 09:19 Lactulose (Lactulose Liq) 30 ml DAILY PO 05/17/16 09:00 05/18/16 09:20 Allopurinol (Zyloprim) 100 mg DAILY PO 05/17/16 09:00 05/18/16 09:18 Insulin Human Regular 1 1 Q6HR SQ 05/18/16 18:00 05/19/16 05:13 Fentanyl Citrate (fentaNYL DRIP) 250 ml @ 0 mls/hr TITRATE IV 05/18/16 17:30 05/18/16 19:38 Objective Remarks GENERAL: Critically ill elderly male, intubated sedated. SKIN: Warm and dry. HEAD: Normocephalic. EYES: No scleral icterus. No injection or drainage. PERRLA. NECK: Supple, trachea midline. No JVD or lymphadenopathy. R sided TLC, L vascath. NO overt bleeding. Intubated. LYMPHATIC: No adenopathy. CARDIOVASCULAR: Irregular rhythm without murmurs. RESPIRATORY: Breath sounds equal bilaterally. Bronchial sounds, decreased bibasilar movement. GASTROINTESTINAL: Protuberant, non tender, no organ enlargement. EXTREMITIES: edema, wrists in soft restraints. MUSCULOSKELETAL: Decreased muscle mass and tone. NEUROLOGICAL: Sedated, non responsive. PSYCHIATRIC: Appropriate mood and affect; insight and judgment normal. Assessment/Plan Problem List: (1) Chronic ITP (idiopathic thrombocytopenia) Status: Chronic Plan: 05/19/2016: Continue PLEX, PLT count is 39K today. No overt bleeding. TMA can not be ruled out. 05/18/16: platelet count improved to 38K today. continue plasma exchange 05/17/16: platelet count improved to 19K then dipped to 13k today. His LDH is improving (decreasing). will order three additional plasma exchange's and then reassess. 05/16/2016: PLT count remains at 2K. He had plasma exchange last night, multiple units PLTs and FFP. On promacta. 05/15/16: Platelet count 2K today at 0300. He is getting a total of 2 units platelets, 1 unit PRBC's. Will recheck labs later this afternoon post transfusion. Discussed with RN. Pt to be re-intubated today from combination of low blood counts, Afib with RVR, and low arterial O2 from ABG's this am. At Mr. Trevino request, I personally called and spoke with pt's daughter to inform her of re-intubation. Vascath placed for plasma pheresis. Spoke with nurse from [facility], gave instructions. Plan for plasma pheresis daily x 3 doses. First dose tomorrow. History: 08/2015: ischemic stroke. started on Eliquis 03/2016: SAH while on Eliquis for afib + ischemic stroke. AC stopped. ITP diagnosis made and patient found to be refractory to steroids. 05/08/2016 IVIG at clinic 05/09/16: platelet tx in clinic. admitted to hospital in Afib w/RVR 05/10/16: IVIG 80G given : PLT count is 7K. 05/11/16: platelet count improved to 32K. (2) Afib Status: Acute Plan: --on Cardizem, metoprolol -- Being monitored in ICU (3) Anemia Status: Acute Plan: -- Transfuse for Hgb less than 8 Assessment 75y/o male admitted with Afib w/ RVR. Hematology following for severe thrombocytopenia of uncertain etiology. h/o Bilateral lower extremity deep venous thromboses. Benign prosthetic hypertrophy. Chronic kidney disease and (stage 2). History of elevated anticardiolipin antibody. Elevated homocystine level. Intracranial hemorrhage in March of 2016. Bleeding duodenal ulcer which was cauterized in August of 2015. ischemic stroke in August of 2015. Right carotid endarterectomy with patch angioplasty August 2015. IVC filter placement in 2007, this was removed in 2008. He had a second filter placed in 2016. Plan 1. continue PEX today. 2. monitor CBC, LDH, hepatic function panel 3. continue Promacta. Disposition: He continues to require vent support, on multiple antibiotics, IV rate control for a fib with RVR. Daughter is concerned, his condition may not improve and that there may be a cascade of issues which will arise. She doubts her father would like to go through all of this aggressive management. She is doubtful he will be able to recover to the point where he will be able to live independently and have the quality of life he wanted for himself. She says her father categorically did not want to be bedbound or long-term bound due to illness. She has therefore requested a palliative care consultation. This is appropriate given the current circumstance. Roger Armenta MD May 19, 2016 07:39
[2016-05-19 08:13] LABS: PLATELET ESTIMATE SMEAR LOW (NORMAL); PLATELET MORPHOLOGY NORMAL (NORMAL)
[2016-05-19 08:14] LABS: SCAN/DIFF AUTO DIFF CONFIRMED
[2016-05-19] MEDS: PANTOPRAZOLE SODIUM 40 MG VIAL IV PUSH SCH (08:51)
[2016-05-19] MEDS: AZITHROMYCIN INJ 500 MG in SODIUM CHLOR 0.9% 250 ML INJ 250 ML IV SCH (08:52)
[2016-05-19] MEDS: CHLORHEXIDINE 0.12% (ORAL KIT) 15 ML CUP MT SCH (08:53)
[2016-05-19] MEDS: PIPERACIL-TAZO 3.375 GM PREMIX 50 ML IV SCH ×2 (08:53)
[2016-05-19] MEDS: DILTIAZEM HCL 90 MG TAB PO SCH ×2 (08:53→12:42)
[2016-05-19] MEDS: predniSONE 20 MG TAB PO SCH (08:54)
[2016-05-19] MEDS: MAGNESIUM OXIDE 400 MG TAB PO SCH (08:58)
[2016-05-19] MEDS: CALCIUM/VITAMIN D 250 MG/125 U TAB PO SCH (08:58)
[2016-05-19] MEDS ORDERED: ANTICOAGULANT CITRATE DEXTROSE SOLN-A 1L SCH (09:00)
[2016-05-19] MEDS: POLYETHYLENE GLYCOL 17 GM PKG PO SCH (09:00)
[2016-05-19] MEDS ORDERED: SODIUM CHLOR 0.9% IV SCH (09:00)
[2016-05-19] MEDS: LACTULOSE SYRUP 20 GM/30 ML CUP PO SCH (09:00)
[2016-05-19] MEDS ORDERED: CALCIUM GLUCONATE IV SCH (09:00)
[2016-05-19] MEDS ORDERED: diphenhydrAMINE HCL 25 MG CAP PO PRN (09:00)
[2016-05-19] MEDS: SENNOSIDES SYRUP 8.8 MG/5 ML CUP PO SCH (09:00)
[2016-05-19] MEDS ORDERED: methylPREDNISolone SOD SUCC 125 MG/2 ML VIAL IV SCH (09:00)
[2016-05-19] MEDS ORDERED: SODIUM CHLOR 0.9% 1000 ML INJ 1,000 ML IV SCH (09:00)
[2016-05-19] MEDS ORDERED: FAMOTIDINE 20 MG/2 ML VIAL IV SCH (09:00)
[2016-05-19] MEDS: DOCUSATE SODIUM 100 MG/10 ML UDC PO SCH (09:00)
[2016-05-19] MEDS: ELTROMBOPAG 50 MG TAB PO SCH (09:01)
[2016-05-19] MEDS: SODIUM CHLORIDE 0.9% FLUSH 5 ML FLUSH FLUSH SCH (09:02)
[2016-05-19] MEDS: POTASSIUM CHLORIDE 20 MEQ CONTROLLED RELEASE TAB PO SCH (09:02)
[2016-05-19] MEDS: ALLOPURINOL 100 MG TAB PO SCH (09:03)
[2016-05-19] MEDS: SODIUM CHLORIDE 1 GRAM TAB PO SCH (09:05)
[2016-05-19] MEDS: PROPOFOL 1000 MG/100 ML INJ 100 ML IV SCH (11:01)
--- NOTE | 2016-05-19 11:50 | PD.CONS ---
Consult Service Palliative Care Consult Requested By Roger Armenta MD. Primary Care Physician Anthony Wick MD Reason for Consultation a. To assist with evaluation and management of symptoms including: shortness of breath and debility. b. To assist medical decision maker(s) with: better understanding of current medical conditions; weighing benefits/burdens of medical treatment options; making medical treatment decisions. HPI History of Present Illness Mr. Trevino is a 75 y/o male with a medical history significant for immune thrombocytopenic purpura, atrial fibrillation, bilateral lower extremity DVTs, BPH, chronic renal failure, gout, hypertension, TIAs in 2016 and GI bleed in 2016. Patient presented to ED on 05/09/16 from his oncologist secondary to rapid irregular heart rate. Patient received 2 units of platelets before arriving to ED. Upon arriving to ED, patient was found in atrial fibrillation with RVR with heart rate in the 160s. She was admitted for further testing and management. While on telemetry floor patient developed respiratory difficulty and was transferred to ICU.He was placed on BiPAP, remaining on atrial fibrillation with RVR. He was intubated on 05/12/16 secondary to progressive hypoxia underwent bronchoscopy/BAL for PCP pneumonia evaluation. CT angiography on 05/10 showed no evidence of PE, diffuse infiltrates throughout most of the right lung and the scatter interstitial infiltrate throughout the left lung. Patient was extubated on 05/13/16; however, was reintubated on 05-30 secondary to progressive respiratory distress. Platelet count on 05/15/16 of 2, and received 3 units of FFP 2 units of plasma as well as 2 units of PRBC for Hgb of 6.4. Patient was started on plasmapheresis. Patient is currently on day #4 of plasmapheresis and as of today, has been transfused a total of 64 units FFP's, 17 units of platelets and and 3 packs of red blood cells. Patient remains intubated on mechanical ventilation, likely secondary to ARDS from infection or transfusion-related. Patient remains in A. fib, rate controlled on Cardizem drip. Infectious diseases is following secondary to atypical pneumonia/sepsis. Patient currently on antibiotic. CXR today showing no significant changes. Lab work today to include WBC 7.8, hemoglobin 9.3, and platelet count of 39. Sodium 149, K3.8, BUN/creatinine 60/ 1.70. LFTs within normal limits. Troponin 0.09. Albumin 3.1. Lactic acid 3.7. Palliative care has been consulted to assist with goal clarification in the setting of patient's critical condition and low likelihood of an improved quality of life or survival. Patient seen in ICU. No family at bedside. Remains intubated on mechanical ventilation, currently on PRVC mode at 40% FiO2. Patient opening eyes to voice, following some simple commands such as "squeeze my hand". Noting head to yes/ no questions, nodding yes when asked about pain, reporting legs pain. Met with daughter Tana. Medical update provided. Daughter tells me that patient has been having some functional decline for the last year, 2 hospitalizations in 2016 secondary to TIA. Patient requiring assistance with ADLs. Residing independently at home with son Neal. Daughter tells me that patient has always been very clear regarding wishes relating to life-prolonging measures. As per daughter, patient has verbalized multiple times that in the event of an acute event with a poor prognosis, he will like to be let go peacefully. Daughter indicates that patient's #1 priority is going back to independent living and that if he is unable to do so, he'll wouldn't want to continue living. Patient completed living well in 2012 indicating the above. Daughter electing to transition patient to comfort directed care/withdrawal my support in the setting of his worsening clinical condition and poor prognosis. Daughter appropriately tearful, ongoing emotional support and active listening provided. Case discussed with and Dr. Garcia with palliative care. . Function/Cognitive Trajectory Residing with family members. Using walker and cane at home. No cognitive decline noted. . Review of Systems ROS Limitations: Clinical Condition, Intubated Endocrine: DENIES: Heat/cold intolerance Respiratory: COMPLAINS OF: Shortness of breath Cardiovascular: COMPLAINS OF: Lower Extremity Edema Gastrointestinal: DENIES: Abdominal pain, Diarrhea, Vomiting Musculoskeletal: COMPLAINS OF: Decreased range of motion Integumentary: COMPLAINS OF: Abnormal pigmentation Hematologic/Lymphatics: COMPLAINS OF: Bruising, History of transfusions Neurologic: COMPLAINS OF: Abnormal gait, Poor Balance Psychiatric: DENIES: Depression Other ROS: Limited ROS secondary to patient's clinical condition, patient sedated, intubated on mechanical ventilation. Noting head to yes no questions. Review of systems obtained from medical records, patient's daughter, and clinical presentation. Past Family Social History Coded Allergies: Prednisone (Verified Allergy, Mild, Itching, 03/29/16) PATIENT STATES BROKE OUT INTO HIVES ON ARM (USE HYDROCORTISONE CREAM FOR IT) ONE TIME A VERY LONG TIME AGO AND HAS BEEN ON IT SINCE WITHOUT ANY EVIDENCE OF REACTION. 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 Past Surgical History Prostate biopsy Right hip placement Tonsillectomy Upper endoscopy Right carotid endarterectomy, patch angioplasty in 2016 Colonoscopy in 2016 IVC filter placement (2nd) in 2016 IVC filter removal in 2008 IVC filter placement in 2007 Vasectomy in 2007 Cataract removal in 2005 - 2003 Appendectomy in 1943 . Reported Medications Sodium Chloride 1 Gm Tab 1 Gm PO DAILY Furosemide 20 Mg Tab 20 Mg PO DAILY Lopressor (Metoprolol Tartrate) 50 Mg Tab 50 Mg PO Q8HR Cardura (Doxazosin Mesylate) 4 Mg Tab 4 Mg PO HS Cardizem CD 24 HR (Diltiazem CD 24 HR) 120 Mg Caper 360 Mg PO DAILY Blood Glucose Monitoring W/Device (Device) 1 Kit Kit 1 Kit .ROUTE DIRECTED Pantoprazole (Pantoprazole Sodium) 40 Mg Tab 40 Mg PO HS 7 Days Prednisone 20 Mg Tab 80 Mg PO DAILY 5 Days Cumberland 3 1000 mg (Cumberland-3 Fatty Acids) 1 Cap Cap 3,000 Mg PO DAILY Magnesium Oxide 400 Mg Tab 400 Mg PO DAILY Cholecalciferol (Cholecalciferol (Bulk)) 1 Cry Cry 1,000 Units PO DAILY Calcium + D & K (Calcium-Vitamins D & K) 500-1,000-40 Mg-Unit-Mcg Chew 1 Tab CHEW DAILY Atorvastatin (Atorvastatin Calcium) 20 Mg Tab 20 Mg PO HS Allopurinol 100 Mg Tab 100 Mg PO DAILY . Current Medications Medications (Trade) Dose Ordered Sig/Jeremy Route Start Time Stop Time Status Last Admin (NS Flush) 2 ml UNSCH PRN FLUSH 05/09/16 18:00 (NS Flush) 2 ml BID FLUSH 05/09/16 21:00 05/19/16 09:02 (Tylenol) 650 mg Q4H PRN PO 05/09/16 18:00 05/13/16 12:03 (Zofran Inj) 4 mg Q6H PRN IVP 1/27/17 18:00 05/11/16 22:43 (Milk Of Magnesia Liq) 30 ml Q12H PRN PO 05/09/16 18:00 (Narcan Inj) 0.4 mg UNSCH PRN IV 05/09/16 18:00 (Cardura) 4 mg HS PO 05/09/16 21:00 05/18/16 19:39 (Sodium Chloride) 1 gm DAILY PO 05/10/16 09:00 05/19/16 09:05 (Oscal-D 250-125) 250 mg DAILY PO 05/10/16 09:00 05/19/16 08:58 (Mag-Ox) 400 mg DAILY PO 05/10/16 09:00 05/18/16 09:18 Miscellaneous Information Patient in critical care unit? Ass... Q361D XX 05/10/16 23:45 05/10/16 23:45 Piperacillin Sod/ Tazobactam Sod 50 ml @ 100 mls/hr Q6H IV 05/11/16 08:00 05/19/16 08:53 Azithromycin 500 mg/Sodium Chloride 250 ml @ 250 mls/hr Q24H IV 05/11/16 08:00 05/19/16 08:52 Potassium Chloride 100 ml @ 50 mls/hr Q2H PRN IV 05/11/16 07:30 05/16/16 06:33 (KCl 20 Meq Premix Inj) 100 ml @ 50 mls/hr Q2H PRN IV 05/11/16 07:30 05/18/16 17:12 Potassium Chloride 40 meq 40 meq UNSCH PRN PO/TUBE 05/11/16 07:30 05/18/16 17:10 Potassium Chloride 100 ml @ 25 mls/hr UNSCH PRN IV 05/11/16 07:30 Potassium Chloride 100 ml @ 50 mls/hr Q2H PRN IV 05/11/16 07:30 (Magnesium Sulfate Inj/NS Inj) 100 ml @ 50 mls/hr UNSCH PRN IV 05/11/16 07:30 Magnesium Oxide 800 mg 800 mg UNSCH PRN PO 05/11/16 07:30 (Magnesium Sulfate Inj/NS Inj) 100 ml @ 50 mls/hr UNSCH PRN IV 05/11/16 07:30 Potassium Phosphate 2000 mg 2,000 mg Q4H PRN PO 05/11/16 07:30 (Sodium Phosphate Inj/NS 250 ml Inj) 250 ml @ 42 mls/hr UNSCH PRN IV 05/11/16 07:30 (KCl 40 Meq/30 ml Liq) 40 meq UNSCH PRN PO/TUBE 05/11/16 07:30 Potassium Phosphate 2000 mg 2,000 mg UNSCH PRN PO/TUBE 05/11/16 07:30 (Potassium Phosphate Inj/NS 250 ml Inj) 260 ml @ 42 mls/hr UNSCH PRN IV 05/11/16 07:30 (Cardizem) 90 mg QID PO 05/11/16 13:00 05/19/16 08:53 (Bremer Sami [place]) 1 spray UNSCH PRN NA 05/11/16 23:45 Eltrombopag 50 mg 50 mg DAILY PO 05/14/16 09:00 05/19/16 09:01 (Cardizem Inj/NS Inj) 125 ml @ 0 mls/hr TITRATE IV 05/13/16 15:30 05/19/16 05:13 (Peru 5-325 Mg) 1 tab Q6H PRN PO 05/14/16 18:30 05/14/16 18:43 Chlorhexidine Gluconate 15 ml 15 ml BID@08,20 MT 05/15/16 20:00 05/19/16 08:53 Propofol 100 ml @ 0 mls/hr TITRATE IV 05/15/16 12:15 05/19/16 11:01 (Pentam Inj/D5W Inj) 250 ml @ 250 mls/hr Q24H IV 05/15/16 14:00 05/18/16 14:29 (Lopressor Inj) 5 mg Q6H IV PUSH 05/16/16 20:00 05/19/16 08:50 (Protonix Inj) 40 mg Q24H IV PUSH 05/18/16 09:00 05/19/16 08:51 (Colace Liq) 100 mg Q12HR PO 05/16/16 21:00 05/18/16 19:38 (Senna Liq) 8.8 mg DAILY PO 05/17/16 09:00 05/18/16 09:19 (Miralax) 17 gm DAILY PO 05/17/16 09:00 05/18/16 09:19 (Lactulose Liq) 30 ml DAILY PO 05/17/16 09:00 05/18/16 09:20 (Zyloprim) 100 mg DAILY PO 05/17/16 09:00 05/19/16 09:03 Diphenhydramine HCl 25 mg 25 mg Q15M PRN PO 05/19/16 09:00 05/20/16 23:59 (NS 1000 ml Inj) 1,000 ml @ 0 mls/hr Q0M IV 05/19/16 09:00 05/20/16 23:59 (SoluMEDROL INJ) 125 mg Q24H IV 05/19/16 09:00 05/20/16 23:59 05/19/16 08:53 Anticoagulant Citrate Dextose Fiorella A 1000 ml 1,000 ml Q24H .XX 05/19/16 09:00 05/20/16 23:59 (Calcium Gluconate Inj/NS 250 ml Inj) 300 ml @ 0 mls/hr Q24H IV 05/19/16 09:00 05/20/16 23:59 (D50w (Vial) Inj) 25 ml UNSCH PRN IV PUSH 05/18/16 16:00 (Glucagon Inj) 1 mg UNSCH PRN OTHER 05/18/16 16:00 Insulin Human Regular 1 1 Q6HR SQ 05/18/16 18:00 05/19/16 05:13 Fentanyl Citrate 250 ml @ 0 mls/hr TITRATE IV 05/18/16 17:30 05/18/16 19:38 (Versed Inj) 100 ml @ 0 mls/hr TITRATE IV 05/18/16 17:30 (KCl 40 Meq/30 ml Liq) 20 meq DAILY PO/TUBE 05/20/16 09:00 Family History Father secondary to ME at 32. Has a daughter who is alive and well. . Substance Use Tobacco: Former smoker. Quit in 1960. Alcohol: 3-4 beers a month. Prescription med abuse: None. Illicits: None. . 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 . His in 2012 secondary to breast cancer. They were for 53 years and have 2 children, Tana and Neal. . Spiritual/Cultural Factors Presybeterian. Not an active member of any jewish. . Living Will: Copy in medical record Health Care Surrogate: Copy in medical record Durable Power of Envelope Addresser: Copy in medical record Date completed: 12/23/2012. . Health Care Surrogate(s): Daughter Tana miller. Alternate healthcare surrogate granddaughter Oliva miller. . Documented care wishes: Living will in chart. Patient not wishing life-prolonging measures in the setting of terminal condition and/or poor prognosis. . Today's verbally stated goals: Family unable to participate in goals of care discussion secondary to clinical status, intubated on mechanical ventilation. . Family/friends goals: NO CODE. Transition patient to comfort directed care/withdrawal of life support. . Ethical and Legal Issues No ethical legal issues have been identified. . Physical Exam Vital Signs Date Time Temp Pulse Resp B/P Pulse Ox O2 Delivery O2 Flow Rate FiO2 05/19/16 10:15 99 40 05/19/16 10:00 90 05/19/16 08:00 91 05/19/16 08:00 97.5 91 16 144/92 100 05/19/16 07:31 100 40 05/19/16 06:00 81 05/19/16 04:18 100 50 05/19/16 04:00 98.2 79 17 123/92 100 05/19/16 04:00 40 05/19/16 04:00 79 05/19/16 02:00 75 05/19/16 00:14 100 50 05/19/16 00:00 40 05/19/16 00:00 Mechanical Ventilator 05/19/16 00:00 98.0 77 17 114/59 100 05/19/16 00:00 77 05/18/16 22:00 74 05/18/16 20:00 98.2 71 17 105/77 100 05/18/16 20:00 40 05/18/16 20:00 Mechanical Ventilator 05/18/16 20:00 71 05/18/16 19:27 99 50 05/18/16 18:00 87 05/18/16 16:00 40 05/18/16 16:00 98.5 80 17 132/79 98 05/18/16 16:00 95 Mechanical Ventilator 40 05/18/16 16:00 91 05/18/16 15:05 98 40 05/18/16 14:00 82 05/18/16 12:22 99 40 05/18/16 12:00 96 05/18/16 12:00 40 05/18/16 12:00 98.4 71 18 133/75 99 05/18/16 12:00 96 Mechanical Ventilator 40 05/18/16 05/19/16 19:00 07:00 Intake Total 752 ml 1418 ml Output Total 850 ml 1200 ml Balance -98 ml 218 ml IV Total 752 ml 688 ml Tube Feeding 730 ml Output Urine Total 850 ml 1200 ml # Bowel Movements 0 Exam CONSTITUTIONAL/GENERAL: This is an adequately nourished patient, in no apparent distress. Opening eyes to voice and following some commands TUBES/LINES/DRAINS: ETT, OG, Tadeo cath, SCD's. SKIN:. Scatter ecchymoses on upper extremities. No wounds seen anteriorly. Skin temperature appropriate. Not diaphoretic. HEAD: Atraumatic. Normocephalic. EYES: Pupils equal and round and reactive. No scleral icterus. No injection or drainage. Fundi not examined. ENT: Hearing appears normal. Nose without bleeding or purulent drainage. Unable to evaluate throat or oral cavity secondary to ET tube. NECK: Trachea midline. Supple, nontender. CARDIOVASCULAR: irregular rate and rhythm. Peripheral pulses symmetric. Pitting edema to bilateral upper thighs. No pedal edema. RESPIRATORY/CHEST: Symmetric, unlabored respirations. Coarse breath sounds. Intubated on mechanical ventilation. GASTROINTESTINAL: Abdomen round, large, soft, non-tender. Unable to assess for hepatomegaly secondary to body habitus. Bowel sounds present. GENITOURINARY: Without palpable bladder distension. Tadeo catheter in place. MUSCULOSKELETAL: Extremities without cyanosis, or edema. NEUROLOGICAL: Opening eyes to voice and following some simple commands such as "squeeze my hand". Noting head to yes no questions. PSYCHIATRIC: Unable to assess secondary to clinical condition. Appears calm. . Diagnostic Tests Laboratory Laboratory Tests Test 05/16/16 05/16/16 05/17/16 05/17/16 19:40 20:25 04:50 05:40 White Blood Count 8.1 TH/MM3 9.5 TH/MM3 (4.0-11.0) (4.0-11.0) Red Blood Count 2.99 MIL/MM3 3.11 MIL/MM3 (4.50-5.90) (4.50-5.90) Hemoglobin 8.9 GM/DL 9.3 GM/DL (13.0-17.0) (13.0-17.0) Hematocrit 25.7 % 26.8 % (39.0-51.0) (39.0-51.0) Mean Corpuscular Volume 86.0 FL 86.1 FL (80.0-100.0) (80.0-100.0) Mean Corpuscular Hemoglobin 29.9 PG 29.9 PG (27.0-34.0) (27.0-34.0) Mean Corpuscular Hemoglobin 34.8 % 34.8 % Concent (32.0-36.0) (32.0-36.0) Red Cell Distribution Width 15.6 % 16.0 % (11.6-17.2) (11.6-17.2) Platelet Count 19 TH/MM3 13 TH/MM3 (150-450) (150-450) Mean Platelet Volume 9.3 FL 9.5 FL (7.0-11.0) (7.0-11.0) Neutrophils (%) (Auto) 89.5 % 91.3 % (16.0-70.0) (16.0-70.0) Lymphocytes (%) (Auto) 7.3 % 6.7 % (9.0-44.0) (9.0-44.0) Monocytes (%) (Auto) 3.1 % (0.0-8.0) 1.8 % (0.0-8.0) Eosinophils (%) (Auto) 0.0 % (0.0-4.0) 0.0 % (0.0-4.0) Basophils (%) (Auto) 0.1 % (0.0-2.0) 0.2 % (0.0-2.0) Neutrophils # (Auto) 7.3 TH/MM3 8.7 TH/MM3 (1.8-7.7) (1.8-7.7) Lymphocytes # (Auto) 0.6 TH/MM3 0.6 TH/MM3 (1.0-4.8) (1.0-4.8) Monocytes # (Auto) 0.3 TH/MM3 0.2 TH/MM3 (0-0.9) (0-0.9) Eosinophils # (Auto) 0.0 TH/MM3 0.0 TH/MM3 (0-0.4) (0-0.4) Basophils # (Auto) 0.0 TH/MM3 0.0 TH/MM3 (0-0.2) (0-0.2) CBC Comment AUTO DIFF AUTO DIFF Differential Comment AUTO DIFF FINAL DIFF CONFIRMED MANUAL Platelet Estimate LOW (NORMAL) RARE (NORMAL) Platelet Morphology Comment ENLARGED NORMAL (NORMAL) (NORMAL) Polychromasia 2.0 % (0.0-1.9) 2.5 % (0.0-1.9) Blood Bank Comment Differential Total Cells 100 Counted Neutrophils % (Manual) 75 % (16-70) Band Neutrophils % 13 % (0-6) Lymphocytes % 6 % (9-44) Monocytes % 5 % (0-8) Neutrophils # (Manual) 8.5 TH/MM3 (1.8-7.7) Metamyelocytes 1 % (0-1) Sodium Level 147 MEQ/L (136-145) Potassium Level 3.5 MEQ/L (3.5-5.1) Chloride Level 106 MEQ/L (98-107) Carbon Dioxide Level 33.5 MEQ/L (21.0-32.0) Anion Gap 8 MEQ/L (5-15) Blood Urea Nitrogen 37 MG/DL (7-18) Creatinine 1.60 MG/DL (0.60-1.30) Estimat Glomerular Filtration 42 ML/MIN (>89) Rate Random Glucose 190 MG/DL (74-106) Calcium Level 8.7 MG/DL (8.5-10.1) Phosphorus Level 4.9 MG/DL (2.5-4.9) Magnesium Level 2.4 MG/DL (1.5-2.5) Total Bilirubin 1.4 MG/DL (0.2-1.0) Aspartate Amino Transf 21 U/L (15-37) (AST/SGOT) Alanine Aminotransferase 23 U/L (12-78) (ALT/SGPT) Alkaline Phosphatase 57 U/L (45-117) Total Protein 6.3 GM/DL (6.4-8.2) Albumin 3.0 GM/DL (3.4-5.0) Lactate Dehydrogenase 335 U/L (87-241) Test 2/4/17 2/4/17 2/5/17 2/5/17 10:47 20:14 05:25 17:53 Blood Bank Comment White Blood Count 9.7 TH/MM3 (4.0-11.0) Red Blood Count 3.15 MIL/MM3 (4.50-5.90) Hemoglobin 9.5 GM/DL (13.0-17.0) Hematocrit 27.5 % (39.0-51.0) Mean Corpuscular Volume 87.2 FL (80.0-100.0) Mean Corpuscular Hemoglobin 30.0 PG (27.0-34.0) Mean Corpuscular Hemoglobin 34.5 % Concent (32.0-36.0) Red Cell Distribution Width 16.1 % (11.6-17.2) Platelet Count 38 TH/MM3 (150-450) Mean Platelet Volume 9.6 FL (7.0-11.0) Neutrophils (%) (Auto) 90.4 % (16.0-70.0) Lymphocytes (%) (Auto) 6.1 % (9.0-44.0) Monocytes (%) (Auto) 3.3 % (0.0-8.0) Eosinophils (%) (Auto) 0.0 % (0.0-4.0) Basophils (%) (Auto) 0.2 % (0.0-2.0) Neutrophils # (Auto) 8.8 TH/MM3 (1.8-7.7) Lymphocytes # (Auto) 0.6 TH/MM3 (1.0-4.8) Monocytes # (Auto) 0.3 TH/MM3 (0-0.9) Eosinophils # (Auto) 0.0 TH/MM3 (0-0.4) Basophils # (Auto) 0.0 TH/MM3 (0-0.2) CBC Comment AUTO DIFF Differential Total Cells 100 Counted Neutrophils % (Manual) 85 % (16-70) Band Neutrophils % 2 % (0-6) Lymphocytes % 8 % (9-44) Monocytes % 4 % (0-8) Neutrophils # (Manual) 8.5 TH/MM3 (1.8-7.7) Myelocytes 1 % (0-0) Differential Comment FINAL DIFF MANUAL Platelet Estimate LOW (NORMAL) Platelet Morphology Comment NORMAL (NORMAL) Polychromasia 2.5 % (0.0-1.9) Sodium Level 146 MEQ/L 148 MEQ/L (136-145) (136-145) Potassium Level 3.5 MEQ/L 3.9 MEQ/L (3.5-5.1) (3.5-5.1) Chloride Level 104 MEQ/L 104 MEQ/L (98-107) (98-107) Carbon Dioxide Level 34.5 MEQ/L 34.0 MEQ/L (21.0-32.0) (21.0-32.0) Anion Gap 8 MEQ/L (5-15) 10 MEQ/L (5-15) Blood Urea Nitrogen 47 MG/DL (7-18) 52 MG/DL (7-18) Creatinine 1.59 MG/DL 1.83 MG/DL (0.60-1.30) (0.60-1.30) Estimat Glomerular Filtration 42 ML/MIN (>89) 36 ML/MIN (>89) Rate Random Glucose 248 MG/DL 368 MG/DL (74-106) (74-106) Calcium Level 9.0 MG/DL 9.2 MG/DL (8.5-10.1) (8.5-10.1) Phosphorus Level 4.3 MG/DL 5.9 MG/DL (2.5-4.9) (2.5-4.9) Magnesium Level 2.5 MG/DL 2.4 MG/DL (1.5-2.5) (1.5-2.5) Total Bilirubin 1.1 MG/DL (0.2-1.0) Direct Bilirubin 0.4 MG/DL (0.0-0.2) Indirect Bilirubin 0.7 MG/DL (0.0-0.8) Aspartate Amino Transf 35 U/L (15-37) (AST/SGOT) Alanine Aminotransferase 33 U/L (12-78) (ALT/SGPT) Alkaline Phosphatase 59 U/L (45-117) Lactate Dehydrogenase 325 U/L (87-241) Total Protein 6.2 GM/DL (6.4-8.2) Albumin 3.0 GM/DL (3.4-5.0) Troponin I 0.09 NG/ML (0.02-0.05) Thyroid Stimulating Hormone 0.422 uIU/ML 3rd Gen (0.358-3.740) Test 05/18/16 05/19/16 21:24 06:00 Blood Bank Comment White Blood Count 7.8 TH/MM3 (4.0-11.0) Red Blood Count 3.15 MIL/MM3 (4.50-5.90) Hemoglobin 9.3 GM/DL (13.0-17.0) Hematocrit 27.7 % (39.0-51.0) Mean Corpuscular Volume 87.8 FL (80.0-100.0) Mean Corpuscular Hemoglobin 29.6 PG (27.0-34.0) Mean Corpuscular Hemoglobin 33.7 % Concent (32.0-36.0) Red Cell Distribution Width 16.5 % (11.6-17.2) Platelet Count 39 TH/MM3 (150-450) Mean Platelet Volume 9.7 FL (7.0-11.0) Neutrophils (%) (Auto) 93.0 % (16.0-70.0) Lymphocytes (%) (Auto) 3.9 % (9.0-44.0) Monocytes (%) (Auto) 3.0 % (0.0-8.0) Eosinophils (%) (Auto) 0.0 % (0.0-4.0) Basophils (%) (Auto) 0.1 % (0.0-2.0) Neutrophils # (Auto) 7.2 TH/MM3 (1.8-7.7) Lymphocytes # (Auto) 0.3 TH/MM3 (1.0-4.8) Monocytes # (Auto) 0.2 TH/MM3 (0-0.9) Eosinophils # (Auto) 0.0 TH/MM3 (0-0.4) Basophils # (Auto) 0.0 TH/MM3 (0-0.2) CBC Comment AUTO DIFF Differential Comment AUTO DIFF CONFIRMED Platelet Estimate LOW (NORMAL) Platelet Morphology Comment NORMAL (NORMAL) Basophilic Stippling FAINT (NORMAL) Prothrombin Time 12.0 SEC (9.8-11.6) Prothromb Time International 1.1 RATIO Ratio Activated Partial 21.1 SEC Thromboplast Time (24.3-30.1) Fibrinogen 180 mg/dL (227-377) Sodium Level 149 MEQ/L (136-145) Potassium Level 3.8 MEQ/L (3.5-5.1) Chloride Level 106 MEQ/L (98-107) Carbon Dioxide Level 34.6 MEQ/L (21.0-32.0) Anion Gap 8 MEQ/L (5-15) Blood Urea Nitrogen 60 MG/DL (7-18) Creatinine 1.70 MG/DL (0.60-1.30) Estimat Glomerular Filtration 39 ML/MIN (>89) Rate Random Glucose 381 MG/DL (74-106) Lactic Acid Level 3.7 mmol/L (0.4-2.0) Calcium Level 9.2 MG/DL (8.5-10.1) Phosphorus Level 4.5 MG/DL (2.5-4.9) Magnesium Level 2.6 MG/DL (1.5-2.5) Total Bilirubin 0.8 MG/DL (0.2-1.0) Direct Bilirubin 0.3 MG/DL (0.0-0.2) Indirect Bilirubin 0.5 MG/DL (0.0-0.8) Aspartate Amino Transf 25 U/L (15-37) (AST/SGOT) Alanine Aminotransferase 37 U/L (12-78) (ALT/SGPT) Alkaline Phosphatase 51 U/L (45-117) Lactate Dehydrogenase 240 U/L (87-241) Troponin I 0.09 NG/ML (0.02-0.05) Total Protein 6.0 GM/DL (6.4-8.2) Albumin 3.1 GM/DL (3.4-5.0) Digoxin Level 0.6 NG/ML (0.8-2.0) Result Diagram: 05/19/16 0600 05/19/16 0600 Imaging Last Impressions Chest X-Ray 05/19/16 0600 Signed Impressions: Service Date/Time: Thursday, May 19, 2016 03:51 - CONCLUSION: No significant change has occurred. Fernando Villasenor MD CT Angiography 05/10/16 0000 Signed Impressions: Service Date/Time: Wednesday, May 11, 2016 07:53 - CONCLUSION: 1. No evidence of PE. 2. Diffuse interstitial infiltrates throughout most of the right lung. 3. Scattered interstitial infiltrates throughout the left lung. Markus Guzman MD Procedures * 05/16/16 - bronchoscopy * 05/15/16 - intubation * 05/13/16 - extubation * 05/09/16 - intubation . Patient/Family Conference Present at Family Conference: Daughter Tana miller. . Family Conference Time (mins): 38 Family Conference Location: Bedside Issues Discussed: * Palliative care role, purpose, approach * Additional medical, psychosocial, and spiritual history * Patients general health, functional status, and cognitive changes in the months leading up to the current hospitalization * Family's understanding of the current medical problems * Family's understanding of prognosis * Patients goals of care as best understood from advance directives and/or conversations and/or values * Current medical treatment options and benefits/burdens of those options * Likely scenarios comparing ongoing aggressive care with a transition to comfort measures only * Questions answered to the best of my ability * Palliative care contact information provided . Assessment and Plan Disease Oriented Problem List: (1) Acute hypoxemic respiratory failure (2) Thrombocytopenia (3) Afib Symptom Scale: (1) Shortness of breath 0-10 Scale: Unable to quantify Comment: Secondary to ARDS, remains intubated on mechanical ventilation. (2) Debility 0-10 Scale: Unable to quantify Comment: Progressive during the last year, secondary to acute events and multiple comorbidities. (3) Pain 0-10 Scale: Unable to quantify Comment: No history of chronic pain. Pertinent Non-Medical Issues Psychosocial: . Retired. Has 2 children. Spiritual: [employer]. Legal: Advanced directives completed, in chart. Ethical issues impacting care: No ethical issues have been identified. . Important Contacts Daughter/HCS Tana miller . Granddaughter Oliva miller - . Prognosis Mr. Trevino is a 75 y/o male with a medical history significant for immune thrombocytopenic purpura, atrial fibrillation, bilateral lower extremity DVTs, BPH, chronic renal failure, gout, hypertension, TIAs in 2016 and GI bleed in 2016. Patient presented to ED on 05/09/16 from his oncologist secondary to rapid irregular heart rate. Patient was found to be on A. fib with RVR and was admitted for further management. Clinical course complicated by acute hypoxemic respiratory distress requiring intubation, patient extubated but required reintubation secondary to worsening respiratory failure. Condition worsened by persistent idiopathic thrombocytopenia requiring multiple transfusions and plasmapheresis. Patient's overall prognosis is poor for an improved quality of life or survival secondary to age, pre-existing functional status, multiple comorbidities, an acute events. Patient is at high risk for continued decline, further complications and . . Code Status: No Code Plan * Patient incapacitated for medical decision-making secondary to clinical condition. Advanced directives completed, daughter Tana Miller listed as healthcare surrogate. She has accepted this role. * CODE STATUS: No code. DNR/DNI. * GOALS OF CARE: Transition patient to comfort directed care/withdrawal of life support in the setting of her worsening clinical condition and very poor prognosis. * Exhibits have been sign. * SYMPTOMS: == Pain: No history of chronic pain, patient reporting lower extremity pain. Currently on fentanyl drip. == Shortness of breath: Secondary to ARDS/pna, remains intubated on mechanical ventilation. == Debility: Progressive over the last year secondary to recent acute events multiple comorbidities. * Case discussed with Dr. Corral bedside RN. * Anticipatory guidance provided to daughter regarding end-of-life/symptom management. * Ongoing emotional support and active listening provided to jeanine Fajardo. Spiritual services offered but declined. * Palliative care contact information has been provided to patient's family. * Palliative care will continue to follow up with this patient/family for further clarifications of goals of care and emotional support. . Time Spent Total Floor Time (mins): 85 (Total time to include review and summarization of available medical records, physical exam, goals of care conversation with jeanine Fajardo, case discussion with bedside nurse and Dr. Desai. ) Face to Face Time (mins): 55 >50% Counseling/Coord of Care: Yes Thank you for the opportunity to participate in the care of Mr. Trevino. Attestation To help prompt me to consider important information that might be impacting today's encounter and assessment, information from prior notes written by myself or my colleagues may have been "brought forward" into today's note. My signature on this note, however, is an attestation that I personally performed the exam, history, and/or decision-making noted today, and, unless otherwise indicated, the interactions with patient, family, and staff as well as the review of records all occurred today. I also attest that the listed assessment and stated plan reflect my best clinical judgment today based on the combination of historical information, prior notes, and today's exam/ interactions. When time spent is documented, it refers only to time spent today by the signer, or if indicated, combined time spent today by collaborating physician/nurse practitioner. Janet Rojasb 6, 2017 11:50
--- NOTE | 2016-05-19 12:55 | HHI.PR ---
Subjective Remarks remains Intubated for respiratory failure . Had aspirated. On plasma pheresis Bronchial washings show no unusual pathogens. Objective Vital Signs Date Time Temp Pulse Resp B/P Pulse Ox O2 Delivery O2 Flow Rate FiO2 05/19/16 10:15 99 40 05/19/16 10:00 90 05/19/16 08:00 91 05/19/16 08:00 40 05/19/16 08:00 97.5 91 16 144/92 100 05/19/16 07:31 100 40 05/19/16 06:00 81 05/19/16 04:18 100 50 05/19/16 04:00 98.2 79 17 123/92 100 05/19/16 04:00 40 05/19/16 04:00 79 05/19/16 02:00 75 05/19/16 00:14 100 50 05/19/16 00:00 40 05/19/16 00:00 Mechanical Ventilator 05/19/16 00:00 98.0 77 17 114/59 100 05/19/16 00:00 77 05/18/16 22:00 74 05/18/16 20:00 98.2 71 17 105/77 100 05/18/16 20:00 40 05/18/16 20:00 Mechanical Ventilator 05/18/16 20:00 71 05/18/16 19:27 99 50 05/18/16 18:00 87 05/18/16 16:00 40 05/18/16 16:00 98.5 80 17 132/79 98 05/18/16 16:00 95 Mechanical Ventilator 40 05/18/16 16:00 91 05/18/16 15:05 98 40 05/18/16 14:00 82 I/O 05/18/16 05/18/16 05/18/16 05/19/16 05/19/16 05/19/16 07:00 15:00 23:00 07:00 15:00 23:00 Intake Total 833 ml 752 ml 686 ml 732 ml Output Total 650 ml 850 ml 650 ml 550 ml Balance 183 ml -98 ml 36 ml 182 ml IV Total 350 ml 752 ml 366 ml 322 ml Tube Feeding 383 ml 320 ml 410 ml Other 100 ml Output Urine Total 650 ml 850 ml 650 ml 550 ml # Bowel Movements 0 0 Result Diagram: 05/19/16 0605/19/16 0600 Objective Remarks This is an obese elderly man who is sedated. HEENT: Head normocephalic. Pupils are reactive. Throat clear. NECK: Supple with no venous distension . Trachea midline. No thyroid enlargement. CHEST: Distant breath sounds with crackles over the bases. Occasional wheezes bilaterally. HEART: Heart sounds are irregularly irregular. S1-S2. No murmur. ABDOMEN: Obese and protuberant without masses or organomegaly or tenderness. The bowel sounds are active. EXTREMITIES: No edema. Peripheral pulses are diminished. NEUROLOGIC: The patient is sedated on the vent. SKIN: warm. Assessment and Plan Assessment and Plan IMPRESSION 1. Bilateral pneumonia with hypoxemia. 2. Atrial fibrillation and rapid ventricular response 3. History of ITP, immune thrombocytopenic purpura. 4. History of elevated anticardiolipin antibody. 5. History of DVTs status post IVC filter placement. 6. Hypertension 7.Respiratory Failure, Vent dependant Plan : 1. Cont Antibiotics as ordered. 2. Vent support and keep sedated 3. Nebs qid , duoneb. 4. IS at bedside q 3h. 5. Chest X ray in am,CBC,BMP 6.Cont plasma pheresis 7. No anticoagulation 8. Palliative care to see. Neftaly Redding MD May 19, 2016 12:55
--- NOTE | 2016-05-19 13:19 | HHI.IDPN ---
Note Infectious Disease Note Patient deteriorated from respiratory and reintubated 05/15/16. Aspirated just before intubation. Unresponsive on the vent. Afebrile Has received multiple Plasma pheresis treatments. PCP stain not yet available. Called pathology. PAST MEDICAL HISTORY 1. Bilateral lower extremity deep thromboses. 2. Hypertension. 3. ITP. 4. Chronic kidney disease. 5. Benign prostatic hypertrophy. 6. Intracranial hemorrhage March 2016. 7. Ischemic stroke August 2015. 8. GI bleed August 2015. 9. Right total hip replacement. 10. Tonsillectomy. 11. Right carotid endarterectomy with patch angioplasty. 12. IVC filter placement 2015. 13. Prior IVC filter placement 2007 which was removed in 2008. 14. Appendectomy. 15. Vasectomy. ALLERGIES PREDNISONE. THE PATIENT DEVELOPED MILD ITCHING. ANTIBIOTICS 1. Piperacillin / tazobactam. 2. Azithromycin. 3. Pentamidine. SOCIAL HISTORY No tobacco use. Occasional alcohol in the form of beer. No illicit drugs. OBJECTIVE: Vital Signs Date Time Temp Pulse Resp B/P Pulse Ox O2 Delivery O2 Flow Rate FiO2 05/19/16 12:56 99 40 05/19/16 10:15 99 40 05/19/16 10:00 90 05/19/16 08:00 91 05/19/16 08:00 40 05/19/16 08:00 97.5 91 16 144/92 100 05/19/16 07:31 100 40 05/19/16 06:00 81 05/19/16 04:18 100 50 05/19/16 04:00 98.2 79 17 123/92 100 05/19/16 04:00 40 05/19/16 04:00 79 05/19/16 02:00 75 05/19/16 00:14 100 50 05/19/16 00:00 40 05/19/16 00:00 Mechanical Ventilator 05/19/16 00:00 98.0 77 17 114/59 100 05/19/16 00:00 77 05/18/16 22:00 74 05/18/16 20:00 98.2 71 17 105/77 100 05/18/16 20:00 40 05/18/16 20:00 Mechanical Ventilator 05/18/16 20:00 71 05/18/16 19:27 99 50 05/18/16 18:00 87 05/18/16 16:00 40 05/18/16 16:00 98.5 80 17 132/79 98 05/18/16 16:00 95 Mechanical Ventilator 40 05/18/16 16:00 91 05/18/16 15:05 98 40 05/18/16 14:00 82 Laboratory Tests Test 05/18/16 05/19/16 05:25 06:00 White Blood Count 9.7 TH/MM3 7.8 TH/MM3 Red Blood Count 3.15 MIL/MM3 3.15 MIL/MM3 Hemoglobin 9.5 GM/DL 9.3 GM/DL Hematocrit 27.5 % 27.7 % Mean Corpuscular Volume 87.2 FL 87.8 FL Mean Corpuscular Hemoglobin 30.0 PG 29.6 PG Mean Corpuscular Hemoglobin 34.5 % 33.7 % Concent Red Cell Distribution Width 16.1 % 16.5 % Platelet Count 38 TH/MM3 39 TH/MM3 Mean Platelet Volume 9.6 FL 9.7 FL Neutrophils (%) (Auto) 90.4 % 93.0 % Lymphocytes (%) (Auto) 6.1 % 3.9 % Monocytes (%) (Auto) 3.3 % 3.0 % Eosinophils (%) (Auto) 0.0 % 0.0 % Basophils (%) (Auto) 0.2 % 0.1 % Neutrophils # (Auto) 8.8 TH/MM3 7.2 TH/MM3 Lymphocytes # (Auto) 0.6 TH/MM3 0.3 TH/MM3 Monocytes # (Auto) 0.3 TH/MM3 0.2 TH/MM3 Eosinophils # (Auto) 0.0 TH/MM3 0.0 TH/MM3 Basophils # (Auto) 0.0 TH/MM3 0.0 TH/MM3 CBC Comment AUTO DIFF AUTO DIFF Differential Total Cells 100 Counted Neutrophils % (Manual) 85 % Band Neutrophils % 2 % Lymphocytes % 8 % Monocytes % 4 % Neutrophils # (Manual) 8.5 TH/MM3 Myelocytes 1 % Differential Comment FINAL DIFF AUTO DIFF MANUAL CONFIRMED Platelet Estimate LOW LOW Platelet Morphology Comment NORMAL NORMAL Polychromasia 2.5 % Basophilic Stippling FAINT Laboratory Tests Test 05/18/16 05/18/16 05/19/16 05:25 17:53 06:00 Sodium Level 146 MEQ/L 148 MEQ/L 149 MEQ/L Potassium Level 3.5 MEQ/L 3.9 MEQ/L 3.8 MEQ/L Chloride Level 104 MEQ/L 104 MEQ/L 106 MEQ/L Carbon Dioxide Level 34.5 MEQ/L 34.0 MEQ/L 34.6 MEQ/L Anion Gap 8 MEQ/L 10 MEQ/L 8 MEQ/L Blood Urea Nitrogen 47 MG/DL 52 MG/DL 60 MG/DL Creatinine 1.59 MG/DL 1.83 MG/DL 1.70 MG/DL Estimat Glomerular Filtration 42 ML/MIN 36 ML/MIN 39 ML/MIN Rate Random Glucose 248 MG/DL 368 MG/DL 381 MG/DL Calcium Level 9.0 MG/DL 9.2 MG/DL 9.2 MG/DL Phosphorus Level 4.3 MG/DL 5.9 MG/DL 4.5 MG/DL Magnesium Level 2.5 MG/DL 2.4 MG/DL 2.6 MG/DL Total Bilirubin 1.1 MG/DL 0.8 MG/DL Direct Bilirubin 0.4 MG/DL 0.3 MG/DL Indirect Bilirubin 0.7 MG/DL 0.5 MG/DL Aspartate Amino Transf 35 U/L 25 U/L (AST/SGOT) Alanine Aminotransferase 33 U/L 37 U/L (ALT/SGPT) Alkaline Phosphatase 59 U/L 51 U/L Lactate Dehydrogenase 325 U/L 240 U/L Total Protein 6.2 GM/DL 6.0 GM/DL Albumin 3.0 GM/DL 3.1 GM/DL Troponin I 0.09 NG/ML 0.09 NG/ML Thyroid Stimulating Hormone 0.422 uIU/ML 3rd Gen Lactic Acid Level 3.7 mmol/L IMAGING: Chest X-Ray 05/19/16 0600 Signed Impressions: Service Date/Time: Thursday, May 19, 2016 03:51 - CONCLUSION: No significant change has occurred. Fernando Villasenor MD Chest X-Ray 05/17/16 0000 Signed Impressions: Service Date/Time: Tuesday, May 17, 2016 14:46 - CONCLUSION: 1. Patchy bilateral basilar airspace disease stable to slightly increased from May 2. The support apparatus is unchanged. Yayo Murphy MD Chest X-Ray 05/14/16 0600 Signed Impressions: Service Date/Time: Saturday, May 14, 2016 04:21 - CONCLUSION: Endotracheal tube and nasogastric tube removed. No significant change mild patchy air space opacities. Davidson Skelton MD CT Angiography 05/10/16 0000 Signed Impressions: Service Date/Time: Wednesday, May 11, 2016 07:53 - CONCLUSION: 1. No evidence of PE. 2. Diffuse interstitial infiltrates throughout most of the right lung. 3. Scattered interstitial infiltrates throughout the left lung. Markus Guzman MD PHYSICAL EXAMINATION GENERAL: Non responsive. HEENT: No icterus. Oral mucosa moist. LUNGS: Bibasilar rhonchi unchanged. HEART: Irregular rate and rhythm. CHARIS. ABDOMEN: Decreased bowel sounds, soft.No mass palpable. EXTREMITIES: No clubbing or cyanosis. Trace edema. SKIN: No rash. NEUROLOGICAL: Unable to assess. IMPRESSION 1. Bilateral lung infiltrates in patient who has ITP and likely is immune suppressed and likely may have pulmonary opportunistic infection. 2. Pneumonia. Lung infiltrates. 3. Acute respiratory failure. extubated. Reintubated. 4. Chronic kidney disease. 5. Thrombocytopenia secondary to ITP. RECOMMENDATIONS 1. Monitor sputum PCP. 2. Continue piperacillin / tazobactam. 3. Continue azithromycin. 4. Continue Pentamidine IV for PCP coverage. 5. Monitor clinical status. Pankaj Aparicio MD May 19, 2016 13:19
[2016-05-19] MEDS ORDERED: MORPHINE SULFATE 8 MG/ML INJ IV PUSH ONE (14:00)
[2016-05-19] MEDS ORDERED: LORazepam 2 MG/ML VIAL IV ONE ×2 (14:00→14:15)
[2016-05-19] MEDS ORDERED: HYOSCYAMINE 0.5 MG/ML AMP IV ONE (14:00)
[2016-05-19] MEDS ORDERED: ACETAMINOPHEN 650 MG SUPP PR PRN (14:15)
[2016-05-19] MEDS ORDERED: MORPHINE SULFATE 8 MG/ML INJ IV PUSH PRN (14:15)
[2016-05-19] MEDS ORDERED: LORazepam 2 MG/ML VIAL IVS PRN (14:15)
[2016-05-19] MEDS ORDERED: MORPHINE SULFATE 4 MG/ML INJ IV PRN (14:15)
[2016-05-19] MEDS ORDERED: BISACODYL 10 MG SUPP PR PRN (14:15)
[2016-05-19] MEDS ORDERED: HYOSCYAMINE 0.5 MG/ML AMP IV PRN (14:15)
[2016-05-19] MEDS ORDERED: LORazepam 2 MG/ML VIAL IV PRN ×2 (14:15)
[2016-05-19] MEDS ORDERED: FUROSEMIDE 20 MG/2 ML VIAL IV PRN (14:15)
[2016-05-19] MEDS ORDERED: MORPHINE SULFATE 4 MG/ML INJ IV ONE (14:15)
--- NOTE | 2016-05-19 15:25 | HHI.CCPN ---
Subjective Remarks/Hospital Course 75-year-old male patient with history of bilateral lower extremity DVTs, BPH, chronic renal failure, Elevated Anticardiolipin antibody level, Elevated homocysteine level, Gout, Hypertension, Hyponatremia, Idiopathic Thrombocytopenic Purpura, Intracranial hemorrhage in 2016, Bleeding duodenal ulcer and Ischemic stroke in 2016. Patient was sent to the emergency department 05/10/16 from his oncologist office for rapid a.fib with RVR. Patient had received 2 units of platelets prior. Patient has a history of A. Fibulation, he had to sit down, but denies chest pain or palpitations feeling lightheaded or dizzy. While on telemetry floor he has developed respiratory difficulty and is now transferred to ICU. 05/11: Currently on BiPAP with 65% FiO2. Tachypneic. CXR pending for today, ABG also pending. CT pulmonary angiogram is pending at this time. Remains in atrial fibrillation with rapid ventricular response on Cardizem 15 mg per hour. Chest x-ray from yesterday shows predominantly right upper lobe lung infiltrates. IV Zosyn and azithromycin just ordered. Send cultures 05/12: Overnight remained on BIPAP, required 60% FiO2. CXR today persistent diffuse bilateral interstitial infiltrates right more than left despite adequate diuresis. With IV Lasix patient had > 5 L urine output. CMP pending. Remains in atrial fibrillation but rate controlled. There is concern about opportunistic lung infection including PCP pneumonia. Proceed with elective intubation, consult pulmonary for BAL, D/W Dr. Grace 05/13: Patient was intubated yesterday for progressive lung infiltrates hypoxia. Post intubation Dr. Mondragon was consulted who performed a bronchoscopy/BAL for PCP pneumonia evaluation. Today patient wakes up and follows commands easily. FiO2 40% chest x-ray shows interval improvement. Creatinine yesterday had increased to 1.9, stop Lasix gentle hydration with normal saline 50 ML per hour for 24 hours 05/14: Extubated yesterday, breathing comfortably on aerosol mask. Plt 7000, getting transfused. UO 2.[address] Armenta starting Promacta 50 mg today ( thrombopoietin analog) 2/2: Increasing respiratory distress today chest x-ray shows worsening bilateral pulmonary infiltrates. Hypoxemic placed on 100% nonrebreather with PO2 74. Discussed extensively with Dr. Armenta. Possibility of TTP cannot be completely ruled out. We'll proceed with endotracheal intubation and then place a Vas-Cath. Plasmapheresis will be started. Prior to Procedures 3 units of FFP and 2 units of plasma will be transfused also patient is getting 2 units of PRBC anemia with hemoglobin 6.4. His platelet count is 4000 today After induction for intubation, patient had large biliary vomiting. A small amount of aspiration noted 05/16: Currently sedated on the ventilator. Afebrile. Transfuse 2 packed platelets today. Received plasmapheresis. 05/17: Currently sedated on the ventilator. Afebrile. Transfuse 1 packed blood studies. 3 more PEX ordered. Discussed with daughter at bedside. Subjective 05/18: Currently afebrile. Sedated on the ventilator. Day 1 of 3 of PEX. No bowel movement overnight. Tolerating tube feeding. 05/19: Remains sedated, orally intubated on mechanical ventilation. Objective Vital Signs Date Time Temp Pulse Resp B/P Pulse Ox O2 Delivery O2 Flow Rate FiO2 05/19/16 12:56 99 40 05/19/16 12:00 95 05/19/16 08:00 97.5 16 144/92 05/19/16 00:00 Mechanical Ventilator 05/15/16 09:54 15.00 Intake and Output 05/18/16 05/18/16 05/19/16 08:00 16:00 00:00 Intake Total 833 ml 752 ml 686 ml Output Total 650 ml 850 ml 650 ml Balance 183 ml -98 ml 36 ml Result Diagram: 05/19/16 0600 05/19/16 0600 Imaging Last Impressions Chest X-Ray 05/17/16 0000 Signed Impressions: Service Date/Time: Tuesday, May 17, 2016 14:46 - CONCLUSION: 1. Patchy bilateral basilar airspace disease stable to slightly increased from May 2. The support apparatus is unchanged. Yayo Murphy MD CT Angiography 05/10/16 0000 Signed Impressions: Service Date/Time: Wednesday, May 11, 2016 07:53 - CONCLUSION: 1. No evidence of PE. 2. Diffuse interstitial infiltrates throughout most of the right lung. 3. Scattered interstitial infiltrates throughout the left lung. Markus Guzman MD Objective Remarks GENERAL: Well-nourished, well-developed patient, currently orotracheally intubated SKIN: Warm and dry. HEAD: Normocephalic. EYES: No scleral icterus. No injection or drainage. NECK: Supple, trachea midline. No JVD or lymphadenopathy. CARDIOVASCULAR: IR. S1, S2 no S4. No murmurs RESPIRATORY: Breath sounds equal bilaterally, with coarse crackles bilateral lung rider, and scattered wheezes. GASTROINTESTINAL: Abdomen soft, non-tender, nondistended. Positive bowel sounds MUSCULOSKELETAL: No peripheral edema. BACK: Nontender without obvious deformity. No CVA tenderness. EXTREMITIES: No pedal edema NEURO: Sedated on the ventilator. Procedures None A/P Problem List: (1) Acute hypoxemic respiratory failure ICD Code: J96.01 Status: Acute (2) Pneumonia, rule out opportunistic infection Status: Acute (3) Thrombocytopenia ICD Code: D69.6 Status: Acute (4) CHF (congestive heart failure) ICD Code: I50.9 Status: Acute (5) Coagulopathy ICD Code: D68.9 Status: Acute (6) Afib ICD Code: I48.91 Status: Acute (7) Chronic ITP (idiopathic thrombocytopenia) ICD Code: D69.3 Status: Chronic (8) Respiratory distress ICD Code: R06.00 Status: Acute (9) Atrial fibrillation with RVR ICD Code: I48.91 Status: Acute (10) Leg DVT (deep venous thromboembolism), chronic ICD Code: I82.509 Status: Chronic (11) Subarachnoid bleed ICD Code: I60.9 Status: Chronic Assessment and Plan NEURO: History of CVA 08/2015 Intracranial hemorrhage in 03/2016 -propofol for sedation with when necessary fentanyl while intubated -Goal of RASS-2 -Daily sedation vacation RESP: Acute hypoxemic respiratory failure ARDS TRALI versus pneumonia (Opportunistic) History of bilateral lower extremity DVTs Aspiration pneumonitis - Patient was extubated on 05/13/16, reintubated 2/2 for worsening respiratory failure - Clinical picture is more like ARDS secondary to either infection or transfusion-related - Low tidal volume mechanical ventilation - DuoNeb every 6 hours and when necessary, ventilator bundle - Unable to anticoagulate due to severe thrombocytopenia - S/p IVC filter in 2015 CVS: A. Fib rapid rate controlled Possible CHF (More likely atypical pneumonia/ARDS) - Cardizem gtt at 10 mg an hour as rate controlled. Cardiology -Dr. Murphy - Receiving by mouth 90 mg every 6 hours Cardizem and Lopressor 5 every 6 - Continue To take Cardura 4 mg by mouth daily - Cannot anticoagulate due to severe thrombocytopenia GI: On tube feeds vital high protein goal 40 cc an hour Protonix 40 mg daily. GI prophylaxis. At 40 mg daily -Colace/Senokot/MiraLAX/lactulose for bowel regimen : Acute on Chronic kidney disease stage 2 BPH - monitor electrolytes and creatinine - monitor urine output - Creat improving with gentle hydration Continue Cardura four milligrams daily for BPH HEME: Chronic ITP with acute exacerbation Unable to rule out TTP - D/W Dr Armenta Hem-Onc. Cannot completely rule out possibility of TTP, increase IVIG dosing and start plasmapheresis - 2 additional PEX plan for Thursday and Thursday - Continue prednisone 20 mg daily, 125 mg Solu-Medrol IV daily [address] Armenta. - Promacta 50 mg today (thrombopoietin analog), per Dr. Armenta. - Splenectomy may be considered. - Monitor LDH, hepatic profile and BMP daily ID: Sepsis Atypical Pneumonia -Unable to rule out bacterial versus opportunistic pneumonia. F/u panculture, urine for Legionella and pneumococcal antigen, influenza. BAL studies Pending -PJP stain and bronch cultures still incubating -Continue Zosyn and azithromycin. Started on pentamidine by ID for prophylaxis -ID and pulmonary. s/p Dr. Redding performed bronch/BAL on 05/12 ENDO/FEN: Hypopotassemia History of gout -Electrolyte replacement per protocol Restart allopurinol 100 mg daily DVT/GI prophylaxis - TEDs/SCDs/Protonix - s/p IVC filter most recently in 2016. Cannot anticoagulate due to severe thrombocytopenia and recent intracranial hemorrhage Critical Care: The total critical care time was 35 minutes. Time to perform other separately billable procedures was not included in the critical care time. Addendum: Palliative care team had a discussion with patient's family today and they have decided to stop aggressive care and focus more on comfort measures based on patient's known wishes. Plan for terminal wean when family ready. Exhibits B and C signed. Kirill Corral MD May 19, 2016 15:25
[2016-05-20] MEDS ORDERED: POTASSIUM CL 40 MEQ/30 ML LIQ UDC PO/TUBE SCH (09:00)
--- NOTE | 2016-07-23 07:49 | HHI.DS ---
Summary Note Date of : May 19, 2016 Time Of : 1546 Admission Date May 09, 2016 at 17:07 Admitting Diagnosis A. fib with RVR/CHF exacerbation Diagnosis at Time of : (1) Atrial fibrillation with RVR ICD Code: I48.91 (2) Acute on chronic kidney disease, stage 3 ICD Code: N18.3 (3) Thrombocytopenia ICD Code: D69.6 (4) Chronic ITP (idiopathic thrombocytopenia) ICD Code: D69.3 Procedures None Brief History This is a pleasant 75-year-old male patient with past medical history which includes Bilateral lower extremity DVTs, BPH, chronic renal failure, Elevated Anticardiolipin antibody level, Elevated homocysteine level, Gout, Hypertension , Hyponatremia, Immune Thrombocytopenic Purpura, Intracranial hemorrhage in 2016 , Bleeding duodenal ulcer and Ischemic stroke in 2016. Patient was sent to the emergency department today from his oncologist office after finding a rapid irregular heart rate. Patient had received 2 units of platelets prior to being sent to the emergency department. Patient reports he has A. Fibulation and has never really felt symptoms in the past. Patient denies chest pain or palpitations feeling lightheaded or dizzy. Patient does report this he noticed this morning when he was getting ready, " everything was a short." Patient reports he had to sit down and take breaks while getting ready which is unknown abnormal for him noticed he got short of breath more easily with exertion and overall tired feeling. Plan arrival to the emergency department patient noted to be in atrial fibrillation RVR. EKG reviewed by myself as well as Dr. Bingham atrial fibrillation rate 160 bpm Patient reports he feels as though he has phlegm stuck in his throat which is unable to cough up his benefit as day or so. Patient denies nausea vomiting diarrhea constipation fevers chills. Imaging Last Impressions Chest X-Ray 05/17/16 0000 Signed Impressions: Service Date/Time: Tuesday, May 17, 2016 14:46 - CONCLUSION: 1. Patchy bilateral basilar airspace disease stable to slightly increased from May 2. The support apparatus is unchanged. Yayo Murphy MD CT Angiography 05/10/16 0000 Signed Impressions: Service Date/Time: Wednesday, May 11, 2016 07:53 - CONCLUSION: 1. No evidence of PE. 2. Diffuse interstitial infiltrates throughout most of the right lung. 3. Scattered interstitial infiltrates throughout the left lung. Markus Guzman MD Hospital Course 75-year-old male patient with history of bilateral lower extremity DVTs, BPH, chronic renal failure, Elevated Anticardiolipin antibody level, Elevated homocysteine level, Gout, Hypertension, Hyponatremia, Idiopathic Thrombocytopenic Purpura, Intracranial hemorrhage in 2016, Bleeding duodenal ulcer and Ischemic stroke in 2016. Patient was sent to the emergency department 05/10/16 from his oncologist office for rapid a.fib with RVR. Patient had received 2 units of platelets prior. Patient has a history of A. Fib, he had to sit down, but denies chest pain or palpitations feeling lightheaded or dizzy. While on telemetry floor he has developed respiratory difficulty and is now transferred to ICU. 05/11: Currently on BiPAP with 65% FiO2. Tachypneic. CXR pending for today, ABG also pending. CT pulmonary angiogram is pending at this time. Remains in atrial fibrillation with rapid ventricular response on Cardizem 15 mg per hour. Chest x-ray from yesterday shows predominantly right upper lobe lung infiltrates. IV Zosyn and azithromycin just ordered. Send cultures 05/12: Overnight remained on BIPAP, required 60% FiO2. CXR today persistent diffuse bilateral interstitial infiltrates right more than left despite adequate diuresis. With IV Lasix patient had > 5 L urine output. CMP pending. Remains in atrial fibrillation but rate controlled. There is concern about opportunistic lung infection including PCP pneumonia. Proceed with elective intubation, consult pulmonary for BAL, D/W Dr. Grace 05/13: Patient was intubated yesterday for progressive lung infiltrates hypoxia. Post intubation Dr. Mondragon was consulted who performed a bronchoscopy/BAL for PCP pneumonia evaluation. Today patient wakes up and follows commands easily. FiO2 40% chest x-ray shows interval improvement. Creatinine yesterday had increased to 1.9, stop Lasix gentle hydration with normal saline 50 ML per hour for 24 hours 05/14: Extubated yesterday, breathing comfortably on aerosol mask. Plt 7000, getting transfused. UO 2.[address] Armenta starting Promacta 50 mg today ( thrombopoietin analog) 2/2: Increasing respiratory distress today chest x-ray shows worsening bilateral pulmonary infiltrates. Hypoxemic placed on 100% nonrebreather with PO2 74. Discussed extensively with Dr. Armenta. Possibility of TTP cannot be completely ruled out. We'll proceed with endotracheal intubation and then place a Vas-Cath. Plasmapheresis will be started. Prior to Procedures 3 units of FFP and 2 units of plasma will be transfused also patient is getting 2 units of PRBC anemia with hemoglobin 6.4. His platelet count is 4000 today After induction for intubation, patient had large biliary vomiting. A small amount of aspiration noted 2: sedated on the ventilator. Afebrile. Transfuse 2 packed platelets today. Received plasmapheresis. /: sedated on the ventilator. Afebrile. Transfuse 1 packed blood studies. 3 more PEX ordered. Discussed with daughter at bedside. Assessment and Plan on 05/19/16 AM NEURO: History of CVA 08/2015 Intracranial hemorrhage in 03/2016 -propofol for sedation with when necessary fentanyl while intubated -Goal of RASS-2 -Daily sedation vacation RESP: Acute hypoxemic respiratory failure ARDS TRALI versus pneumonia (Opportunistic) History of bilateral lower extremity DVTs Aspiration pneumonitis - Patient was extubated on 05/13/16, reintubated /2 for worsening respiratory failure - Clinical picture is more like ARDS secondary to either infection or transfusion-related - Low tidal volume mechanical ventilation - DuoNeb every 6 hours and when necessary, ventilator bundle - Unable to anticoagulate due to severe thrombocytopenia - S/p IVC filter in 2015 CVS: A. Fib rapid rate controlled Possible CHF (More likely atypical pneumonia/ARDS) - Cardizem gtt at 10 mg an hour as rate controlled. Cardiology -Dr. Murphy - Receiving by mouth 90 mg every 6 hours Cardizem and Lopressor 5 every 6 - Continue To take Cardura 4 mg by mouth daily - Cannot anticoagulate due to severe thrombocytopenia GI: On tube feeds vital high protein goal 40 cc an hour Protonix 40 mg daily. GI prophylaxis. At 40 mg daily -Colace/Senokot/MiraLAX/lactulose for bowel regimen : Acute on Chronic kidney disease stage 2 BPH - monitor electrolytes and creatinine - monitor urine output - Creat improving with gentle hydration Continue Cardura four milligrams daily for BPH HEME: Chronic ITP with acute exacerbation Unable to rule out TTP - D/W Dr Armenta Hem-Onc. Cannot completely rule out possibility of TTP, increase IVIG dosing and start plasmapheresis - 2 additional PEX plan for Thursday and Susan - Continue prednisone 20 mg daily, 125 mg Solu-Medrol IV daily [address] Armenta. - Promacta 50 mg today (thrombopoietin analog), per Dr. Armenta. - Splenectomy may be considered. - Monitor LDH, hepatic profile and BMP daily ID: Sepsis Atypical Pneumonia -Unable to rule out bacterial versus opportunistic pneumonia. F/u panculture, urine for Legionella and pneumococcal antigen, influenza. -PJP stain and bronch cultures still incubating -Continue Zosyn and azithromycin. Started on pentamidine by ID for prophylaxis -ID and pulmonary. s/p Dr. Redding performed bronch/BAL on 05/12 ENDO/FEN: Hypopotassemia History of gout -Electrolyte replacement per protocol Restart allopurinol 100 mg daily DVT/GI prophylaxis - TEDs/SCDs/Protonix - s/p IVC filter most recently in 2015. Cannot anticoagulate due to severe thrombocytopenia and recent intracranial hemorrhage Addendum Palliative care team had a discussion with patient's family on 05/19/16 and they decided to stop aggressive care and focus more on comfort measures based on patient's known wishes. Plan for terminal wean made. Exhibits B and C signed. Patient was extubated and subsequently on 05/19/2016 at 1546 hours Kirill Corral MD Jul 23, 2016 07:49
== END 2016-05-19 15:46 | disposition expired | DRG 813 ==
LOC: NEPC 15:03 → NEDA 17:07 → HCIS 22:00 → HIME 05-10 23:40
PROVIDERS: ADMIT Internal Medicine; ATTEND Internal Medicine
PROC: 30233S1 Transfusion of Nonautologous Globulin into Peripheral Vein, Percutaneous Approach (ICD-10-PCS; principal; 2016-05-10)
PROC: 0CJS8ZZ Inspection of Larynx, Via Natural or Artificial Opening Endoscopic (ICD-10-PCS; 2016-05-10)
PROC: 30233R1 Transfusion of Nonautologous Platelets into Peripheral Vein, Percutaneous Approach (ICD-10-PCS; 2016-05-11)
PROC: 5A1945Z Respiratory Ventilation, 24-96 Consecutive Hours (ICD-10-PCS; 2016-05-12)
PROC: 0BH17EZ Insertion of Endotracheal Airway into Trachea, Via Natural or Artificial Opening (ICD-10-PCS; 2016-05-12)
PROC: 02HV33Z Insertion of Infusion Device into Superior Vena Cava, Percutaneous Approach (ICD-10-PCS; 2016-05-12)
PROC: 0BBB8ZX Excision of Left Lower Lobe Bronchus, Via Natural or Artificial Opening Endoscopic, Diagnostic (ICD-10-PCS; 2016-05-12)
PROC: 0BB88ZX Excision of Left Upper Lobe Bronchus, Via Natural or Artificial Opening Endoscopic, Diagnostic (ICD-10-PCS; 2016-05-12)
PROC: 0BB68ZX Excision of Right Lower Lobe Bronchus, Via Natural or Artificial Opening Endoscopic, Diagnostic (ICD-10-PCS; 2016-05-12)
PROC: 0B9B8ZX Drainage of Left Lower Lobe Bronchus, Via Natural or Artificial Opening Endoscopic, Diagnostic (ICD-10-PCS; 2016-05-12)
PROC: 0B948ZX Drainage of Right Upper Lobe Bronchus, Via Natural or Artificial Opening Endoscopic, Diagnostic (ICD-10-PCS; 2016-05-12)
PROC: 0B988ZX Drainage of Left Upper Lobe Bronchus, Via Natural or Artificial Opening Endoscopic, Diagnostic (ICD-10-PCS; 2016-05-12)
PROC: 0B968ZX Drainage of Right Lower Lobe Bronchus, Via Natural or Artificial Opening Endoscopic, Diagnostic (ICD-10-PCS; 2016-05-12)
PROC: 0BB48ZX Excision of Right Upper Lobe Bronchus, Via Natural or Artificial Opening Endoscopic, Diagnostic (ICD-10-PCS; 2016-05-12)
PROC: 5A1955Z Respiratory Ventilation, Greater than 96 Consecutive Hours (ICD-10-PCS; 2016-05-15)
PROC: 02HV33Z Insertion of Infusion Device into Superior Vena Cava, Percutaneous Approach (ICD-10-PCS; 2016-05-15)
PROC: 30233N1 Transfusion of Nonautologous Red Blood Cells into Peripheral Vein, Percutaneous Approach (ICD-10-PCS; 2016-05-15)
PROC: 30233K1 Transfusion of Nonautologous Frozen Plasma into Peripheral Vein, Percutaneous Approach (ICD-10-PCS; 2016-05-15)
PROC: 0BH17EZ Insertion of Endotracheal Airway into Trachea, Via Natural or Artificial Opening (ICD-10-PCS; 2016-05-15)
DX: D69.3 Immune thrombocytopenic purpura (principal); J96.01 Acute respiratory failure with hypoxia; J69.0 Pneumonitis due to inhalation of food and vomit; A41.9 Sepsis, unspecified organism; E87.1 Hypo-osmolality and hyponatremia; I50.9 Heart failure, unspecified; D89.9 Disorder involving the immune mechanism, unspecified; N18.3 Chronic kidney disease, stage 3 (moderate); R04.2 Hemoptysis; I48.2 Chronic atrial fibrillation; M10.9 Gout, unspecified; R76.0 Raised antibody titer; E78.5 Hyperlipidemia, unspecified; M19.90 Unspecified osteoarthritis, unspecified site; K21.9 Gastro-esophageal reflux disease without esophagitis; I12.9 Hypertensive chronic kidney disease with stage 1 through stage 4 chronic kidney disease, or unspecified chronic kidney disease; D64.9 Anemia, unspecified; N40.0 Benign prostatic hyperplasia without lower urinary tract symptoms; Z96.641 Presence of right artificial hip joint; E87.6 Hypokalemia; Z51.5 Encounter for palliative care; Z66 Do not resuscitate; Z86.718 Personal history of other venous thrombosis and embolism; Z86.73 Personal history of transient ischemic attack (TIA), and cerebral infarction without residual deficits; Z87.11 Personal history of peptic ulcer disease; Z87.891 Personal history of nicotine dependence; Z79.52 Long term (current) use of systemic steroids
CPT/HCPCS: 31500; 36430; 36514; 36556; 36600; 71010; 71275; 76937; 80048; 80053; 80076; 80162; 82247; 82248; 82550; 82552; 82805; 82948; 83010; 83605; 83615; 83735; 83880; 84100; 84132; 84443; 84484; 85007; 85025; 85027; 85049; 85384; 85397; 85610; 85730; 86703; 86850; 86880; 86900; 86901; 86920; 86927; 87015; 87040; 87070; 87086; 87102; 87116; 87205; 87206; 87449; 87641; 87804; 88112; 88305; 88341; 93005; 94002; 94003; 94640; 94664; 96360; 96361; 96365; 96376; C9113; J0330; J0456; J0461; J0610; J1160; J1200; J1459; J1642; J1644; J1940; J1980; J2060; J2250; J2270; J2405; J2543; J2930; J3010; J3480; J7030; J7040; J7050; J7060; J7512; P9016; P9017; P9035; Q9967